=== PATIENT | female | born 1995 | race Caucasian/White ===

== ENCOUNTER 2023-03-12 09:25 | Outpatient (OUT) | payer BC, OTHER, SELFPAY ==
[2023-03-12 10:04] LABS: Basophils Absolute Auto 0.1 10^3/uL (0.0-0.1); Basophils Percent Auto 0.7 % (0.2-2.0); Eosinophils Absolute Auto 0.2 10^3/uL (0.0-0.7); Eosinophils Percent Auto 2.8 % (0.9-7.0); Hematocrit 32.4 % (36.0-48.0); Hemoglobin 9.7 g/dL (12.0-16.0); Immature Granulocytes Abs Auto 0.02 10^3/uL (0.00-0.03); Immature Granulocytes Pct Auto 0.3 % (0.0-0.5); Lymphocytes Absolute Auto 1.7 10^3/uL (1.2-3.8); Lymphocytes Percent Auto 23.5 % (20.5-60.0); Mean Corpuscular HGB Conc 29.9 g/dL (29.9-35.2); Mean Corpuscular Hemoglobin 22.4 pg (26.7-34.0); Mean Corpuscular Volume 74.7 fL (81.0-99.0); Mean Platelet Volume 9.8 fL (9.5-13.5); Monocytes Absolute Auto 0.4 10^3/uL (0.3-0.8); Monocytes Percent Auto 5.9 % (1.7-12.0); Neutrophils Absolute Auto 4.7 10^3/uL (1.4-6.5); Neutrophils Percent Auto 66.8 % (43.0-75.0); Platelet Count 411 10^3/uL (150-450); Red Blood Count 4.34 10^6/uL (4.20-5.40); Red Cell Distribution Width 20.8 % (11.0-15.0); White Blood Count 7.1 10^3/uL (4.0-11.0)
[2023-03-12 10:19] LABS: INR 0.99; Partial Thromboplastin Time 27.5 sec (22.3-36.2); Prothrombin Time 10.5 sec (9.0-11.6)
== END 2023-03-12 09:26 | disposition home or self-care (01) ==
LOC: PST 09:30
PROVIDERS: Visit Provider Otolaryngology
DX: Z01.812 Encounter for preprocedural laboratory examination (principal); J34.89 Other specified disorders of nose and nasal sinuses
CPT/HCPCS: 85025; 85610; 85730

== ENCOUNTER 2023-03-24 10:45 | Day surgery (SDC) | payer BC, OTHER, SELFPAY ==
[2023-03-12 09:55] VITALS: BP 113/55; PULSE 77; RESP 14; TEMP 36.5; O2SAT 98; BMI 26.9
[2023-03-24] VITALS (9 sets, daily range): BP systolic 102–121; BP diastolic 60–79; PULSE 63–101; RESP 15–24; TEMP 36.1–36.4; O2SAT 93–100; BMI 27.4
--- NOTE | 2023-03-24 | OP_ITS ---
OPERATION DATE: ??03/24/2023 SURGEON:? Andie Parr M.D. PREOPERATIVE DIAGNOSIS:? Left nasal mass. POSTOPERATIVE DIAGNOSIS:? Left nasal mass. PROCEDURE:? Removal of left nasal mass. ANESTHESIA:? General endotracheal. COMPLICATIONS:? None. FINDINGS:? 1.5 cm pedunculated mass of the left nose consistent with a hemangioma, attached at the left nasal valve. INDICATIONS:? This 27-year-old woman presented with a large, periodically bleeding mass of the left nose causing nasal obstruction. PROCEDURE:? Patient identified in the holding area and taken back to the OR where she was placed in the supine position.? After induction of general endotracheal anesthesia, the face was draped in a sterile fashion.? The left anterior nose was prepped with Betadine and lidocaine 1% with 1:100,000 epinephrine was injected around the base of the patient?s mass.? After waiting adequate time for hemostasis, a Bowman tip Bovie was then used to excise patient?s mass at its base.? Hemostasis was then achieved with suction Bovie.? Antibiotic ointment was placed over the incision site and the patient was awakened and taken to the recovery room in good condition. JAIME
[2023-03-24 07:51] LABS: HCG Qualitative NEGATIVE (NEGATIVE)
[2023-03-24] MEDS: LACTATED RINGER'S SOLUTION 1,000 ML 1000 ML IV (07:52)
[2023-03-24] MEDS: LIDOCAINE HCL 1%-EPINEPHRINE 1:100,000 10 ML MDV INJ (09:59)
[2023-03-24] MEDS: BACITRACIN OINTMENT 28.4 GM TUBE 1 APPLIC TOPICAL (11:00)
== END 2023-03-24 11:23 | disposition home or self-care (01) ==
LOC: SURGOUT 10:46
PROVIDERS: Visit Provider Otolaryngology
PROC: (CPT 30117; principal; 2023-03-24 08:50)
DX: D18.01 Hemangioma of skin and subcutaneous tissue (principal); J34.89 Other specified disorders of nose and nasal sinuses; E03.9 Hypothyroidism, unspecified; R04.0 Epistaxis
CPT/HCPCS: 30117; 36415; 84703; 88304; 88311; J2704

== ENCOUNTER 2023-10-23 07:15 | Outpatient (OUT) | payer BC, SELFPAY ==
--- OUTSIDE RECORDS SUMMARY | 2023-10-29 15:03 | XMS_ITS | CCD ---
Author Organization [facility] Care Team Providers Care Plumber Apprentice Name Role Phone DE, DR ANDERSON Attending Unavailable JEFFASIK, DR ANDERSON Consulting Unavailable DE, DR ANDERSON Admitting Unavailable MISC, DR FITZPATRICK Primary Care Unavailable MD Servando Crouch Primary Care Provider [phone] MD Kanu Mcghee Attending Provider [phone] Servando Crouch Primary Care Unavailable Taz, Kanu Mccormack Admitting Unavailable Taz, Kanu Mccormack Attending Unavailable TAZ, KANU Mccormack Admitting Unavailable TAZ, KANU Mccormack Attending Unavailable KANU MCGHEE Referring Unavailable KANU MCGHEE Admitting Unavailable KANU MCGHEE Attending Unavailable VILLALOBOS, REHAN Admitting Unavailable VILLALOBOS, REHAN Attending Unavailable TAZ, KANU Mccormack Admitting Unavailable TAZ, KANU Mccormack Attending Unavailable MD KANU MCGHEE Attending Unavailable MD KANU MCGHEE Admitting Unavailable VILLALOBOS, HERSON Admitting Unavailable VILLALOBOS, HERSON Attending Unavailable [place], Cyrus Gudino Attending Unavailable [place], Cyrus Gudino Admitting Unavailable [place], Cyrus Gudino Attending Unavailable [place], Cyrus Gudino Admitting Unavailable [place], Cyrus Gudino Attending Unavailable [place], Cyrus Gudino Admitting Unavailable MD KANU MCGHEE Referring Unavailable MD KANU MCGHEE Admitting Unavailable MD KANU MCGHEE Attending Unavailable MD KANU MCGHEE Attending Unavailable MD KANU MCGHEE Referring Unavailable MD KANU MCGHEE Admitting Unavailable MD KANU MCGHEE Attending Unavailable MD KANU MCGHEE Referring Unavailable MD KANU MCGHEE Admitting Unavailable MD KANU MCGHEE Attending Unavailable MD KANU MCGHEE Referring Unavailable MD KANU MCGHEE Admitting Unavailable MD KANU MCGHEE Attending Unavailable MD KANU MCGHEE Referring Unavailable MD KANU MCGHEE Admitting Unavailable Problems Active Problems Problem Classification Problem Date Documented Da te Episodic/Chronic Other complications of ; puerperium affecting management of mother (1 source) Anemia complicating childbirth; 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 Chronic Unclassified (1 source) Encounter for other procreative management; Translations: [Encounter for other procreative management] Onset: 05-20-2022 Past or Other Problems Problem Classification Problem Date Documented Date Episodic/Chronic Immunizations and screening for infectious disease (1 source) Encounter for screening for human papillomavirus (HPV); Translations: [ENC SCREENING HUMAN PAPILLOMAVIRUS] Onset: 11-01-2021 Episodic Other screening for suspected conditions (not mental disorders or infectious disease) (4 sources) Encounter for screening for malignant neoplasm of cervix; Translations: [ENC SCREENING MALIG NEOPLASM CERV] Onset: 10-29-2021 Episodic Results Test Name Value Interpretation Reference Range Facility Nursing Assessmenton 023 Nursing Assessment [id number] #1.00CD:127 [facility] Delivery Summaryon Delivery Summary DATE OF DELIVERY: 02/23/2023 The patient is a 27 year old, III, Para II, 0, white female who presented to Labor and Delivery at 38 weeks gestation complaining of painful regular contractions. She was found to make cervical dilatation and was admitted for labor. Her had been complicated by the fact that it was a surrogacy and some anemia. She had artificial rupture of membranes, labor in an occipitoposterior position, eventually required some Pitocin augmentation which allowed her to make gradual progress through the rest of the active phase of labor. She reached complete and complete and pushed through the second stage of labor spontaneously delivering an 8 pound 4 ounce male with Apgars of eight and eight. Arterial cord pH was obtained. The placenta delivered spontaneously intact. The uterus contracted down well. A second degree laceration was repaired with 3-0 Polysorb suture in anatomic fashion without difficulties or problems and both mom and were doing well in the Room. Cyrus Osborne M.D. lupe Dictated: 02/23/2023 [id number] Transcribed: 02/23/2023 [facility] Comment on above: Result Comment: Elec tronically Signed By: [place] SANTANA, Cyrus Gudino\.br\Date and Time Signed: 02/25/23 08:36 EDT CBC w/Indiceson 02-23-2023 Erythrocyte distribution width (RBC) [Ratio] 17.2 % High 10.9-14.2 [facility] Comment on above: Performed By: #### 2 [id number], [id number] ####[address] [address] Hematocrit (Bld) [Volume fraction] 25.2 % Low 34.0-46.0 [facility] Comment on above: Performed By: #### 2 225741, [id number] ####[address] [address] Hemoglobin (Bld) [Mass/Vol] 8.0 g/dL Low 12.0-16.0 [facility] Comment on above: Performed By: #### 2 [id number], [id number] ####[address] [address] MCH (RBC) [Entitic mass] 21.6 pg Low 27.0-34.0 [facility] Comment on above: Performed By: #### 2 208157, [id number] ####[address] [address] MCHC (RBC) [Mass/Vol] 31.7 g/dL Normal 31.4-36.0 [facility] Comment on above: Performed By: #### 2 119834, [id number] ####[address] [address] MCV (RBC) [Entitic vol] 68.2 fL Low 80.0-100.0 [facility] Comment on above: Performed By: #### 2 434209, [id number] ####[address] [address] Platelet mean volume (Bld) [Entitic vol] 7.8 fL Normal 6.4-10.8 [facility] Comment on above: Performed By: #### 2 142986, [id number] ####[address] [address] Platelets (Bld) [#/Vol] 321.0 E9/L Normal 150.0-500.0 [facility] Comment on above: Performed By: #### 2 206260, [id number] ####[facility] [address] [place] [address] RBC (Bld) [#/Vol] 3.7 E12/L Low 4.3-5.9 [facility] Comment on above: Performed By: #### 2 224806, [id number] ####[address] [place] [address] WBC corrected for nucl RBC Auto (Bld) [#/Vol] 22.5 E9/L High 4.0-11.0 [facility] Comment on above: Performed By: #### 2 747562, [id number] ####[facility] [address] [place] [address] Discharge Instructionson Discharge Instructions [id number] #1.00CD:127 Normal [facility] Inpatient Clinical Summaryon 02-23-2023 Inpatient Clinical Summary [place] [id number] Clinical Summary Person Information Name: KAE VIGIL/[facility] Age: 27 Years : 1995 Sex: Female PCP: Cyrus Osborne MD Marital Status: Phone: [phone] Race: White Ethnicity: Non- or Language: Portuguese Visit Id: Visit Reason: CONTRACTIONS Speciality: Acuity: DD Enc Type: Inpatient Med Service: Obstetrics Arrival: 02/22/2023 14:30:32 Discharge: 02/23/2023 10:40:00 Dispo Type: Home (Routine DC) Address: [address] [place] [id number] Provider Notes: Diagnosis: Anemia; [place] product of in vitro fertilization (IVF) ; (spontaneous vaginal delivery); Surrogate Problems Active Surrogate (12/01/2022) Smoking Status: Never Smoker Functional Status: Sensory Deficits: History of Falls: Mobility Assistance Prior to Admission: Independent ADLs: Independent Current Level of Assistance for Self-Care/Mobility: Cognitive Status: Allergies No Known Allergies Laboratory or Other Results This Visit (last charted value for your 02/22/2023 visit) Hematology 02/23/2023 7:33 AM Hypochromasia: Present RBC Morph: See Morphology Ovalocytes: Present Microcyte: Present Hct: 25.2 % -- Normal range between ( 34.0 and 46.0 ) HGB: 8.0 gm/dL -- Normal range between ( 12.0 and 16.0 ) RBC: 3.7 E12/L -- Normal range between ( 4.3 and 5.9 ) RDW: 17.2 % -- Normal range between ( 10.9 and 14.2 ) MCH: 21.6 pg -- Normal range between ( 27.0 and 34.0 ) MCHC: 31.7 gm/dL -- Normal range between ( 31.4 and 36.0 ) MCV: 68.2 fL -- Normal range between ( 80.0 and 100.0 ) MPV: 7.8 fL -- Normal range between ( 6.4 and 10.8 ) Platelet: 321.0 E9/L -- Normal range between ( 150.0 and 500.0 ) WBC: 22.5 E9/L -- Normal range between ( 4.0 and 11.0 ) Blood Bank 02/22/2023 5:00 PM ABO/Rh: A POS ABSC Gel Interp: Negative Measurements: Height: 62.50 cm Weight: 80.5 kg Blood Pressure: 130 mmHg / 83 mmHg BMI: 206.08 kg/m2 Procedures No Procedures Documented Immunizations No Immunizations Documented This Visit Final Med List: ferrous sulfate (Slow Fe (as elemental iron) 45 mg oral tablet, extended release) 1 Tablets By Mouth every day. Refills: 0. ferrous sulfate (Slow Fe) 45 Milligram. ibuprofen (ibuprofen 600 mg Tab) 1 Tablets By Mouth every 6 hours. Refills: 0. levothyroxine (levothyroxine 25 mcg (0.025 mg) Tab) multivitamin, (Classic ) Care Team Members: Attending Physician: Cyrus Osborne MD Consulting Physician: Referring Physician: Follow up: With: Address: When: Dr. Osborne [phone] Within 6 weeks Comments: Call for any problems. Patient Education Information: ibuprofen Normal [facility] Inpatient Patient Summaryon 02-23-2023 Inpatient Patient Summary [address] [address] Patient Discharge Instructions PERSON INFORMATION Name: KAE VIGIL Date of : 1995 Current Date: 02/23/2023 10:51:58 PHYSICIANS Admitting Physician: Cyrus Osborne MD Primary Care Physician: Cyrus Osborne MD PCP Comment: Discharge Diagnosis: Anemia; product of in vitro fertilization (IVF) ; (spontaneous vaginal delivery); Surrogate Condition at Discharge: Stable JEREMIASINÉSGRACIELAKAE N has been given the following list of follow-up instructions, prescriptions, and patient education materials: PATIENT FOLLOW-UP INFORMATION Diet: Regular Activity: Expect mild pain, Expect minimal amount of drainage and/or bleeding, Activity as tolerated Wound Care Instructions: Remove Your Dressing IN: Days Call Your Doctor For: Persistent or heavy bleeding, Temperature above 101.5 degrees, Persistent vomiting IF UNABLE TO CONTACT YOUR PHYSICIAN AND YOU FEEL IT IS AN EMERGENCY, GO TO THE NEAREST EMERGENCY ROOM OR CALL 911 Home Treatment: Devices/Equipment: Special Services: Additional Instructions: Physician to provide the following pending test results: None Follow up: With: Address: When: Dr. Osborne [phone] Within 6 weeks Comments: Call for any problems. In the event that this physician does not participate in your insurance network, please consult with your insurance company to find a nearby participating provider. Comment: YARITZA AponteGRACIELAKAE Edgard, have received the attached patient education materials/instructio ns and have verbalized understanding. Patient Signature Date Clinican/Nurse Signature Date MEDICATION LIST New Medications [facility], [address] [phone], [phone] ibuprofen (ibuprofen 600 mg Tab) 1 Tablets By Mouth every 6 hours. Refills: 0. Last Dose: Next Dose: Medications to Continue Taking That Have Changed [facility], [address] [place] [phone], [phone] START: ferrous sulfate (Slow Fe (as elemental iron) 45 mg oral tablet, extended release) 1 Tablets By Mouth every day. Refills: 0. Last Dose: Next Dose: Other Medications START: ferrous sulfate (Slow Fe) 45 Milligram. Last Dose: Next Dose: Medications to Continue with No Changes Other Medications levothyroxine (levothyroxine 25 mcg (0.025 mg) Tab) Last Dose: Next Dose: multivitamin, (Classic ) Last Dose: Next Dose: Pharmacy Information: [facility]- PATIENT EDUCATION INFORMATION Instructions: Medication Leaflets: ibuprofen (EYE bue PROE fen) Advil, Genpril, IBU, Midol IB, Motrin IB, Proprinal, Smart Sense Children's Ibuprofen What is the most important information I should know about ibuprofen? Ibuprofen can increase your risk of fatal heart attack or stroke. Do not use this medicine just before or after heart bypass surgery (coronary artery bypass graft, or CABG). Ibuprofen may also cause stomach or intestinal bleeding, which can be fatal. What is ibuprofen? Ibuprofen is a nonsteroidal anti-inflammatory drug (NSAID). Ibuprofen is used to reduce fever and treat pain or inflammation caused by many conditions such as headache, toothache, back pain, arthritis, menstrual cramps, or minor injury. This medicine is used in adults and children who are at least 6 months old. Ibuprofen may also be used for purposes not listed in this medication guide. What should I discuss with my healthcare provider before taking ibuprofen? Ibuprofen can increase your risk of fatal heart attack or stroke, even if you don't have any risk factors. Do not use this medicine just before or after heart bypass surgery (coronary artery bypass graft, or CABG). Ibuprofen may also cause stomach or intestinal bleeding, which can be fatal. These conditions can occur without warning while you are using ibuprofen, especially in older adults. You should not use ibuprofen if you are allergic to it, or if you have ever had an asthma attack or severe allergic reaction after taking aspirin or an NSAID. Ask a doctor or pharmacist if this medicine is safe to use if you have ever had: ?? heart disease, high blood pressure, high cholesterol, diabetes, or if you smoke; ? a heart attack, stroke, or blood clot; ? stomach ulcers or bleeding; ? liver or kidney disease; ? asthma; or ? if you take aspirin to prevent heart attack or stroke. Ask a doctor before using this medicine if you are or . If you are , you should not t (more content not included)... Normal [facility] Morphon 02-23-2023 Hypochromia Auto Ql (Bld) Present Normal [facility] Comment on above: Order Comment: Order Added by Discern Expert. Performed By: #### 2 620404, [id number] #### [facility] [address] [place] [address] Microcytes Ql (Bld) Present Normal [facility] Comment on above: Order Comment: Order Added by Discern Expert. Performed By: #### 2 950399, [id number] #### [facility] [address] [place] [address] Morphology L[place]h (Bld) [Interp] See Morphology Normal [facility] Comment on above: Order Comment: Order Added by Discern Expert. Performed By: #### 2 897018, [id number] #### [facility] [address] [place] [address] Ovalocytes LM Ql (Bld) Present Normal [facility] Comment on above: Order Comment: Order Added by Discern Expert. Performed By: #### 2 968072, [id number] #### [facility] [address] [place] [address] ABO/Rhon 02-22-2023 ABO/Rh Positive Invalid Interpretation Code [facility] Comment on above: Performed By: #### 2 619387, [id number] #### [facility] [address] [place] [address] ABO/Rh History Checkon 02-22 ABO/Rh History Check Verified Hx Blood Type Normal [facility] Comment on above: Performed By: #### 2 719444, [id number] #### [facility] [address] [place] [address] ABSCon 02-22-2023 ABSC Gel Interp Negative Normal [facility] Comment on above: Performed By: #### 2 648026, [id number] #### [facility] [address] [id number] Blood Bank ID#on 02-22-2023 BBID# [id number] Invalid Interpretation Code [facility] Comment on above: Performed By: #### 2 967184, [id number] #### [facility] [address] [place] [address] CBC w/Indiceson 02-22-2023 Erythrocyte distribution width (RBC) [Ratio] 17.4 % High 10.9-14.2 [facility] Comment on above: Performed By: #### 2 799845 #### [facility] [address] [place] [address] Hematocrit (Bld) [Volume fraction] 25.2 % Low 34.0-46.0 [facility] Comment on above: Performed By: #### 2 617528 #### [facility] [address] [place] [address] Hemoglobin (Bld) [Mass/Vol] 8.0 g/dL Low 12.0-16.0 [facility] Comment on above: Performed By: #### 2 725993 #### [facility] [address] [place] [address] MCH (RBC) [Entitic mass] 21.5 pg Low 27.0-34.0 [facility] Comment on above: Performed By: #### 2 055775 #### [facility] [address] [place] [address] MCHC (RBC) [Mass/Vol] 31.6 g/dL Normal 31.4-36.0 [facility] Comment on above: Performed By: #### 2 378174 #### [facility] [address] [place] [address] MCV (RBC) [Entitic vol] 68.1 fL Low 80.0-100.0 [facility] Comment on above: Performed By: #### 2 571161 #### [facility] [address] [place] [address] Platelet mean volume (Bld) [Entitic vol] 8.1 fL Normal 6.4-10.8 [facility] Comment on above: Performed By: #### 2 215540 #### [facility] [address] [place] [address] Platelets (Bld) [#/Vol] 343.0 E9/L Normal 150.0-500.0 [facility] Comment on above: Performed By: #### 2 244252 #### [facility] [address] [place] [address] RBC (Bld) [#/Vol] 3.7 E12/L Low 4.3-5.9 [facility] Comment on above: Performed By: #### 2 868150 #### [facility] [address] [place] [address] WBC corrected for nucl RBC Auto (Bld) [#/Vol] 14.9 E9/L High 4.0-11.0 [facility] Comment on above: Performed By: #### 2 958990 #### [facility] [address] [place] [address] Consent for Procedure/Surger yon 02-22-2023 Consent for Procedure/Surgery [id number] 0#1.00CD:127 Normal [facility] Consent for Treatmenton 02-07 Consent for Treatment [id number] 1#1.00CD:127 Normal [facility] Consent for Treatment [id number] #1.00CD:127 Normal [facility] Insurance Correspondence Off iceon 02-22-2023 Insurance Correspondence Office [id number]#1.00CD:127 Normal [facility] Legal Correspondenceon 02-22 Legal Correspondence [id number] 1#1.00CD:127 Normal [facility] Recordson Records [id number] 1#1.00CD:127 Normal [facility] Vaccinationson 02-22-2023 Vaccinations [id number]# 1.00CD:127 Normal [facility] Group B Strep by PCRon 02-19 Group B Strep colonization by PCR Negative Normal Negative [facility] Comment on above: Performed By: #### 2 134533, [id number], [id number] #### [facility] [address] [place] [address] Physician Orderon 02-17-2023 Physician Order [id number] 2#1.00CD:127 Normal [facility] Physician Orderon 01-14-2023 Physician Order [id number] #1.00CD:127 Normal [facility] Physician Orderon 01-07-2023 Physician Order [id number] 2#1.00CD:127 Normal [facility] Coding Summary.on 12-01-2022 Coding Summary. CD:[id number] Ww+PGhlYWQ+II8NUAHbT 32dqRYyuR1aJ1TCBDxIX ywgQVBQTElOSyIgbmFtZ P9ilRVtUIWa IC8+NL2fIFQmZawidJCc y1O0vIX4E34elq7pTBnu jPR1OAQgXeBzqhmrb4ns sBp6KGxnGaauIsVy DRPvyW16CAG5rK59Ob48 jQXepWMnh9bfhUr5AwBv GQGxKGO0sZetTBrca8Tf VFPiB86bvNZqd1A7 IGNvbGxhcHNlOyBlbXB0 hM6oWAvzqasqz9zfwctp Ojr3by10pCZlo0R1wPB3 E4YngdI6GSOdfJMc FbovnPGUwM3vbydul6rs yphmRmNqQNJjLDi6GPq8 SUXdpBzpAzScRZ77UGU1 KCLxyxYfA3YuFINr dZymMhK3m3Z9Fx9OU0LX VgcgG9EISIXMRVunmNR+ PT43zu35C7IjVbewBfx7 JABqFSR5mWC9wG4g DXCiUYaro2P9zFX0H7Wp bsBrqi9dq8aoLFLyGVjs T19zrNZtc3G9RTBecPI8 CBEzlUbiPvBkqS63 Oyc+EBGzqPupt4YzHtlq g6ukj4ekgAi8QnwpQMQt ekJjpCqiWLI4v4BlBb1c SQHebCD3eMU2iU6z EzCkIiC5UTkvM923MxPo kZJeBosuH54kL4HefWT+ MSPiOna3WTDicDeuRH4l P3YgTEUnfgijvUPg xSesHW8uSWOrvbtyVIGf pV3qMWBqH9d2UnHsUyG4 LMbnY7OxSNKvrimySd42 wF5aXnKbOxT0NMwz P4IzulD4RFDysTQuCKah CJP1V50zo2T6YEOhOWJq PCH0dNE9yK0yxPdrldjt bGVmdDsgdmVydGlj SWwwKUoaL083AHSvcPpl PkNvZGluZyBEYXRlOiAg MDQvMjQvMjAyMzwvdGQ+ SILcSRR9dAflFCOx xCNbXOofWu2zeRsejAku DI5sUPKpncabHSNojQ6t THFiwOIsyInqXX2aEJGb taeus901MaLkLXJ6 JNOdpSCmS9XlbU4oMdHk ORMpAVGkC6TnxJHfRSuy H155VVwbNuP5GBOhjhFn Y4DhYOPcuTkkNvT8 x4Z9Nx0Xo9QjgvohO2Ym iSWwRxViEusdYCg1R8Te PjwvdHI+QM85LEVbMW29 DRt9YUB4vQusAMjv ARAiT0BuuC0pWtLiAZUw ZGRkOyc+PHRhYmxlIHdp ZHRoPScxMDAlJyBzdHls EH5yEb4bFWEqLQTz aZayrQQwTvFhz3rbEYOf CYmdFE9hyCjzN2FggAP5 BHZjh7a1Ws15N23wW9Ot dXA+FFQwtKN8jGZ4 mZ8dDlWdZcO4REtmW077 QhIrlPFySfotr3nsa2dv wCi5GbZ9GQRrvrFzoFpn UTH6z6RsSe85N93h IHdpZHRoPSIxNSUiIHZh pWggaw4smV7vWy4+PGNv oHL9jST5yN9wXaSaNtD7 ONqgH719FnSwpEEe Ounua3bhq7jvoSs7LnLm UGFhsoMmfRfoQKY2x8Af Ok08G2SzaSumb0KhCmf3 wl53qDVgr4H3sJX3 L6OoAQFdeymquLElbRhl TL8aVTWmvwmiPOHytY1x TAZhC3q8QrWeHyV4BDym E9QnheF1FKXqiQYx CQFzgQCRyU0gjltmc4da jksvZlFjVVIlXHn3UEi0 YPTqaJwwFqLbEPR0UjM8 RWP3kPFeyN4wlIbs exfvtW4uYch+JAB5xASg aMQZXC9wZvonkDJ+PHRk AXK5eNonGDoqICYwvC6u VGDeZ1i2PtEnUdY1 FVypV8HxksB1GNQufHLr QKUqsHJBaF1gqhyxz1wg jhefGhKaDYEqLFg0REo7 LWFsaWduOiBsZWZ0 GlS7CVN4kLCuqB3olUkk zzgpoL7jNhz+QmlydGgg CVD5PHv8N3YiAdf2OKQq eDpmYT1seXKjOAly Ay6kpCmrsDxbXD2sNRVo pefaz743MeBkh8brSLIt xTOoTDnsFVE9A65gm8A8 DDZjWMLdLHP8xPH2 zX9ovHxuokudfSYyrWtd teNnmWxtPLzyIOgsA892 CHJlfVkuOjSkUGq7M6Tf Fhp0NJQvrKdyHX9u hDAaDAvoCz6btUdchAbv TV8gBBNwiujwa322NdNm z6ovFXYrmIIfYMzaBGF4 L37eo0V7KSRlCLYf WOP1yPW1bX6jzOcaigwk bGVmdDsgdmVydGljYWwt SVkpQ311JMStgUvvPzVj oYs8D6PxWhq3DFCk eFfgNO0ngATfFFauVs8d pFcpyRpmTO8qZUMsjrki p827BaTwz3muGYBdkOJd UWjrLNV9G18cr4H6 TNRlAFZuZON8jRN7vA9n bGlnbjogbGVmdDsgdmVy hRzmAQpkIHviT964QWCu cDsnPlBhdGllbnQg QOkyUFv3S8FkQchrwIN+ XJ79DWGnQK95iAHpqUWu t1rodGe5SjXlZYJhTTU5 aItjXTgpj3PdOVHl U07mxQUix8O4MUJmrWwh sLPcDbXyiTU5nX9rAJpu huulm5kvknvdGjadg1hh wj85vC59U03wJHsi ZHRoPSIzMCUiIHZhbGln gf8hzD1wQc9+PGNvbCB3 nDE5cS3mSMPiXkP0ZGfb D639YePqnVCqFpwo m4smv8szySf7MeB8UUIs bkWzeCjqFEF8w9BkHx06 J65gVSetZDArOQWcVNIe YZKpjKljhh2bbX7z Ii8+WGDyvQG6zVL8mT8m QzAlXuR8SFagU514WrGe jMHrGayxE61oE9RliDZ+ VEPeSpy6NLTemAge TR2brLZqFTaePa1mYEK2 EyKlLwSmIVgrA1JgAJIq ukamfnnnsFX0TONeKODm aE54Ib3cvBfrLXYh fNIPwE7lydlge0eqjoic QyYtQQIbMNf2MMt5UPZr oTqpYiBiZBS2VyF2XRR2 fHJedU0qwSpinozt rX2jA0MsJMQeierfRn07 wU9iMwIpOoE1COjhSuk+ FuJIN1veQFcOGUGIAlEw TjwvdGQ+PHRkIHN0 xCspQWvaGVFcwX2iMKRh N7q6DfTfAvH7PScaF1Jc RWUynfmwKk81eQ3pMvUm QxZ0DUmpJ5FnpgR8 XMJajCXuMLnuZCH2S91l t5Z0TGAeFLEeUSU2gBS9 tY0cdUykoawecVFmvCjf dmVydGljYWwtYWxp Y371QEKgnGszNcB2IxC9 ZpF6OKY7J4EfBwx7DECb yGdvIM5xeVDyPHtpLh6q uFzbmMtjNZ9rRCMh hakkTFAygI1kBHQsrPAw gDlhUR6fHJEntethg356 HlVzDOA1QNDrgBNzD3Ef lT2xRhHcXMSoGWVu W2RynXAdHHnmO887UQth UeJ4ASJbqjMgA4XqMFFf cZynYnN0a7A3Qy2uSeFS ZWFyczwvdGQ+PHRk BLV8yHzsTLyaEYMapH4i YEJcY2v4QsTfPfS7UGzc X5YtPHArdbvkDf61eU2i XkVjPlI6GJlcF4Qz qqK2QRMboHPrAIgbIVZ6 V19wg1M8PISyULMeRBY2 sSI1oM2vwWhzcbbxbFZe dDsgdmVydGljYWwt OJlnY505JIUpsYeqCcKy bWFsZTwvdGQ+PHRkIHN0 bYhvMBzzKFZaxN1nLATk V0t9MiEhSzX2SJpf E1QfXKMmzcfrKo99vB5u AkEoRrS4BKpsK8MhzfX9 VKXbgFOjODdyPPL7A49d t9K3VEZxUJStJWN0 zKO1pW0avNtfsumjePZu dDsgdmVydGljYWwtYWxp W473CTWmkFjsVx84wKXh wJzqtlH2M1FrFusc dHI+NP42MMCzQZ82eCUv kNGxh5pkzTa9SdYqZTQt HAE3lLdfMOplv8GyDODl P34gjBSnm7Y0GMTh rNjuqUSaRgZtkYK0yE1z TKamkjkct4pvjvumJdsj n5fswt83zU06J56lZSxk ZHRoPSIzMCUiIHZh qMqvnr5xpZ1rYp7+PGNv eWB9nEN4iV9iIxXcAvW7 VVmbK329GsKzzHOpGhsu c1mkt7estYr0OnKm JISvjaEtsItuMPC1w6Qc Ob20I60lVHukGYDaOWTi MEDmRAXfpCpqrr4oaH2d Ii8+SO0cq5gpib09 bB13iDU+BRDkAFS9cEmf WWzkAEXyfL3qQNodTdO9 ALKsCrOjnJ92gQOvPBrq Iz1rvOoxkSuhZR9s YWBnhqwdq712GxJom0dj KHDymNZlXRqqSYW6X45l c6D0DPLcYDJwNKS3kWF7 eB2nfTvbxgzgwCSb dDsgdmVydGljYWwtYWxp K869PCIibLfzQvIgqUWs X3jrigHSPH3qUufbsEW+ XSIyVDV0lBdwLJpn PQRzyH6vZORyO9p0HlBs QpX9ZIddV4AfrpV5UZOj fNBsKMSnpMXUqM3ntnul r4dxaepnJpOhHHLj NAh4WQn8QRNubTqjWeSk XCU5TmM4CZH0zYBxzI5e xEcxoznuoH8dEie+RklO OjwvdGQ+PHRkIHN0 nAzaRCwhQZAxxH2zGVOt U1k7WcXpQuD4GZxkZ4Pb muN4SUFjwBZxBLEwrYGZ uS4ljueqm6oncxuz EcFtBHIlUTn1OVp9ORYq cHynIdCzCDB6PkK0GEL7 qNEuuM1qsBeyqwxotM0j Oyc+TVJOOjwvdGQ+ LFWdOWQ9eFitVDagQYZc eQ6oNHCjS5r1SoHcVoW9 CVcfI2EwjiW0TXQvcNCf IHIysYHFgE1uwswg y7jajayuIdZgWEAdQJa6 TOn1IFHyrCyqMlZqBPH7 EeE8DNS7dYCpjV8usJcx nbcsyT7zLld+UGF5 DZQ7XF20NG34J6AfKwej dGFibGU+PHRhYmxlIHdp ZHRoPScxMDAlJyBzdHls ZI4hDy4vKEKjOHCo bGxhcHNl (more content not included)... [facility] Coding Summary. CD:[id number] Ww+PGhlYWQ+ZP4MXTGvW 18wtDFjdS9mB9OKICqSN ywgQVBQTElOSyIgbmFtZ V4jtJFjJYQk IC8+HC5eWJYfEuoulUGi n8Y9tFW9G21jgs2xKEuu wZF7QHScSyXnzzdxv5fa iSv1ANprYkbeCzYc PHAxmJ37TCM6zE25Mr11 qWMxyUHfy1tauYp9LtVp XTGaXIM4uMsyJMlje4Ja QGRxC26qvDZlx3V9 IGNvbGxhcHNlOyBlbXB0 mP3xGJgdrmpxc0lmdkpm Bcd2wp17xXBub9U7eZP4 R1JynhS7HOLsbFSv GgxaxZWKhY4ajfodf2rl eineSbMkMVApEUw4FMo5 TLGwkPnbQmHxWD39IGI1 RPJzdkWkA2WbJZDp zKqsMnV1y7A1Gr2GB0WL AkqlZ7VCXCBLUCrikET+ AD98hj08Z2IeTlskMvc0 RZIoSZX6kPW1kI2l HAIsNRnbl1S1xNM6G2Xu xgWjaz3dq8lnFWElVPfh J54ziZAuz4Y4STQkkUE6 GAFraUirExMszB59 Oyc+YFEejVyig1VcAddw o1qjv1zbyGs3LqqeLZFg oqFpzAruXBN8v1AqMn2b CCCwkLG7rOA5dS5k SnOuLkL3XTgwD539RfZr fGTiMofgV71lU5SqgXA+ EFZnSjq7OKRtyAlcUT7i B0OlBKAmgxjeaDCx aUdlQS5tHAXoffewHPEq jE7oZKHeQ1f4JuTvWxY9 NXhoD8VnYVZgdyibFf13 jW1rFlQiSlS1QXtw Y8KuwvV2UDAppKLcDXjk HUX0G00fc1A0CFZjBUAw GWO2nLJ4xF5haSrfsyxr bGVmdDsgdmVydGlj FBriSSelR190EFPrjLqx PkNvZGluZyBEYXRlOiAg MDQvMjQvMjAyMzwvdGQ+ OMIuLPO1vPiyGCRe tFFsGYheOv7zrPpgbFcm ED0kUMOqvktyROZdgB8k CMFtlIKahGmpBB7tWXQp twnnc996PxFkDPN8 QQJrmFFwE7SiyF5aXhAa JGOcTVUbI7OgcAEcSVeh Z879ENuaPfQ6FROwoqLj I6RfMQXpaUatKgW8 j8V8Nr1Pq8DbpzjsQ8Ow gNItDlUaQbmjXSb1Y7Cf PjwvdHI+IS78USLlGH70 SNb3HHK1mRchVAiu TKAoR1GfgS9lIaNaGDGs ZGRkOyc+PHRhYmxlIHdp ZHRoPScxMDAlJyBzdHls SZ8dVm2lSGZtGAMh bBbuhPSvYsPum1bhIZNa TKapDX9fdJedO9GmgRK9 QNUzd0x6Ke52D90pG7Ek dXA+GFJzkDE7sDM7 cJ7vWfPpRxB4DRrqN658 UeNddHEjVmexv4gny7ws dNm5YfF5KDEtbbKetZoh UHZ7s1EvSq59Y69n IHdpZHRoPSIxNSUiIHZh pUifoj6mwE0zBy4+PGNv kQF3xUT7pA1fTeXcNfY7 MUppU066PkVbvXUk Gvvgz0xfj9qucAo1IdEc GEVaykXzuFnbQSG9z3Wb Bs31C4JxfWmev8VvThj8 il52iYUwa4A2mUC0 J0LiQXEjoobwsJDonFhe MX7sYXIlgvstRFLthT0z NTRpH5m6WkEwGgW9RLza R4UnddI0INRdsQRm OYVmmGTLvH2nurnel2hl nozmDxEzVJGxKJn8FZo1 ZXOhjZzmFqDnWDL0KoW3 ZXM6yXDqsF4giNjz turzzX9nCvl+CED4cIJl fBELAO9eVfkmcSZ+PHRk HQD5pKxjNZmxSCPmyC4k SQLzF0e5AyQaEnG2 BBmoE6SzroB2WRJlrEGa CCEajRQQnP1chziyw2gv sahrQtIyFCBuKUq3GTc6 LWFsaWduOiBsZWZ0 NtT8RQX8dTGatY4tdBon uckukG5hCip+QmlydGgg HFL7JTx7G3DiCok8TEMn sRdcPI4ioKZqSQzp Lq0tpFpofYbdCO8hCLTt pcitw178LmHqw6suODVv zHOgIPxwKJP9E14cj9J2 QYBvUDRiEQZ4vVC8 cU4vpViegllmsQHjiUux nvAyrLgrOPtwTHwqB161 BIVenUnbMwDgACi8T8Xs Crx3QIAgoLzlOM9f zBKgWHevDq2wmPpzuEgk TQ0yEBNbxtgww174NqKf e5ooFORxvMGuOEkjTGU2 B81ub1J0XFAgJLYz OXA7mEG1iP5igMzyiody bGVmdDsgdmVydGljYWwt FPyqS666SLHilDlxWtDj nLu9L6WzZsi2AEUs uRhmPZ8hnUYlUYzdVg1g kTwdgDqgTI8pYJYsyrww a921KxOgl3jxMVVbnQKq ZZdqLGV8G38th6A9 XRRyKINbNBL0pDT5jV9p bGlnbjogbGVmdDsgdmVy iWmeTUurPBnqT101YMMk cDsnPlBhdGllbnQg HVpmPUh4J4OqDxkqdCU+ FK39MWOoOF04tDQppUOq v4oqhAh1RoQfGKTaWBG4 yTbwGFonq0WcPJBr S75cmLOux5S9CUIohJad zCSkZrKroIY1yH0kZEfc exbfs4bkuiriTwfsx6op hg93yN96V59uXCoo ZHRoPSIzMCUiIHZhbGln wh8qhE0rAc9+PGNvbCB3 eMK5wQ8vGOXlStM7WAlh M810NjUchFPwRemt u4tkd5omfRy1PiW7EUKi acPlvWtmWZI0a3AzMe38 C80vHTgjRQTgSIWlBQSg DIMfhWenww9cpG6h Ii8+RYPxnQB7fHK1cV4g EaNbWiQ1XHmuR994DtWu bFLzDoqeI82lI9WycHX+ WCTuTjn3AMVacKfy KB8keNVtZVgzJu6eZOA1 AgPfXpPwZWyuV5VnCMId nskldzmntPW5BGLoSDCx aF44Ji3aiYuiYYQd dMLJxC7csxpkf4ausfrj UjObLITjXLf2SBx4UTPa uDwtGmFqMTJ7OaW9CAA6 mCMiqT0ntZuiuifj gB8iO3PoFBYxordfNp79 oD5mTtFoZyP8KXckUxp+ ZnQOL3zeLLfUZANICvYz TjwvdGQ+PHRkIHN0 eTkgRRyvAXBopD1mONIv S8b1WjZkLfA7FYlhD8Wa ZNIjflsmHp16xL0dKrIy NrX9FAiiI8MlfyD2 VSChrDCvMCbjRXL2M37p w5H7YVInNRUtHQU1vPE8 sY4vfGhogzqxzAHcvIkq dmVydGljYWwtYWxp C319GEIqpHkiLzS8IhL0 FxE7HHT5X9LcJim3PAVc lTdfIO1szTBhSGmeXh0p rIteyXfbJL0oXNBz nzixIPTegQ9tINTcwCMq hQovYN3zBBBqfxcfy915 GoJuXTQ5BQRxiEXqM2Fp sF2yBmSnAXVcMGFi G6OwbENgOKwiY338UFmx GhQ3PVIilhJlU7VuURWk uFseRyG3i0U9Cu7aMkHF ZWFyczwvdGQ+PHRk HJY8mUzqAFvlSXEbtO6m XUYxR2z7McAxPyM8OYpe G5TnGNYyvhtrMa66xX5t XnGiGpV5EFhwI0Jo ldU9JDVwlALuTIerVGV7 W58ij8Q2GMRqNIRzASS2 eVU1zV1omIksvfonvZIr dDsgdmVydGljYWwt CSlzH532VHRhzNobCiMt bWFsZTwvdGQ+PHRkIHN0 cMfpOShzYOZpxD6pFNVa M5a5PqChAhS7OPsa A7EpPBLaczqcLs23iS6y FkHpZaZ6RDgoM4JaojI0 XPPehQDcWMhqLYO1R03h b2F2ECLyMTHsXOR0 aZQ7yZ1atJcdignhgSFe dDsgdmVydGljYWwtYWxp K990GKOuqUsbKv32nMBm kRwcejH5N6PzLbeu dHI+JS78YDYoMS03yHMz xZJfj0lqdEq3NoOcSMQd UYB1nMlnXSgox9HfYKBa E70cqRYtl4B0TIHk wRionTYsCkYfbXU1cJ2i TDomvharb9hldiptJfmt y9qodg46hA97I58fYPet ZHRoPSIzMCUiIHZh rNfyrx1ygC1bAc2+PGNv fIS4wQF8oO0dMdNmVlQ4 YPewL167LgDjwFZwYrxd b7zrd1budZn4DvWb DDYnwmFsgKbaPYR1h6Ps Me30A37sCAqcWIBnPIKg GUPfPWXsuHrpqr1gtG7d Ii8+TY3el2tvrp73 bQ90iSR+XRHrEJI6uSyb VIjqNXZalN5gGDtsAzM2 UCAnXyEcnZ01hHZeIJaz Yi7cuMdbzYhhAD0o HCSohxkug398BySfp8ee WRUlqVRzRMqrBCP4C19l x3N4MRSwGVOmNIX7tLV8 uT8iuWsayxwtjSUz dDsgdmVydGljYWwtYWxp V661RNOzaWglKjYiyRTz Y9wapuOSDE4hQquyhSK+ TSRwAWR4dGdaZMge PRXooV0oGNSzG0x3IfEn DhT7ZXhzY6EsppX0XSEe zRLgHFYsvUMTwA5hqcrs b9oghbjkNlHaJWTh GXg5LFf7ASJbnSvvNdNa KQD5XpS9INT2bQQttI0b kObnbykjqB2nGch+RklO OjwvdGQ+PHRkIHN0 lGslYDuiLRYlpE7wOZUa V2w3YcCkTyB1SQkwQ9Ox paB4LHGgfKBgFYYmrJEZ qC9rknvko5ggzdkj JtBdUOXmEZa2UAt3WZEk wGlzNvWnHJO6WoL6SSI0 qTMqkT1rnOfiijucbC6q Oyc+TVJOOjwvdGQ+ SMLwNKS9fTooBNgjGOUz bD6uUSSeK2o3IaTcKkA3 BTlkU5KeuuE1VISmkPHz NBKslSUPxL5dcaes d0dzofvqFrWqESNhRUj9 QAv7AIKwxFdjAfSzUWK9 IyL0RGE8yEChbB8vrYzk afipoH9hBvk+UGF5 JWF7DC21KX88M2EsLeqb dGFibGU+PHRhYmxlIHdp ZHRoPScxMDAlJyBzdHls CQ1sQm9gZVPhCACg bGxhcHNl (more content not included)... Normal [facility] RPR with Conf Rfxon 11-28-19 23 Reagin Ab RPR Ql (S) Non-Reactive Invalid Interpretation Code Non Reactive [facility] Comment on above: Result Comment: Perf ormed at: [facility] [address] [id number] PhD Rick Lee Performed By: #### 1 [id number] ####[facility] [address] [place] [address] Consent for Treatmenton 11-08 Consent for Treatment [id number] #1.00CD:127 Normal [facility] Gest Scr Glu 1 Hron 11-26-19 23 Glucose [Mass/Vol] 79 mg/dL Normal 55-140 [facility] Comment on above: Result Comment: Posi tive Screen =1 HR > 140mg/dL Performed By: #### 1 [id number] #### [facility] [address] [place] [address] Hct & Hgbon 11-25-2022 Hematocrit (Bld) [Volume fraction] 27.7 % Low 34.0-46.0 [facility] Comment on above: Performed By: #### 1 [id number] #### [facility] [address] [place] [address] Hemoglobin (Bld) [Mass/Vol] 9.0 g/dL Low 12.0-16.0 [facility] Comment on above: Performed By: #### 1 [id number] #### [facility] [address] [place] [address] Physician Orderon 11-25-2022 Physician Order [id number] 0#1.00CD:127 Normal [facility] Physician Order [id number] #1.00CD:127 Normal [facility] TSHon 11-25-2022 TSH Qn 1.99 m[IU]/L Normal 0.34-5.60 [facility] Comment on above: Performed By: #### 1 [id number], [id number] ####[facility] [address] [place] [address] Coding Summary.on 11-24-2022 Coding Summary. CD:[id number] Ww+PGhlYWQ+WW8TDZGyN 69qnZEbnM5tZ0JVLMyJJ ywgQVBQTElOSyIgbmFtZ W4joTSqWMUy IC8+XQ0aBGBbJzfrgIWn m2P3iQU1O10cbr3oRAtg qBN5KNVqVbKuijrcc5sn jEl5WFoeNuhySmWf GAXgmE69XMJ7wB14Nx08 nDMhvPNyf0cggNj8CgKz HDNnAZE7fNphILpfk0Jj XRYlG43nlNCks6R2 IGNvbGxhcHNlOyBlbXB0 nG9jPSjcdvrkg3fntvrl Xyc7wb65yJUar6U7cFR1 Q6EoalP4IHIazWFf RlkkjREZjX4pxjnjk9aa kmovByClQFOmEXe7USo2 JQTpgGcgZpRuDR32YJK6 YSAebtUiH9JpPWJo tMwqYgV9r5U0Fn0ZZ7QL EtwzM4QASDAOWTvbwPF+ JE14ws32H5CrQwyrIrs3 VHAnGDC5yUU1oD0u DSXqAZpex1I3vGK3F3Do hbDfsa3lz1ncYWPoWGun U60saNBew4O8YFLdkHB6 TOSwnWepMlDdoL35 Oyc+RRIxvIedd1VnRoxh m8ivh5dktHx4PsnkHXWe xgPawItqEXP9e3LyGp9p FQIjeDI4nPM6zJ5r UyXlQyM3QZhfY146DvYp dOShMhxuA30gD0SyqLB+ MNHwPyi2JXRieHyvUO7a T6LlVHDksszruYFw sOosTJ3bYWPwlkqyPTVl nA8pPMEmJ3c7NkUbObJ5 HWewE8HaNQYdptynNb18 zN7tIfYlJeQ1ODad D9HarrD4UGPioQVwQDrf XDQ1K08my3S5NLWzWZVp TCU4nFN7rJ6cfMjkxvxj bGVmdDsgdmVydGlj UNjwDYkvH915RNDcmOvp PkNvZGluZyBEYXRlOiAg MDQvMTcvMjAyMzwvdGQ+ AUBuLRW3zBzhQBQc iFJpTRitRl2ihOisuQfv VF5lPODfofrhHXHyrJ1n DSCmbTHrfCzgWA5gXZKc etmjm317DhAwILH8 MOLtrBKzG6TnsV2gLtGh WDHeZMXzO1AgaTShEYov R729ENofRoR8UCZpblSo T1IhPYNzxKpbEcF7 q4V6Vk7Nn5KietseO7Jj iOTxVmYsUsvwCZa1L7Ef PjwvdHI+II61IVWuSU55 UPs0ANV1vKleXRlr WHJyZ1XieV7nPnIhDMVs ZGRkOyc+PHRhYmxlIHdp ZHRoPScxMDAlJyBzdHls OC4cRg9oDKFxFYVp vDdzxIMuUoQsk1hrDFDc PQazEM2trRwlY9KkhEG5 DBClc5x1Vn46F44lH2Xh dXA+JCTbkTK6bRL2 eA7bUzDxJwC3FRujI876 NcFscSLtLamwh8jow5cw pEo3ZuB8DAApdaGkuIky WEX3c3MuKc30Y27x IHdpZHRoPSIxNSUiIHZh dGfcch2htV8cSr6+PGNv cLY8sHM9iK9kAvSbEyM7 KMsbA434PzHczBQi Agfoz9krx8dwkAs8YhSq VIIkwiTtnLjyHVJ8i9Pk Gt45R2IoyRsti8AxCey1 gw67wMDho7N7jTF1 C4NdUFPghfdpzXKveHvf SI1sSZEfzguyAMUzjN1i WGSiZ6k6CxChRpH2ZWke W0EjetB1ZTDsiRXb XHQfvHRNmK2gnuvir2sh zigcKrSwJSQpFJk3UJk2 LZSonLvgCiBlPTN3RrN9 UTX7qFHfhM8xlPuk kqrhtM8yOka+CLV6pQRm qKUBTP3kXfxqeRB+PHRk YBE2wHmtXBnrFPOrsX7j WXGdG8w4SeOaExL1 KMueL0WejuK6GZZqyBKp MRKiyHRDdB7rwkkws9ef zbybCoBvZDTqKKm0UYg8 LWFsaWduOiBsZWZ0 OaC1KIZ7zPZdjE6ysUzc ngztnH2gGzm+QmlydGgg LZM3UUd7T2RuXnt9NHPn uThzAZ6ksDSbFAxg Xg0cxOjztZwyVM6cBBZt tinoc257PyGjx3hrHYGk aBKiFZeaOGM5M69fm2P5 IGAfEXCeFEV0dMK2 sG3gjUenrdljlITetLre avNeqDsnOXayHEvjR791 WQBfaBpaBwUfOJm6V6Tg Dgz3SGTfaGomLJ5u lESvEXnxNf4giTwymWzt NU1kHBXihjone468OeFo e4wpTOPzoFYnBRxhYAR8 S14zf3J2RCUmFKSv LFQ8aZQ8eX7bvJnjbhul bGVmdDsgdmVydGljYWwt RIgkZ449NDItiUraByWt mBl5L0NiChh4RBUo vOumRY1jzVYsDWfzAe8p uVdcqFfsOJ0tLPDbxusj p634UkNdf2nbWJYreHGl YSwxGDM5M66wi0C4 ENOaZOFlLYQ1qFU1nX4v bGlnbjogbGVmdDsgdmVy qFhaNSlwLWduQ312JYZp cDsnPlBhdGllbnQg VGifLZz8K6PtDafmrPM+ YF05VLCeCW25mIWopGEd q4ntkXl6KkFgITIcZVR4 oFxhVMwrd3BdOVOj R71xtFUfz2D6EFOtsPeu uDOaCcUmlQA9fA3qBDpy vryil4baiwmoIdhkp6jq ce83gS89S36zAWoh ZHRoPSIzMCUiIHZhbGln lb2raB7nDd5+PGNvbCB3 nJB0hQ8lAKUoZsM9HYbf Q316ApKjuMUnDguw m7xms6egeEn7NgD6XRIb nhLemBspONL2m5YsSy73 G40fERdlGGJhLOYiMOPz YPUzvVhfxz8mkN6u Ii8+PPSfeKW2fJD9eB3h SmDkNpE4ZJplC147UgTc yQFeNytrN80nZ3IwtVQ+ DRMjMld0PAIsvRyt JN4xgFIiIMevHu5wMZH6 FbReUbOfSBieQ5SkYAWi xzmxavuscEZ1UECkUTHp uF63Ct8xrUnzGWFq yAABnF3qkproq1llfofy FkGpVYXjODt6JAf4DUKs kVomXbRgNGX7VyA2FIA1 iGEsgX1qtQaijwno bN1fJ8YnFNWyhbaeLa70 oZ8zRmRdVuY3EGrwVim+ AaMIR9yyMTxZESOEJmWx TjwvdGQ+PHRkIHN0 oPafYSusLNQicP3rFQWx K5u8TaRoBgV3YZjrV5Vd UKVleqyhEg16xM1gHsTu UpI2UYwlU3IhbjM7 GKNdqGHbNOmlBLG8H10l r4H0PYSbBCOqIXL3dPZ3 kT8grYzyrnzbdZWvkDym dmVydGljYWwtYWxp G857PUFclJvvVbA4NlG2 DbI4AQV5D3HvCgm3HNNo zJzlAT8bnSVgPJztRb8i uLahuYpuBP2kECYa perwQQGlmA8sHKNfnOBk bCcwUB5wQIAldivyp181 OjXrRSB0PDSrgVJnP4Ga yU3sIzLrEMOeBSNo P0DoxLUsFEvqS995DFbd UqY7VBOieqRzV8QwBNNt zFmqOkF2i6B5Eu8eObJN ZWFyczwvdGQ+PHRk SOI9bOuhVSoaSYOerX6n DPErB2r8IsDaCcK5YYbb W3ZkVYUhzrakBs84aG9v NoPnOtH5YOoxV0Kh ctO1ECFfbMXeYBruOCA0 T47tw7T3VCZyNAPeTWF5 rQR8aN5kxQlnwghkdNZq dDsgdmVydGljYWwt EXmgP553GCPbgXdfMkWs bWFsZTwvdGQ+PHRkIHN0 aItqUJryGRSfzV6zQTJw X2z4FgNkGjJ3QYvp L4VdNJSpgvgqOl72bT0m AaPyTaQ9WZgvL2SsbmH1 HLWwtZKxSNeqHFG9R39r r3U3PBRkJFFdXFI7 lUB4sU8foTubegpljKIt dDsgdmVydGljYWwtYWxp K123IUIacZyjLu64pVKg mKaujeI8C4FqNvqc dHI+SI07PEEtDP88gGTv lYFbh1mqyKq5VkUrQNMi MQL1eLvjQZlnz7EdJZBs K45rxLDmd7O8KCNy nCzfxWLvKwGajHI9bS0z HGvhfgfpc5pcpjdbKctm r6hkkr88oC72P12vFRxr ZHRoPSIzMCUiIHZh aNrpse7woH8qDi6+PGNv fAE7iHZ1tD1hSaGgLvR5 FThnY430QrMvlBUmCive p1ofv9enmKp7LdPz ATWqoyQraMwxYCM8p7Cu Kn60M69oRPelMRIxSMQl ISGbQKBtoSyawv3vfM0s Ii8+RQ2vp5htnv56 lR05xDH+FFZzVUF1yJor LRmtFGCxsP7bXCjfHnJ8 QHCjEyNreD90lNReRSuf Cz6dfPldgXakKD9w ABJzzsosn519YcMvw9gq MLGtjIZpOMikGDG0Y88w h8E7WQTzAUEoTVF8tPM7 fB4nwTqwuowmgRFd dDsgdmVydGljYWwtYWxp T682LSSobYhfHgLbhPAm R5oqkkJPAY6nFmyhmOU+ QPPlXZZ1jRptWZod CZAozW7nUAHeY6s6SnJw HpU7OJwwP1ByokA9AXUt bXFlEDXvxHCFcD9xzogd z2dludixUkVjVIBu XAf1HKo4RIKvuLalQrTw KSN7GrZ6LWP9wABdrA8l hIpjthxdsQ3mZcx+RklO OjwvdGQ+PHRkIHN0 sUrqMKfxWJYbtU0pATTw T1q1RpQbZdV2MXynS1Jc keA5GIValZSkLVOwvQZD rT6zefgeo6mhkyat IjZqFAAzSTt4CFs1FSTs bRpaRlJaBVW9ZyP3KXD1 uCMqrR9ooVcncefcpA9x Oyc+TVJOOjwvdGQ+ WHNiJBL2bUtgZCenXZUm yH4fAQOfO6o4NcYkViV9 MXvaF0UikjW8JZZadNNm KZLpqZANzC4gqcaq y7lpfpnpSaWsZGRhPVr7 NGu0ZVClvCkiZhNqRLD7 YtH7NNV0tHHzwZ6tnAbl rbjhoB6jDfk+UGF5 TUD7QG89YT56R9NgIjny dGFibGU+PHRhYmxlIHdp ZHRoPScxMDAlJyBzdHls HN6tUm5uUYRbVLKm bGxhcHNl (more content not included)... Normal [facility] Physician Orderon 11-15-2022 Physician Order [id number] #1.00CD:127 Normal [facility] Coding Summary.on 09-03-2022 Coding Summary. CD:[id number] Gh0bWw+PGhlYWQ+PE1FV LVxV45mlSYvhF8UF0vJU R1XYPSIEWNAVQ0PBF0kn VE9XIzrH9QrkyRn FgwfkFArCH59JTm9UAV9 nZfpUHnrnE4ktGEvY6s2 LlMqKM12aC69XXwdVZWq RqQ0LxPfauozbQYv O9mbPpBfgOUdQuz+PHRh YmxlIHdpZHRoPScxMDAl WeOpzNhrYE4uCn4jKTRj LWNvbGxhcHNlOiBj b0lpGMCcSQvaZR0tmJgg G4DtlEA3AGFvd8v3Gg45 dHI+XHPeOWD2sCcrOMuo f277QuBtu8kdLUE0 nZZcGSstMLK1P26de7G3 SSDjTLJyFGF7gUD3dT7w dCqvdgszD1GohCIdSiL3 UBZ3sRJxxB3zjIqh efxkcS2dPra+T97AWS5J OSCDJT1PGhw7V5DjBqjr dHI+CK18XGLtFO10kCOr jHMuq8tzoBq6UnJu IOIkYOG2uOetQKuuy0Hx RNJvN41knDOfm4T4CNZi dUfuqDAzNsEuzIU9xM1z GFtvspjcy1gliwrw Mzaxg6yaea98mY81N33w QXziBQEkXZN8HIJoMAMi dYvxrg9vlE1pGj0+IDxj t3vjn2txsIc8SgSz WIQwyeDpvWmkOWU9i6Qi Dm22Y5KjgGorm2PwFio6 ln09wQIgn4Q0cXP8BMlc UWOlkR9xLOcrPyY7 UZTdOxSiuJ23fTIdNFfg Cq9siTfklRtcCT3gYVBg gpqlLSSytC2sCKOwoEVb eOypNQ2mRKArasnz u648CfWxZVL9URRyiEBw P6KziQ9pUdShANHxNERk F4NjlZClGEigF482CTxh LsH4ZRYchwGdK1Yk CDVtlDtdWcD5l2G4Ry7C o3CunfivRGD1XNjwMJVx QwS5VcWnKbD0W9DeZqb9 XIVhtIumHQ9nP2Iq RUFzyfpqpckbhZS9GHFz WLJkmP23lSXsEYpoTp9z d9E2s391CZSdNVTcbI27 Cr3iyEfhBCRahLWE fK8otibcb3ehattrVzIq INBkZIx2MCf7LLGngFdd RwEzIWE5XeO2WSA4lFMn dV3xoYydicwgnO1a Oyc+K90diL8dTKU4AWI7 azmsGGZfriOdJT67OH21 Z8ItBnqbpJZceDF+PGRp onKhcJdwEY9qHmId m7rrv4YqOZtyI2WxUMNs KLeePsb3DZQbLXI0pZB1 kT4uDFNqZCzgf0H1zCH3 L3AugwZoyp7rj3lm MYOqOFzjT90yrSJrn7Y8 HXZnhBX5SDRlhGdvQqJe vR02Byc+JLKlsUoff2Rb Eddfm2hzk1onkXk8 IjMwJSIgdmFsaWduPSJ0 a7ArSk55F48zYMebSPSj MPXiDOXfLVQegKimdf9o fB5xEn5+PGNvbCB3 kKI4oY7bLEGmWqV3IVoc P762VmTdmZMuAcdea4ou f3cbpDz7BeMrMIYdpwCq hZkrCLC1n7FdJs40 G82vIYpoQJYvLZLuFJKf RVJcyLufzf3zhG4yBz3+ TK2xu1nnmt04zC10pBV+ BLQpYPZ4lHwzVGeu QJKysW2aWJmwIuK4CTIo OgMphN65pJXkQZnhCf1l sQfovFjvAO9dCDFajlwx o786JgGxe7rxPUZh nBBiYHmaNNI4R46ab4B2 RWPzRUBlWPS0rFG7dD8h bGlnbjogbGVmdDsgdmVy pRiqKGljOAauL088 IHRvcDsnPlBhdGllbnQg PuAmFIf5T4UkVxb4VIVf vCqdQU3zaQVhRGzkKv8b qDedqEnkBQ5kUTNy ljung406LlCra6krTQTk nMOtZEozNEM6L29yw0G9 UDYpVHNyAJL2aOO0lT8m bGlnbjogbGVmdDsg rlYbjQjvZGjcBJsqY588 IHRvcDsnPkJpcnRoIERh qVK9AL10CV29cPUwf6X1 aRI5X0BsZZCruavq bxrivDQ6VSZzWKXuyP47 Db6bhJvmId3vSIBqJCN2 BKTtrZLvS6VskL4qBrAz PHUqGVXvD8PauKWz OAkiU794HXarBjL2YKDt thXnO4WcPNTwiUbcGnM8 m1V6On7AN9X1FP81FT21 uOLlh1C3gHH2W8Yh UQCwfiawcuelkIF9ZAGx XLPxmC06Ap1tpTohKi3a UKNzPYH8MDCxoTOhL6Zx fY8gAeDhXCShFUEc N2XttJBnVTgcP483HKcz NrF2PWQunjUxY2AcMFPh fSrtXgM1f8C7Id5LWWp6 IP24SW26rEDgo2K1 iZV8A2XbFDAbxokrzkws pOV8FAQrHBReaF64Oc8k pLrzQx3yPNYnIUL3USQe rVUbB4VqnQ6dNiQx KXJgZZAlK3WylIFlIXnl Z536KEouJwG0HIQylfJo C0GoFYZqtNeySvK5h5O8 Wp4LPAZfQJ79IJH7 xGS5SB55WZ08P3KrOhdi dGFibGU+PHRhYmxlIHdp ZHRoPScxMDAlJyBzdHls RW9zIc4wZQSvNXXz dEauxLBbUlOes0oaDSDl AZtzXG8blUyrP8IqhIV4 KARwi2r4Ku75K67zN2Or dXA+VTJtjUI6yZP5 eM8yFzIcEcW6CBlfI182 OjAvpUAwStmfm4vle6gr bFb0FvS5SGIilcRinYow IJR6x2YxAb09O03u IHdpZHRoPSIxNSUiIHZh iYfzjj7jhK9oVg6+PGNv nCN0bMC8fX4sSkJvWmR4 AMlyW359ZmHopRBv Kqbgi4djo3mwxIk4NgDa KMObtvLqmRchPTA8i1Pw Gh27Q5RgvFbgh9WyAvi5 om27kACdn0Y4eKQ0 K8OiLWZsgpmhwJXlhXbk GF5pHGVgcilvVNBceT2j XRLtE8i9HbXhIsR5EHaq T0TgleZ5YMGjkIZg EVgjGOF7U37lg5I5DXNt UTWoPRI3hEI0yE3hfTfq bjogbGVmdDsgdmVydGlj GGifRDgyT229XXFh hYhdDBEphX9zHVImvVXk pHqnXR7rEUPpzttgEhTQ NaNKYSVLWQACMU1EEQ09 X0QjGsr5ERKiwCmj MB0ijNBbUAcpWu0yaUqy nNfeNM4bKGKibwrsUVTn dX4aVOIjcNGfyIpeQM3n HYWamqikf194BtWh ATR9HBFewWOkD8XvxL2l UgXqCYSuKBAvR0RnkVPr UPstH059VUivEhW9RNFs tcHpX9YyTQKhdInd PwP5d6H6Ir1qWI9gFz3q ZZr0TJ43IF14aKZxg1Y5 gEH1P3UgLATanfyemiwb eRT9CIOyVPKvoL88 zVNtPKbcYz5us3Q9m157 BNAmWZSxjO46Pi0djGbq IRDhdPWHcK0npfhao2nw cjogIzAwMDAwMDt0 WDm5UXEybNtwLrBgSMN9 IeR8TSL2iLKkoT1oxEwz bkkedV7kUez+MjYgWWVh suU6X7CxGsh5DUEg aUbuBP4rjBGtTBlgTa3i cDtfgNqvKX6fGBRrsxwv VSQnbV6aPOBtjXLyyMsw MK3bVJLmhwwir656 BdSvXSH8OAMofYGpD9Vu tJ0yKiTuOQHpVEUlK0Hh pZGwCXtpA620YYzuNjM9 YGWxbnWpM4HqIQLi hJwtZlC6h4W3Ko2FKC1w lVV1V0EfYwg3LVKszJfw UR8pwPQiAGmpDk9okIuj jJbrJK8yBWFaohmt TLHanT3gCAOvsSQdfAbh MW0oNNQpbhjkz089WhUp LCD2LWFwuTWhI1LdpD2z AcWiITXaTHFeQ3Fj lHUeIVszO196WNfxFwN2 VEJadcCkS2FxLCHszHcp UdC3z6L6Cs8ZkKUfUYNi SK40KX63LD54Y6Sk PjwvdGFibGU+PHRhYmxl IHdpZHRoPScxMDAlJyBz fJjbMZ4cRx6eZDBqHPOo eBxmvHSwAaTnv4yj CNPgKGgrWB8kxRniK9Hm jYQ7ABNne9n4Uo56R59z V4QfyVG+QXDfoFW9kTU1 fF7gFsJuRvY3QWju W488TeDviPRkNiela5vm h7dqmCz9JaTfHBIpqaCs bKksZOA3g0ApJe32N09u IHdpZHRoPSIyMCUi NTTzuAplxd1zoH3jAq8+ EVZqwVP6kVP4uX7hMcDo XaP5JXbtG370NyLzgKVx VhkxD54eW6GhuPS+ ENTaMgk3ETEklDqdCU8o xGPjMHhjSn2xAVM1KiNx ZoVbJMdsV9FtYMGsaacw ejqmjEF8DRBiQDGh tX44Ov4kuEuaZj3iVWKk QMJ7DHAodEEzR7PlhY1c AuVvQTCuQXExK9KbqSVf NOeaQ059CQltErO3 USMbwwHfY6LhMNFxyWgr ClU4t8X7Xt8SlTgmlYSw JG4jNtRpBWs9N1ZwAah0 JTWceKujNM7pxJVz UWqqLf1heOayiNojFE0u DXAgaztzu111StKdo3qr HZBowEDgYMshYPF0Y81s e7Q0BTUuHAPxPFT9 wJZ5xZ9mgGtgrqslhTYf dDsgdmVydGljYWwtYWxp B365JULdhUqjNrWIIiy4 Z4FvKgi3DKDuzKth RP8zfFSlSAhjJt4blOnn rPwhBN2fANMjhuiub443 GgNwy5enAZPnwSJoBTrn HTX6G31xj2M5MAVs ASAgJQO0pFX4kP6byXvj bjogbGVmdDsgdmVydGlj WOarBTgsM590FYUfpNax Jm7RNqa4F7UbQsl8 FACbsWhkPF2zyGHvZAdj El4zxXboeDgqHS5xQAZm sxskn551TeIlf0buIXZm zBSbCCksPXV9V57w j4H9MAYnZEMrYVH2nDF1 cV4yqYulmwbusWOlaIjb ciTcoYyvFNhpHWktK184 IHRvcDsnPlBheWVy OjwvdGQ+AQ85xe19L8Bi MfokRzo9OVZvVZN3fIX9 hC0qEUJjNTytz3T3kNS2 I4RnarOrpl9pz7hs YXBz (more content not included)... Normal [facility] Estradiolon 07-29-2022 E2 [Mass/Vol] 1530.0 pg/mL Invalid Interpretation Code [facility] Comment on above: Result Comment: Adul t Female: Follicular phase 12.5 - 166.0 Ovulation phase 85.8 - 498.0 Luteal phase 43.8 - 211.0 Postmenopausal <6.0 - 54.7 1st trimester 215.0 - >4300.0 Hebert ECLIA methodology Performed at: [facility] [id number] PhD Rick Lee Performed By: #### 2 [id number], [id number] #### [facility] [address] [place] [address] US 1st Trimesteron 07-29-2022 US 1st Trimester Exam Date/Time: 07/28/2022 19:50 EST Reason for Exam: O09. Report IMPRESSION: SINGLE LIVE INTRAUTERINE CORRESPONDING TO Composite Ultrasound Age: 8 weeks, 4 days, +/- 1 week. APPROPRIATE GROWTH FROM 07/18/2022. APPROXIMATELY 2.5 CM LEFT OVARIAN CYST. NO OTHER FINDINGS OF CONCERN IDENTIFIED. EXAM: US 1st Trimester, US Transvaginal DATE: 07/28/2022 CLINICAL HISTORY: O09.. Gestational Age by LMP: 8 weeks, 3 days COMPARISON: 07/18/2022. TECHNIQUE: Transabdominal and transvaginal ultrasound was performed of the pelvis. FINDINGS: A gestational sac remains within the central aspect of the uterine body/fundus, without significant surrounding subchorionic hemorrhage. Hilbert Rump Length: 1.9 cm, which corresponds Composite Ultrasound Age: 8 weeks, 4 days, +/- 1 week. The estimated date of delivery by measurements is: DONNA from average ultrasound age: 0703/05/2023. cardiac activity measures approximately 167 bpm, without visualized arrhythmia. An approximately 2.5 cm simple left ovarian cyst is again noted. There is no significant free fluid, or other findings of concern identified. FINAL REPORT Dictated: 07/29/2022 10:23 am Juan David Mclaughlin MD Signed (Electronic Signature): 07/29/2022 10:23 am Signed by: Juan David Mclaughlin MD Transcribed by: DAVID Technologist: CHET Technical Comments History 3 Para 2 Transabdominal Ultrasound Performed Transvaginal Ultrasound Performed FHR (bpm) 167 Hilbert Rump Length (in cm) 1.89 Normal [facility] US Transvaginalon 07-29-2022 US Transvaginal Exam Date/Time: 07/28/2022 19:45 EST Reason for Exam: O09.01 Report PLEASE SEE US 1st Trimester REPORT DATED: 07/28/2022. FINAL REPORT Dictated: 07/29/2022 10:23 am Juan David Mclaughlin MD Signed (Electronic Signature): 07/29/2022 10:23 am Signed by: Juan David Mclaughlin MD Transcribed by: DAVID Technologist: CHET Normal [facility] BhCG Quanton 07-28-2022 HCG.beta subunit Qn 203549 m[IU]/mL High 1-3 [facility] Comment on above: Result Comment: GEST ATIONAL AGE HCG RANGE (mIU/mL) NON- <1-3 0.2-1 WEEKS 5-50 1-2 WEEKS 50-500 2-3 WEEKS 100-5,000 3-4 WEEKS 500-10,000 4-5 WEEKS 1,000-50,000 5-6 WEEKS 10,000-100,000 6-8 WEEKS 15,000-200,000 8-12 WEEKS 10,000-100,000 Performed By: #### 2 [id number], [id number] #### [facility] [address] [place] [address] Consent for Treatmenton 07-10 Consent for Treatment [id number] #1.00CD:127 Normal [facility] Progesteroneon 07-28-2022 Progesterone [Mass/Vol] 34.90 ng/mL Invalid Interpretation Code [facility] Comment on above: Result Comment: REFE RENCE RANGE Males 0.14-2.06 ng/mL Non- Females Follicular 0.10-0.60 ng/mL Luteal 3.00-17.5 ng/mL Midluteal 3.30-18.6 ng/mL Post-Menopausal 0.10-0.40 ng/mL First Trimester 8.30-66.5 ng/mL Second Trimester 18.9-66.1 ng/mL Third Trimester 35.8-312.4 ng/mL Performed By: #### 2 [id number], [id number] #### [facility] [address] [place] [address] TSHon 07-28-2022 TSH Qn 1.73 m[IU]/L Normal 0.34-5.60 [facility] Comment on above: Performed By: #### 2 [id number], [id number] #### [facility] [address] [place] [address] Physician Orderon 07-23-2022 Physician Order [id number] #1.00CD:127 Normal [facility] Physician Order [id number] #1.00CD:127 Normal [facility] US Transvaginalon 07-22-2022 US Transvaginal Exam Date/Time: 07/18/2022 17:41 EST Reason for Exam: O09.01 Report Refer to concurrent pelvic ultrasound dictation. FINAL REPORT Dictated: 07/22/2022 11:13 am Brian Ann MD Signed (Electronic Signature): 07/22/2022 11:13 am Signed by: Brian Ann MD Transcribed by: DAVID Technologist: CHET Kurtz [facility] Estradiolon 07-19-2022 E2 [Mass/Vol] 720.0 pg/mL Invalid Interpretation Code [facility] Comment on above: Result Comment: Adul t Female: Follicular phase 12.5 - 166.0 Ovulation phase 85.8 - 498.0 Luteal phase 43.8 - 211.0 Postmenopausal <6.0 - 54.7 1st trimester 215.0 - >4300.0 Hebert ECLIA methodology Performed at: [facility] [id number] PhD Rick Lee Performed By: #### 2 [id number], [id number] ####[facility] [address] [place] [address] BhCG Quanton 07-18-2022 HCG.beta subunit Qn 894773 m[IU]/mL High 1-3 [facility] Comment on above: Result Comment: GEST ATIONAL AGE HCG RANGE (mIU/mL) NON- <1-3 0.2-1 WEEKS 5-50 1-2 WEEKS 50-500 2-3 WEEKS 100-5,000 3-4 WEEKS 500-10,000 4-5 WEEKS 1,000-50,000 5-6 WEEKS 10,000-100,000 6-8 WEEKS 15,000-200,000 8-12 WEEKS 10,000-100,000 Performed By: #### 2 [id number] ####[facility] [address] [place] [address] Consent for Treatmenton Consent for Treatment [id number] #1.00CD:127 Normal [facility] Physician Orderon 07-18-2022 Physician Order [id number] 1#1.00CD:127 Normal [facility] Progesteroneon 07-18-2022 Progesterone [Mass/Vol] 25.20 ng/mL Invalid Interpretation Code [facility] Comment on above: Result Comment: REFE RENCE RANGE Males 0.14-2.06 ng/mL Non- Females Follicular 0.10-0.60 ng/mL Luteal 3.00-17.5 ng/mL Midluteal 3.30-18.6 ng/mL Post-Menopausal 0.10-0.40 ng/mL First Trimester 8.30-66.5 ng/mL Second Trimester 18.9-66.1 ng/mL Third Trimester 35.8-312.4 ng/mL Performed By: #### 2 [id number], [id number] ####[facility] [address] [place] [address] US 1st Trimesteron 07-18-2022 US 1st Trimester Exam Date/Time: 07/18/2022 17:38 EST Reason for Exam: O09 Report IMPRESSION: SINGLE LIVE INTRAUTERINE WITH ESTIMATED SONOGRAPHIC GESTATIONAL AGE 6 WEEKS, 4 DAYS. RIGHT OVARY NOT VISUALIZED. LEFT OVARIAN CORPUS LUTEAL CYST. PELVIC SONOGRAPHY WITH COLOR FLOW DOPPLER. CLINICAL HISTORY: O04.10. Survey . DONNA from average ultrasound age: 0703/09/2023 Composite Ultrasound Age: 6 weeks, 4 days COMPARISON: July 09, 2022. COMMENT: Transabdominal images were obtained. The uterus measurements and an estimated volume are: Uterus Length: 10.7 cm Uterus Width: 6.0 cm Uterus Height: 5.5 cm Uterus Volume: 183.9 cm3 Well-defined decidual reaction surrounds well-defined stational sac containing single live intrauterine with heart rate 124 bpm. Yolk sac identified. The crown-rump length and the corresponding gestational age +/- 1 week are: Hilbert Rump Length: 0.6 cm Composite Ultrasound Age: 6 weeks, 4 days DONNA from average ultrasound age: 0703/09/2022 There is no evidence of subchorionic hemorrhage. Right ovary not visualized. The left ovary measurements and estimated volume are: Left Ovary Length: 3.6 cm Left Ovary Width: 3.4 cm Left Ovary Height: 3.0 cm Left Ovary Volume: 18.5 cm3 Simple cyst, 2.5 x 2.5 x 2.3 cm identified within right ovary. No adnexal masses. Report No free pelvic fluid. . FINAL REPORT Dictated: 07/18/2022 7:59 pm Rohan Cabello MD Signed (Electronic Signature): 07/18/2022 7:59 pm Signed by: Rohan Cabello MD Transcribed by: DAVID Technologist: KR Technical Comments History 3 Para 2 Transabdominal Ultrasound Performed Transvaginal Ultrasound Performed FHR (bpm) 124 [place] Rump Length (in cm) 0.62 Normal [facility] Coding Summary.on 07-14-2022 Coding Summary. CD:[id number] Gh0bWw+PGhlYWQ+PE1FV MKnJ91vhNQqlR2FH2eBX N1XMRXZPHCAJK2RNW5jk JL4WDssG7XwkmUn AripsDMgKC88AUb9FHF2 qBifEGtplL9hzGVaS5p2 MwZtVE23pH96MNdvUERf YdP8FiEszbjenGVs N6jvErJhpOZbBcw+PHRh YmxlIHdpZHRoPScxMDAl TuSfvUymEO4eBt4fVFHq LWNvbGxhcHNlOiBj c5jhOBFkJOfeAT8xvPfc P7UywLC6IHEgh6h6Xy12 dHI+XWGnCDL9mLdbPHqv d577SuNod9ykOKR0 cVXwLDdaLUG8E91au1W5 ADHiGIStYUR9wFL3sK2m bDumxlhzB3JelTWrFiT6 GGB2jHDbeO3ncBdw nkkyfU4sTiy+B99WAD6M RQXZMH6VJmo1O1GjQvqs dHI+YI93WECwRW99pBYp gHOvh8vphJh5ZiJb JJItATE2eAtuUWecs9Co SCOrH56oxGCmk4E9UOFo wAybrXTgJsCqpTW0wI1i HTydofjoi2lqlzml Nrfvc2xgkv26oH38F71t UJflMRLcDKU4NQKzKAHn sPgyoo4zrS8jIw2+IDxj j3sgc9qakAn6QiWp ZTTzysLboRnwQHI0z1Oq Vt24K6NhlFuvf0LxYlb1 yo37dRTmg0C0dVY4KPez HDMcrP0cSJtwJkO5 PMOiYlCtzV32tHKwPJok Ir5ueDgcuKqzQB7vAFWy gmigNMKbgX0iZMIirYUx wSaxNB1tWJOlykdy r052TcIbBEE4TMYynBNu T3PoiC8wJxZbYSHgPQJf B9ZqzYMtVHscG245LMwj AoB0RVThnrFqU0Da GCGrtQdkFhP4b6F7Et6L g4QihqcrYOH9YGqzDYZd SsU5NmXaSeE6A5OkVqn4 QJKwaHhbNV0mX6Sk CQAlcrpcxhizsLA1HFFo YQWpeI52lKHdMRvgVh1y r6X8q803SONuJOXvlA80 Lx1ymGsvWSQtaVDM eP0avnezi2vojykwWvYu HPEoQLb5UBs2SAUcwOla MuBnZOF1UjK9BJK3kMQk eC6xnPjeijfxkS2e Oyc+A28vdJ5kWUV2FTE2 ggimCXBvqbIuWH74PM51 I9HjCqscvSYejHB+PGRp jvNktLgtOZ9hQnTu g4tlh3DlSFpnP7XhSFGf ZQciWpf0YWZiAQH3fDW7 tW8hNHUgHEvty7K6cCJ0 L6TeycQuuy4mo1an GRKwRLhnW71nkRVfz9V8 ZQPbvFG2OUIdbCvuJrGd aK33Xpz+XHErrRqbs0Ob Bgzel6mdg4shgQo9 IjMwJSIgdmFsaWduPSJ0 w8DhDr23Y80zZLkqFIEa STXiNNWbUFHpwVoyop9o kS3vUs1+PGNvbCB3 bDQ5hY6eFUWfKuG2KWxm J552NkUmfTFiTtqtt4yz h4hrpNj5LkAxTHDcijIh aAyuWRF0b9QbXk81 P39eNVteHSFoXFPsKMYq FCThhLfnaq7spF2pPk7+ OK3mn9emht42iJ70eFC+ WELzIYD5cWczOVul KDJhyG8kVNjsPvY4YIXs AzFpzZ63sDYpRKffPd1b mRazrJowXY7rJDFimizn t134LmGkz1mcITDe rVDgUMlaSIP4R36cv3U2 JDJrQVViISU7kHF9eY5t bGlnbjogbGVmdDsgdmVy jTdqYAzvFJxkY744 IHRvcDsnPlBhdGllbnQg KqDgTRa7A9DqUhn4NVHj uZitSG2afXNwZCgxRp3b iZwhfWhgMN9gJTPu dtfkh669DnUih0tpRDIl mVVmBAsjWCX3C13el2H4 GXTpLAWjFRG9bSP4bE9c bGlnbjogbGVmdDsg bmRyvSjuQCahOOwwB962 IHRvcDsnPkJpcnRoIERh fSK8IR94JJ76gIUla3P0 bPC0F3EiQNZzkaps ttxzvZI8HUIbAVXfuW07 Ve6nnZraZy7hZDUnIOS1 WEQfoWHaK4KigT6pSdKg SLTpSQCbZ5HlrBHy MTufD023JQacOqQ8HEEc yuMhU2WmFOSggViiIpX2 b6H5Od1RL8D7TA37WY54 iNQxi1K2lNU0V5Eq WPQuugkkdjboeRO7SECz UXXoqF70Qg4xsKsoLh9z EIBhLYI4WJLlrDJiW6Xm gL8qKdTdBPMrMDCc S4NiuNUvXXxzS668BPpj EnR7MPZpnaKcK2VoDQTe sSbaExC7h3N5Jn1FNQb5 YF53AD82qQSpc3J3 oPF5B2TzCZNxbcwawybf zUC1GYCpQUEbiN84Ui5d hGqfHe0tKRObWQF4IKBz cKAdI7UzlF7zZgCn IZYyQGCxN5BlnNFfEUwo H747GDtgQrZ6YIBptyYs M6VpRBAbqUpmJgZ9j6M8 Fr0LAYSgCW80YBX9 sTS4OU04CL53J5AhHsjj dGFibGU+PHRhYmxlIHdp ZHRoPScxMDAlJyBzdHls RY6wNz7rEGUqQEGx tYldeNAtNbBvv1yxESQl WQfpPQ1egIciY2CdpSZ0 RTEnt6h5Ih72J74zQ6Tb dXA+MMEgoNP5rZF9 kA5hAbHfNlU4GDhlA234 JdZckTIzYsjzp4hlm9ix jCe8RzF8NJYwerFujDoa WKO8q8IbQa69M17m IHdpZHRoPSIxNSUiIHZh uMgyzo2quC6qBw1+PGNv lNE4xNG1jE1gSnWhSiM1 BYwnP167UzHhvOFk Olkdn3rbt4dcoMw7RcAh CURtqjCibVhqZHT0e2Pp Ba59S3VszDtnf9WmBvn6 cd49bHUjn3F5mTL7 G5RnVQSlpfkblWCeqHus XT0bQCWlnfroFJLrtN2w GCFxD4w8KiWnGdG5DNqa L5AptcU2NFIvqGMh VLsaMOD4E37rd1Z2IYYv JJGvMVQ1vYV3aG5fiDtz bjogbGVmdDsgdmVydGlj YVdfBQsuF446UCVm gAudSIUikD5fOINuaUKj gEfoNL8lWRQsotpvNaGR WiDRSLJYKZRDXW9NBW41 L4SnOkk8BLVqtIqt DC8fuHXqQIgkTb1ayWbc sHdqJD6mOMPpttewTEUi fM0xAGXbbRVxgWnwRW2y XBYcacket780LgTh HKX4OZYpyMOzA7AlcA5k EhFdGHNsNBJpU0ZncCHe FOwaU669SDndQyW2YLFz rhIyG9MwXNSbxQxj GcK1a4W9Fy0yEN9wGo8n TGa3CL21XQ08wWDnx0R7 lOD0N4FpUOUohjjxcwog lBI1ASJpATEpjK85 xPXfUUmpRx7zl4T5g887 RTYkZSBgdL18Vu8dfYpp UFQbzUVXrA6rokzmj9hp cjogIzAwMDAwMDt0 YAn7ERIodIfiAoYjYOH9 TfR9QFO6eGNxaY2tpIbm uibegI1zPqs+MjYgWWVh zoW7D8OuIpj5LYTf fNncVP6ebWCiRZkmBx7j oNrtyPkqNZ8eDJFlsilr WSFtdX6bIKNfcMKttZue JD5pWXEwemyul462 UcDxKYU3FHWujMXsK4Ft rH5rErKjTEPqCLNlZ6Vb qOAhEAeyQ392CVcaDeE6 TIAtbxSqP0DnBBXn rEjlGuV2l2P9Tv5BAP8y sET8S5TcKbj5JWTyzFcu BC7vaWNoACfkUs8huBgt aMpcLF7mTLMwqkgf UPEdvT8oNWLutNLzrQve ZK3vRPHwpivza284OaKx FWD5HJTeqQRdA6NafU6p FgUqEISgCJKuC4Ow zNGdQKuwH012RSriLrY1 FVJhwtZzI5EwGQPbpNfo VoE8q8W6Wu9KzPYrYMNt NW66PX14UF77X8Hz PjwvdGFibGU+PHRhYmxl IHdpZHRoPScxMDAlJyBz cSqdQQ5yYn3pLQLkYSOh iAswtBKtBpAhu1wt WWEwIIwhBR6kiIlaO0Us uRJ4LKPgi2x2Ss07E74d P6OscHM+VCKiyLX6uVL8 iB3qNlGvTkE6UWgo I158RdMhdMPcUwsen9pw l5znaDn5ReKkONVijjQv pGduWTK7c7UdTv09O87t IHdpZHRoPSIyMCUi KDJlrGhtcc4xyT3aNy5+ SKErsSA7jRK3cN3aQsZq MjL7BSkrR986SnQbwBDa CsukI07gG9KwpRX+ WPGvRfi5MHKnjDjfVH4j jLGtTAsbKv3rWKL4CjSt OmMnKVukN8TcMJFhlyyp gkfiuCK6UHGsCGLg vE99Vg0ybVhpCn0jEFKk AKO6CNGbbVQdH6KfbE3p NrJuKAHxZTSzJ5VluOHi SPyiJ714DDurDzX2 TBOwasMmV2AsGIYimOch CqB1k4I1Sj6RcMzxzMXq WF4uXxRhRFt1A7BcOlh7 UVFrpKbnDZ3xsOBi UCdbIo9sbBjwhQedSQ2p VIUxrvxjf151DeJui0we KFSmpBZjKDqzQDC9C31a k1G6FPEwOHEeVEL1 pYM9qA6jnVsjsdmdoAWe dDsgdmVydGljYWwtYWxp F981VVFyrIvzBoNMPzc5 A3KpXyx1DITtzTkb KS3juMXkQKykJn1biBht wUuoZB0aZMYtchbmi136 EfSro8asHADyzVOkXTtx EJJ5S01qu6I2JUOa NEZhAFR2cXU4tZ9xmGwo bjogbGVmdDsgdmVydGlj XYdsXHcmF587FKGwaMgl Kr1XJqy3W2SiVyd0 DJLtyKmiXY3nmFJqGXwm Ha8xnYseeYsfRJ3hJMYi rpmlx071MnGlf2isARNx rULbTZtpLUW3B24z b6Y7OIMrZXRmLKJ2oUX3 jC6wkXgcklfhsYJdrVbl qtHwaEvdTArwVRofI593 IHRvcDsnPlBheWVy OjwvdGQ+YH70rk09X7Ck DakdPrd3PGRwOVW5nPB3 nJ9lPUOgJVymm2O4hKS6 R8OpsnLpne5ev3fd YXBz (more content not included)... [facility] Physician Orderon 07-14-2022 Physician Order [id number] #[id number]:127 [facility] Coding Summary.on 07-12-2022 Coding Summary. CD:[id number] Gh0bWw+PGhlYWQ+PE1FV SRcB38voEBiwJ1ZK7hMO O9XEIKWVKCAVM4LFK8xc SK2IVttW4NzogIu KrwugHUjEF66UHf5ZZU4 bRhqGArqrX3rdDRjA7u2 ZhJdDR25wZ56NDatHHQx ZpQ1WmWoawgptZFy T9ilRrWcgBSlSju+PHRh YmxlIHdpZHRoPScxMDAl FuIxjFlrZC2gXs3gOFPh LWNvbGxhcHNlOiBj n1woPFUoBUupFJ0teEaa K0CycAF0LSTmr8p4Pj70 dHI+QDGwNET7yWwnPGnj i109FkOni2laASA1 yFGiBXkyQIA8N03ce9K5 AWIcEPCaFCF6rNY7sL6u sAeskvdyA8CazJYrMqE7 RGL4zMAnsD9jqJvs sxrvlD6pMnq+O47FMZ3Y ISOIQP3VEye8I8ZsUckf dHI+UX88LISfBW05lIEg qNEzq9imyJg8JpGl QYJcPMF0qJstDDtsa5Lf SQUlD89bgAJdh9Y9FQAa sCpevFArFlLuoSJ4zY0d HGewtesgi1yhixnl Gzspg5vokf87vL63G84u LEtuRVYhHFI8QUTrBUWk nXmuxf3tcE3pCh2+IDxj a1qqs6fmfPu8ClNv OJLgcuGqfZhtFOM5f0Go Mr60N8UppMoxr3KvUbx5 dz15zOIft5S1xRT0WZud DIJugH9vHUjgIgW7 QFEfPgSbqB95oZYlFQtb Ec0voIpluYmlDD3wIJNv dayqOVThvT6jJWFfjMMf wLqyMH9hFXBqbwvj g651NnMvHGW6IJClrPKj U6CxsA9zApNkRCMgXTYh Q4RzoLGfDNzdY881LEqa IrK5XKFlwcBgW0Nb HHTllDbbYmN6x1N9Ht0Z z6TdmefkRNL0KUbbMKWx RaZmLxYzGhP0M4JmMwn7 SGQaxJvgXC8sM6Fv SNSbizofeospePW4AGXi HGLscQ18gBHmNJmfPc7d c8V5i780UDVnWFZddI05 Ac2qdXidDZBzhQBK oJ7jllscl6nhevqaGjTu WYPrTGl5XZe1RWJdfIyg WuOeSPH9GeY8NMD8sMHl oQ8fdMslxgkpsF3z Oyc+N17hjM9tMIO6GVB9 ezjkVDKowlEbZD72KC70 W7KiFnxtmFLimVK+PGRp hxOgdTceRR3cZpAg p2elq9AcOXslW5NrCDXl XPfkQmy1JNQoNEE6sAN3 sD0dRZKnKReqd1A9qDS3 P6MkrpAtve5ww6dw QWWlBPdnJ25peAJok6L8 IRTjpIW3REUbzYreMhGr yY57Nrb+FTFsvUebs4Fi Qyozx1nyj6nyfQu7 IjMwJSIgdmFsaWduPSJ0 y5CkOo38E58sSHelYOXa AMCoOGIjWVHvfZfzxp9h hB7vHm2+PGNvbCB3 mZB9mM9sIUBkZbS3CFdz Y577CxUtrFDpFufil5sj x0oxnEk6XyRcKSYlovXa uOokQPE8c2FsBt27 L79hDPnxVYIyGJMeEOVf KCDkcQnkgn7yfK6yYs9+ FL1nj1blpn19eI95mZZ+ FYPgAPD3jIkbORrs RKRuhN3yIRnaBoC6ZXTp ZpEnzU10cIAdBPukHu5y gHgjkOykLP4xECIalpfc w105WfRgp6pfOQOm dUIwJJaySFZ5M07pf2E3 TVRoKDCpASK9vVY6sP0e bGlnbjogbGVmdDsgdmVy kSjiPNbhICstS785 IHRvcDsnPlBhdGllbnQg CcJoQSb1N5GbRxu9CRBa wRymFL1hcFZlWXaxAu2z sSydhRmvID3dXNQw elkdh994CrCac0ijNZZh jBOuRXcrWDM9T67cb6O4 BWPvHAQeSWD4kAJ7aT2j bGlnbjogbGVmdDsg lpLljRkeQShpVWoyF174 IHRvcDsnPkJpcnRoIERh dKD8HL13XG61jJUre8N9 xHU3J5GuKJDravja axzuqNR0ICWbDSEriT95 Fp6xlMvcTv1dTJIdFOA1 RNGgoQYiX8QycR4rYbMg HZDsFTFnD5RsnCUg WRkkP597SFiaSyX9KGIl edUvG2TjMWRniMnkWkD3 c6B2Qv8NA4M5OV31LL92 rOOjt7T5gNJ6X9Sj IMXlunnnlelskNC9BSYr VUDbcR84Rc5gsWhqFm3j ZEXgYRX2MHFnjEJrE1Rn fI0sQhMuPUHmNHGz D6VhbZNtIZmpX488BMch GqM8AVLnzuUnE3SzQWWk bGduNjV1v4J0Qd4OVNe8 WP37IN83zOEty9X5 hNO2H2SwTCYpgugjazdw mEK6UDFvPKOjxF32Nj7r zQfjTm3bQBOmHAH2AYSd dGXeH5XxnK2lEoLs PXQzKNPyT6AylJHuJCjo P866VZfqBgW7IYDjryMw U0CgUQJaoEtxBdN1b0F5 Ok3VMAMlQK41DGY8 cKG1AX75XP04A7RwUfhf dGFibGU+PHRhYmxlIHdp ZHRoPScxMDAlJyBzdHls OO0hEi7dPBQeSSQa sWzzvSVzRnYsm6riEKBe AAndCP6ctRkbZ8QisCT8 TBHzu3v2Ez56O21vL1Pv dXA+SATuwEI9cXJ8 tG5wRtOgLfI6HXyvN455 TzNwbSNjBtkvy9qli3rq zHz5RrT9XCBfmnFsxRwg LIV0c2PoUh93K01t IHdpZHRoPSIxNSUiIHZh pSnbus1ncE6mXk8+PGNv iXR4fWG7nL8vRmXlXxX6 GIyuF288FyXxmGJo Njixw2vdl5limKt5KeVn UTLybwNftOvbENL1s4Jy Xq99D2ZzjOnyp7UoDdh1 sf99dKCth6C4lUH8 B1MtPUIlzyhpfHLeaDtf WY3yTHYdswseGIQpzR1f MRMpM7d7CyHqWmA0BYbd A9DfttT3OFIghFBm VAniFIF7E38ig3I7FYOs PPFwCDA3vSK6fA6fqUin bjogbGVmdDsgdmVydGlj ANyrTEbwR887GUAn qJygBYDbfL7xVINrgIGp nDawLS5yPBZfcepjYxHS KvYNLOUFDSDTQT9MMZ43 N6DhOvl4LAVanNqp SU9rgANrJSskSy3euZoe sNpbXE3nELUpxytaAALv zT6aSLTriOXikZhiGZ5j FHFtrozyc913OaHt QQK8RKCsuCFxP1PxjQ9i VlNyGNNnGSPtA2ScrOQe RLjxT458IIqjGgL3NFYt aeWyW3IhEXRmoRsj TwJ3q1T5Me8pZK5pSi1y KHs2RH97PI85cTJlo6V4 bZZ0S3LbZXKbixjomhnh aLM2OAGvVVIcxV12 bASbMUaxAg2lg7S9x944 NEGtOLTowJ50Nl7xfQzd EAAaxKFTaQ0gdjrmp8vj cjogIzAwMDAwMDt0 LDr3MJVqlJrnHaNyRRQ6 WpT5UYZ6vCAseW3ltPea dkyjdT7iKuh+MjYgWWVh djD9W2EfZro6QPPi qJzoTU7ihMCfXLgoCl7a cNamzHgsXZ5rENGsbxuv IGRfsK3zUYBrqYVhcNnp OZ2sOZUrquwqt763 NrQzMQQ8BTVoxCTuU5Ns yC6sZlZsBNLgHWJpT9Ig pVUqOKyuQ573BLkhCvF7 WXTczzCmC3BiGNAw tUypDmC8v2F6Sl1KBN3s zXD7B5YuEtq6WXBsmPrl VX4uiFWhNOcwZc3deUqd mFdvOR5yCDYzxhki VPLpwE9uUCNzpTZryVqw HJ2nJNSoabiaf766QoEp KBV2EOIzrVBzT8PupG6g SdYmAVViHEJoC5Qx dDCpUHxnC983VCgqWjS1 NFMmgbUaN5DsTJQpiBki CoA9i7N7Nv9NmZGeQJIi OH86TZ47KE03N1Go PjwvdGFibGU+PHRhYmxl IHdpZHRoPScxMDAlJyBz dSvoTV3gQd1dGKVrXHAo hNvtoBFzShZmv5sg VGOlVXahBI0rnBnaA3Ys tWV3WTKoy5l4Dk94M60b Q3SfkKS+VAAldJD0tPM4 iG5jTxSyOnZ8BVka X688TyPdaGCeNkhmt7iz x3eexUg7SwYiFJThtnFl lLpvRFV6x8YvOh48T26v IHdpZHRoPSIyMCUi XUBfxNcqpl0pgS3iCx8+ KCOspUO5qXU0dY2nHqMz OfR4NDyfY321FcDppRId EaajJ24aM2LctSX+ FPJgQbn3SKHyxCkwKF1u yDUbRSvaSp2oDKC7BwNm MdDnVYbqZ4PsRODhlqya ykyupRH8SZUwPPBg aW11Jf8gwVbhFh2fUVOo LJX7KAVziSKoY3ZvgH4p JhNqNFBzFVFeL0LjzALx RSprU294JDwoAbP7 OFHcpfCcC9QlMKDphKvj ViL4h1U4Gk6BiAjftEMp KY5lDiOxZKx6L6YvHzd6 KBRpwHlrKQ2rlLNu MSsbHw6hkNshxLbdSH6x KTCqnqzad806OvZyk9pa GFKikWIbNTtlEYO1N94q x3P2FRMwWQUpORC5 yZP7uS1hhCtbgudkqXNz dDsgdmVydGljYWwtYWxp E522EUOauHcdJmCLDnc0 D0RaRxa5ZEPxvRsz UW8scIYjDFapUx0tpDre nUkiNS3qSTTjnrmra876 QjYmq4bpEPIekJAxXJxe GOP1F94ra6Q8WWTn ZLKzKHH4pZY3rN0ruPiv bjogbGVmdDsgdmVydGlj GLqoVFheB060OJOeuXgo Ap0CDyk7W4BcCez8 CBRirQouJQ5yaCJhREqd Gb0zoKaseDeuQE1hGGWt uxoxe566TmRiw0tbHDNh sFYxLVieLXC5X64b i4M2CPLiHCXaNEW6wLM9 uZ4lzSoirwkthCWbfEzu itGfeWolUIvmYWxyT882 IHRvcDsnPlBheWVy OjwvdGQ+HN35vc32N3Ou QwtpAlc1FRHeVSO4tSG7 oR9rRLNyOYeiv3Q8oCR6 J1OrnrUurf5fj5sz YXBz (more content not included)... Normal [facility] Estradiolon 07-10-2022 E2 [Mass/Vol] 219.0 pg/mL Invalid Interpretation Code [facility] Comment on above: Result Comment: Adul t Female: Follicular phase 12.5 - 166.0 Ovulation phase 85.8 - 498.0 Luteal phase 43.8 - 211.0 Postmenopausal <6.0 - 54.7 1st trimester 215.0 - >4300.0 [facility] ECLIA methodology Performed at: [facility] [id number] PhD Rick Lee Performed By: #### 2 [id number] #### [facility] [address] [place] [address] US 1st Trimesteron 07-10-2022 US 1st Trimester Exam Date/Time: 07/09/2022 19:16 EST Reason for Exam: O09. Report IMPRESSION: NO INTRAUTERINE IDENTIFIED. MEAN SAC DIAMETER YIELDS AN ESTIMATED SONOGRAPHIC GESTATIONAL AGE 39 DAYS. EARLY INTRAUTERINE PRIMARY DIAGNOSTIC CONSIDERATION. SHORT-TERM FOLLOW-UP PELVIC ULTRASOUND WITH BETA HCG CORRELATION RECOMMENDED. CLINICAL HISTORY: O09.. COMPARISON: Pelvic ultrasound, June 05, 2022, May 30, 2022. TECHNICAL FACTORS: Transabdominal and transvaginal sonography were with transvaginal imaging obtained to better assess pelvic anatomy. The uterus measurements and an estimated volume are: Uterus Length: 9.2 cm Uterus Width: 6.3 cm Uterus Height: 4.9 cm Uterus Volume: 147.7 cm3 Well-defined decidual reaction surrounds well-defined gestational sac measuring 1.1 x 0.9 x 0.8 cm. This yields a mean sac diameter of 0.93. Estimated sonographic gestational age of 39 days. No pole visualized. Yolk sac demonstrated. There is no evidence of subchorionic hemorrhage. The right ovary measurements and estimated volume are: Right Ovary Length: 3.0 cm Right Ovary Width: 1.9 cm Right Ovary Height: 1.5 cm Right Ovary Volume: 4.5 cm3 The left ovary measurements and estimated volume are: Left Ovary Length: 3.7 cm Left Ovary Width: 2.9 cm Left Ovary Height: 3.0 cm Left Ovary Volume: 17.1 cm3 Simple left ovarian cyst, measuring 2.6 x 2.5 x 2.6 cm. FINAL REPORT Dictated: 07/10/2022 11:46 am Rohan Cabello MD Signed (Electronic Signature): 07/10/2022 11:46 am Signed by: Rohan Cabello MD Transcribed by: DAVID Technologist: MARIKA Technical Comments LMP : DONNA = 03/08/22 History 3 Para 2 Transabdominal Ultrasound Performed Transvaginal Ultrasound Performed Uterus Position Anteverted Normal [facility] US Transvaginalon 07-10-2022 US Transvaginal Exam Date/Time: 07/09/2022 19:17 EST Reason for Exam: viability Report Please see pelvic sonography report. FINAL REPORT Dictated: 07/10/2022 11:46 am Rohan Cabello MD Signed (Electronic Signature): 07/10/2022 11:46 am Signed by: Rohan Cabello MD Transcribed by: DAVID Technologist: MARIKA Normal [facility] BhCG Quanton 07-09-2022 [place] [address] m[IU]/mL High 1-3 [facility] Comment on above: Result Comment: GEST ATIONAL AGE HCG RANGE (mIU/mL) NON- <1-3 0.2-1 WEEKS 5-50 1-2 WEEKS 50-500 2-3 WEEKS 100-5,000 3-4 WEEKS 500-10,000 4-5 WEEKS 1,000-50,000 5-6 WEEKS 10,000-100,000 6-8 WEEKS 15,000-200,000 8-12 WEEKS 10,000-100,000 Performed By: #### 2 [id number] #### [facility] [address] [place] [address] Consent for Treatmenton 06-12 Consent for Treatment [id number] #1.00CD:127 Normal [facility] Consent for Treatment [id number] #1.00CD:127 [facility] Physician Orderon 07-09-2022 Physician Order [id number] #1.00CD:127 [facility] Progesteroneon 07-09-2022 Progesterone [Mass/Vol] 26.70 ng/mL Invalid Interpretation Code [facility] Comment on above: Result Comment: REFE RENCE RANGE Males 0.14-2.06 ng/mL Non- Females Follicular 0.10-0.60 ng/mL Luteal 3.00-17.5 ng/mL Midluteal 3.30-18.6 ng/mL Post-Menopausal 0.10-0.40 ng/mL First Trimester 8.30-66.5 ng/mL Second Trimester 18.9-66.1 ng/mL Third Trimester 35.8-312.4 ng/mL Performed By: #### 2 [id number] #### [facility] [address] [place] [address] Coding Summary.on 07-07-2022 Coding Summary. CD:[id number]:[id number] Gh0bWw+PGhlYWQ+PE1FV AXmF67rgOLvhL8FR0tIF S4RAQMYBZZCSG2YNJ6pl YU8WEypL9FpjaSn XtibuLQiTH05VGr3VRN9 tAvnZXtqoV0gwEWnY2u8 ZfTvYE17nX56WUsnJHJi HkX7TcNguhqebETz M2vuMkIzqUWnNmm+PHRh YmxlIHdpZHRoPScxMDAl RdByyXxtSZ2sDf6tSSJb LWNvbGxhcHNlOiBj a0jdYXQaLAopLS3buPaa B9GgpJW4AWQfo1f7Kp55 dHI+KOMmXNH3mNruCWev a422GbMjy8vjNWT2 jSNaZHudRND8D38ao5J3 OXWrPVZaWPG0eWX7mZ1f qFfmjuwnP5DvmAVnMvC8 JYN4oSJizZ5klTaf cfzgeU7bIes+T96JEE6Z UFTMTR8SKlg7C8OvEfjr dHI+SD05ICByNV61nOSd aGPcm5sbwEo8NyWs XZUtVNN7yPfoRUmyu2Ny JXUlS08mcUZuc9B2JVNl cRpnpYIgWbFflRZ6lW0c NEcxwflcp0wooepw Pleag2ktuf85fU04F66h YKeqIXAmIIO7NWWgZQNc gNmcir2fvG4fMw7+IDxj u8tgr8ufhPb8SwGi DQQvklHztMplTLR1e9Fb Dj95L3OurVamy7UxXtr1 ek17xZMnv9S9xLN6ABba CNDpkV2yZEsaWyS5 SQXiYyDwnQ67rXQrRIqs Xs5trYbkvEgcPO8qUVSx yfmmJDCdnM2dTMLdkMSl eKaiPM5eVIHqujbb q250YoIhEJG4FSBvsYBd J5LuiJ2tZjEvURAnFZHo M0WrtXFzXSdiP700XTju TeD9GDPdqnOxT4Ii FNQumMtyWfZ6h6K3Lo5I c0ZyplbpFNM8XDauTGSk ExN8YjHgUzN3U6DfNsb2 LNCwuWooZJ7cG4Rj UJOfmqefobrjaRK6IPPi BDByoM28uINkARcoPy7l u4P4a446HNPwQXZhkC93 Mb1ovElxNEAkkOWK uT3ybbjnd1zbtkotUeLq SSRcBAl0AYd4FYMreAnz JfDnQFT7OnB3JUS9vUAh oM4kuGpctqbkfL4b Oyc+J12jqQ5vVJC7SEX3 kuniNNRzswXvWR32CH71 Y6LrXigkwOKpaLJ+PGRp zlNvgZtqED7yIvLu x4npu2JtKEgbQ8JzVHOw VSorBpc0IFOcMNZ3kDN0 tA6lFKCaIZwhz2Z8iPR2 M4HstpCfxr1mt3ei PPMtUFztC03tnTUdp3J2 RQGheZS7FDNdoDitVtYb qD47Uby+MBLivRonk1Wr Eyshr9kuy8kfwLo7 IjMwJSIgdmFsaWduPSJ0 d9UpNp79F35hNJqeSDFg FFXhJBRbTQFxxOhfbe0c cL7iDd2+PGNvbCB3 lKF2iI0yCCZmJkE8IVht J469DyNjuPOgBktnw0mp i2zvjHy6CwDoUNBifhQv fHvpYLT8z6EyMk76 Z63xRWeuLPJpOSPxIEDx DEUolEknld3jqU1xPq4+ HK8wd1bwzx54jT76jSU+ IXEwPAK4jGpqLPqa QONimY1qBYmnRiU5CJAr PuXijL10uAKeQDjqOp3j bKpgmDpfEP4gEDVhjjwy h950MwOef8obJOLv qMIzRYrlOAW1S36fy3V2 SVTzDPRnLIM2qAC8qP2a bGlnbjogbGVmdDsgdmVy oDxjLLemPShhA072 IHRvcDsnPlBhdGllbnQg AfMoGXu8G0FuLpd2YLMp lVjaDW6aySEvCIkrHm8f wTkyhUdlNQ6nVZVt mwhrt417AvKdf9xcZQVr xZQtBDkkAGF1Z17cl1C5 CZEgIXJyRUQ0bGU1mO5h bGlnbjogbGVmdDsg haWfkYkuIIwkKDdeP825 IHRvcDsnPkJpcnRoIERh hDX5BF89RN32uCBoi9U8 vYP8E4UrNZDwnoit rwkirHF5RCQwYTOjkD46 Hy1eiYkkIj2nKPTdMPK4 OHJcaNCuA7WyyH6mLhJv BDEzSBTnD2LxmGPq VZcuI239IXkoWiP4WJBl fwRgP0MzEXEfxPasEaL6 k3G7Kk6LU7C1KP74KW01 fZIbt2D6xHE3V0Xq KNJrtdvshadeuDF4XIAu EUMugF67Ve9lkYqzRa6j EUUmNAM4FBYfgIYqC0Qg nA1dUqOeZFFcCZLb P0KtuKMyAUvfM568OTrn WrF3VYSejgJyN1LmYYPn rVorLtJ2u5A4Wm7TCRq1 LY34WN80yWLli4K5 qFE3Y6JeZJGktxmnaygo uAD8XYOwJEWzmH03Xe8m vBbaRz3wQAXeXZW1FVDx zXErM5KxjT9pXmFw NDIrTEChL8OhtPBtMLbk J320SLdiFkL4IPAcfuWx F7PgWHNnkAlkVsX8z1H8 Dr8WVNYiSX46XHE2 mJL1ZS99AE90N8TfHreo dGFibGU+PHRhYmxlIHdp ZHRoPScxMDAlJyBzdHls AX6nAg3sIUTmQYDj oIokyUOjWaBou0qzJSCk FMxxKQ9fwAiqD9VybFE6 COMpy6l2Xv87B39iP8Gg dXA+HHQojAO3aCN8 yX4xNbYyLkG2GUgyV928 CpKzcZMeMxlhx6vfo6ci qAo3UgK0JTKgxiRmmYih PBT7u1OoAz41S13x IHdpZHRoPSIxNSUiIHZh fIukev9ooG1pHq5+PGNv pJO5iEB4wC2aYeXiCeL9 PGavB171IaJcfPWy Wiptg2ykr7jtjMx2NfAu NTPsbhSriUogLPQ9b3Yv Uh71M6XdwRgec1KuShw7 hf23wKEqo9G5dRC8 X0YxLTSjvtmnvSKquEll YU2aHSKiqemmQIQynB3n SBXvD3z7OyCqMoI3IKit G6KdeeF3LKPqqRUm HZoyJVR9Z68mh6Q1CAMr ZZVaIZC3qNB7jF2pnGcp bjogbGVmdDsgdmVydGlj VTwiZXedM381HMDg xLncWNMygM3iTRTzuLSp qGtqUN0gJHLwonncZoCI ByNATCJCNRQJQE3SOD92 X9LwLwr3SKTyxXsg FG6jyGBvJFolWe5yfEnm eSkmJF8tWVJkegidTJKs aW1xGGCdnCDvfBgzVQ2n VGKqxntpg148AjZt KST1ROKinJXvA2NxyG7i DkRrWJJjRTFvR3BbmXFa CYdeU672GKqpSbW4FCDz vtJpE7RcXRPcxHvm JdW5c1C6Mz0wPN3wFk6a IJt0PE99HC93qMRll2R6 mZV1S4OfKMEclhbdlxen jFG5OHStNEIsdZ36 oYMzVUqyWa2zc8N0a767 ODLoFYYwgV12Ua2phPhm JDKkkKDNyG2lyrdga9lp cjogIzAwMDAwMDt0 DXc6NXIgpCbgSqTuYTQ9 FrX7UIY7dAInzV5kmIcp vkfaaL0pYry+MjYgWWVh wmV2U1UqIwf6WZWx zSkpEU5auGTfYNohLv6s oNmwaQhaMO0iLACchvfo NBLqjE6bIAEkcBTagRrx GA0jDHNnezwwx650 HrJeWEV1YHMmhUGjY5My tO8pOfZqFUMeUCWiS4Pp mQGmTUleF242WPmnDvL8 BHFqxcMiM3CgBIFa nFiiYdI9u1M5It5IQC6h yRP6E9PdUuu1UIDqhGya ZY0rwMTcQIelUl3dsLli bDjzSH4pDWEaqaqi RGNcqM3aQGDkeLJnzYzo JD4kMXJrbyndi275OqXl OIU9FBTrzGCcQ7TnwD9k EoYuWYBmGANqO4Xb uILzPRxsZ425LCmfFmJ6 BYWysgQbT4QmPNOsiFtp ChB9h8Q6Fx8OoDDcRDQy SW40RA53HT45V3Qm PjwvdGFibGU+PHRhYmxl IHdpZHRoPScxMDAlJyBz nWbqJG8hXp2oWBKyZNUm aEfmuDWhXfDie1yq WBKcJIrgTN6vfEqnW2Vc tAJ2TNGgv1m5Kd51S64a T9FavBC+NIGulSB0fJL4 eB6zNaBrFsK2SKdg E264AnRapOQkVrvan5wo e4ksfRh5CyYrCVKompVa wPhgYSH3a8AdQf99I51z IHdpZHRoPSIyMCUi GXTwaArmgi9xpU3tQy1+ UTVjjGV6gPE3uN5gUdOj RxP4HCtlX043RjBkuCEt FthsJ60qV3AeiVF+ WDIpDql3GSKrwMafHF5u qSAxRJuxWr7vVCL7FmPj ZtHyJNtuE2UxXTJtklep zxqvjDH9PWXcKNNt vW36Yi9nlSsaXd4vIXZy YLG4TARqkVWcR2OkkB2a TiNqSMHeNGAaC1NvuXMr XBpwG142TZcxQiL6 HIGccxDvQ1YtTHTosAlr XnV9w0P7Na7QnTswhMWu DB5lRrNbPKq6C1KfHqm3 OICczFnbNK1wsYIz YAxeSa9beUvtxKqiRI2m JRUmhuuan022DjLtm9gr VGYvvYWbBGmmKAE0X39s v5Q5ZBNxCIBiTIR8 wGF0nY3fyGtagtsinHYf dDsgdmVydGljYWwtYWxp R186WUVxrQtkKwMSEox0 A1AuYjk0WPKbdIff EZ6qjTKuMLwwDf7vmFwt pHalHW9cHRDbzxibj356 WtUyq3yvHIDjoHQuRMoj SOQ2U28pj3S2CDGw VHVmRCI1eBC4vB2htVru bjogbGVmdDsgdmVydGlj UUlmHPsjP721CHKivWdu Ol5JSfh1C2TlStu9 GFOtbOvvNX7vvRKpAIvz Ix5eyXjsyQzhJA1aVATr owurb489HdWiu5wcMICt fIYoZGvkSWK5W12i p7Q0BRPsWGByMHI0pGB4 uO9xmEngwsystLUavVwf ymSwxQidWNqiQZfmC902 IHRvcDsnPlBheWVy OjwvdGQ+IR77uz61I4Ta OuasPhv4AVGzRIB5fAI2 cI5nNGQbFHhdh2I4oOK6 Q5MikdHbtr7wg3xa YXBz (more content not included)... Normal [facility] Physician Orderon 07-04-2022 Physician Order [id number] #1.00CD:127 Normal [facility] Estradiolon 07-03-2022 E2 [Mass/Vol] 112.0 pg/mL Invalid Interpretation Code [facility] Comment on above: Result Comment: Adul t Female: Follicular phase 12.5 - 166.0 Ovulation phase 85.8 - 498.0 Luteal phase 43.8 - 211.0 Postmenopausal <6.0 - 54.7 1st trimester 215.0 - >4300.0 [facility] ECLIA methodology Performed at: [facility] [address] [id number] PhD Rick Lee Performed By: #### 2 [id number], [id number] #### [facility] [address] [place] [address] BhCG Quanton 07-02-2022 HCG.beta subunit Qn 447 m[IU]/mL High 1-3 [facility] Comment on above: Result Comment: GEST ATIONAL AGE HCG RANGE (mIU/mL) NON- <1-3 0.2-1 WEEKS 5-50 1-2 WEEKS 50-500 2-3 WEEKS 100-5,000 3-4 WEEKS 500-10,000 4-5 WEEKS 1,000-50,000 5-6 WEEKS 10,000-100,000 6-8 WEEKS 15,000-200,000 8-12 WEEKS 10,000-100,000 Performed By: #### 2 [id number] #### [facility] [address] [place] [address] Consent for Treatmenton 06-11 Consent for Treatment [id number] #1.00CD:127 Normal [facility] Physician Orderon 07-02-2022 Physician Order [id number] 8#1.00CD:127 Normal [facility] Progesteroneon 07-02-2022 Progesterone [Mass/Vol] 29.10 ng/mL Invalid Interpretation Code [facility] Comment on above: Result Comment: REFE RENCE RANGE Males 0.14-2.06 ng/mL Non- Females Follicular 0.10-0.60 ng/mL Luteal 3.00-17.5 ng/mL Midluteal 3.30-18.6 ng/mL Post-Menopausal 0.10-0.40 ng/mL First Trimester 8.30-66.5 ng/mL Second Trimester 18.9-66.1 ng/mL Third Trimester 35.8-312.4 ng/mL Performed By: #### 2 [id number], [id number] #### [facility] [address] [place] [address] TSHon 07-02-2022 TSH Qn 2.52 m[IU]/L Normal 0.34-5.60 [facility] Comment on above: Performed By: #### 2 [id number] #### [facility] [address] [place] [address] Estradiolon 07-01-2022 E2 [Mass/Vol] 142.0 pg/mL Invalid Interpretation Code [facility] Comment on above: Result Comment: Adul t Female: Follicular phase 12.5 - 166.0 Ovulation phase 85.8 - 498.0 Luteal phase 43.8 - 211.0 Postmenopausal <6.0 - 54.7 1st trimester 215.0 - >4300.0 [employer] ECLIA methodology Performed at: [facility] [address] [place] [address] [id number] PhD Rick Lee Performed By: #### 2 [id number], [id number] ####[facility] [id number] [place] [address] [facility] Quanton 06-30-2022 HCG.beta subunit Qn 157 m[IU]/mL High 1-3 [facility] Comment on above: Result Comment: GEST ATIONAL AGE HCG RANGE (mIU/mL) NON- <1-3 0.2-1 WEEKS 5-50 1-2 WEEKS 50-500 2-3 WEEKS 100-5,000 3-4 WEEKS 500-10,000 4-5 WEEKS 1,000-50,000 5-6 WEEKS 10,000-100,000 6-8 WEEKS 15,000-200,000 8-12 WEEKS 10,000-100,000 Performed By: #### 2 [id number] #### [facility] [address] [place] [address] Consent for Treatmenton 06-11 Consent for Treatment [id number] 21 [id number] #1.00CD:127 Normal [facility] Physician Orderon 06-30-2022 Physician Order [id number] 1#1.00CD:127 Normal [facility] [facility] Progesterone [Mass/Vol] 21.40 ng/mL Invalid Interpretation Code [facility] Comment on above: Result Comment: REFE RENCE RANGE Males 0.14-2.06 ng/mL Non- Females Follicular 0.10-0.60 ng/mL Luteal 3.00-17.5 ng/mL Midluteal 3.30-18.6 ng/mL Post-Menopausal 0.10-0.40 ng/mL First Trimester 8.30-66.5 ng/mL Second Trimester 18.9-66.1 ng/mL Third Trimester 35.8-312.4 ng/mL Performed By: #### 2 [id number] ####[facility] [address] [place] [address] Coding Summary.on 06-25-2022 Coding Summary. CD:[id number] Gh0bWw+PGhlYWQ+PE1FV TEgX14auDEktI5EV5wWW D5VNSVDVQHCEL5ORG5qf DQ1OSrvK3WsvnHw NqbnlYPzIR20INc1BFW8 sKnnOOazeZ7cfHXiU9h8 AfRcUE36wJ80TRpsDBMm CwK8UlZzuqzyjLNi H6opSmCyvBJxYsr+PHRh YmxlIHdpZHRoPScxMDAl AlLapHkeIS1bAh7zINMj LWNvbGxhcHNlOiBj n7moSKHtIXjdZG3tsLyv F2CzmTM4IVPbw1t3Ck04 dHI+KMWrAFR2jGpjUPxy n179DhLri0fgJQP6 zSNjQKqwDQI2E71oi3Z6 KHNhWBSyFEV7vVC9bW8j qKcosrscG7FvoELyRbG5 XMI9cXVvlD2trIds xhiduT7qShg+Y13IBD0S JSPXXG1SNae2B7UlVala dHI+GS23HECeOS45vDBn oHLgo1bjaMo9ZtLy WPKyNWN8mGueETmhk8Bc VLDrH82tdYUat4Y7RMBp lDzxtNLqEtJpwVM7pZ0j KAlssfvry6rtpdvi Ytuad4pfzp17tS62H41t EGxhAMHlGBT5GWPvKOUq oNkkmf5woP8iCo0+IDxj o9eel1npwRy7DqZf UJItnsSsbKulUFA9a6Gy Dh71T1EokAalb3XyUwi9 vy53yJRrt9F2xWK7CRbb EUBhdV5qYZntLuG9 TFRbTgBzzM85yZNkGZoj Dv0nkQnipEmlQV4sOSIc uabpHWYnmN6sOOHbhCGs vYvjUL1wDNTicejy v590KnXkVAK8ABTxiBDb Q0WzbE0mHbNsGEGxBZVt S6KivMHpNVirC334DShz YeT5LGWklvDaI9Ir QGJsvGguQxR8m2N2Ik2W k8AtfjrgOVW0GAmdWDXd VfZ3PkMyDfG9H3DyMwv9 ZTRclZfzHQ9fS5Ja HLCmsrpusxxfvLP4FWWs WEVhbL29ePGcPNxbWe0e b5I6p692BAMfRGPowJ21 Of9ysWefEROjfHEY lA3aeewlc6ulbyqjRfSz ODHjNFv6IGc8WFYwwVxl PkUyKBV8FtK6WWT8fXXi lL1kxMgfsufbpZ1e Oyc+D06ziL0rBZB1KHB8 ysjgPSQfqdSsLI49IV21 E2GcHgfrcRVtoFR+PGRp dfFakSpnPQ3bUwHi g5mlt3PdNKcjW1BhTDYk GZsxXyq0ZBFcBQZ4xIC4 cU6tAMLaZVnqa2F6bCW0 Y3VxrhAjfw6za1ls MQNmUCyeD66abLVot4B7 QAIedVF7GMWiuZyeMfJm vE79Mpk+RBMqmDeax8Of Keqtu0rzc5zyoFj2 IjMwJSIgdmFsaWduPSJ0 f5NfCq46H16bIZwdCJBr ECOlRUCjYWKzcMbfrm7t dA6xVn5+PGNvbCB3 wVF4pU7vIVOlAtR7FRqs J468AcKvmNBoOuphf4ei t8hqmWz7XlFiVTYqwyZg rNqxOUY5k8GwAb71 D43gBSkhFNZiHHVdTNPh LAXixYbavp3gsN4mYl5+ JG5kp8hzoy14tL31eDX+ HGQvNXH6gTskPBlq UWMtlC2eFVrtQcB5SYZk CnCafQ91rUPsRUuuCp7a gDouhAezLK0tHVXbumeh o811TrBzz7iiTISf cPEhIPauFKA3C15md8B6 IIKeIGBeQDO3vEK2sI3b bGlnbjogbGVmdDsgdmVy eAyqQRetENrrR433 IHRvcDsnPlBhdGllbnQg NbZbGEj2G0OdXzs7CWWv kNtfWZ8xqVEmFAgxGt7z qEnpvFccFA1gAUMm pbewv191IxXim9gzSCYe rNByQJtqAJE7L53ul0O5 AVOtMIRrYDT4bUS2bJ8s bGlnbjogbGVmdDsg dxWczOdjJMigFRzjL917 IHRvcDsnPkJpcnRoIERh tBG7QD09YT16cCWqj2S7 hQM2U8UkCEBjjorj nsepzGB2YTYnXUKnkE02 Ii8ioJseNt3gDJLjLVZ4 MNNlxEUxC7VewF0aHnIu DNXmGKTfD9XidCMh CZzhG978OHkmSbN1LUBg rlPqM0OsYIFmvSqnBzG3 h9A9Xo7LS5G5KR40UZ47 nFZck2N4xDU5K5Eo QINonymmsvqccPO1XESw GPGlpV01Er0hpBrhTh3w XICqYLU5UFDneAQvB9De vU5rQkVuDRCsVYUk C6AaaIWhHLraX784RGcm RtH2UTXqmhBaX1RiNCDg wFitAgJ2m6K1Mt2HHJw8 FG36PE93uNNoz8N7 wGB0G0RtNPFmlxrjgbdy hPO3GKTwLQTpoT05Zk5o iKlcPc4pPTRaALZ6TFUi cRXnH8JmoM4oAjKc BUJdCMFpF9AhdNVgGFus W892GCmtXpH3GGAnqdAq E1TxJMJhnSjiJeG6n4S4 Bn7SPUWiOQ53WGN3 zTZ5YM81AH89T7RfBcci dGFibGU+PHRhYmxlIHdp ZHRoPScxMDAlJyBzdHls TD5hTx1yAGStXZBg iVmxmMWyBmFhz7glUXXa JHwoTK6lkEupE6KamAY2 JODww1v7Jg30H55cY3Ua dXA+HAGbaHU3yHW5 hY6aNfLxIhY2ISfyN832 NqPmwOXuMybea2wca7ob tWw1ZjW9WQDycyKhkQoa MSM7a8PkHc80C28x IHdpZHRoPSIxNSUiIHZh iVtyup3fbV8nCt3+PGNv zVC1bAY1aY3sKrIzMiY7 DHhgR286MjEwwZKo Ixaxg2nzi1iwwOn5ItRo STIxveMotIkyDWF6r0Gk Pl71S2QksAfpl7MuMeq8 tg91uLWkz5X2aGI1 A2CjAAAqlbxipTMsbAfd SA1pLDWkqzdfXXAluY0g YZQoY1k9SzZuJvZ2MDnk X3GsiuH5VMSvzLZm JJveIWL9N85bs9V0RQZq WAOmUAQ8cAA3uC4ytAgx bjogbGVmdDsgdmVydGlj YFujUYnjD716IXTc pZvwPRExxS8sBTTwwKSo tYguLF8pLRMllbvxAzXV WfMHGUIULNEIGA1RDP21 E7LrDjy9QXEcfIpo LF7npBArKFpjZl8jhFwv hLllJH2pOSLlfawxUVBn bR4qLKNyoFMuaZdlCJ7k VNXjftgux032EvUb QOX7HUPwrFDxI4GmhB8d AcTxBPWlYMUlD8VfmGAz NUkiP448WHquJhQ7ZSBn wxKoD8JsITOqtGie NtN5k0A5Ol7kFI7bZd4l XNu7FT87PM57kFKfi3A9 gLT6X5SzMJWbexudsuio kEI5XAEwOIBerI76 lJInMZakIk1bm8Q9d577 MYRyZSFluP29Wu4qnLta AIRngUCJpD6dymuhx3kg cjogIzAwMDAwMDt0 EVq1FJRunLeqZrRjEGS2 XuR2TKO9iRGkkP5ybMkf drsnpA4mJxs+MjYgWWVh pfG7H4QnGeg9VPIh mEcyIA4bwKDjQSgfAk8y yVciiSlsEG9zFGOcalax IDTytY5nJZFhrYSvwXtx XO2kMGBnxspja670 ZqAjPAF7OCGzmAVyI2Hb uK1fCtQoSQMrCHDvE3Lc qTVhFAlbC792VVtiPlR5 VZZkmtMxI3IkUPLk kOvnEuX8p8W1Pv2RDS9y qDP2Q0NyMxm6NGEgzHep XF4soFUqIYxjQf7olYad dJmoHJ5gJRRcmwkm LAEscH7qCKUzkSWcuInc JL9cIHCyjhdda733HcVw TWN5RWIspXYxB0HhtH7x XbDaODDjJCDeM0Ld nYNeOTroT962FRtmFtX2 XGOupnIsQ5QmLCIkvXjs QjU4n6H2Wt7IqNUeULNx XY27BA51GD30A0Dn PjwvdGFibGU+PHRhYmxl IHdpZHRoPScxMDAlJyBz mTjaXW1zVe5kZDHkECKw lAtbnRHrLkJnj3nc UGAkTLlrIQ1ojUpyW0Dr qHN3EYSpl4a3Yd46Z22i S5TxlUE+MNLtqXR6bSZ6 wP8lAzBfFnE3MIsz H762FmLfdSRcYelen2xi e9ifrAm4FcWuXLDggaMr oVlgXAD4h3PiFd68T67i IHdpZHRoPSIyMCUi MQAlsYnsyl5xhY0wBm8+ OKAqpCD1oVT7aX2dSwNd XxV2XHmoA254HmCovPIf RmtpY99kG0ZooRZ+ NBTmMlp6NIFygVmrOQ0x vYTdPDlrCy9kXHG6QzVb NzBdXKwvL1HhNTIjyzvs eznieND1PKOoXXEw tD73Sd6deJcdIj2zNTFr FZR0FBNuxSHeP7SbuV0q CqUkSPEqCTBkP2AhhMHv KYuhR991SBmlCoX1 YMKogyKdI2MaUWImiRnx RgJ2b5A3Es1QoDqpeDGd UI7tKuLeIYx6B6WxNnb7 ZVSfkDkmTE2sfKMv UMdzKf3ddSwajGxzUA6u ZDYvfjudf307HgUac5ru CPXzzLYdKFpzMMZ3Q68f g2J2JGIgXLCnOUG8 zVM4nA0wxQtvwxbhbYFo dDsgdmVydGljYWwtYWxp Q553VTMndFvsVmCOMal2 U1ZsIez5GYTzdYjc MB5qbOYgUNcbXd4ohGuc oWmhUZ2vJCQnvtvpm611 WuAgl4kyAXZutXDkCNlc PHY5U27ss1J2JTDk YLLwFTH1gEG6eG8qkVcj bjogbGVmdDsgdmVydGlj YTlgMMvaB045ITTatXhl Rj7IGsh0T0FiJnw8 KJKnaAuyNL1rjWEyWNzw Uc0kfBkowJaoSE2mXTYg rumkr684NcFty9yzEBLv gZAhIDuyGSY9Q31q d9Q7QYMmLNSlSLT4mGO4 tB9lsLepzjkkpQNmxFwn wrBhyYutTZnlZYglO872 IHRvcDsnPlBheWVy OjwvdGQ+TG01mx06C1Va UtvrSgq4RHVcFFT0xOY0 iX7sQSFcOJvzb4J7hHD6 Q9ZrcoChdy4tc4if YXBz (more content not included)... Normal [facility] Estradiolon 06-24-2022 E2 [Mass/Vol] 120.0 pg/mL Invalid Interpretation Code [facility] Comment on above: Result Comment: Adul t Female: Follicular phase 12.5 - 166.0 Ovulation phase 85.8 - 498.0 Luteal phase 43.8 - 211.0 Postmenopausal <6.0 - 54.7 1st trimester 215.0 - >4300.0 [facility] ECLIA methodology Performed at: [facility] [id number] PhD Rick Lee Performed By: #### 2 [id number] #### [facility] [address] [place] [address] Consent for Treatmenton 06-10 Consent for Treatment [id number] #1.00CD:127 Normal [facility] Physician Orderon 06-23-2022 Physician Order [id number] #1.00CD:127 Normal [facility] Physician Order [id number] #1.00CD:127 Normal [facility] Progesteroneon 06-23-2022 Progesterone [Mass/Vol] 25.50 ng/mL Invalid Interpretation Code [facility] Comment on above: Result Comment: REFE RENCE RANGE Males 0.14-2.06 ng/mL Non- Females Follicular 0.10-0.60 ng/mL Luteal 3.00-17.5 ng/mL Midluteal 3.30-18.6 ng/mL Post-Menopausal 0.10-0.40 ng/mL First Trimester 8.30-66.5 ng/mL Second Trimester 18.9-66.1 ng/mL Third Trimester 35.8-312.4 ng/mL Performed By: #### 2 [id number] #### [facility] [address] [place] [id number] Coding Summary.on 06-17-2022 Coding Summary. CD:[id number] Gh0bWw+PGhlYWQ+PE1FV UFxB86mcBFsoE7UI0oNX M3IWFWGAOTZVT0XKM5yk KG8CQxnS7DbcmIz EinwtXEhQH18JSw6XWR6 xRuaRKopzW5xmHUxI2a2 XzTpHH97cB63OZtmUCJn BiN3GeUykpdayHFk E3hvYkTdyITuCod+PHRh YmxlIHdpZHRoPScxMDAl IlNgnKqoGI5lZo2aNKLf LWNvbGxhcHNlOiBj l5tvHGNwEUqaOD8cfGmg P0CplWK4NQXho2y5Ib26 dHI+JMVbFYS6nJruCAqq s980KgKaq2kqPMN1 dPHyRQwoOLE2L96gx6G0 VERtLOLrDUP0hQS8gK9q bGcxrljhL0ZrpTSbWiZ5 WRV3kHYfmY8tsSfk muqhrH3mYna+E07PAK5G HNGCMC0TWmh1E8JnKaji dHI+DT16KIJjWJ98nQQm vFTnz4qyiWu9HdJw QNOaQNB1cBtxZAsge5Fd XJWlM28irZBly6O8JQSe gNnmpWPeOzLucKW6pF1q ZGufmdvva2emxljj Yakcq8jbpf26zU49S65x AEclVSFzBHK3ADSlOJEk hUeaam6pwW4nMd7+IDxj s8bcs7nheUh7UxAe GSWyieCkxKvfGRO0x4Ro Vo99A3NakGpvi4TzZyo4 mv93oJPwz7F5vNV2FDcx DZGmkY4lMIywTjS5 ESDpFwRnhO01wXXyCDpv Gt8paHfmjDwuYQ1iKNLd lumlUFRreD8hPTRfzYQl vRhvXY7aHZImxjbw g922QwPuBAH5SWQqzQKl I5NlgC8cGkYlKIVfAIVx D1TrfXGqUPcqI670SPof LaV3ABDfwcMbK2Rz FXMovYcdKhC9l3O5Zw1H y9CtkymnFFJ4ZIvrNKFr GgF1LvKrIhR6X0VoRoz5 CBFcdIqlOM9kP7In IRIqysrfgzogySG0OKSf TJMqvU83sKMvUSftBw9c t7J1w527EBYiFVQseJ66 Vp3szNsaNJPrbLIE yJ7hqstyg8dqydlyXvEf ENCcBKb9EEg6OKPtzRgg UeNnHQK1FzK0VPK8eFUg jU5wzJkowlsmbU4e Oyc+G61auM0yBKV5ESL5 wsdmLGMvdnPdHK44JQ07 X2JiRgkahGHjiVJ+PGRp bdMseFhmIV6sQqCu v7jms1GnQEbcG6OgDAIk BQpjMvy2UXJpJBI3cSZ1 bF4jNHPdVXxce6V9rFX8 T8QvjxQkcy7qd2xl ZCEiBFqyX89ciEIuo8P1 FBNxnBT1DUBcuJdgQyVi oX99Dsn+YJCvkSgwn4Ko Bgopc9kja1oalRa3 IjMwJSIgdmFsaWduPSJ0 u3VrPt00Q76mJKxaBMSk WPIvNVCvTSMaiVezex7u jS0gEl3+PGNvbCB3 jEB1qO0bPPNlOpC1PRlb M161IwWoiGQgIszrx6oz m1bczUo5MbNnXIGpdhIz iYmlBDC4t8PiYt26 U71zRMsiPDEyUQEdPTCr QGRizHbxxh5iwL3xGf1+ MI4up7yxoi34mD59dCI+ CPOvFTR0bHesEZbj OGPxsI8wJDfyCyF9CPAm KyJfwM50dRYfMJbhXk0l kZaliRduPV6rBLMuqwes e003RuBly8mrHJFp fJOeWEloKGS6Q23jb7I5 RQRwMNPdGUE7eMS2zQ1n bGlnbjogbGVmdDsgdmVy nEvlWCxnCXirV176 IHRvcDsnPlBhdGllbnQg PcZiACc6B8DdKdy0NHZg wMlqNE1ghHDiZVsjYj8t fTfbjTdiRY3oGLYg hjbfu846FsOxi1jpDDQg qFWePQdrQSN3S26yv9I2 JKZdFEVpSAN0oQY3uA4o bGlnbjogbGVmdDsg mhZfkNbrCQfnUEtzX522 IHRvcDsnPkJpcnRoIERh uSW4PR55AP31iRKzi9E9 bDH6Z5YzOYWxwxiw bvmerFJ5PWDeUZJpkE83 Fa7gfAcjEm4oZVNxIDL2 AVDguWGdP0DszE6gBtXr YSRdUXVzJ6FtoYJg JIzjQ605OSixTsP2VSSf uiQtS9GuGLCzjRagIjV6 p2Q6Me7KW2C0KR48EA65 gVBhc2I5vBW7D9My EFZtsdfhqlshqCP8SENf IVGonQ71Xn5ifOadDx0j HRGeCQN3DVJudZUsG5Ok yV6tMhMeTSKiISRu M7KxkJVrBJrxS793NAdz XhD1WBVgqwXyT9ZgJJWm uUkyBgT2x7Y4Yc7LUGj6 WK48NA08pDRod8T1 dOV9I8SdQJIkaaxyfbpu sSR4PXNtCEXpaF96Eu9r sXpxSy6qRCDhMQD2RXGf sTNyU5DyfC8eXjYe VXWqGUIgX4RmkTIvWYuo Y627PJzeWbA7QZGrrfCp P7PnVRPhgSbyFyZ2v4P2 Ro6BFRJnKC87CWK2 kNA7JH53UJ48N1EoCzdj dGFibGU+PHRhYmxlIHdp ZHRoPScxMDAlJyBzdHls FP8pWj6vHAYpLXHo vHbipCQhBhCya3pbELBy DFxaFL5iqFpiZ2KcwCF2 EPAfs6i8Ew57K22dV3Ni dXA+ILKmlIS5aWU9 hH1vHjXnEdX7SLfaK028 GcEqnDBjCduxv3xsu6rx yNy9TzW9GVOmtmInxLsr QGP7o4AbDj72W58a IHdpZHRoPSIxNSUiIHZh aFsmnc4udH1yMo5+PGNv vWN6bJY3nN7dRfQzZoH8 RLbmS803BtNgjHHa Sfcao5ywb5xrdDm9CfWc MVPljrUouMklSWC1n3Yu Zd64T9AnqQgkl9ZtKij8 ai24oJMfk7I8nBJ6 W7ShHBPwwdbueZTqfHrc NK4sWMNkhlvjEFTlpD4q ACPlS4q1DlHaPmZ1UOyw G3WokhD3ELHtiKHi XEwzMSD6X31gp0I5KCTk DWFzMOB3xLL7sT5goDkt bjogbGVmdDsgdmVydGlj RAvhEAlyM175TAUu aJhyALKxsT1xAMBggAKa iEyoIR8aGQJbtpmaOwWQ AfLCASFFTONXIY3LBG98 E6WcWvf1UCBraZuv BO4ycIPqCYtkLm8dqYgd sMriOP0gNYGppaazIGHl tP6wLFLpiTUbtGbjIO0z FHJnizptj890OnZb OCZ7FYOjfKWgJ0RquG0b XsBpACBsLQEwH5XnrUYd MPeaP760LXpfGeB2UQHb kbTkO3BtQXBfvBee QmC3g3Z5It3qDO9dNz3z CDa1RZ17DH75oNXnc4Q1 iZK2E9FgIOIoseoerwrt yWB3BEBoNBGhfR20 jJLxLVaiVw3dh9Z1q620 AUGeIMXmeZ21Ea6esTxv RPFeuFYRbA4vkeqgy1md cjogIzAwMDAwMDt0 LPl0NRXgkYomMjRwZBE5 VpO0PWC6nOWduC0ezCeo lmfscA3tGkq+MjYgWWVh pyX9Z6GqHgv7RYIb uHshKF4qzJTxAEnzUf2b gKfvsBgvGY3sLCOigfvi CQCnjY2pPFMjdWEcjMll SH9xHOFrbxhci169 EzPzVVR0DMEspWGsG3Fr wE1kSnScELOxRJRyQ3Zg eOOwLYalT270UYreWbA0 ZGDanoDkN5ElTFWz qYppWrT3n7S7Mn5YCR0g sAH1S2LdNfu1PQSklPev UU5xuJHlBRjcMk5gyMpi qPpcIH8dVITtzist HZCqeC6gIQBlvUZxbEja KR8vDJXydbdbu759MtXa WYQ9NFYwuLBwX4FreA5p YnBaNBYzXIHsF7Cf aYZcWWawO184ZJvjGdP6 OPMqlaOnU8MeIHYfuElo YnO8a4F5Lc6BzMIuQFCh ZA42TN39VA08D4Gr PjwvdGFibGU+PHRhYmxl IHdpZHRoPScxMDAlJyBz fRtsGS5nDi9aQOHpBWQn oEvskDHxNkGlj0fb VZZyZRmoGO9ttTimZ7Ob mWP2TLVxe0p2Hz76F90g W2JimKJ+JJXpgBH0jHR0 sL3bYdLeMnM5CIoc V024RlYknFTyKjnwn7dy s0hokHn9EjDsYSSccmPt wUbiPWX1u6DuWm53C84z IHdpZHRoPSIyMCUi BEBhjOkusy3vhQ5iMj6+ YLDzbQZ6gJT1dX3kPtTg CfO7LBljN104YsNecWAu HrtiL55qC3WuuHT+ LLYoDow1PJPpcGaxUT0z vDPfTGhaPx9pQFK8GfXs FjGuSVncB8JtEEIqilex hnpqbND4QNNgBUVb uU67Re5mvWfiGq0bWUYv GJK8KDGvoWTiU3EmkQ4p IcVdCDSvYAWnS7WgrOAx BXqkB291YTcnKeF3 GNMhumOkM8BmWYTjlCdh QeQ9k2E4On2JkYapcLOb YN4cGiAbLCh0Q6TnVpv5 JUZooEakJO9ctYZd EAvyUi5mnLiioIjaRP4o HQJdcrkpn904TsVpz5jx EDPxyBZjLXaeSOW5D74v u0M3FYDtWJAuRSS6 sGA0gD7zoExiovmsgBBc dDsgdmVydGljYWwtYWxp M821MHCmyZhsMqDHCwx0 M1LdFah4QOVgxLmz DY1mgULvSSdjPp7zxQwq xFklAI2hNCEzczbxc716 LsVif8bdWXLswAKbFHop KPH9L03qf4Z9YEJe EOYhYHV4hSF1aJ3qnKmv bjogbGVmdDsgdmVydGlj VUdqQRetI236DVOblCch Gj1WYgq5D1LiJqg5 XAZlbNwyEZ9xxGGwDYdm Pb0ayMvyfDmiEV7bGFZw ofyzk673ZdHnx9tiBCTp bXGqTScvONV4R81r e4B1ZYXtPIMmEGQ3zYG9 qM9plZrldwujfPJrdHxi woRgjCxxCXeiKTptW685 IHRvcDsnPlBheWVy OjwvdGQ+KA94vv58J6Xx VipmNgk8CWTnTQI9nQJ4 wE6yKKHfLGsot8A1hJO5 Y9AmrxGkeg7af2fg YXBz (more content not included)... Normal [facility] Estradiolon 06-12-2022 E2 [Mass/Vol] 182.0 pg/mL Invalid Interpretation Code [facility] Comment on above: Result Comment: Adul t Female: Follicular phase 12.5 - 166.0 Ovulation phase 85.8 - 498.0 Luteal phase 43.8 - 211.0 Postmenopausal <6.0 - 54.7 1st trimester 215.0 - >4300.0 [facility] ECLIA methodology Performed at: [facility] [id number] [id number] PhD Rick Lee Performed By: #### 2 [id number] #### [facility] [address] [place] [id number] Coding Summary.on 06-11-2022 Coding Summary. CD:[id number] Gh0bWw+PGhlYWQ+PE1FV ZOvA25wwQXkkR7GC8gKM H7BQMQOJTAXBQ5YNU8mt WZ1RSmiG0AriyAz DewnmZMoSW83KIy0ODM6 jYlyEQxmcZ8nqRDlS5u9 NeZfTN35uI91CAqzTHNg WuP0QhQcodrulTYr W6zvBlZxdWRzZfh+PHRh YmxlIHdpZHRoPScxMDAl RsQymRxnBF4rNn0lUXGm LWNvbGxhcHNlOiBj c7xaHIJbFQkgKC4qoWlz G8PthCF6PYRzu2v6Yz57 dHI+FSAbVWI0lIzqNMlg n264WrOtr9pySEQ9 zNLnSKdtCEK7S91uv6S0 JAXvGACqTLM3nBZ0eP9f uWubnecjL7QirCKfUjM4 KWA4oKOlnM7ybQrs ydpbmO9dRlp+Y86VJS0V DOQPOL7FHel6R4VcDjku dHI+ZL85WMYxCP81mYCx gZIar8ahhGn3NrZh AACdBTE8pZftALwbi6Ol GFNxZ40jnANew7M4JZDm dRtsrHZmXaLhoFN9zV2n HXblxdofk5gazmea Fhwbu8rlqh91jU26T76z YWcdLTZsOEC8NYDyCKFa iDwivf3guP5fNj9+IDxj s1ilc6inpFr0MuZb OCYkyjDdzJpvRRS0f8Zg Ld95F1GzeJbno4QyTae5 my23dTSbj2E3dDJ2RYln HALldR7yKIlcElV5 RSBtVoMgbM00vKTzADlq Pm7dfGjunWiuMT6jDYDb ocopEDTokL2oSKXyrNFj aRnhIW0tNHAkjimc e683LqTiJTN6UVLnxISt H2DroR0yBvDlNISaTNLr B4RcwNBgYMguO412OXgw QaY9UTPzqyVaT7Bc UHBjdXraWkO5a0V7Qu4W x2TwspzgAWC9UTfaNDNc RdAmRdJxQgA1N5BoAxd1 PAFtaZjbDA7jB9Zo TGDeuvozmnakjNJ7VPHi SIGzeO99uIThFEwwRs1y t5A7a897UKZzKXRnsT80 Xk6naTvhITAtvFYQ kY8ghgwjc7sntuwsJkTa QMPpPIa7GZv7IXSixOkf WlHcUUV7YaI4OZG0vDAe jS6efVzfrhdbwT9j Oyc+L68axM1wMTH0BVO6 vjwpOZRucoSkIU89EA50 K0XhPcrwzVVztSK+PGRp hqPlnCcvOA1lPwJb u9fox3JpQKhqC0OcQMFi DLxaHmq6OIXuWDJ7lNN9 xD6kRUTtPQiqu4X5vGI2 O8BjnhGlls7qq8tx VQTzJVooV68baOMqr4Z2 RBMhyLL6WVLgjGbzSoHv lI07Lkg+GSLfoLuba7Tc Fmcbq7orq2gpwUi0 IjMwJSIgdmFsaWduPSJ0 w5RrTk11W23zRVenHXZe ICPeDLYlKXTuuMmyoo9p bR3yZf2+PGNvbCB3 nCK0nV7vOFPnIzP4KKpc W923MrOebEPxXrjol2ol r3fnkNd8OgFdYQHeovVp aHjtDEO2j7MkQt42 M67kJNvsZQFhNTCaRTXu EHEanAxner8ifA6fNm8+ YJ7cn2fqky19xZ82bPQ+ GAPaUTQ9pIwhYSub SFBiwZ8uIBduFtV7IUUy IsRcrS42hWSdPOveRf8u nMfpdXfqOQ3wYFLbtijl j846JtUfh9dxFAVp mKBgEDmxDTZ5W36mc0M4 NCJwLCOiVTL5tWJ2rE8h bGlnbjogbGVmdDsgdmVy iPioARhvWWsrW411 IHRvcDsnPlBhdGllbnQg IuBzAKj9A9ByVuh4WPZd gJbtCL2wjNHmBWdaCg3x uShadSwyQC7rTSFj rwrbh548XxSys1brQJEa xUNnXIztXVO9X29sk2U2 XKAgNZZdWIA1yYL6tL3u bGlnbjogbGVmdDsg psEpcUxuNHaoHZajR588 IHRvcDsnPkJpcnRoIERh rXG5CU37LU64yGPuj6D6 mJY3G0KdWMRutghb xrpwaGC6DTLvWNTpkI06 Ms8cwZdgFr7lWKYiITP6 UGVjgMLdN3KzxN8rIdAf UIMcUBOtO8UuwHBy YMafS735CLtlCmG4VCCf xaWtN7ObPTSsfMucVrY0 z7M3Zp8XB9N9LN59BO97 dEDbv8M1yDK8J6Mr GVFwjkwdgittzOB4HFVs YYAlfY01Gh2rtLraUs7p XYYgZRX9DELuwKWgD9De aL2xRtRzMAFfDGRx H5SwdMCpSXgrJ980CZfp CgL7LMSlaxOjO3UuWNHl dNvdKyJ3o2U4Fc5BLKu4 ES75FO85tEOzb5C4 jAB9C9NyXLSsiqdbxdoj fMZ8XVZmMAOhlK00Jm4w xKftKb5lJDZoLAN9SMUy rJRpK3NlpY4aBcQx TUWqTDQzZ6ClaFXdQZbp W374XNxhBcA9HJUfubIg U2ZhIRNyqDboDfG6y6G9 Gm3NQRUhDS30AGL5 jED7WN80SI70U0HsDltl dGFibGU+PHRhYmxlIHdp ZHRoPScxMDAlJyBzdHls QD1hGc3vPUUiFQCt zGmkmUTaChJue8rvTSTy YGalIW4qzQuxB9XapZS1 KABpb8i8An23W51kR2Xg dXA+DWMmdOY4tSI9 iW5wMpVbOrC0LNzhM633 JpGpvQBoKysip3huk0do mOl0EyA0QYFsglRseUlb WGY9s3UeHm47C99d IHdpZHRoPSIxNSUiIHZh tTychw2mzE5vBj1+PGNv lJA9dEZ3zD3rCuCvHcN4 FHbxL044PvPsgWXl Avywt5yfr8bduEk9PkMp XPSaehMnfCgzYER0e8Cm Vh03B6WbsEnql8VuElv1 pj89jNCgq9C8yPY1 N9IbLOPofmhlwRXkvGwh PE0rIHJvxdthZNNikZ2h FRZwN3a8AcYmYlG5QXbp L9GhfrH0LHIreKOu RSllKNH5N62ph0X1FOJv JQGkRDP0xPX3vY9dvThr bjogbGVmdDsgdmVydGlj RQaoJZlvM344MJCv mMbbHMSmgL7iPKLbqZEp pFbpEV7gVAUunvbiZdIJ VdBYKGSYZJTXTY6DEP48 H6CdZsa5KBSszVah PH5zoUWsQOeiXy3gdXzg iJwvCW7vPWZgmnknMPYi yC3sJBWueUGbpEvrTA2c LLOzgkkdy434BmHg YVA0QHBixMNhL6MfiY7q JoNwCOYdDQQuH0TpzNUr RAviJ126XQzeKbN0NGYc zmAsF3IgXSFveNuf KtH4x4T0Xv1gJJ5mGh1k XZh4RN94EL77aJWje7V8 lLD5K4LjFLQqjruxzubq oOH4ZVSnKEChaA42 sRKhWWxyAk1bd3V6x762 IWAyINWpwH17Am0pzYur NIHcbYCVqU3apcupn7ll cjogIzAwMDAwMDt0 LAz2WRUooXhqJoQxAMM9 QlO2EEW4rZFylZ1eyRwg pdnoaV2aSrr+MjYgWWVh noQ3U5LdVhn7SUWz xPtoKP2veOCxZXhnSu1o tIhzlFedIX5vSVAnhoig MUEnyV1gRPFkgDTzrCsx JH9aOBTcuovex072 GqWqKPO8XEYlkFQbN6Nv nM4wHvQiQNCiMMCfN8Cm yBNgRKpeI593JOxlFeH7 REFgdwSwM2AxBPPi fVqiNlD9v5H1Vg7LCA7z vNP8N2CcFgj1XSDwuNfn LA6lxUCxYBxyLl7ucDis zRyvKO8nDWXpwgvy XWAkvW3qSFVgnQCiqRbq IP0xXFWiizfsd479CvJx TMC3DJQblWIgE6QolL6u ZyRnTZAnKESeZ0Hy bHOiHAapQ736YRtnFdM8 GRLsdlPsM4RkMNUtyBex ArE1q5H6Jl2ZrZUlTWPe GA49FQ21XA85H7Pc PjwvdGFibGU+PHRhYmxl IHdpZHRoPScxMDAlJyBz yLjuLG1kUq8yHQXhTURi bXpykVYjFgZyh5fb WXOxYJzuXL6uiCtvO2Th cPA4BSEdc1c5Ad71V13m M8HzwVR+SVEgeFY5aIX2 gD3mTjRnUiZ8AIzd K394MeTrkRLnFscyj9ja m4zfhOp0JtOkGYKyjkNr wSjbIVT3h6WpSs16H09n IHdpZHRoPSIyMCUi KIWxgUhyrm1enZ9jEf6+ AQFyyCW5qDV0gF8mYtEo CoB4IBjzM207RfRcaOUd QporV63gJ7KefVG+ HJPsVwz4DVUehDmdAV2e zDMyPYwoKl5wGXP8CeGk WoIcUCfzG3FqWOIrdkyi eyzdbJZ7QAWaKHGq eJ61Zn4nkXdpPo4zSISk RMI3BMIztSFyY3SilJ2z HjCkEHKhOTZqQ1RjeXPq UApiR560LFlmDbN7 CMAjbeKrG1IgLIAynQzq UiN2b3C9Nx8KiSamgLXl DN2pMfZqWWt0S9QlMnx4 ZCPyoAhzVW6jtEOp UJrcJw6sxFjunJgjFG8u VNNcpzrxt505XaRsm8pw PBIttZPiJRmoBGL9R06r v4O9RIHaJRPfUWF4 fTF6vV6xuAlpxbusfSIb dDsgdmVydGljYWwtYWxp C133AUEkaGmtWjFYEfw6 S8QtNsq2SPOlhZju HM0qnEXyPSbzLz5foNgg zHjxVY6wYGIctavry167 NdGul6xrYTNivUGlWKio GAH5S33wx4B8NJGu YNVjIYO2jCS4iG2wwVip bjogbGVmdDsgdmVydGlj SMsqWIhoI886NUOtkRau Ut8NQkj4V6PpLug0 XZQkfBweCE3jsYAcKIjl La1mdRhuqKvuBF7qFQEd bmpwz543BlSoi3qeEKKz gPBgUKyoFEP6L83w k7R6EXGtBIKoZBE6hTE8 zQ6ufCmrlmfmaIXwxCqs geEqcKhvZJroMCdnU469 IHRvcDsnPlBheWVy OjwvdGQ+IH88sq26C4Ve NnleFav8TVMzGUY0nMA0 fO1xALReCXdob8O4qFW2 K9JhmdLykp6hc4jv YXBz (more content not included)... [facility] Consent for Treatmenton Consent for Treatment [id number] #1.00CD:127 [facility] Physician Orderon 06-11-2022 Physician Order [id number] #1.00CD:127 [facility] Progesteroneon 06-11-2022 Progesterone [Mass/Vol] 0.20 ng/mL Invalid Interpretation Code [facility] Comment on above: Result Comment: REFE RENCE RANGE Males 0.14-2.06 ng/mL Non- Females Follicular 0.10-0.60 ng/mL Luteal 3.00-17.5 ng/mL Midluteal 3.30-18.6 ng/mL Post-Menopausal 0.10-0.40 ng/mL First Trimester 8.30-66.5 ng/mL Second Trimester 18.9-66.1 ng/mL Third Trimester 35.8-312.4 ng/mL Performed By: #### 2 [id number] #### [facility] [address] [place] [address] US Transvaginal Non-OBon US Transvaginal Non-OB Exam Date/Time: 06/11/2022 07:37 EDT Reason for Exam: Z31.89 Encounter for other procreative management Report IMPRESSION: MAJOR TRILAMINAR IN APPEARANCE. BILATERAL FOLLICULAR CYSTS WITH DOMINANT FOLLICULAR CYST ON THE LEFT. CLINICAL HISTORY: Z31.89 Encounter for other procreative management. COMPARISON: 06/05/2022. COMMENT: Transvaginal images were obtained. The uterus measurements and an estimated volume are: Endometrial thickness: 1.1 cm. The endometrium has trilaminar appearance. The uterus is otherwise unremarkable in appearance on these transvaginal images. The right ovary measurements and an estimated volume are: Right Ovary Length: 3.3 cm Right Ovary Width: 1.7 cm Right Ovary Height: 1.0 cm Right Ovary Volume: 2.9 cm3 The left ovary measurements and an estimated volume are: Left Ovary Length: 4.1 cm Left Ovary Width: 2.9 cm Left Ovary Height: 2.9 cm Left Ovary Volume: 17.7 cm3 Multiple cysts are identified in each ovary. Cysts on the right range in diameter from 0.36 cm to 4.3 cm. Cysts on the left range in diameter from 0.44 cm to 2.3 cm There is no free fluid in the cul-de-sac. FINAL REPORT Dictated: 06/11/2022 9:19 am Darien Painting M.D. Signed (Electronic Signature): 06/11/2022 9:19 am Signed by: Darien Painting M.D. Transcribed by: DAVID Technologist: ROBERT Normal [facility] Physician Orderon 06-09-2022 Physician Order [id number] #1.00CD:127 Normal [facility] Coding Summary.on 06-06-2022 Coding Summary. CD:[id number] Gh0bWw+PGhlYWQ+PE1FV XOxF89vvNWvkZ9TK3iHE L4CWKCPXIVMBE8QKV3cl QO6NCwqS0AiapCu RupmdLRmGV66EOr0CPA7 yVphZBygzT8mtRNfQ1m7 QcWuLB17sH94BCreICQc ZgL0DfLdqlxzhRMv M6ryQpHfbEJsDrx+PHRh YmxlIHdpZHRoPScxMDAl CqKocDzfGJ5oTm3wMWXq LWNvbGxhcHNlOiBj b0zrTVKhREggPJ3akNvr M6XnsHC8TENaw9p8Fm20 dHI+JQClHPG2eUedVKjl g798UfUwe1waEEG9 rCQmFUvoVGB5C90nm1U5 GVXpNFUpTVD1gUS9wB6u mHyqjvpdF7XqzRNqSeB2 KLI4tDXklD2hdRrp xvmcoO7jBbp+Y42TFU9K JURYXP2ZNhp7P3WfIthj dHI+MU87FOLwYU48lBGn sETxl9odjJk2IcCa INSjAMB6pCxtCTolm7Fr ABXmU72olLDlx8I2CSTu zOjvoVKmCxWpuCJ6rE5r PRrcnqgjp2ebczdi Nrfrs3brzm95gA43Y66p HAqiFXMeFRP1XTPiDPCn hAoomm7voY6cZi4+IDxj v7ida8oecBn4TwVh MHTztuGyhOweJVV2c6Jt Il86J2AxdQmsb6RjOjp5 be46jIBye7U6aZM5RUyk URIpmL8lYXjuKdF9 VBImHqKdvM81aHTkLNxy Kx4zmTtvnNgpAG4cTWJb ogaaKBBxpQ8fPTTzcDYk jQddGP7gNEMrzbad d799QlMeHKW8VZIkbRGp Z2OghK2jBhYvQZGkSOWb S4FbhMQbQTttQ245IFcd EyR7HNHkjiTbK9Lj WNAmiYqvJnS2n5N3Ex5V m3XxvnurMFB4MVecLVHq GkA4QcVdYwX5X9AfKlw5 BZXyfLroOK5pZ9Ux OGAxeisdawzffXT8ABMi QWNenT52cCVhGJtgUa0g c9F4v916VKMwWTBrxX50 Cp0fvAwgEVNepRWW bT4fqlsis8kgkyfoUuUa MLVqHFg6EPp5CIXuiRvs PoHoLKC4ZrV5RNN5oNZg fV7uiYqbxluldB5l Oyc+F26eaS7pJYS4IDE7 lojnWRYpecQiNI80XJ10 A4HiFgygjPXdtTH+PGRp yuBkcFdsDH5nShMb v4vfs8ZwMPwjH9EcOZGi TIstWqh8ZTPrIJY4hGE6 lJ1eIHThTUmpw0J2sKA1 Z3JmprJsvu5ti3yq MQUiGIofS99yrODqz8L3 YMXrwYN2BSRhcGezVsRr zN38Ffd+NMWijZtkl6Et Yadhw5kya1bcwTu5 IjMwJSIgdmFsaWduPSJ0 j3RwRp11X48nZCarSCYy XYZmLJNqEXEyjCafgi0j sL1qMw9+PGNvbCB3 zTO4pE4iXNJgZxA1QBbw A246YxDgiGUaVjpzw5nv h1lgyHa6CtGvQIRodwLp aMztWCG6u2KlAz06 K86aHKasWKCsMOWjSKFu MKGaiStejn9niK7xCc2+ PW2nw1bxeu79gH58eML+ KLLjYIU7eIzlFAmp PDEyyW3jTOtwMpM2ERYv QjMxsS71fLElEXhjUh0p oJlenKydYW1mMBFqjpev i423TfYaj2koFOVk fXCxDYssCAU3U39vg9G3 RZJqUQUvMQC3dVN9uV7v bGlnbjogbGVmdDsgdmVy tDoeWFxoVYquC273 IHRvcDsnPlBhdGllbnQg EzZhNHm5Y3JrHhw2QMOc cYqkPA5dmLEiJYxlGf9l tKrscFwuAN2kWTQm owvdf706RcVjm1mtERFw mDLhSHxoKWC9I76wf6T2 SCChAIJpLLC7iXY1cR3m bGlnbjogbGVmdDsg zjNniWljGYdgWTkzC443 IHRvcDsnPkJpcnRoIERh tLU8CM24JM30jIFpw8U0 yEX9J1PqRFDhmimy uvzruXG8DWBlCSUuuO33 Ad4mdWmdUz2gMKOoABA3 DUJojBOcR7RgaY0hNoEh JEVbUZSzN8HslWTh EKhnR394NCffCtM8RKJx ohAjY1VxADVlcLtzHqN9 s1C7Bi8AJ6X2MJ55JZ16 dTVon4X0nHF7H8Ph LNUxbajpzhmcxIF8FIHe QFYnqN46Rh4zgQrpQb2n NRJcYDZ6FCHqwIApQ4Jt aA8kGdWvMSSeQWVg U4FnbEImWTzsE656QPbp CiT8BAOngwHcX1BvQRUa aTqjWiQ4d6W5Rg1VSEg0 MD03JW36cGHdc4N5 cSJ9S9ZiYNTbzbjdglow yIY5TLLeTDIwqZ88Kh1a rXycTx9kUVYgJRA2NBJk nFSdN3SxpX9jZhEp FLMyZPOrW7JljAMiAFiu U320OEedJeK9ANPbuoIf I7SoEYDtyHepQnU3x6E0 Rq2ZOGQtXG47GMK2 fWV0JD68HH63N7GjUhpa dGFibGU+PHRhYmxlIHdp ZHRoPScxMDAlJyBzdHls LF1iSc0hGBTgPHVu kFkpaWNgTiTpz9sjNPTo NFidLE6fiUapY8OamRT9 ZAAmx7z2Iw14S97gO4Vq dXA+RZSjqNU3gKB3 uL8oIeGbQwU0GXxrB887 FqDmwBVnFrpmn9rvt9pv sXd0ThO9YSYkcpPjuClx INS8n9LeAb82V73b IHdpZHRoPSIxNSUiIHZh hNhwvy6ocA6yNy4+PGNv lRI3pWA9iW6uDtSyMuM0 YMpsZ039DbIgsVQd Xoavq8hzg0ltrPk6KcNc SHMtvqImbXrbEZB5i5Ne Ef80E9JpaZxjv1LuSyy0 gi20mGXio8D3xJJ3 B9KeDZUmzenaaGXmrWju UY2fQUEhwfjfNIEgoG4m SXSjY3p2AyMmFtK5FFzw J5WxfoR0GKUwxKRn HTyfKOE2G41je1E6GGRj FTFgQCV3nON2sS4pfSvv bjogbGVmdDsgdmVydGlj ECzqUWvoT655YCDq bRgeNQSszJ1bOZUleLXc lRpzUZ7hNADdckdaUfFM UgATKZWHESZKXZ4IIY25 H2XuZun2JFIegWci XR1ucKCpIMxfRa0ujEci bTkzBW7nQVReoqgbYGPn dF3zCMXfuIBkkUfgNM9k HZPnawgvb737DdEm SQU6RSBjqMXhH4GjzQ9e WhYpGAXcCYGrZ8IezWBl YUifD295IYkrGhF9PMBr snNoP6RyNAHjfTum IeM4b2V4Dy3iGA7lHg0n AFw0ZE57QD45yYJww6E1 wZV2A7ChRVAzozvqbjjg dBC5DTEuIAYpbQ47 fCUsOSflLy8tz3I7z421 QQWpJDYzfH03Kn1xvBdt MHVjmOEHrL0ossaef3ro cjogIzAwMDAwMDt0 XMy0LZKrdBsvAsLsFRS5 XeF8EAT7tZRoiU6qzYeu iydboX9cSge+MjYgWWVh ugE2V6YdTzp3OSZv lJzhBP5nlCRwPQbsBh5j uFjamCacUP4gBXVdqlzt WEMllL0pGQMvpMSevShf YN8mAHRnogyym469 InQyCQQ6ARUewHBoU6Rm oJ2uIfBrBXFaBZKbA3Cw zLMyIBlyP064PHpnJgG6 PFRjhbInG9KtQEXn qYulQzQ7h1R0Vw1PBI6w hAG4E0RvHns2MKUitHwv PD9ytEVhSJzbHe2mgZiu kSzgPP3jUWEebwtk BUTecJ5zEZEyqXBjnHqt UI5zZJNsjlhdy661LbMj JSA4CRQwuROiR5JiyM3i MzIdZLUaEYUjP7Dv nYBkYZnuC300LCivPoJ4 AHDpfbTpR9LjUDQguFot YbB4y1I8Tt1KbLRmUJYq EW43CM46JU98O9Xq PjwvdGFibGU+PHRhYmxl IHdpZHRoPScxMDAlJyBz iXphKR5kIf5wEODgNZIj jVxijMEmGaQwo6he QQEjZYlgAM8fjVkmX6Cd zKH1MUVrz1n0Rs35Z67t I1WgrLH+CDGwqTE4dVW5 dU1gDvZtYvB6QWzt C907OcVboKRwMhtlc7iq w6xfpXk7XxTqAMAvtuUj wWpyAJE7m5XdFw88Q29i IHdpZHRoPSIyMCUi BHBbsBrwbj9iuD3hNa9+ TUWjcYP4lTW6eM2gYbDo VmR8YGfaL387FwAdwTGh TedxO76wW7DfjWJ+ VXLoMxg3LWImiMybFX5n fUPsJDvlEs3cKPB4OeSn DmHrRXraJ1ChARWyllkg ukmpxJF7BATsYFNs gN32Qm8kxBeaWa2jHXOu GBE6FWLknJCrI4UsdH1z PyYfLBEpKKMaR9KohWXy IInoT709FQewDlF8 HPAdscWfM2FxQGOsrIbp BcA2z6S8Wd0HzTjdhLQf FE8lQnEwEJq4U5OkTev6 WHQdvOicVL4iqCAe IDzqAv0diGakfEliOG9n NBOuvbqqx822PzKiw0lz XGZuvZRuGVirDMJ2Q22d h6I6UAEjHLPlRFJ5 aBK8eL2hgBtgzkqchAHu dDsgdmVydGljYWwtYWxp X957TEGbyNklAgSPLsm5 Z1JlKfd9FAJbxTot II6smCIsBYkdBj3wkXbg gNvuCU5zRTTkujbzz661 DxNad4xtEOTgvNSoBPzm MJT0Y73do2Z6UZMf WUOtEWB1zFM4lZ6kkGfh bjogbGVmdDsgdmVydGlj CBsmCXywL073EEZypMlq Lf4RLxe3M0IfHxw8 MPNhkGmaVU1tvKYrOHdy Xo4esQfszIarNB3pORDi lrftg109TxYes3zsORIb lENjKMbmIQP9D42f b3D3RFTpEOMeWQB9wGE6 kJ6djXanuigbpZZheEax bmIkxSmlTDmcKMssG532 IHRvcDsnPlBheWVy OjwvdGQ+KN17sa16X8Jc TwxuWro9FCJlLTP8hAW8 dF8cZMXdFQwnp9Q4kCW5 B9FhsbHjcd4ux1bq YXBz (more content not included)... Normal [facility] Estradiolon 06-06-2022 E2 [Mass/Vol] 121.0 pg/mL Invalid Interpretation Code [facility] Comment on above: Result Comment: Adul t Female: Follicular phase 12.5 - 166.0 Ovulation phase 85.8 - 498.0 Luteal phase 43.8 - 211.0 Postmenopausal <6.0 - 54.7 1st trimester 215.0 - >4300.0 Hebert ECLIA methodology Performed at: [address] [id number] PhD Rick Lee Performed By: #### 2 [id number] #### [facility] [address] [place] [address] Consent for Treatmenton 05-11 Consent for Treatment [id number] #1.00CD:127 Normal [facility] Physician Orderon 06-05-2022 Physician Order [id number]# 1.00CD:127 Normal [facility] Progesteroneon 06-05-2022 Progesterone [Mass/Vol] 0.30 ng/mL Invalid Interpretation Code [facility] Comment on above: Result Comment: REFE RENCE RANGE Males 0.14-2.06 ng/mL Non- Females Follicular 0.10-0.60 ng/mL Luteal 3.00-17.5 ng/mL Midluteal 3.30-18.6 ng/mL Post-Menopausal 0.10-0.40 ng/mL First Trimester 8.30-66.5 ng/mL Second Trimester 18.9-66.1 ng/mL Third Trimester 35.8-312.4 ng/mL Performed By: #### 2 [id number] #### [facility] [address] [place] [address] US Transvaginal Non-OBon US Transvaginal Non-OB Exam Date/Time: 06/05/2022 07:45 EDT Reason for Exam: Z31. Encounter for other procreative management Report IMPRESSION: ENDOMETRIUM TRILAMINAR IN APPEARANCE. BILATERAL FOLLICULAR CYSTS, WITH A DOMINANT FOLLICULAR CYST ON THE LEFT. CLINICAL HISTORY: Z Encounter for other procreative management. COMPARISON: 05/30/2022. COMMENT: Transvaginal images were obtained. Endometrium Thickness: 0.8 cm. The endometrium has a trilaminar appearance. The uterus is otherwise unremarkable in appearance on these transvaginal images. The right ovary measurements and an estimated volume are: Right Ovary Length: 3.1 cm Right Ovary Width: 1.7 cm Right Ovary Height: 1.1 cm Right Ovary Volume: 2.2 cm3 The left ovary measurements and an estimated volume are: Left Ovary Length: 4.1 cm Left Ovary Width: 2.9 cm Left Ovary Height: 2.6 cm Left Ovary Volume: 16.2 cm3 At least 7 follicular cysts are identified in each ovary. Follicular cysts on the right range in diameter from 0.9 cm to 0.64 cm. Follicular cysts on the left range in diameter from 0.36 cm to 2.4 cm. There is no free fluid in the cul-de-sac. FINAL REPORT Dictated: 06/05/2022 2:09 pm Darien Painting M.D. Signed (Electronic Signature): 06/05/2022 2:09 pm Signed by: Darien Painting M.D. Transcribed by: DAVID Technologist: ROBERT [facility] Physician Orderon 06-02-2022 Physician Order [id number] #1.00CD:127 Normal [facility] Estradiolon 05-31-2022 E2 [Mass/Vol] 21.6 pg/mL Invalid Interpretation Code [facility] Comment on above: Result Comment: Adul t Female: Follicular phase 12.5 - 166.0 Ovulation phase 85.8 - 498.0 Luteal phase 43.8 - 211.0 Postmenopausal <6.0 - 54.7 1st trimester 215.0 - >4300.0 Hebert ECLIA methodology Performed at: [facility] [id number] PhD Rick Lee Performed By: #### 2 [id number] #### [facility] [address] [place] [address] Consent for Treatmenton 05-11 Consent for Treatment [id number] #1.00CD:127 Normal [facility] Physician Orderon 05-30-2022 Physician Order [id number] #1.00CD:127 Normal [facility] Physician Order [id number]#1.00CD:127 Normal [facility] Progesteroneon 05-30-2022 Progesterone [Mass/Vol] 0.50 ng/mL Invalid Interpretation Code [facility] Comment on above: Result Comment: REFE RENCE RANGE Males 0.14-2.06 ng/mL Non- Females Follicular 0.10-0.60 ng/mL Luteal 3.00-17.5 ng/mL Midluteal 3.30-18.6 ng/mL Post-Menopausal 0.10-0.40 ng/mL First Trimester 8.30-66.5 ng/mL Second Trimester 18.9-66.1 ng/mL Third Trimester 35.8-312.4 ng/mL Performed By: #### 2 [id number] #### [facility] [address] [place] [address] US Pelvis Non-OB Completeon 05-30-2022 US Pelvis Non-OB Complete Exam Date/Time: 05/30/2022 08:48 EDT Reason for Exam: Z31.89 Report IMPRESSION: BILATERAL FOLLICULAR OVARIAN CYSTS NOTED IN THE COMMENT. CLINICAL HISTORY: Z31.89. COMMENT: Transabdominal and transvaginal images were obtained. The uterus measurements and an estimated volume are: Uterus Length: 8.9 cm Uterus Width: 5.6 cm Uterus Height: 4.0 cm Uterus Volume: 102.5 cm3 Endometrium Thickness: 0.5 cm The endometrium is of uniform increased echogenicity, and would appear to be in the secretory phase. No abnormality of the echo pattern of the uterus is noted. No uterine mass is evident. The right ovary measurements and an estimated volume are: Right Ovary Length: 2.2 cm Right Ovary Width: 2.6 cm Right Ovary Height: 1.8 cm Right Ovary Volume: 5.4 cm3 The left ovary measurements and an estimated volume are: Left Ovary Length: 3.4 cm Left Ovary Width: 4.0 cm Left Ovary Height: 2.9 cm Left Ovary Volume: 20.7 cm3 Ten follicles of the right ovary are visualized, that range in size from 0.32 to 0.62 cm. Six follicles of the left ovary are visualized, that range in size from 0.44 to 2.4 cm. No solid adnexal mass is noted. On color flow Doppler images, there is vascular flow to each ovary. Report There is no free fluid in the cul-de-sac. FINAL REPORT Dictated: 05/30/2022 11:05 am Darien Painting M.D. Signed (Electronic Signature): 05/30/2022 11:05 am Signed by: Darien Painting M.D. Transcribed by: DAVID Technologist: DARCY Technical Comments Transabdominal Ultrasound Performed Transvaginal Ultrasound Performed Normal [facility] US Transvaginal Non-OBon US Transvaginal Non-OB Exam Date/Time: 05/30/2022 08:49 EDT Reason for Exam: Z31.89 Report PLEASE REFER TO THE ULTRASOUND PELVIS NON-OB COMPLETE REPORT. FINAL REPORT Dictated: 05/30/2022 11:06 am Darien Painting M.D. Signed (Electronic Signature): 05/30/2022 11:06 am Signed by: Darien Painting M.D. Transcribed by: DAVID Technologist: HW Normal [facility] Physician Orderon 05-27-2022 Physician Order [id number] #1.00CD:127 Normal [facility] Estradiolon 05-20-2022 Estradiol 242.0 pg/mL Normal . [facility] Comment on above: Order Comment: KATELYNN VILLALOBOS Result Comment: Adul t Female: Follicular phase 12.5 - 166.0 Ovulation phase 85.8 - 498.0 Luteal phase 43.8 - 211.0 Postmenopausal <6.0 - 54.7 1st trimester 215.0 - >4300.0 Hebert ECLIA methodology PERFORMED BY: [place] [address] PATHOLOGIST INSTALLATION AND REPAIR TECHNICIAN MARLON LÓPEZ M.D. Performed By: #### E STRADIOL, PROG #### [facility] , Progesteroneon 05-20-2022 Progesterone 15.8 ng/mL Normal . [facility] Comment on above: Order Comment: KATELYNN VILLALOBOS Result Comment: Foll icular phase 0.1 - 0.9 Luteal phase 1.8 - 23.9 Ovulation phase 0.1 - 12.0 First trimester 11.0 - 44.3 Second trimester 25.4 - 83.3 Third trimester 58.7 - 214.0 Postmenopausal 0.0 - 0.1 Performed at: [facility] [address] [id number] Warehouse Consultant: Jesus Cabrera PhD, Phone: [phone] Performed By: #### E STRADIOL, PROG #### [facility] , US pelvic completeon US pelvic complete [facility] Main [address] [address] Ultrasound Report Signed Patient: Kae Vigil MR#: [id number] : 1995 Acct:[id number] Age/Sex: 27 / F ADM Date: 05/20/22 Loc: Room: Type: REG CLI Attending Dr: Kanu Mcghee MD Ordering Provider: NON STAFF Date of Service: 05/20/22 US/US transvaginal: Z31.89 ([id number]) US/US pelvic complete: Z31.89 Copies to: NON STAFF Kanu Mcghee MD Pelvic ultrasound. Reason for exam: Fertility scan. Comparison: none Technique: Transabdominal imaging of the uterus and ovaries was performed. Transvaginal imaging of the uterus and ovaries was also obtained. Additional spectral Doppler analysis of the ovaries was also obtained. Findings: The uterus measures 9.2 x 3.3 x 5.7 cm. The endometrial stripe measures 4 mm. Trilaminar appearance. No fibroid is seen. Trace free fluid Right ovary measures 2.6 x 1.8 x 1.0 cm. At least 7 follicles are noted, largest measuring 6 x 3 x 5 mm. Normal arterial and venous Doppler waveforms. Left ovary measures 4.3 x 3.2 x 5.1 cm. A 2.5 cm dominant follicle is seen within the left ovary. A presumed corpus luteum is seen within the left ovary measured 2.4 cm. At least 3 additional follicles are noted largest measuring 9 x 5 x 6 mm. Normal arterial and venous Doppler waveforms. US/US transvaginal Impression: No acute findings. Findings as above. Impression dictated by: Angel Kaur Jr., D.O.05/20/2022 10:55 AM Dictation Location: [place] [address] Tech: Tonja Pozo Transcribed By: [facility] 05/20/22 1055 Dictated By: Angel Kaur Jr, DO 05/20/22 1045 Signed By: 05/20/22 1055 [facility] PAP ACOG PANEL 2: 21 to 29on 11-15-2021 . . Normal [facility] Comment on above: Performed By: #### 4 [id number] #### [facility] [address] [place] [address] Dr. Maris Holland Age Gdln ACOG Testing 21-29 Normal [facility] Comment on above: Performed By: #### 4 [id number] #### [facility] [address] [address] [address] Maris Holland DIAGNOSIS: Comment Normal [facility] Comment on above: Result Comment: NEGA TIVE FOR INTRAEPITHELIAL LESION OR MALIGNANCY. Performed By: #### 4 [id number] #### [facility] [address] [place] [address] Dr. Maris Holland Methodology: Comment Normal [facility] Comment on above: Result Comment: This liquid based ThinPrep(R) pap test was screened with the use of an image guided system. Performed By: #### 4 [id number] #### [facility] [address] [place] [address] Dr. Maris Holland Note: Comment Normal [facility] Comment on above: Result Comment: The Pap smear is a screening test designed to aid in the detection of premalignant and malignant conditions of the uterine cervix. It is not a diagnostic procedure and should not be used as the sole means of detecting cervical cancer. Both false-positive and false-negative reports do occur. . Performed By: #### 4 [id number] #### [facility] [address] [place] [address] Dr. Maris Holland Performed by: Comment Normal [facility] Comment on above: Result Comment: Fernando Moody Hand Carver (ASCP) Performed By: #### 4 [id number] #### [facility] [address] [place] [address] Dr. Maris Holland Reflex Criteria: Comment Normal [facility] Comment on above: Result Comment: The HPV DNA reflex criteria were not met with this specimen result therefore, no HPV testing was performed. . Performed By: #### 4 [id number] #### [facility] [address] [place] [address] Dr. Maris Holland Specimen adequacy: Comment Normal [facility] Comment on above: Result Comment: Sati sfactory for evaluation. Endocervical and/or squamous metaplastic cells (endocervical component) are present. Performed By: #### 4 [id number] #### [facility] [address] [place] [address] Dr. Maris Holland Encounters Encounter Date Encounter Type Care Provider Facility Start: 02-23-2023 End: 07-17-2023 Evaluation and management of inpatient Cyrus Osborne [place] [place]: 02-17-2023 End: 02-18-2023 ambulatory Cyrus Osborne [facility] Start: 11-25-2022 End: 11-26-2022 ambulatory Cyrus Osborne [place] Start: 07-28-2022 End: 07-30-2022 ambulatory KANU MCGHEE [place] Start: 07-18-2022 End: 07-19-2022 ambulatory MD KANU MCGHEE [place] Start: 07-09-2022 End: 07-10-2022 ambulatory MD KANU MCGHEE Facility[place] Start: 07-09-2022 End: 07-10-2022 ambulatory HERSON VILLALOBOS Facility[place] Start: 07-02-2022 End: 07-03-2022 ambulatory MD KANU MCGHEE [place] Start: 06-30-2022 End: 07-01-2022 ambulatory KANU MCGHEE Facility[place] Start: 06-23-2022 End: 06-24-2022 ambulatory KANU MCGHEE Facility[place] Start: 06-11-2022 End: 06-12-2022 ambulatory MD KANU MCGHEE Facility[place] Start: 06-05-2022 End: 06-06-2022 ambulatory MD KANU MCGHEE Facility[place] Start: 05-30-2022 End: 05-31-2022 ambulatory MD KANU MCGHEE Facility[place] Start: 05-20-2022 End: 05-20-2022 ambulatory Servando Crouch Facility:[facility] Start: 05-20-2022 End: 05-20-2022 ambulatory MD Servando Crouch Work Phone: [facility] Work Phone: Start: 05-20-2022 End: 05-20-2022 Patient encounter procedure MD Servando Crouch Work Phone: [facility] [place] Start: 10-29-2021 End: 10-29-[address] MONICA KC Facility:[facility] Procedures Date Procedure Procedure Detail Performing Clinician Start: 05-20-2022 Pelvic echography MD Shiv Crouch Work Phone: Start: 05-20-2022 Transvaginal echography MD Servando Crouch Work Phone: Plan of Treatment Date Care Activity Detail Author Estradiol (E2) [Mass /volume] in Serum or Plasma [facility] Work Phone: Progesterone [Mass/v olume] in Serum or Plasma [facility] Work Phone: Payers Date Payer Category Payer Self-pay 2021 Unknown [id number] 1995 Unknown [id number] 2.16.84 [id number] 1995 Unknown [id number] 2.16.8 40.1.798559.3.579.2.727 1995 Unknown [id number] 2.16.8 40.1.466341.3.579.2.727 1995 Unknown [id number] 2.16.8 40.1.372672.3.579.2.727 1996 Unknown [id number] 2.16.8 40.1.214868.3.579.2.727 1996 Unknown [id number] 2.16.8 40.1.448551.3.579.2.727 1996 Unknown [id number] 2.16.8 40.1.426370.3.579.2.727 1996 Unknown [id number] 2.16.8 40.1.219505.3.579.2.727 1996 Unknown [id number] 2.16.8 40.1.638808.3.579.2.727 1996 Unknown [id number] 2.16.8 40.1.211792.3.579.2.727 1996 Unknown [id number] 2.16.8 40.1.624863.3.579.2.727 1996 Unknown [id number] 2.16.8 40.1.293640.3.579.2.727 1996 Unknown [id number] 2.16.8 40.1.572905.3.579.2.727 1996 Unknown [id number] 2.16.8 40.1.468992.3.579.2.727 1996 Unknown [id number] 2.16.8 40.1.257505.3.579.2.727 1959 Unknown [id number] 1959 Unknown [id number] Unknown [id number] 2.16.8 40.1.355525.3.579.2.531 Social History Date Type Detail Facility Tobacco smoking stat [facility] Unknown if ever smoked [facility] Work Phone: Start: 1995 Sex Assigned At Female F [facility] Discharge summary note 03-05-2023 Note Date & Type Note Facility 03-05-2023 Note DATE OF DISCHARGE: 0 02/23/2023 The patient is without complaints. Positive flatus. Positive void. Vital signs are stable, afebrile. Breasts non-tender, non-pathologic. Abdomen fundus firm and below the umbilicus. She has scant lochia. The perineum is intact. The patient is ready for release. Good instructions are given. The patient is to return to my office in six weeks. She is given the following prescriptions for her home use: Motrin and vitamins. DISCHARGE DIAGNOSIS: Vaginal delivery. Course: Surrogate , anemia. Intrapartum Course: Labor in an occiput posterior position, spontaneous vaginal delivery of an 8 pound 4 ounce male with Apgars of 8 and 8, without complications. Course: Without complications. Mindy Davidson Dictated: 03/04/2023 [id number] Transcribed: 03/04/2023 [facility] Comment on above: Result Comment: Elec tronically Signed By: India SANTANA, Cyrus Gudino\.br\Date and Time Signed: 03/05/23 07:35 EDT History and physical note 02-25-2023 Note Date & Type Note Facility 02-25-2023 Note HOSPITAL REGULATIONS : All Positive and Important Negative Findings Shall Be Recorded DATE ADMITTED: 02/22/2023 INTERVAL NOTE The patient is a 27 year old, III, Para II, 0, white female who presented to Labor and Delivery at 38 weeks gestation complaining of painful regular contractions. Her course had been complicated by the fact that she was a surrogate and some anemia in the course of her . Otherwise relatively uncomplicated. We anticipate spontaneous vaginal delivery. Please see records for details. Cyrus Osborne M.D. lr Dictated: 02/23/2023 [id number] Transcribed: 02/23/2023 [facility] Comment on above: Result Comment: Elec tronically Signed By: India SANTANA, Cyrus Gudino\.br\Date and Time Signed: 02/25/23 08:36 EDT Clinical Note 02-23-2023 Note Date & Type Note Facility 02-23-2023 Note The following Patien t Education Materials have been given to the patient: EducationMaterial [facility] Evaluation note Note Date & Type Note Facility Evaluation note No assessment information availa [facility] Work Phone: Summary Purpose Family History No Family History Records FoundNo Family History Records FoundNo Family History Records Found Advance Directives No Advanced Directives Records Found Advance Directive Response Recorded Date/ Time Advance Directives No May 20, 2022 8:41am Chief Complaint and Reason for Visit Chief Complaint z31.89 Additional Source Comments INFORMATION SOURCE (unrecogn ized section and content) DATE CREATED AUTHOR 03/14/2022 [facility] DATE CREATED AUTHOR AUTHOR'S ORGANIZ ATION 06/17/2022 [facility] DATE CREATED AUTHOR AUTHOR'S ORGANIZ ATION 04/14/2023 [facility] Care Teams (unrecognized sec tion and content) Team Status: Inactive Member Role Status Dates Servando Crouch MD Primary Care Provider Active Kanu Mcghee MD Attending Provider Active Team Status: Active Member Role Status Dates Servando Crouch MD Primary Care Provider Active Goals (unrecognized section and content) Goals may be documented in a n alternate section FOR RECORDS PERTAINING TO PATIENTS WHO ARE OR HAVE BEEN ENROLLED IN A CHEMICAL DEPENDENCY/SUBSTANCEABUSE PROGRAM, SOME INFORMATION MAY BE OMITTED. This clinical summary was aggregated from multiple sources. Caution should be exercised in using it in the provision of clinical care. This summary normalizes information from multiple sources, and as a consequence, information in this document may materially change the coding, format and clinical context of patient data. In addition, data may be omitted in some cases. CLINICAL DECISIONS SHOULD BE BASED ON THE PRIMARY CLINICAL RECORDS. [facility] [facility]. provides no warranty or guarantee of the accuracy or completeness of information in this document.
[2023-10-30 05:08] LABS: Hep B Surface Ab Non Reactive (.)
== END 2023-10-23 07:16 | disposition home or self-care (01) ==
LOC: LAB 10-29 14:37
DX: Z11.3 Encounter for screening for infections with a predominantly sexual mode of transmission (principal)
CPT/HCPCS: 36415; 86706

== ENCOUNTER 2023-11-13 11:34 | Outpatient (OUT) | payer BC, SELFPAY ==
[2023-11-13 12:07] LABS: Basophils Percent Auto 0.5 % (0.2-2.0); Eosinophils Absolute Auto 0.1 10^3/uL (0.0-0.7); Eosinophils Percent Auto 1.6 % (0.9-7.0); Hemoglobin 10.9 g/dL (12.0-16.0); Immature Granulocytes Abs Auto 0.02 10^3/uL (0.00-0.03); Immature Granulocytes Pct Auto 0.2 % (0.0-0.5); Lymphocytes Absolute Auto 2.4 10^3/uL (1.2-3.8); Lymphocytes Percent Auto 29.3 % (20.5-60.0); Mean Corpuscular HGB Conc 30.3 g/dL (29.9-35.2); Mean Corpuscular Hemoglobin 25.5 pg (26.7-34.0); Mean Corpuscular Volume 84.1 fL (81.0-99.0); Mean Platelet Volume 10.1 fL (9.5-13.5); Monocytes Absolute Auto 0.7 10^3/uL (0.3-0.8); Monocytes Percent Auto 9.1 % (1.7-12.0); Neutrophils Absolute Auto 4.7 10^3/uL (1.4-6.5); Neutrophils Percent Auto 59.3 % (43.0-75.0); Platelet Count 408 10^3/uL (150-450); Red Blood Count 4.28 10^6/uL (4.20-5.40); Red Cell Distribution Width 15.6 % (11.0-15.0)
[2023-11-13 13:26] LABS: Anion Gap 12.1; Carbon Dioxide 24.8 mmol/L (21.0-32.0); Chloride 107 mmol/L (98-107); Potassium 3.9 mmol/L (3.5-5.1); Sodium 140 mmol/L (136-145)
[2023-11-13 13:27] LABS: Alanine Aminotransferase 19 U/L (14-59); Albumin Globulin Ratio 0.8; Albumin Level 3.3 g/dL (3.4-5.0); Alkaline Phosphatase 38 U/L (46-116); Aspartate Amino Transferase 19 U/L (15-37); BUN Creatinine Ratio 20.8; Bilirubin Total 0.6 mg/dL (0.2-1.0); Calcium 8.7 mg/dL (8.5-10.1); Estimated GFR (African America >60 (>=60); Estimated GFR (Non-African Ame >60 (>=60); Globulin 4.1 g/dL; Glucose 75 mg/dL (74-106); Total Protein 7.4 g/dL (6.4-8.2)
== END 2023-11-13 11:35 | disposition home or self-care (01) ==
LOC: LAB 11:35
DX: Z01.89 Encounter for other specified special examinations (principal)
CPT/HCPCS: 36415; 80053; 85025

== ENCOUNTER 2023-12-10 06:43 | Outpatient (OUT) | payer BC, SELFPAY ==
--- OUTSIDE RECORDS SUMMARY | 2023-12-10 06:46 | XMS_ITS | CCD ---
Author Organization [facility] Care Team Providers Care Education Professor Name Role Phone DE, DR ANDERSON Attending Unavailable JEFFASIK, DR ANDERSON Consulting Unavailable DE, DR ANDERSON Admitting Unavailable MISC, DR FITZPATRICK Primary Care Unavailable MD Servando Crouch Primary Care Provider MD Kanu Mcghee Attending Provider [phone] Servando Crouch Primary Care Unavailable Taz, Kanu [...] Range Facility Nursing Assessmenton 023 Nursing Assessment [id number] #1.00CD:127 [facility] Delivery Summaryon Delivery Summary DATE OF DELIVERY: [...] difficulties or problems and both mom and infant were doing well in the Room. Cyrus Osborne M.D. lupe Dictated: 02/23/2023 [id number] Transcribed: 02/23/2023 [facility] Comment on above: Result Comment: Elec tronically Signed By: India SANTANA, Cyrus Gudino\.br\Date and Time Signed: 02/25/23 08:36 EDT CBC w/Indiceson 02-23-2023 Erythrocyte distribution width (RBC) [Ratio] 17.2 % High 10.9-14.2 [facility] Comment on above: Performed By: #### 2 [id number], [id number] ####[address] [address] Hematocrit (Bld) [Volume fraction] 25.2 % Low 34.0-46.0 [facility] Comment on above: Performed By: #### 2 612036, [id number] ####[address] [address] Hemoglobin (Bld) [Mass/Vol] 8.0 g/dL Low 12.0-16.0 [facility] Comment on above: Performed By: #### 2 556870, [id number] ####[address] [address] MCH (RBC) [Entitic mass] 21.6 pg Low 27.0-34.0 [facility] Comment on above: Performed By: #### 2 013742, [id number] ####[address] [address] MCHC (RBC) [Mass/Vol] 31.7 g/dL Normal 31.4-36.0 [facility] Comment on above: Performed By: #### 2 707311, [id number] ####[address] [address] MCV (RBC) [Entitic vol] 68.2 fL Low 80.0-100.0 [facility] Comment on above: Performed By: #### 2 054060, [id number] ####[address] [address] Platelet mean volume (Bld) [Entitic vol] 7.8 fL Normal 6.4-10.8 [facility] Comment on above: Performed By: #### 2 571743, [id number] ####[address] [address] Platelets (Bld) [#/Vol] 321.0 E9/L Normal 150.0-500.0 [facility] Comment on above: Performed By: #### 2 607308, [id number] ####[facility] [address] [place] [address] RBC (Bld) [#/Vol] 3.7 E12/L Low 4.3-5.9 [facility] Comment on above: Performed By: #### 2 601228, [id number] ####[address] [place] [address] WBC corrected for nucl RBC Auto (Bld) [#/Vol] 22.5 E9/L High 4.0-11.0 [facility] Comment on above: Performed By: #### 2 871107, [id number] ####[facility] [address] [place] [address] Discharge Instructionson Discharge Instructions [id number] #1.00CD:127 Normal [facility] Inpatient Clinical Summaryon 02-23-2023 Inpatient Clinical Summary [place] [id number] Clinical Summary Person Information Name: KAE VIGIL/[facility] Age: 27 Years : 1995 Sex: Female PCP: Cyrus Osborne MD Marital Status: Phone: [phone] Race: White Ethnicity: Non- or Language: Divehi Visit Id: Visit Reason: CONTRACTIONS Speciality: Acuity: DD Enc Type: Inpatient Med Service: Obstetrics Arrival: 02/22/2023 14:30:32 Discharge: 02/23/2023 10:40:00 Dispo Type: Home (Routine DC) Address: [address] [place] [id number] Provider Notes: Diagnosis: Anemia; [place] product of in vitro fertilization (IVF) ; [...] Follow up: With: Address: When: Dr. Osborne [phone] Within 6 weeks Comments: Call for any problems. Patient Education Information: ibuprofen Normal [facility] Inpatient Patient Summaryon 02-23-2023 Inpatient Patient Summary [address] [address] Patient Discharge Instructions PERSON INFORMATION [...] Follow up: With: Address: When: Dr. Osborne [phone] Within 6 weeks Comments: Call for any problems. In the event that this physician does not participate in your insurance network, please consult with your insurance company to find a nearby participating provider. Comment: YARITZA AponteGRACIELAKAE Edgard, have received the attached patient education materials/instructio ns and have verbalized understanding. Patient Signature Date Clinican/Nurse Signature Date MEDICATION LIST New Medications [facility], [address] [place] [phone], [phone] ibuprofen (ibuprofen 600 mg Tab) 1 Tablets By Mouth every 6 hours. Refills: 0. Last Dose: Next Dose: Medications to Continue Taking That Have Changed [facility] [address], [address] [place] [id number], [phone] START: ferrous sulfate (Slow Fe (as elemental [...] not t (more content not included)... Normal [facility] Morphon 02-23-2023 Hypochromia Auto Ql (Bld) Present Normal [facility] Comment on above: Order Comment: Order Added by Discern Expert. Performed By: #### 2 889523, [id number] #### [facility] [address] [place] [address] Microcytes Ql (Bld) Present Normal [facility] Comment on above: Order Comment: Order Added by Discern Expert. Performed By: #### 2 042096, [id number] #### [facility] [address] [place] [address] Morphology L[place] (Bld) [Interp] See Morphology Normal [facility] Comment on above: Order Comment: Order Added by Discern Expert. Performed By: #### 2 762318, [id number] #### [facility] [address] [place] [address] Ovalocytes LM Ql (Bld) Present Normal [facility] Comment on above: Order Comment: Order Added by Discern Expert. Performed By: #### 2 502040, [id number] #### [facility] [address] [place] [address] ABO/Rhon 02-22-2023 ABO/Rh Positive Invalid Interpretation Code [facility] Comment on above: Performed By: #### 2 598026, [id number] #### [facility] [address] [place] [address] ABO/Rh History Checkon 02-22 ABO/Rh History Check Verified Hx Blood Type Normal [facility] Comment on above: Performed By: #### 2 971392, [id number] #### [facility] [address] [place] [address] ABSCon 02-22-2023 ABSC Gel Interp Negative Normal [facility] Comment on above: Performed By: #### 2 353045, [id number] #### [facility] [address] [id number] Blood Bank ID#on 02-22-2023 BBID# [id number] Invalid Interpretation Code [facility] Comment on above: Performed By: #### 2 076862, [id number] #### [facility] [address] [place] [address] CBC w/Indiceson 02-22-2023 Erythrocyte distribution width (RBC) [Ratio] 17.4 % High 10.9-14.2 [facility] Comment on above: Performed By: #### 2 788014 #### [facility] [address] [place] [address] Hematocrit (Bld) [Volume fraction] 25.2 % Low 34.0-46.0 [facility] Comment on above: Performed By: #### 2 658853 #### [facility] [address] [place] [address] Hemoglobin (Bld) [Mass/Vol] 8.0 g/dL Low 12.0-16.0 [facility] Comment on above: Performed By: #### 2 685923 #### [facility] [address] [place] [address] MCH (RBC) [Entitic mass] 21.5 pg Low 27.0-34.0 [facility] Comment on above: Performed By: #### 2 534545 #### [facility] [address] [place] [address] MCHC (RBC) [Mass/Vol] 31.6 g/dL Normal 31.4-36.0 [facility] Comment on above: Performed By: #### 2 773720 #### [facility] [address] [place] [address] MCV (RBC) [Entitic vol] 68.1 fL Low 80.0-100.0 [facility] Comment on above: Performed By: #### 2 945435 #### [facility] [address] [place] [address] Platelet mean volume (Bld) [Entitic vol] 8.1 fL Normal 6.4-10.8 [facility] Comment on above: Performed By: #### 2 602258 #### [facility] [address] [place] [address] Platelets (Bld) [#/Vol] 343.0 E9/L Normal 150.0-500.0 [facility] Comment on above: Performed By: #### 2 067335 #### [facility] [address] [place] [address] RBC (Bld) [#/Vol] 3.7 E12/L Low 4.3-5.9 [facility] Comment on above: Performed By: #### 2 076482 #### [facility] [address] [place] [address] WBC corrected for nucl RBC Auto (Bld) [#/Vol] 14.9 E9/L High 4.0-11.0 [facility] Comment on above: Performed By: #### 2 749523 #### [facility] [address] [place] [address] Consent for Procedure/Surger yon 02-22-2023 Consent for Procedure/Surgery [id number] 0#1.00CD:127 Normal [facility] Consent for Treatmenton 02-07 Consent for Treatment [id number] 1#1.00CD:127 Normal [facility] Consent for Treatment [id number] #1.00CD:127 Normal [facility] Insurance Correspondence Off iceon 02-22-2023 Insurance Correspondence Office [id number] 0#1.00CD:127 Normal [facility] Legal Correspondenceon 02-22 Legal Correspondence [id number] 1#1.00CD:127 Normal [facility] Recordson Records [id number] 1#1.00CD:127 Normal [facility] Vaccinationson 02-22-2023 Vaccinations [id number]# 1.00CD:127 Normal [facility] Group B Strep by PCRon 02-19 Group B Strep colonization by PCR Negative Normal Negative [facility] Comment on above: Performed By: #### 2 821483, [id number], [id number] #### [facility] [address] [place] [address] Physician Orderon 02-17-2023 Physician Order [id number] 2#1.00CD:127 Normal [facility] Physician Orderon 01-14-2023 Physician Order [id number] #1.00CD:127 Normal [facility] Physician Orderon 01-07-2023 Physician Order [id number] 2#1.00CD:127 Normal [facility] Coding Summary.on 12-01-2022 Coding Summary. CD:[id number] Ww+PGhlYWQ+WO8JBTNaF 95jpZJfcR8rW8RIILoCG ywgQVBQTElOSyIgbmFtZ D8guIXuXDAj IC8+DF7jNXLdFvewjQDr y5R8vYF7B14avw1tEBzc xQC8DGOzPpUeyraqs1kx rAr5UEjdAaytIoKp TCHciX01BAG9nH58Ob60 lFXipHPts7ucxWx1NpBn XBRsHDJ1xXsdVXmta3Ul SEObR21vmVMlf5U6 IGNvbGxhcHNlOyBlbXB0 dQ3aBSpihonrm6ymnbyt Jvv4qv06qFUou7E2gTJ5 J5YniyL7FKDabAZv ScguoWRMdG5nobnhc7hb izakNzImCFYbTAt1NWb1 YNCzkJhoNiZaQN48ELQ7 YBQhfiFdR7CxGDGz bDsqApO4q8R2Cr1KJ2JP AgwsT1DMDQOPCWwgwQU+ TF63wo10U9LyJquyQds0 RKZcZZN2aFE6qJ1r PWWuJBnnr5T5nPA5N9Et pzFdhj9qf1feMRRkSDjf T23vaHSyo2D9WBUmjHB0 MYOzgNljMcWriN89 Oyc+PGUdySjha8GqMusa g1zxi6jvtUh1IzauRRZi fnLqcAviMPB7g8LsQe2n MFOzbHF9zCT4mK8n EcSrIxZ8KKndO376BcBk zSItLaveH12bV6ZchZI+ XTNeEav2OVMvrMhmRH7j I5UdUDEnljtydNJi kZdbIS7lGCJtvxdaINPp oK9jQRSoA3l3WoWxQqT0 AWiyK7ZwWXUamhxqZf01 cP8kJlPxMpI5KWyo Z3CoukK1PNFuwNAlWFfh LYD0A51xe2T1LKArXTBn GIX0oNI4vE1xnAdxcygq bGVmdDsgdmVydGlj YBniNJydS524WXMttFpm PkNvZGluZyBEYXRlOiAg MDQvMjQvMjAyMzwvdGQ+ EDDhYCU3dOznHXOa rXXxKAkdWu9caAnfjTdr IF9fGAVydznbABBstC9j WNYsxFSrjJjxWC7eXLLb kdndt327AoUnCPH2 WFWhuCOlD7GsqZ0dXdHg OCOgGLIqE2WrwAPdIYyu H452PEonUuU6RUHisiXl M9WaFDNenKooUzW1 m2I9Oc4Zo8CjlsbnT5Vg uJBmSaJpMhtrJRb1U6Xi PjwvdHI+BI63NUTwDO05 MLd8BUX3dNmmXQml PGYgX3YhdK4eEzYyNAJe ZGRkOyc+PHRhYmxlIHdp ZHRoPScxMDAlJyBzdHls ZR1eAf0nDKGdYAKt lXlraBVaCzVxa4knKSZs ZWqjNR5ehCwkU1WzzQG9 BITig1n3Vc52T49zN2Wc dXA+VSBbbTB3sUW1 dZ6sGpTeChF8HQmjX532 JeUgqJXcVszub1qhx5ls gKv2YtG6THYicjLhnYoh KHE0n3IvFb85J66m IHdpZHRoPSIxNSUiIHZh fHgxjf2hsQ3rTo1+PGNv pUM1yZV8pS9vSgTnJuN4 LCwiL019YwQbtIIb Huvty6zyl9vhaQq1XkYs BBNxsbUzxEhlERN1o7Is Fr84O2ZukZrdn9JvGub2 yi50tGPor2A6cCH6 E8JlSRRhprqcxRHaeOrz ZE5sTFEfnzveJXEpjE2o VMFoX1l4ZnEiBgI6YRlk K3AewoR4SAXacHKd HZPtwDXByN6piwyqu3hi nxplIxExCEYxHTj0NGv6 NRIrpDuyHtSdDJB5UdK1 LCB4iYMtoZ9ptWxd cfqvyM8jOoh+XFF2tYEc uUOKAJ4tCkdrrBW+PHRk AKF7lNwtDFobXZHdfD8g DDHyR2x7ZrZeMkA2 TQirD7DeqxF3OJMwkHGg VDAhiJCIkP7ngdbxo4bx zhmqDiSgKXOlZFz5VHr0 LWFsaWduOiBsZWZ0 UcL9TKN6xHWfxH7ekCqz aasgoC1oZce+QmlydGgg FDF9UDv6F4YgAif8SKYa qZsdAH5rsLNuGTtv Bw5vzWsnlRtgER1fTHEd vcddg591CtKhi4otNPEi mUQsQZxsQSQ4O34wl7J5 VDDkCEPpYIG4dVR2 oU7lnFulwogafKJleLtz azYmsJfpCUqoZLlaM637 ZKVshNoaYhXiZAw8M2Qk Yce3GICtsFauLX0g pZYeBYhzQg2wpTlgdXif ZJ9sQLNxrzonb821CoNv y0mlCTXjoJXlTSjlZYY1 E11oq7U7GSOoTQEr NTT8sFE9fG8scKjebvye bGVmdDsgdmVydGljYWwt WIkwE299JPCmuNqlFxLf xQm5Z3LeLtx1PGGl wAajXX4ahJRvKOijIr3f fBfqeFyiCC7rVEUhlcyh p720DxIqh3vtIFKapPDa UShmOMP7K81nb7A2 HRWqBFLlKBB1vLV3bA3b bGlnbjogbGVmdDsgdmVy hWfkGAdsOZjvA930FKAb cDsnPlBhdGllbnQg IHrlIGj6O5HcMjpgiYA+ TE81SLQoUD67hJVksGQz l6jwgUw2LuHgQIYaDPG4 oPhwGGqzp3IhRBPv L07vzLKgo1V2GLOrnBsz fPUsFtKluKR2yJ7mYKcg rqbor0gvqlkpYnwsv3gh pe16iS48U13pVUza ZHRoPSIzMCUiIHZhbGln yb5yqV6cOr4+PGNvbCB3 zGB9dJ7wZSYvUsV7LUud I183HvWcpELrDmgk z4coq4xjzUi9TeD6EWTh enCuaZywDEO4v9ZsYz55 A28dPMqyDWQqREClCXOe CIKwcYmwno9klB6k Ii8+CLMzgAS4kHL1xF2c VeRuUgF1OQtzM256NhZa fSEyVyriX86uB0UbaVM+ ZALpEhg8ZSDwjOgf SK0ilEFlQDilKp5vTRY4 KyGyRaNyXYzoM7MwVQEo zjkhtfbtrTM1VVLvHEKf iG22Ou0knMnaZPMa dUYXhI3ariclb9lqinay VpCaCQYzAGi3TAx9MHUb lZavCoJpBUV0XtN8DWE9 lLMlwX6hnYiolnoi kZ0pI2WuCGUjkcaqNs04 rE8qViDvAiS1RCqcUnt+ YkCOR9leWPaMXXJSNaTo TjwvdGQ+PHRkIHN0 sIloWTmpYGVljN4hMKXf T9w2XmVxOlZ4JKznV7Kn DZNrvdrjGm08sA9mSvZl TzV8IJqxJ3PvwyI0 YZEtvFDgMMmzZOO1H39a w6W9EIBvUQHxUVW1lBD2 vY9ruPjxukpvjJBfmZim dmVydGljYWwtYWxp D201OYMngMuqOwJ8KmR8 NxG7TZZ3L3KqXnf5BOFv sEizHW9vvIUoSMtyTk0i fWfslVmmVD6oJHMn fusjJJUyeW1zUIIezDIx vGjlAR0xDQOtzabjo055 JxFsDUL9IOItqYAsC3Fx gD5hXjQjKTAtRYGo A2DfpNHjYHhkF752MAli NoA4JHVxpgJdU9TcRJUq aDewUyG7w1S7Tx6vQbJV ZWFyczwvdGQ+PHRk ODK6pQfbMAsgSSMdlX8s CLRrD7p3UcRsTeA4GHts M5IgYKGkrdamQt72yB1h TjKzBtQ0DTonL6So ngH0TJDfpJIgDZuiBXB7 L86yb9M3BRCsYGIdWFS4 sOE1kD4ikAjiyrtjeHKt dDsgdmVydGljYWwt AMgbK915EJEpaMprPrMo bWFsZTwvdGQ+PHRkIHN0 oEizRShtKYZcwJ1uILOc A4c7EmTzEhV2HCmy P9HtYSSrbbwzZf38dD8y ApSfXhP5EWphL4OeplU1 ZBCluNNvWCxlMXT7I93o o3G6SGVoECNgTBY5 uRI5vD6hhHlhcjxifLLw dDsgdmVydGljYWwtYWxp Y598CGBlsRnwTx13eDIb gHielbZ0Q3PnWtuu dHI+SS77PDOvUU41wNEq aLJje0rcrPt7AwBbMIOe PUR2tCjuLFscv0BlBHTm Y93wyJOjl2C8ZSVw dYqmfZVdQwZchIC0vI2o CPsqfpfsp7pqhfccUiph l3togp25bB07L53bSWgm ZHRoPSIzMCUiIHZh tMvoxh2stA7bKl3+PGNv rRD8oED3vW6zBnSwQlH3 KOajQ613VjUcsHQdTakj s9hab8vyeHm1KtWd ABNxcnFbjBglLYK2y9Oy Kg66F22yPUebRYNcMSVc XVEeTVWxsHuahd4eiU8a Ii8+TK7za0ryil37 iJ76zOJ+TLYvZHB8wEta YOdcYFGwuW6hRYyrQzZ3 ATDjUmEadK73cVRoYGgv Yb5ktXybqXbqEH5c HRIqoerjv097CgZhn2wb OPIzaGGkFHqzRSU5Z78c b0M4GRLpEDCxLVV1cAZ7 oV9bvAwumpcooUEi dDsgdmVydGljYWwtYWxp E855OJEfjVtuGtRouKDm D3bkxtOBLU0pVrwiuQQ+ ETQxSOP3xYdlWFqj RGCfrS5jUGMvM9h6OmFo IpA7VMlpN5ZurmV3LCMq nOGhSUHvcLHDoS5uxeah l3hoawbwWeMoBYHi JXa8JMs1DRPbhGtwQyYt DTO8KmF3NXI9mAWycK9r yUfsxliwyK4sJvn+RklO OjwvdGQ+PHRkIHN0 zEqxEFozRZBgoZ0jSIXj V3c6JkQrCpL8IKnwX8Jz duA7HXFrqSCgGQDkxLJI gS6fjqrbb9tcelup BiFtWYCeODe5AQt7QDBm wWeaRiVrMQA7UfZ1TRK0 fHIesH8tyGmznpegtO3b Oyc+TVJOOjwvdGQ+ UVMdWUH4bBxgAUxnBULs yF4hKMTkI6d1UqAtShD7 QStsV5QjipE6XNGumKWe CTOaiQJKdP4twlgm h5vscmvySlDuKBIoVOd1 RVh8HZTbqZtlNlQjEEV6 WmN8KFX7xVDfzX1yzHdi vbexhJ5xOjo+UGF5 FRC5GL71SG99Z1ZdEyxf dGFibGU+PHRhYmxlIHdp ZHRoPScxMDAlJyBzdHls EN5gMe3uBPAgBBAl bGxhcHNl (more content not included)... [facility] Coding Summary. CD:[id number] Ww+PGhlYWQ+TB3DHLWvE 30rsOTykN4xN8EEELtQJ ywgQVBQTElOSyIgbmFtZ L0dsWJzVFAk IC8+ZA4wDJAtWcyskFMd g9O8bEC1O35lub0zEZqp pJO2PCYkOxYtajerq5vn sUf9LXlyShtoZdDw MHZvoE10YAA5pA94Bg53 bQNzsFRln6ywkNs2WcXn AIOnEJJ9uByvCOagd1Tg GYPcK41giDWhu1L8 IGNvbGxhcHNlOyBlbXB0 iU7qDLnomooly9jtrnjn Stl9hm16aKKia1R0tIN1 E9SdzuU6ZTRdoJJk UtnijSWEpV8zyoruq4ev ojoqRgGoCWAoKZa7TRe5 QSLdaXdwApSnAV72SKB8 NDOspuJnQ7QdPSFc tYxoLhX6r9V0Vz8WE8VH TvskF7FKOYVRHLneyRV+ ND24es96J2HgYdxfNib9 VEQmIZF7sOR3gP1l SRXtOYeuj9J5nLL1L1Nq xrVrtc3ru8gfGJPkJQki V26wnIJed5X1AAQlnYI1 QYHniJdjWnGukX67 Oyc+OPZfaIwkr4RzThvw v6lan0hmgDw1MhumIMJg kdGjmZwyHZG4t7JvLu2z VVYgiEN2wDM8aS8g FlAsWlJ6JZcqZ942KwTo sSCnUhzoK94lN9WsaZS+ RTCnWht4YVQdqEcnGP5z L3KhDYAfwmwdnDLz hLnsQY5nBWAvvcgkWZSw yU9tOFSvB6m9IdNgEeB6 JEijJ3TvGOMifrxnFu20 iK9mQbNfOdA8DUua W7EqhnB3NZLrwXXyWZox MTG9P86pr8N9AOYfAHEq UJV0aSY9tU9rxLervpcf bGVmdDsgdmVydGlj TWeyXWmeS056LUXnoOcd PkNvZGluZyBEYXRlOiAg MDQvMjQvMjAyMzwvdGQ+ IOCqORW9oZhiZPWu lFFqCOkrEi4veVpubLvj HM8rXJFrwnxaYDBreC1c QUMsjWQsuMnnPY8qSUCr rprhv840RrBtPLN2 REBomIAaX0OyrN3rHjId KDNwJOIrE5KhbTXzNBup E714JOlhLxK4KQIghwWq V4XiPEVvpKjxAdI2 x1Y0Jp8Ov5MestwlN1Tl sGIcNwXcCduvOQm8Y3Ce PjwvdHI+CQ15BXFnTZ45 OOa0NLR3uOqnJIcz JIDiW1SyzM2bJaSyYPHu ZGRkOyc+PHRhYmxlIHdp ZHRoPScxMDAlJyBzdHls PX2mTh6pLMPwLPNc nVoglJTgYcApt4boVDWk BNauGO7pyZoiI2KmcSF9 JDRjb1u3Gm68S60xQ9Xb dXA+HQEtiMP4gLZ9 jV0ySrSgMpZ8KUtbF201 PyGbkKAwDkgmf9utr2rj jNo3HdL4BZAlvaIhhKkm ZYA8q0GsMa58X41x IHdpZHRoPSIxNSUiIHZh aFnone1ykV6fDq6+PGNv uLX4cAL5vM3kRyMkVtR9 WZhvH016SkTqjABs Emfcv2ffh4rmgLy9DcHo BPTrvgRwjBpvIZT3a8Sw Fv60I3CdoSfdq3IlSnz6 kb04nNMwp5R1gCT3 G5YvMETrpcalwUZlrLwv EM9dNTDzmlolKXLwkJ2e OVQiM2w5CnMpHyJ2NFeg A8RgxqW8WSXytTAk HPTnvLVBvH5bwydaf3gx dlmsKrZePCBxYTr6CRy0 QQJjnBsaZwKoAGP3FmT9 NRR9bMOksT2goHiz mfmdiP0vUjn+KMH5uGCx nAZBDN5nRkxgcPE+PHRk KZK8lHijQIjbVBCuoD5k AWVbG0y0JvZhLhM9 SFshF0SpztG2HNSsrWTo LMCnrFEUfA9jcmnuk7bk oevjBiDdDOLaHCa6OHj0 LWFsaWduOiBsZWZ0 GbS6MUR4rDCwzU3teDdl dkanmF1bTxj+QmlydGgg IGQ3IFd9F2FnUpd4BQOu eTyqCP3gtOHnQJyp Tj6pxVggbJiaMG5jEEIu ydjku131XiCwz8ltTFTa vDSpCBhfXCI6X79oi2E7 MHPiDWJhGKL0bQB3 wM0tyNrwfsjrvTNimLdw esQygPpcKHfiGHmbD973 PNLbcVviCxRvWKd6Z5Ww Bet0LHXinHnxBQ9e pAQmHVpeKm5oyFxigWrt TS1hNTLgvtgcq883IaJb l7awKDKwaFYuUYktPJK5 N54rw0N5TJWcZDCx SNI8kPO9xJ9ukIqkwvez bGVmdDsgdmVydGljYWwt CPyjS848WCSacNhqMaJa cFq7D1RaPyj5QDEx aXvvLO5njXWuUFohGn3e tIimiPciST8rYOOapcsm f258LaOxt3zqXISndSLm DDlmREO6X57dg3B0 TQWbSLTvLJM0mXG2zX1f bGlnbjogbGVmdDsgdmVy xUwjFKpfMLrsX913WITs cDsnPlBhdGllbnQg UBelWRw5B8KsEguqbAM+ QZ01YXGgED44qMCjaAAt i7ngsJi7UqPwZMChIUK6 zRlpMPafj2QyWWAj B68igVZcd7W0GNGxoOdl yVKpSlSkyHV1cP0xOKxf tpixo7duwedxPifzq9yn to79mZ96X13pKWch ZHRoPSIzMCUiIHZhbGln zu7jeX7gDv0+PGNvbCB3 sVI6wV0iDXHhViF3NBst A112EyGcyBTlEddd c1bjh6cdvEf5DsS7WFSw htRfmGicYME0d3HaYg59 S28bXJbzFYTgTQPvMMJo XRMhgRqmjg3rvD3h Ii8+CLXryWM6dSA6zG7r LxWbMcC4XObpK081JxNf tSMhYxmsY06hT0KpuCO+ HOMzSun5GNLzpOyd QX6krGLbWAxeBt1jSWC4 EgKgOxDiBYsuW0AwFOCq kpkmbmjtkQR3YLViSSIj lA24Rv6sqUcmTYQl nQBAiM1obfwpx4niuetx PjBiTLEwGDf9KDw1KLAa zGtwTxKlGZP8BfO7WXK9 wPPbfH0ueTxnhdyl wC4yG8DsRYZrcogrAr48 cC2qCgLiAtJ3KIhvPbr+ ElBUP8xpEDcLXIKBKcJm TjwvdGQ+PHRkIHN0 wNuaUVmuWSYglJ3sSDOp X1w7SdApBdM9OCuyG9Mq OCFjscsvPh60yP4pEfQr QzV4PBkfG1UmquV7 WYKroWAcLPucSQQ0C31v q0G3LTMhWKLiPBW3mRK0 vZ1gnXaozectyNSsuFnp dmVydGljYWwtYWxp Z915QTCfzBurXuU0TlG3 RhK4ZRI8D2HzUxv0QRUo oWezEK9gcAFvJBmgSq5l pUjlzSqcUU3hYLSw vnirQCGunA8uVMZavZLb jIgsWB9rGQOkolqmo357 XyJrHXH6JDCjoTXcD0Mo eF7gNuLbTIIcNGKt P6NhfGZlZNqgW238FHmv PjJ9JUFnieKqG5HcJWSj xBkbUrS7y2R8Mp6nJqKF ZWFyczwvdGQ+PHRk DBB7oMlaPEhqOQMexJ9b LLFwS1s2IjMdMqX4RPes N5WkUCMrlcknNa54tV5j ZjBwIiT8PHvrO8Td qsU9ARThpXIaCHbsSZT7 N26me2Q0NVXiKBMaBLT9 kPL3uI1xkZlvryvgkSSu dDsgdmVydGljYWwt JHqmC370AEHxdVfjSzZd bWFsZTwvdGQ+PHRkIHN0 dZooHOesKSUtwJ6dYUPi E4i8ObFfLiG5CIfb Q5DrYQAixteuBu04bK2q KcIdCsP5ADejL0LgslS8 SUUhvTVgYSuwXID5U90f w3J5RIKgLNJuYCZ7 eRX0fR4eoFhvqrsddOVu dDsgdmVydGljYWwtYWxp T066EGGoaHsqZj04sYKw qJxdvzZ3B9XrTyok dHI+VU53GPTeLJ07lXSb xGKkn9luiBk5McInCLVs DMD0sAigOKdzc5WyYKXd A63eiQNuw8N6YNUn iCmerIKyNzApiND6rZ9i EMlstcnfw2inspphKatx b7tojk25dY31I49aXCoi ZHRoPSIzMCUiIHZh dSkgsd0tyL1yOi3+PGNv bNX5rZR1yT1jRlWjRcO9 MKkdI878CcEmrCYzLmee v4kjc3tweUy3QfHe THSafaKbiPqvYBG6g0Kl Jz19K08iUHzrTQMyXJYf QJYkNOWegZdelc6rvS2w Ii8+NY8hp3wwyj01 qV18sHC+WPTeMMG8gJfr DYpiHSHrhP2kQNbyOrP4 YXFxRhTrzH42uOUfFQls Au4luFborJjjKQ3j XVVoaqfpy852VyThv3ty IQJlkYKkAXctINY1V35i c8T5CLEbWVVwRCK2zMZ1 oT4ljDyehhbtwTZh dDsgdmVydGljYWwtYWxp F711YXNfyDveCyGdxRMg Z4nmoaWLHM6bVnvzvFC+ HMAbQTU4zMiuPFoc QLOdkW2fTYJyJ2n5WfYn WqY7SCpwZ4ZvwsW4MSZn zRUuSSKczKPSgB2yndto m2btadssXhGfOUTq TKw2TIs6LLIizEvsEzHg HXD7LlX3PFL9mBYmdE2n rRmfitbizK7jInz+RklO OjwvdGQ+PHRkIHN0 wHaiWOecTFHawX7nXVGh O9q7WaFxJxJ6FAuuO0Nm rcP9ZLRlqKUgVVTrbHFJ zK9jrrzaa4vjkgfs NjRfADMmFTo4HEx5GOMt iIlwXgIsRDI0KvJ3WUF8 kVBzgG2xuIjptrgrmP5i Oyc+TVJOOjwvdGQ+ ZZSyFRB9bEibBTalRIVl gL2jZSXmG4n0ZrHrJiV3 PYusX9JighY3PQEyyCLq KVUuwRSWlD2wpmju n7vaejntUtLoADCbAEj0 CDj9TCXvlDapYfZiDMV5 VoO2GDJ3sHWtjE6ryYxg cujhoY8uGcp+UGF5 HQH0PB19JW93M8EuXjdq dGFibGU+PHRhYmxlIHdp ZHRoPScxMDAlJyBzdHls FZ4cHw9mJSVcZRDy bGxhcHNl (more content not included)... Normal [facility] RPR with Conf Rfxon 11-28-19 23 Reagin Ab RPR Ql (S) Non-Reactive Invalid Interpretation Code Non Reactive [facility] Comment on above: Result Comment: Perf ormed at: [facility] [address] [id number] PhD Rick Lee Performed By: #### 1 [id number] ####[facility] [address] [place] [address] Consent for Treatmenton 11-08 Consent for Treatment [id number] #1.00CD:127 Normal [facility] Gest Scr Glu 1 Hron 11-26-19 23 Glucose [Mass/Vol] 79 mg/dL Normal 55-140 [facility] Comment on above: Result Comment: Posi tive Screen =1 HR > 140mg/dL Performed By: #### 1 [id number] #### [facility] [address] [place] [address] Hct & Hgbon 11-25-2022 Hematocrit (Bld) [Volume fraction] 27.7 % Low 34.0-46.0 [facility] Comment on above: Performed By: #### 1 [id number] #### [facility] [address] [place] [address] Hemoglobin (Bld) [Mass/Vol] 9.0 g/dL Low 12.0-16.0 [facility] Comment on above: Performed By: #### 1 [id number] #### [facility] [address] [place] [address] Physician Orderon 11-25-2022 Physician Order [id number] 0#1.00CD:127 Normal [facility] Physician Order [id number] #1.00CD:127 Normal [facility] TSHon 11-25-2022 TSH Qn 1.99 m[IU]/L Normal 0.34-5.60 [facility] Comment on above: Performed By: #### 1 [id number] ####[facility] [address] [place] [address] Coding Summary.on 11-24-2022 Coding Summary. CD:[id number] Ww+PGhlYWQ+LD1PWTFhQ 93icUUwrO0hZ4MFRFmPN ywgQVBQTElOSyIgbmFtZ O5hhCLvSBUe IC8+IF3bYEXoAotdgDOz k4K0yDP0X93gjj5gEXzo mCB8XZUfDlVzhnoww4kh tJq2GVwwIffnCmWt BHRusC12JOG2xO53Wq75 cWOsmKZjb5aaqIq3CzAn WTPmZUQ4hKxoIQory3Tc QYGvI33ywCJjd6P8 IGNvbGxhcHNlOyBlbXB0 jI8pBEzcircuf7dhmxke Scd7fb91kJLbb1G8nND7 H9KbiyO2TDQwsICl RfmutEXIzZ0ykhymc3wh amlgCqJyWARjEJz5FBo2 VCCyfTomPsCgLP68LTE0 GPYejgRtZ4IiYZTn bVrzGvO0c8K7Ne5QC5KJ FuqgG9KIYXBFUHzurWK+ HT07px04P9TrFixqWru3 HSYqNHC1bDQ4gV7r LXKrCUnka2F9tKU2H4Al umLdeu6zp0paMCKuJLwl P66wmTGnn9S0WXSxkPN3 LNZjmEiiGyXukD34 Oyc+GWLjhOejs7SmFpuu a2spk7wjfBq9TvilFXHc fqSrpYdtCZK5z2KtMe3j APLjuNB9zTD6cH4i IuUcVpR4ANofW385PxYk wWFlCcveN89bO2InaXE+ SVMzLoc2LLBmsXzfTU4z W5YzFNHphzapuVVa rWlfJO9sTGZdadfhNUEc bX7qUMZzL3h8RuKtMeC8 CXvgN5TgUFYzhugvIn13 sY9aTlBtWzT3UPvv M6BnesS4THVftLYaABfw NAA9J58vo3O1KBGeQQKk XZA4sDI9eE3xbYkwctab bGVmdDsgdmVydGlj GPmlQTulW727ORFfqOaz PkNvZGluZyBEYXRlOiAg MDQvMTcvMjAyMzwvdGQ+ HWRnAXK1aYwyMZZq zRHuERqeFk5nhMduxPxe HU4zEQElcvztGKNxgE9i PJSjkAYmxEbwPX2wQQZt fsoix638ZcWfMER1 RRFzuJXnS2LmzD4qPzCr VQKsCQFyL1XyiOBeGImw Z993THgzYhC9ANBigeSb E1LwCSFdyMvsStP8 o2N5Lb9Ay4XewyngW3Qy zHRlPbKtIddpNQk4E9Xl PjwvdHI+KZ26JIIpBJ47 IAo8DWG4iCzvQVrd AXFxU0TpqK6eCqXoWGWb ZGRkOyc+PHRhYmxlIHdp ZHRoPScxMDAlJyBzdHls TM5wXb5tIUWlPMRw tSlfhFGtEaDwx1jnRRXv KMhkDH1ogWhdC7ItsOC1 CZAhq4c3Oj81H90dM7Ub dXA+GIZawCJ4bBY9 jL8dJjPpHxA2JPfaJ370 NaMupZRrXevxg8czf3lv jGo5BiC2KRUbwdPdhHtv UAP1o8YsXg67A19p IHdpZHRoPSIxNSUiIHZh wVlntw9lhP1rVn4+PGNv zNH0tLL9sD6aNzDlAqQ2 YMosH334WlVczFMa Sxjwd5opp5vyjNz1XgKj VGWhnrTnqFbsENL7u1Ls Gm67U3NpvSjhl1RqWzq7 ls84nRAnn6I7bPQ3 B7ZhDAGxlzmsuKHhuZhm YN6mPXUdagsaTVPcgN3k UCAqN5j6ZnZsMvJ5CCmz T0WlhoV6IAIxkXQx BFKktWTQhW1eonpds6ol zzvxNnXzFKAbJLg6PLn5 LZWrtJtxIuYdCQB6BgO3 NKS9wELneZ6yuOdo bbqsvC0wLqp+QUI9jYMq rNMBJC7eCputsBI+PHRk FUF2kRnsDMcbSZCfcX9j VJWxC2k3HoDlBbL3 NUgkT6IdkeL4ZINiwTXc VDLffTIDnY7rcwpwt9ex ptvxMlIqMPDrLBd5WXh5 LWFsaWduOiBsZWZ0 XkH3QXC2vFBhzQ4rbZoo vhmizB9bIjs+QmlydGgg NJB4YUx9H2JkHwc4OLKt hGccZI8vhOVfARec Lz0jhOrlsFmyYX6pUEQy txvdd719EqNjv9udNLYm pNWrRXdoKRJ2V84fa9L4 IVWgDUVnYNK2kRD9 wI9vxCxoxmdcuORudTaf gbZyyKcqGZjkLVxnK760 ILYxpTesRuMkFEh4U4Xz Ids3ILQyzDpjSR6q qAVfJTzeDd1roUcwiXou ZD4mRMMjdxext918OuWg l0qpNWYncZVmAMpyMIA0 C29tx2H9YXDiLXIp RVE4hVJ9pN6voGcwsrik bGVmdDsgdmVydGljYWwt GUjxC168UHUigPgjRvIa jEg7I2AkLou9IDOj uMrpBB6pxQLoNGtpYa6v lUsulBoeJA9uAFWewnnw h087BbJvr5zoGEAbeYDl JJklHEA4X27ee3I3 SARtPCOaCJT4zYD5wQ3f bGlnbjogbGVmdDsgdmVy eEmtQMkmYPsqH314UHOl cDsnPlBhdGllbnQg ODrcAYe5V7AkRshawCR+ QV39DQHvAK34mOCupHSi q5kqfQg6DhIeQHHsWSW1 dKwvJGszt5MtQXIj B48tjNLgk5B5GCZedMjq kBHqEzDdrSO2zC6cFHdf vrdji5ooakmiYulyk6sb ia72gP88G37bBLtu ZHRoPSIzMCUiIHZhbGln rd3zmJ7iEb3+PGNvbCB3 mUW7dU9nVUPfFpK6SFfk F302UzHoyUVrWfce g2pbi9xfuKw0ZzH6KHAe mpYbpIaiIVT0v1UpDz94 L32iQIznQDVhSIQyLBCt EHYiyLfytf9fmU2c Ii8+STLwpFC4zXX6mM0t HzHoIfA9IRvyJ336RsMb lRKhAttyB30eI8GcpGU+ HKKuMdt3QNQxtXuk IO6fcEGoTGxkRx6vHPV7 BpXvNcGcQSkeG3PwTHUs ufvjejokdID7HOTcHFOs zN79Zl7dmKayKPMg gTKJsL4nnggwa7guluah BaBzUGEpEIx5UIy8PQHa wOykIoFsUZG3QlF6ASR6 mVOwzY9eiKbpjvbx hU5dU3LkMKNrktctPe36 tT9fFnTiAyB8TVzfCid+ HaVOT6stJMjASPFHWtPl TjwvdGQ+PHRkIHN0 bGnaCSliPMKttL9yTBOl V7x3JnXnFpD4POwaJ0Ns MYEjwoowDw11zO6gZqZh SeL8BCeoU9IszmC6 OBDjbVTdVYvpPNQ8C78m w5J1YFZuVTUdOLN1tJB9 yB6twVqmktgzrOAfnSji dmVydGljYWwtYWxp E081ZMQzpUxjUiS0ThT8 LhK2MZY2Y6SqOax3KWWb bTncJQ1lhVToGYssXy1a hWdmfIfpSM7dTCRl tvjzBIRzbV1pOKYwcMZn rJvzFR6tFXGbtxqbu231 IrGlKRU5SLHlwLKmU8Qt yH6yBqHuWVMgBNAi K3SdaRIoBVngM303APsz YuM1EXDeikJhX4PwWIIf sLztIvP0r2P8Bv3dBeYL ZWFyczwvdGQ+PHRk UNS4lVobXJhhMYRdpK3l MHCfL3f1XmTfCzN2GBbo O4CoZYAtvxuhAc73zF8y NbLoZxK2DHsuY2Cp hcX8QYVwmKScUOluOBO8 I22xo4J1JMCsNBNbUTX4 dTY3aQ6etCkfuvxtiTLu dDsgdmVydGljYWwt BRhzZ192WRLhgSklLcPg bWFsZTwvdGQ+PHRkIHN0 oQgkKYssRZKnbZ6aSOTk R5f4IwJyBlF8CJcb Y4YwYUXyeloxRv40jJ1x RfQxIxE6LFcoJ2GcdsB8 IXCskESiACvtZOY8X13j o8N4KTMsEALpGRG6 qVC2nH1gyYqmbtvbnOJq dDsgdmVydGljYWwtYWxp U070RJCbbSlbWi41eOMt jLukjkI2Q4VqPrnz dHI+VR88YOUyCG89sIXz qFBgo8ljuXd1KzJxOZOn XAP3cHyoQPptn3DeVRQk O86lsTEle2P8GPKf fQbhpNUpZhKixTF6lN1l QEusfnhir5ppttpwZofp p7lsff36gK66H65cGImm ZHRoPSIzMCUiIHZh dJavwi9sfV9sRo2+PGNv hFO4iOT1uG6wRgLtGtX2 WXumX333AiQboZKiDroh v7tdg8rrkTc2UcBk AUFyyzZwdOppETY6m9Xk Ab04Z95nWIyrPJOsUAOc USHdKFUizAflvm9ltF2d Ii8+IH1zl0xgyz96 aU01gPC+REKcZGH4bQts MLmqQSTkgB9hCYwgNoT6 WIFcQiKuyA42wADhAFsr Mt3kcQbecHgcMT4q ZVEkrhsmh517YaXjn6ew GXJjcFTkFUsdOXL0U89l l0A3FTBhXLZlDFO4bID3 cV0piWsiysjcoBQc dDsgdmVydGljYWwtYWxp D210IBWcsDncHkCrdWLk Q5ccsdUFJO7cDegqnGK+ PVMmJSF9yBxcMUqt FKMrnB3nMWMcD2k8FvGp SbY2TIvgK4ZnpqG5ZUCg lSIwMBDcoBZLxP7qdezi w5jqecrcKkJmXWNx DQo8KIa6LVCnaQqgPxCo ORK7UmK3UPK9qCXcpI2f lPchbwdxoF1cUlr+RklO OjwvdGQ+PHRkIHN0 nEtkVOabPHAxxS6nXSDu Y0h2FhFaMxZ4EAhrV9Yx kaH6CPInnHLkMJIvgMUX uE2sxvmcr2aiffdk QwTcLKUtDWb7NCo9NJWx hKtpMiItZRQ2GfM0HWI6 hKCtpS3jtUxvaifqoD9d Oyc+TVJOOjwvdGQ+ EUYgQCL4hEtaFKwkVOKf jK5fCQIzQ5g0LrZtVqS0 VLggO3GaesF9PHPraGTb FMXkuGSItA1uxgtr s2jmmlgnCtZjXVTkOIl1 LIc8FGKewYagErZgRKR7 MyG9YGX2nAXmrF6evTjn uzvwaK7bBev+UGF5 ESH2SI69BI95Z3HyXsla dGFibGU+PHRhYmxlIHdp ZHRoPScxMDAlJyBzdHls QA8aPz2iWFOxCPGk bGxhcHNl (more content not included)... Normal [facility] Physician Orderon 11-15-2022 Physician Order [id number] #1.00CD:127 Normal [facility] Coding Summary.on 09-03-2022 Coding Summary. CD:[id number]:[id number] Gh0bWw+PGhlYWQ+PE1FV XWsW43ixWGhxB5TB1vBF M9BPMDEUIIJPM2DVI4ch BJ3GPezH9VglcCz ElxyrIPqOG65FAk8ZSL4 qPskZDuxcI8dlCMwB6i5 VxAiGR14mV06DZofHTMd IqP9LdGgjkwfmDLl W3cfPtPqlIKvGsh+PHRh YmxlIHdpZHRoPScxMDAl AbXbwFhyUQ4sEu5yCLRq LWNvbGxhcHNlOiBj t2mnUDVkUXlaWF9fuAgb U7AqoDF9MYBkh5w7Sr24 dHI+IHInODX6nUlwVAsl b684ZrIdx1utFPR7 bIZeCTzvKZA5H79fy5Z9 BTYvJVFbRXT2pZE4aC0u nGvvkqhgI6BjxIPpChN2 UQZ6kHPazT1giCww zbtvkY2pErd+I85UQK0D MOHSGL2BEnj7B5YmWucb dHI+VA67HLTjQM98fVKp sCMps6rxtTc3PbWw QYBxWPT8xRanUMjmi5Kk IHFwD29elZLit0M5AUPs zYiwrCKcTdMslYV2lY3d QQmihnekd8coictb Thndc6qshs25xQ46M51u HRizICGkQKQ3UYDbMJCd sBcbkv3azZ8jGr7+IDxj p6mkq0zbfGf0LcGi RPVtrfMxlNliOCG6l0Wj Ad27N2RcmMaex6UhAoi5 lt37rMUpw8O5uXH1UJun ZVMbsO5zXNhvSjA4 CDXoSiYrdT05zYKaIOxk Cb0pqPkidQtyYM1fDKRu tddrPLShfV6lSFOxtEGe cRsyCW2hNWJubokg f731IzUyRWS3XYAquEOw G0MupA3cXhJiDFKvDAMo G8NtrEOiBQisA487FAsy KaG5JEDlcmIlU0Dp TLOyhXxzNoV3l3F4Xk6Z b6QysxlbSPG7BPtmSVJt KtK1YjEqBxB8K5BvOkv4 VIPbhHkgOL8tO1Mm MEYwwjcgaolhoXE9NOOv NOWocP29nIMwMRffRw3k s6Y5i201DZGhFIJsuE25 Ii8caCejGQSfpXFN lQ8kjnlzg5rppwxoVpIy QRNjXRo1WTa2CNXdsIgz GaAuNRU4GeF9PCD2rTJm zQ0uaRsgnjwbxH2c Oyc+N08hwS3uQFS4QOA2 glwmKGRwttFhBB90PO10 Y6QdGqcqcOGknUN+PGRp lxBmcYquWZ5uCoTp r3xkn0DfRPlpU6PrEOYc JMckUrz2ABEeIDJ2vRN5 bR6zUORbHJsfb8U3qSX9 M4IiezRwdj7dk9nf ATWpPLuaB44cfAIzk0E7 YOWixHG8PJUslOerLiYn gR34Vub+GSYdaQozx5Fl Srspr1rha5papXa1 IjMwJSIgdmFsaWduPSJ0 i3YxBa50F97qPNddNWJb HLKmBYPvPZNgjBxwxy0w zP7xGc0+PGNvbCB3 kOI8pH0xGETqVhU6BIup E021YhDilYMlMllfl0wq l6jvpVy1CgKmLLDgiwWy wNfgFQR2u4SpGa38 E24dPOwaGWYsWLPjZVZf ZZMnjEvwta1kvZ7kYs9+ JR8rs9yqqc78wM90xZJ+ VKVjEHN0uOxcAUyt FADrfG0vTRldVyF8JFCj QgDiqM88nXKxDSguQy1s aNsoiAggOF4tBDQhddgy s457EqOad5mrPTVv yOWmQBlrEAL2E19wu8G0 LEQtKAStVHO9bLQ1pP1u bGlnbjogbGVmdDsgdmVy fKopZIjmTQdoK929 IHRvcDsnPlBhdGllbnQg GtZkYIa1Y6VjHht9BKMs lKyoVW2izUZtFRwbIp5z aMwriCudSJ9aPEUt xxwrg562SmZql2qoSLPg wWYvYMyxHWP2G03jo3W5 TYVvKIOnHIV1dRG1wC0v bGlnbjogbGVmdDsg reXlqMomHWycBRduW440 IHRvcDsnPkJpcnRoIERh aJD3YL22YV48nEUvi0E7 iBV5R6WuHGYdysvd gsgyuFA2CXQjLLWxdF54 Oq5gjLcqEj9lXVWrRVA4 STHdkCSrY4RboU4zCfDh TGTyEDOzK4HqjZFg YXrxK811ZJgjAuG5RXSr anBxY7UyOIGnmCxyJsN7 f4H5Ku2OT8C8SS12OM52 iOItf3V3tYL7S0Dj CVHzngliqlahrUQ0KGOf XDLbgL01Vi3xsYjgFv5b CCHrVPT4WNUwdRNeR1Yu rC6pBbBhYQTrFFKu B1AiqWIzJIgiI642QAsl KpS6ZOIhquLhI7UwJEQd eUvxSvG3d1Y9Vk2YNMr4 EO01TV75oKUue4X7 iCT3V6XnMLJantctoogm nYA2JQVdQSEmwE43Xi3e pGsiUi8gGHIhUZC8AENx zAPdN6PzqM2sUcTh HAPcSFJlZ5UoyABnSQny N594TBnmHlE0ZBUsheRt R0PsGNSaxQltLxW8a2J1 Sm0ZAWOqKQ85AGJ9 eDE7RM26IT25P3OlSfdv dGFibGU+PHRhYmxlIHdp ZHRoPScxMDAlJyBzdHls NO4oLd2jMJZyGJUh sJckeOTtExWim2npNMGm SSscSM9eaXwhP9NeiQJ3 UFZaq4o8Zc52Y56mD2Ir dXA+OKOijEC1eNY9 gD6pAmLyCgM1GIvoH434 UmTbjKDiCvzpi8mkh4da rPl5JaU4JZLueyVwfLgt MYL2b8RwLm33Z74g IHdpZHRoPSIxNSUiIHZh hZetrj7ohG8tXm8+PGNv sVO2nHZ9fJ0cWoLvPwQ3 GLyfR300YnKeyLHs Nfthi8kol4pxkBa7VmUf YMHlzcJxyStwGRY1s4Ia Ad78F0HzeWuqu7EsFpk0 nm67iWIga8D6iEG0 J8YhLQFxqbxiiAQhpGcd ZM0bJPEicvqwKVHgsW4a FOBhW6z2YoHcZbX0DZgs Y0OvtxM2UDDnrEJb VNfaHMB4Q57sz5T9NYTg SXMyQSD0cGP4lS8xaRur bjogbGVmdDsgdmVydGlj HJnpLHfhD798LLWi uHnkJRAxtC5yMAVwnIDo eHayKC4qZNKgkplgMzAV OhGXRZGZYSFWVK3CAM16 C1AuJnm5VZAwiYkx AA4gfYVvYYkbWi2xtLap rDsgHC3qGZHwsugwFAAj gZ4wVRJiwKGudZzwWM0e OYCtlawpw490KfEl CAB4ZPGzwKGyX4GvoC7x FnYbPTPgFIHjG4JihUGn YBlrA192GBllDrG2RKZf mhSiX9NoFNMtwRal SmV9e2Z5Hs1vLX8qWd7n UJx4DQ64LX87zBYde0P7 fAU3H2DiFNBiuwejwlyr iXB7QXNbKWCoqK54 yFWtGWfnHj9fm1Q2p424 LIYmTDCqcN48Te8amXqx ECFuqRXJzM3croass5zc cjogIzAwMDAwMDt0 VBw9NWYhpRlrGpWzPPN3 VoI9VPD3mAHrbE3yzNnf iorckI2eLub+MjYgWWVh zyP7X1IqImj6NMUd mDyeTU1ehCXaSPunRm1g mTjyqOzbGJ5vRZNgsrtg BOQztM6hXSWgwYJgsDwu DX7bVJGkatuat594 WuWsPLW7UUSusXYsX1Py tV1vUzUtDMJsOPTiN1Bs rWUhLZwpP155XLszFoN5 RHPdosFtQ6XgTBTw gAjnYmZ7f0H2Rp0VNZ9b xHO6N5KpMmn0ABEsdDjd QN6xwDJvBXqpDa6nbEvy xRazDV2fFYLrtnfe EGKaiH3eFICieIArnSmp VP7kBOUurtuow639IePh WIY3VPHiyDVeE1FwuO9r CvTvSHTiGCJaB8Tj lOViVXsgA341LIphLbH1 TANhcqLeQ6XcKSKrzYox HtG2q9Y1Yv5VrBZnMVYr QM13TW06OA52L0Vd PjwvdGFibGU+PHRhYmxl IHdpZHRoPScxMDAlJyBz dQtvJB2sXx8rRZNiNKSo wRjseAWvWtEjv4oq ETFwWOhpNZ6raNlxS5Tz wHW7LGUmt4x7Rg81R87h M4TxiXA+HEGnjIM9cRJ5 iB9mRjJsKoR3YYut N696UuXooDOqDuiiy6hx k2tjwGw8XyBxQCTjwfNu jPepWWA1a3YdNl26H04h IHdpZHRoPSIyMCUi ISYsvFrdlv5wrF8jPu5+ ROEhpFN8yXB3nR4zLmZn FyV8SNxcW784WmXqkEVd PkpkU24lH9ErjKK+ ESAoNyy3LHOmzWuqWU1b rNFoZTdwYb8aWVZ7MeSf CaKaWUphN1WkGAFlphhr gfznkUH3HJElEPDo hQ37Os1xxRgnZj7wCIHq IAU0ZZBvqLVrY3VelA8u AzLbTVFvWWGhN6KhlMYe VQpjS606HIlpGmA2 GEYbgiRuS2YvYHBisUhw RjP6k9Y6Lu7IxBycpJBd HZ3hZuIlGSv6L5YvJfk6 ZAOzbLjbVU2prVJr KPefGd8keOtaeQqaWL3r FVNzqqugc144MkZms1ex OBZxoCUdJQhkLKW7A23e n2X0UBDnNWWiQEM3 gGA7zO5hgEnctobloGLm dDsgdmVydGljYWwtYWxp Z399MQDllXguItLPDpn4 D1DoPxl2XKAtnRnm UU6qfONvXVvuJt6lrCdp eKkwRQ5yIVGdxpekg653 YtPhk9euPSWiyOZoUFcz CEF0X87ls1L8UHPr VLEpAQA7nEX4mO9tgEtj bjogbGVmdDsgdmVydGlj MMmyWZjeM213VSJteQmz Xu3XMuz7F1UbOjz8 IJHjiBrzOA1poWHhMLot Md7iqXeglZdlVC9cQVLy fmlks037OnNco0qvMXTb bKYmLSerGKQ6B17q o4C6JZJnVDCtORI1hJW8 kW8hzTdnyagzsZNxnGkx nnLcbMliANhsITlrD769 IHRvcDsnPlBheWVy OjwvdGQ+QA95fg32M2Zk KdclSbs7RYLoEDY8xKA7 zJ3xBTPgETpxm5A8xKZ9 B7VwxcDdgq3ir8ll YXBz (more content not included)... Normal [facility] Estradiolon 07-29-2022 E2 [Mass/Vol] 1530.0 pg/mL Invalid Interpretation Code [facility] Comment on above: Result Comment: Adul t Female: Follicular phase 12.5 - 166.0 Ovulation phase 85.8 - 498.0 Luteal phase 43.8 - 211.0 Postmenopausal <6.0 - 54.7 1st trimester 215.0 - >4300.0 [facility] ECLIA methodology Performed at: [facility] [id number] PhD Rick Lee Performed By: #### 2 [id number], [id number] #### [facility] [address] [place] [address] 14449 US 1st Trimesteron 07-29-2022 US 1st Trimester [...] uterine body/fundus, without significant surrounding subchorionic hemorrhage. [place] Rump Length: 1.9 cm, which corresponds Composite [...] Performed Transvaginal Ultrasound Performed FHR (bpm) 167 [place] Rump Length (in cm) 1.89 Normal [facility] US Transvaginalon 07-29-2022 US Transvaginal Exam Date/Time: 07/28/2022 19:45 EST Reason for Exam: O09.01 Report PLEASE SEE US 1st Trimester REPORT DATED: 07/28/2022. FINAL REPORT Dictated: 07/29/2022 10:23 am Juan David Mclaughlin MD Signed (Electronic Signature): 07/29/2022 10:23 am Signed by: Juan David Mclaughlin MD Transcribed by: DAVID Technologist: CHET Normal [facility] BhCG Quanton 07-28-2022 HCG.beta subunit Qn 198786 m[IU]/mL High 1-3 [facility] Comment on above: Result Comment: GEST ATIONAL AGE HCG RANGE (mIU/mL) NON- <1-3 0.2-1 WEEKS 5-50 1-2 WEEKS 50-500 2-3 WEEKS 100-5,000 3-4 WEEKS 500-10,000 4-5 WEEKS 1,000-50,000 5-6 WEEKS 10,000-100,000 6-8 WEEKS 15,000-200,000 8-12 WEEKS 10,000-100,000 Performed By: #### 2 [id number] #### [facility] [address] [place] [address]53 Consent for Treatmenton 07-10 Consent for Treatment [id number] #1.00CD:127 Normal [facility] Progesteroneon 07-28-2022 Progesterone [Mass/Vol] 34.90 ng/mL Invalid Interpretation Code [facility] Comment on above: Result Comment: REFE RENCE RANGE Males 0.14-2.06 ng/mL Non- Females Follicular 0.10-0.60 ng/mL Luteal 3.00-17.5 ng/mL Midluteal 3.30-18.6 ng/mL Post-Menopausal 0.10-0.40 ng/mL First Trimester 8.30-66.5 ng/mL Second Trimester 18.9-66.1 ng/mL Third Trimester 35.8-312.4 ng/mL Performed By: #### 2 [id number] #### [facility] [address] [place] [address] TSHon 07-28-2022 TSH Qn 1.73 m[IU]/L Normal 0.34-5.60 [facility] Comment on above: Performed By: #### 2 [id number], [id number] #### [facility] [address] [place] [address] Physician Orderon 07-23-2022 Physician Order [id number] #1.00CD:127 Normal [facility] Physician Order [id number] #1.00CD:127 Normal [facility] US Transvaginalon 07-22-2022 US Transvaginal Exam Date/Time: 07/18/2022 17:41 EST Reason for Exam: O09.01 Report Refer to concurrent pelvic ultrasound dictation. FINAL REPORT Dictated: 07/22/2022 11:13 am Brian Ann MD Signed (Electronic Signature): 07/22/2022 11:13 am Signed by: Brian Ann MD Transcribed by: DAVID Technologist: CHET Kurtz [facility] Estradiolon 07-19-2022 E2 [Mass/Vol] 720.0 pg/mL Invalid Interpretation Code [facility] Comment on above: Result Comment: Adul t Female: Follicular phase 12.5 - 166.0 Ovulation phase 85.8 - 498.0 Luteal phase 43.8 - 211.0 Postmenopausal <6.0 - 54.7 1st trimester 215.0 - >4300.0 [place] ECLIA methodology Performed at: [id number] [id number] PhD Rick Lee Performed By: #### 2 [id number] ####[facility] [address] [place] [address] BhCG Quanton 07-18-2022 HCG.beta subunit Qn 856976 m[IU]/mL High 1-3 [facility] Comment on above: Result Comment: GEST ATIONAL AGE HCG RANGE (mIU/mL) NON- <1-3 0.2-1 WEEKS 5-50 1-2 WEEKS 50-500 2-3 WEEKS 100-5,000 3-4 WEEKS 500-10,000 4-5 WEEKS 1,000-50,000 5-6 WEEKS 10,000-100,000 6-8 WEEKS 15,000-200,000 8-12 WEEKS 10,000-100,000 Performed By: #### 2 [id number] ####[facility] [address] [place] [address] Consent for Treatmenton Consent for Treatment [id number] #1.00CD:127 Normal [facility] Physician Orderon 07-18-2022 Physician Order [id number] 1#1.00CD:127 Normal [facility] Progesteroneon 07-18-2022 Progesterone [Mass/Vol] 25.20 ng/mL Invalid Interpretation Code [facility] Comment on above: Result Comment: REFE RENCE RANGE Males 0.14-2.06 ng/mL Non- Females Follicular 0.10-0.60 ng/mL Luteal 3.00-17.5 ng/mL Midluteal 3.30-18.6 ng/mL Post-Menopausal 0.10-0.40 ng/mL First Trimester 8.30-66.5 ng/mL Second Trimester 18.9-66.1 ng/mL Third Trimester 35.8-312.4 ng/mL Performed By: #### 2 [id number] ####[facility] [address] [place] [address] US 1st Trimesteron 07-18-2022 US 1st Trimester [...] corresponding gestational age +/- 1 week are: [place] Rump Length: 0.6 cm Composite Ultrasound Age: [...] Performed Transvaginal Ultrasound Performed FHR (bpm) 124 [place] Rump Length (in cm) 0.62 Normal [facility] Coding Summary.on 07-14-2022 Coding Summary. CD:[id number] Gh0bWw+PGhlYWQ+PE1FV QQdX12fnTBpkZ0VG8sLY A4PGHMNUAOVJA6FBL4ov IJ3VKaeB0JnjmNr ZjybnEArXZ42VPg5LAV3 hWqyLPucxF7izBOtC7x5 ViIsJU84xJ54SYrwTKOp QtR7SuEdrzvigTHh V5rvXtFafTCzPgu+PHRh YmxlIHdpZHRoPScxMDAl RwNpuHwqNU6ySd3vROBb LWNvbGxhcHNlOiBj c1yuNNEgRDndIE0ufZgt Z2QbkAB8EZRqi3h9Cc54 dHI+SULsYUQ0vPdbCSbl r342HjGhi6sqWZL7 cHSsSAodXVK0I02si7P0 EQAoHNPkHCP3mXY3dI4m kVjpflwtW1OcvWCnSyN7 XCU7iMDxdX5osJmw vdrhvX6xDzo+F41LJQ6U CWMARL8OGcg4I0ZpXuwb dHI+RW36IJVoHE75sUHq xGPwc2cbnEr1IqLw BAZrMVM1tWedKPyhl9Wf GDBfJ12fmLNma6E9SFMx mMnjzINhMvYmfGI0zE0j VYlsmwdkn5vkjhbo Gcibk6crmu20gK45W07b QTjoGQSdSSB8VTLeEQKa qXflhm4eyS0hRa5+IDxj h2ecl6awcZe5NcCj AWWtapQmsYqgGXZ2o7Qy Wd73I6HvxVlsh9QfNot7 qf03eEUwg0P7eEB4FQfn NAZdcJ8sEMlhNfY9 QHJdKiUqbD14hVTqXIzl Ge3swHzvlOtoTK8kIJCh khypXXIjgJ9jNVVgiLCd zJuwML2lJRGylnzc y320LrTeHDY0DKJcfKFr G6RbtZ4oYbDbMFSjRTUa Z2QrjTLcDMdzV788NYim WpV3SYVzyiLoZ0Dn AJHlxRubHpS4a8H0Mr8X h2VfbpqcLGC7XJanVUDn GlN2SlVjJeG0W7HaYjm0 ZKJhdJdrYI1oN7Tp VGUdqnilcwzztBO0IWJx NOTsgP31lOJjXKhxZf3a f9A9s944ANXoEXXyjI74 Fg8imEmpVDQcyAAA lL7uigrns2yotrhzAlYj PMSqPXf7UWd7PIJseEde EjZbRIY2LjG9FRU5rUUr iO2upFiktdvykK9p Oyc+K91lpZ1wKHJ4NOU6 pdmbXNFthxCyTA38LO33 O6UxBtezdCBovRV+PGRp xeCgaCmaEE2wYtOz g3kzw8DrKKzgA0XsSHSs EJfpHsp6PFKbLQZ7sQS1 wE7vBIGaUNlgz1I2zAD8 E7DgzaProk7qx4ib GKXlVYeqP57tsDTve8J8 NHOtxTS7SWZzuFhdLvYn aQ32Rms+CFAdrAepi3Xj Tzgzu3jgk7mbmFc5 IjMwJSIgdmFsaWduPSJ0 r2PeNz97W70mEZkkKZFm HLArOIFpTORvfEfjab5f xA2cEi6+PGNvbCB3 jCN1xL6jRTIjRwO2EVkp R160BcYqmUNbTlpxe7ut c6fyzBh6RoYsOAZrytTf gHqcNVC6p7IqJe88 X75rZRqxGFXcHMFwJUDw TBMfaJfmyd3usT4rJz6+ NY6zc0gzjl65uD20jJQ+ BPBeMNC8oLxnXDtt CSQfzM2nDLiqGfT9KMTw MaWguY00zQCwOHtfJb2y aHzynDupYB8fOCOcmyla k996GsYtb6rgGUMe mLOmEJyxMRN5J71ts9E8 VCDfLAGhJVS4sYC9vJ4c bGlnbjogbGVmdDsgdmVy mNhlRObrWVghE626 IHRvcDsnPlBhdGllbnQg CvRvWZd5J7AlWiq1YEEa zUupPY3nqCAeSNwrXd1o qYscdFyfFZ1wUSHj bfmmh055RsOmt8noUYYi zVDuQRpcIMX8A73ct9V5 PKGoBFCdMKN1wKK4xT0l bGlnbjogbGVmdDsg mwYxnWicHQqoJPgsP702 IHRvcDsnPkJpcnRoIERh nAT8FC33WR06nUIle2V4 uIM3M6YfLZLyvrxo ostxnOJ1DIHnVKKznK97 Sx2zlTllDn3pNFJzDFO3 KXDkzKFeZ2PceA5pGcJi PXHwPTAjX4WatIKo PBmaK398EYjmUmE2ZVTq qmDeR5GqRAQtjLpeAxD5 v9O7Sa5GA5C5SD12FG40 nEQpq0U1hWR8C2Tz GWLlpnrddkdnnNY5NYJq SLPymS72Ql3brRumAv9d ATQhHPR7LPOauHMrY1Dw nA3nAuUfRXZhOWEm H5VclXStEClcM775NEfj YxD4QFYdzuAcO2OvGBXj dKbaByN6o9I1Ka3ZRHt0 ST69IW29sZAxv7E1 mMP3A0MuVFLvrtwjmrix nCM6AUMeAPRdtB53En2n yFtvQv1aNUBdQWO0NAPz hMXvK6UtiA8yAqXw XCRiGDXwM7LniIYkMDnf O239WRngJsS0QRScwtXp B1ViFCFwwJmmWcR7v3J6 Ur3LRLUtJL61ESF5 xLY8HH65ZU62J5SaAzzv dGFibGU+PHRhYmxlIHdp ZHRoPScxMDAlJyBzdHls VJ6eOr0tMTBxTKNs mPxvcTXgLmGio8deGNUb MSaqVY2ucCteT0AorZR4 KMQhk5e6Lz41U09jF1Yo dXA+UKLlgRW7aSK7 wT2fFpNmAuF0VAnjD850 FlGfbPAhCaotk1qec4um uDn9XxQ7DDUpijTfhZrr VST6m8CdDd05Z72b IHdpZHRoPSIxNSUiIHZh dExajj5stW2nIg6+PGNv zSD8hWA8mP6hMqEeGeB8 BOekU929MgLpvFLn Vcgtw1izt1jfkMp7KoDa RIEthyUusRlcZRL5h0Tz Ht73O7LopFtnr5CeIrh1 dw62tQInv1P0rSX3 A1FnTSXelbzrfCTmuPlc PD2dFOPyumxvIBSuwH8e PTUsQ4q2ClQyCyM2QJkw J5YxcjB0DXVhtQZt BZbaWRU1E24ee2M8TMHo AAOeKSX2bLT0fJ9tbWty bjogbGVmdDsgdmVydGlj ACbvXTjaL240WTZa vRtvKZMtmJ8oBTNziKVh oCvmRG3dVNDxbktyYpZJ XdUAHLJQMZPSZU5CRB14 S3NhMyj0BUMuiWop QE6htCHaWVwcXf4uxCkk uQxsKF2sYBYjxcjgCYJq xP7sDKQqoPDfmLjeRG1y UPVzshmol433EgDo TIV6JNYygRUeQ2OnsP1n IwNjNYCkGLJyI6LtsKPb HDqqS557JAacEoU1AGHn qdEkS2BgRNNlnBgz EqY4y2D0Il6jOW7vKi3w DWt3YI67ST04xBPvr3E9 nPI5J2EtBCSdacwysudq jSU6GUIbRRJssX03 qDPcIRdsCb1ds9Q7x611 ARRdJMQryU82Bs9clTdw GBSpfAUVqH2tbojrg0kc cjogIzAwMDAwMDt0 BDf8KFGlmRgvBoOoLLH3 LiL0NMP0uIVprI0fdDpq nbyntC5hJfq+MjYgWWVh azH0W7DpZsv3APCo wOyoAI8kkJAyTUjcFc9l yFfdvIusAH0iGCYlbfst CWHdgT5hGCQpkTKmrRbh AB0dIKNfyemwd818 JhGzIWH6UMLpvGRvO7Gv iO1mLkIwTXPyMGHhW2As pYOlENaqR983UOfsMxD9 HEQojcQmB0LfODPz nWdeIlE9x9R0Kn3VWZ4e bSU5E2WbCxx5HWYzcHsp QJ4nrVFoZOzaDh2smScl zQjjEE0zZOWsmvve AUSdsZ8gFYSekWFfkTlt HE2rFPVhfcfzf747ZsVd VND2MOTtmGVnR5KfdV3o DiIfPRZiZKKxX8Hq yLUoTOxaL120YLvtMdZ1 GKChicMpS8SrJHFvpJnq ItM6f1Y1Yz4MwLNqLYEx XK59IA95FF78V8Nf PjwvdGFibGU+PHRhYmxl IHdpZHRoPScxMDAlJyBz iIabOP8aMa5aFCDrQQEu fYljgRToEeXic6cf XPDoSEjyPL5beFojG4Xj iUP4LTGvs1b2Vf50Q67f K3NkkLO+NQThgBG4wMF2 oK3pSwUnQgB1ETjd D313BxJeaZQdGcjeu2jk n8bwbUd9RtRpOXKgdyNu xSkaMWR1x4GpVn84T43d IHdpZHRoPSIyMCUi AGApkCnyko0wsQ0sCu7+ KLGrmXT1wZW7cI2eJyZi GoR5ETjtD836SxSrqRGz CkmjK76aR6GytVL+ TUGtIuz4AFBwdPzaJX2w hAMqJEzrKw8tHLW1WvUc HlOdGUsuM2YoTQBtphna bplwsTF9HVRlWXYd sN16Vr0yzRbxCf0oHBDn KFE5HINbcTZsL6VdhU7p RgAeMYLpJPUiP1VyaSAf BGmdZ262YLnaXhK5 NDTqfdWgJ6TpZSVraGeu WdI8a1Z2Zv4YwVvfwWYt EB3rApCkERg4Z6ZcZce7 SEXtvMnrMO9weIAd NKtpZk4wkEnqdWwoDO4o SYChqbxmd334NeBpj6qd PCUltECeVZkgOHO0P29n a3G9YRKnNAVtQIA9 kUC1kH2acJugbqhcwOMn dDsgdmVydGljYWwtYWxp E472KWXltVrmXuGETxd7 H5QzCqm2ABWgtKuc IN2zlJTaIUwiHx5ajDtx nTryVT5sSGHftbpvx418 OpAzw4mnCCBrgYTnBMfi YNT9D30pk1Y0JGOm ZYTtEMH1vSU0vF7fuXxh bjogbGVmdDsgdmVydGlj MIcyVSgqF771MVEgoHne Ee1OCqd4B2SvFgk2 CVVhwSobEP0euLMpUFee Ol6pwAuqoTsjDE4pZYTc kqrkt287GqReh5ckEEIu gGGmDJpbYFZ3K47e l1U2VXIvMUZmPSQ3uJG7 iQ9fwIsibccetGMoaRei tfNhbLbaDJdvDYcyV365 IHRvcDsnPlBheWVy OjwvdGQ+JE77kl19N1Ob RgkjJbl0HBOuMQA8fMA8 eJ6bTCGkLFozr4L8sQG7 V8CqleVhrh0tv4op YXBz (more content not included)... [facility] Physician Orderon 07-14-2022 Physician Order [id number] #1.00CD:127 [facility] Coding Summary.on 07-12-2022 Coding Summary. CD:[id number] Gh0bWw+PGhlYWQ+PE1FV ANrQ51pzHKszS0XQ5fPZ G4VDHVWFWXCTE1HCY2fl WF0SZmyB1IxcqVv OwvruELhZU31HLy2ZAU3 xQuxDCmzdE4tqBRcV1d1 RsLhAO91oA04IAjlTAAp DkB8DfFzythoaSKi E7hvXvVdzIFlZkp+PHRh YmxlIHdpZHRoPScxMDAl PyRowTcjWV8mRz0lAKWn LWNvbGxhcHNlOiBj o4gvVKMjDVmhBU1wfNkj A0LtiMO0ETTou8f3Bu87 dHI+ODWfPLH7bMaiUYfe k950WsNuy9edLIL3 kIWvPIfjWZF7F51he3A6 XEItOJYcOYK4uRO5oG7q qNdpvkvfB8MoqWNoQkR5 UDV1dLRdsC7tqFqm xxmdeQ3lUgy+X00SUP0W HVFRSO4DAeg5I9XrWhjz dHI+VV29BOYxCO47sJWt wPFcy5hksMm9EuRh UEChDIL2jOjdQOeys9Yc WFBsZ12hoOJxt9G1BISi oWmfkBPtCyKmhKW9yE9i GSniwvwlj6oyvzvb Lpgdc9lqzi01mD44I97t MSdhGBQlJVT7SWQhRNVf kJpsvu8hfW4mEl6+IDxj b6bli8jdiLw4CuWh NYSyaeXltAkjQYG9j7Fl Fz51P4YxeFckq8WzEbv7 wv83iTUby6L8pEQ1VUye CSTeoU1hOYngGkN0 LHGnNhCsfO44yIEsIRhd So6jtMaydYusGS0pGHQk cmavLLKasI5eQWExpHLj pBilQH1uLTRcqqcj n032HrEpJGQ3BHCzoQHw Y9SyuQ4eKaLkBSTkODPg Y8GniCSoGLupL179IBsv LsI3IGPvhuKgZ4Pw DKRqnEatAeQ3c8Z1Bk8F x7JgrrqjSZU0LExuHAQu HiJzAkAjEpZ5J1XfVyq0 EQPsbOfmZK4dD2Hj VLXdcyeztbnlwCO1EJJx URZyrD33hADaXRqySf7q k6C2j098CEFgNTKkhN04 Po1kgWzbUCGeoDYY bE5btllcc3sgnkqqJsYj REMfXTy4OAl7SAPjdQnn IcFoVGA2AjL8OXN0aFHo sW7wyEbxzvcmkU0u Oyc+P65gyA2jJVC9SKN7 lipvNNYhfxTuLE18SO33 D7GbWyfpiCTnaNC+PGRp hyUvbOdrZJ4gLpYe v7ueh3KlKKuvR8YjTFVa UCmpObd7PGRyIJM5tYE3 wY2nVXZcROnag7O0iOR8 E9JmdzRqlj0jz9ie SKIpVZcuN26psXQff1U4 COCtpOS3FUWwgLltBiNw qQ65Eao+EGCrdEmgy8Mo Etmsl6tij4shkZt0 IjMwJSIgdmFsaWduPSJ0 s0DoMm58I62lDCcpBOTx AVKlEEKoTSPtcVgzkp1h jC7iZa6+PGNvbCB3 cIW8sQ9uPSDrJkB3EVyy H621CfTpfWBpCdjbo6fe f5oxeSw5TrSbBAXaxmLn eMggCAT3r5XqFc07 N91rUAwcMLMaCHLvTMRj FFLmyOrhus1emQ6fLj3+ SL6mf0afew38tT67cPO+ BTYtLFM5pJsyHAdk DSNemX8mXTpgInC2UQYc EgTwmQ63vLEvIEbeJk7n uAzccDwsDO6lJEKxwetf d047PeEkr6aaQLOn pYTzBSirDSC1O80aa8E1 KMJtOJIqYXB7zLV9fZ5v bGlnbjogbGVmdDsgdmVy fQquYTnuDSjhW014 IHRvcDsnPlBhdGllbnQg DiMpVIv0I0SkXgm4JWQe hEblSC1siSWaUVquIr2w kCjmqOtsWS3hMXXf fjiry853HtCis7xqBDPj sPIhQVhqIUV2V78kr2T3 IZTrVGZfWCE8qRL1qF5d bGlnbjogbGVmdDsg paWrhTqrNRdfOKybN178 IHRvcDsnPkJpcnRoIERh fET1YT65LW42lGOrd3M5 bGM2E9NkAGYsgnhh nzparSY4BRQrXCHjpM90 Li0auTwgMa6uPHWbDQS7 LZPpaEToZ2YclV9sYrWg JJVfXPChH6MvvRFr UWqtV866QJrcObY6JAGd wvQgI1WeWAMcoPdkMzW0 l2K0Cz5EP9U2EK65IW88 rJChg3W2wGH5I5Bi QRDgxbgrsbxadKD9WXNy YWCxoX92Uk7esVkaXn0y FWBtRAG3XLWhuDBeH0Op tJ8yApDeECTbUNEx J7YvzOAuAFxgH600ZUdq TcA7VJDfrbGdJ5WyRHPo gRklErM0d6N9Xr4AYFb6 PE46GW94dNOha6D1 mIL9X7FjRNBgxxjgzlql sRF9ZXEzCSLkmK42Kv7a lFvhWe1fWBQvDWC1IQZa hVWjQ7WirB1wThZe FEQpQRLnG1RnlJGoTLut V778VXemQlA2ACZrokJi F0PjOQOtoWeyHrH9t1B0 Ks4VYEGvQI24PDO6 eXJ3PH06LH44C5ZyBkks dGFibGU+PHRhYmxlIHdp ZHRoPScxMDAlJyBzdHls JV0xZt0yDRMfRTUp fOhkeYFxPzFhs8jyANXf JMkmVY9dxCirR6MywPE4 IRNgf5x0Nt21Q70bB3Fr dXA+QGJmuQV0sSW6 bT7qXyVlPaL4QCtlB198 DnEmnERtKqsrc3zyd3xo dHd2EyW5YOOtoeAacVmv SBI0u1OyDp00T76x IHdpZHRoPSIxNSUiIHZh hCkear1ylK7dPw2+PGNv sVH7cAJ5bW8nIeYlMzO6 XMqjJ475EqAiqRUr Hpdkn3vby2tydPk9HaWd FRUnfiMzxVmfYWL2r4Lx Up60S2PdlTcux0CxWdh0 vn74kVYlz1E4uZI3 K5EwFFEvnmkmpEUzqNdw YQ7uOKRuxggvPINctB8h FMKtR2x8HeGsKdS2HOyx S0FsrdN6BPTizMHh XJwpPQY8A09zx4H1MEIr TOZfLSH9kFB8mY3enVqi bjogbGVmdDsgdmVydGlj TEfuRUpkE164RASt fMxdYXMgrA6zTRYonQPb hEpsJW9pGFLmwbpxBsCB JiMUPONWXHIMUN7LMR43 O7PaKnx8IWPrnVlv DY0qmVGoZDbfUh2wmJdt hJgrOF4qJCSrbkhfRIMu rC1cRKHuwABkqWjfRW3s AWWamrbwt666IqCy DQV3WZSklOVvT1DnzU9u NuCbYKHqQPByC0OjbWWe FQiyA267OYlbLcD2FDUg ryTwK9RaYOBwsIxh QiF9k5J8Mz5uSF0sGq2q ORb9IY89TI95tNCyi5W9 dVY6G5YaKFGmpvzunaho eKR2DAKzVQNmgL52 cNBiBQopWl8ip7T0a812 GWHxCWIlfP59Uh9mmAau SNArlHPApB2ibqmnk9vh cjogIzAwMDAwMDt0 XSo3TAPtxZqnXmOiYEU9 NyD5FPZ9iLMnyN7gvUsu uvbkuE1cXxl+MjYgWWVh waB4A0FfIet4WGUg tUvuWN9nkVHjDPcuAd5i rYpphMmiND4zBCIploij EBCspP2cGBJfmOLfnRah AG5rUHZgmdyzw102 NrDcPTY1UHJyjZPiN2Ox tK9tCpHzMXZoUWDqN9Xf uDZkXItdT640DKrbMbD5 TVHfocVkE6XvOGOc lIgbXnC9u1B6Ye8GSL6z wPH4B3QqAqb9MCKwmLse LH7piCFnZNklSl1ydWai xCjeOK7eNWPqredz XQUlwS5iGUAirTPraGkf SQ6mHAHhpratu709DmKa EGT8DVUouZJhL1TmlF9h TlHzPLMuVJZeT0Pv pUEcHEgrJ612BFpwQfR8 VXZgcdKnZ1RpQLOyxXpq AsS8a0Q6Hx8QyLDrOYVs MV74II16GI47I9On PjwvdGFibGU+PHRhYmxl IHdpZHRoPScxMDAlJyBz rJsnRW7oQu4eLCYtXROb cVxfzOBsYcNow9sh AMGwGDtvTK7tkXjpB6Cs aZY9LIUcu3g7Fz08C60d Z5NwhMF+MRTrxEZ4pHR3 kO9vIvAxTnK8GDsk J735XsCzrCUkKyott6zh d2otbVo2YeRrYXIucwYm uKqmESJ2x3BoTx81W19y IHdpZHRoPSIyMCUi EDYfrUcefl1olF8fYs6+ QFOupXQ5oVT7jM7sEnKi UmM3BMehZ890JdRkuSOk RkeaL77mF5WllUH+ TOAhYmf3IAKzjKiiCJ9j iHAzKXdnDw4vRDF5DxDm DkWyILviA5InFZCaoimx jsvrgBS1LGVwHAYe nV42Hs0qmDeqDi2oLHEh GOG3VSFlpMCuI7LlrN1s ZoEdPJSgRVQqS7QycJHs EEemI083BWkiKiZ7 LZYgcpNsZ2ZwPYQmvVzx WcO0k4M1Xr7JjFjxiRJy NV5gCnHeYZi2N8YxOsp6 YAGatBpsJB6beLAy DVsdJf8yqLcrjQngTQ7a IMUlkvgms508WtWxu9xt TPZjjNUpNDpeLJI1Y15e t4Y8UAEfODRqSHL9 cZE9tT9leOvhskjmlDDv dDsgdmVydGljYWwtYWxp P355WXRqsHgwHhCSZmv7 M8YjRsq0XGApqJwq GS4bbPYjIPitFy6wzXia vOnpWV5hZWCymwiqg231 QcVcn1tlWMNvmNSpSRsc SIV4I25kb5X8JPUp FFKeRMU3oIY9gY2jlDzc bjogbGVmdDsgdmVydGlj PGkaADdmE754FXGyyMjd Yo7JKtt8W3CtYpn6 UHMvoEpmEI4rfYYgBOma Mf8jtWglxRweKT9oTSGs udzdx684NiGyd6ixRKQl qNPrCJumROV4K05a e3P9LHGdEILhDOZ7fLO6 pB0weDxvifupoGMknHiu vwIyxOxnJXfoXBvjI875 IHRvcDsnPlBheWVy OjwvdGQ+BH49tu79I0Ps VnwhUwm7TGCcJNJ5eLY0 vE9xSBPcUQaas2Y5bCK5 M3JhcjYtbm9gw1ox YXBz (more content not included)... Normal [facility] Estradiolon 07-10-2022 E2 [Mass/Vol] 219.0 pg/mL Invalid Interpretation Code [facility] Comment on above: Result Comment: Adul t Female: Follicular phase 12.5 - 166.0 Ovulation phase 85.8 - 498.0 Luteal phase 43.8 - 211.0 Postmenopausal <6.0 - 54.7 1st trimester 215.0 - >4300.0 [facility] ECLIA methodology Performed at: [facility] [id number] [id number] PhD Rick Lee Performed By: #### 2 [id number] #### [facility] [address] [place] [address] US 1st Trimesteron 07-10-2022 US 1st Trimester [...] Transvaginal Ultrasound Performed Uterus Position Anteverted Normal [facility] US Transvaginalon 07-10-2022 US Transvaginal Exam Date/Time: 07/09/2022 19:17 EST Reason for Exam: viability Report Please see pelvic sonography report. FINAL REPORT Dictated: 07/10/2022 11:46 am Rohan Cabello MD Signed (Electronic Signature): 07/10/2022 11:46 am Signed by: Rohan Cabello MD Transcribed by: DAVID Technologist: MARIAK Normal [facility] BhCG Quanton 07-09-2022 [place] [address] m[IU]/mL High 1-3 [facility] Comment on above: Result Comment: GEST ATIONAL AGE HCG RANGE (mIU/mL) NON- <1-3 0.2-1 WEEKS 5-50 1-2 WEEKS 50-500 2-3 WEEKS 100-5,000 3-4 WEEKS 500-10,000 4-5 WEEKS 1,000-50,000 5-6 WEEKS 10,000-100,000 6-8 WEEKS 15,000-200,000 8-12 WEEKS 10,000-100,000 Performed By: #### 2 [id number] #### [facility] Laboratory [address] [place] [address] Consent for Treatmenton 06-12 Consent for Treatment [id number] #1.00CD:127 Normal [facility] Consent for Treatment [id number] #1.00CD:127 [facility] Physician Orderon 07-09-2022 Physician Order [id number] #1.00CD:127 [facility] Progesteroneon 07-09-2022 Progesterone [Mass/Vol] 26.70 ng/mL Invalid Interpretation Code [facility] Comment on above: Result Comment: REFE RENCE RANGE Males 0.14-2.06 ng/mL Non- Females Follicular 0.10-0.60 ng/mL Luteal 3.00-17.5 ng/mL Midluteal 3.30-18.6 ng/mL Post-Menopausal 0.10-0.40 ng/mL First Trimester 8.30-66.5 ng/mL Second Trimester 18.9-66.1 ng/mL Third Trimester 35.8-312.4 ng/mL Performed By: #### 2 [id number] #### [facility] [address] [place] [address] Coding Summary.on 07-07-2022 Coding Summary. CD:[id number] Gh0bWw+PGhlYWQ+PE1FV VXhO60cuITarM9RH7jSO K2CDZLUNJFRGX8GHF6cb SG7YFvuW3HdyuLl DihubQMlRC41LUn8WGR6 mGfmKQaxlZ7ofOGgV8r4 AnXpRA11nB15CQbvNKGl FdS6WjQalvdlyXBg O4eiCrDdjABiBal+PHRh YmxlIHdpZHRoPScxMDAl LxCgnTwnLP8eYk9yZYNv LWNvbGxhcHNlOiBj t6ddSQBeJXswVL8frUtd O8GjdUJ3RTRbx2o1Lv33 dHI+VZNbZDS7yBmbKEwq f777IsMmf1rcNJA7 cIPnFZzsMOR9Q62ng3W4 FXBrATLfKAX0hMA6qM9v eRwxnyvaC9LixUDgItW1 SBO0gOTvzK1xmWkd oacvnG3fNbr+K79JUQ6Y EJZTOQ9USbo9N8YdLuev dHI+HQ27NYHhCI63bHHv yGNrg6crhJo5SoXx JXPaTYQ0fNkmNYynd8Ol XLMsJ99haKUih5W7PKKi gHqfcBSrBdUkoOF9eQ9w RCbmqfoms6lobhqa Edije1ljzz46lX15Y30q TIhhPINrCIX1FNAyLDFa oEofyg6ueR2qLy2+IDxj k0ekq3uioPu9KdPk BFTatwLcqWxaUEU0x8Vx Sc71Q4NgbCrqp1DrKrm2 fm44fQNfg8J8bBV6XUyl YXSmpM8hROebVxK0 HVHrUgXusB25sXRmZMcg Kw5ukOwumIvbBN7vYZJf beytMFOrxY4nOELbrQGm kAnpAK6eIPKvndaj g002LnXiLQZ7DJSdgRLl Q7LktO7oPiHmQQCyLKUa Y3IpoQLfUTlpV343OGqf VvF9FUWtywXbS5Oz FBDtlZfpDjQ8z9J0Ti0I c8ExyaxiLHN1VWfcVEWy FtG5MfMhIxW1X4ZzKoh6 GTWtlCbyYH2pC4Bq CZOxmwqgocpnqOA2ZDWs TWNrwN42tKCoJQupIy4g h2H0v532ERGxTDSfeK67 Xr2ftGrjFVBbgFBA hY9milwzw8qonfynXkCi ZDSdEXq0YMf3UFVltDqd EfNxNUV4XgN2QDV7bYFf qU8duMflcoqkrM6a Oyc+Z60bmL2mSWF8NJN3 llnpADFnhtUlMN02XT82 S5YcKalsgSLzfMD+PGRp xoPjcVsyOZ3eNeCo d2hri8DbFCxvW5CvMTJl LBjfDur8ZYGdNMO4aXB9 bD7wOIUyUBejp1T7nDB2 Q4TbvzArre7ks3wb JSPoZVnqZ09pbCJbl8Z0 BNRpzMM1VZLaeZcgChRb mU86Ain+VMHvrYtsz3Yc Xxkmm0yhs9uzaOo5 IjMwJSIgdmFsaWduPSJ0 m9XuQk89A25oHMizXCPa KGCqAFNlDVIxjRrrml4z rM0eDa0+PGNvbCB3 aXC0yA5uPTFuBgJ5APsj X126JhSveIOwBfrlo2av f9jjbYg1McMmSLAghcQj mJbeXOL5z6SfZr98 L86mIJvxXRCrCDHmETNe AZRwjNiiyi1lcK3yWc3+ EJ7ys7xqoi00wF04aJN+ WPVfUEJ3tBkyYWnv SVSdiW7mJFjrNgV4XQXh GqDyaR90dERtNUrsDo7t wBaiqMspAC6hNKTsujyr t725SfFyd3yzGTKz eHZtTHxgTJM9Q81fq6P2 ZHRhEUDeUJI1jYW3zZ3o bGlnbjogbGVmdDsgdmVy fHafEXrqAAtvR287 IHRvcDsnPlBhdGllbnQg UjFmYUm0F3MlEgq1HECb cIlvMV9drAWkBWuiVc3w zMnkmCaeLL3bSXTv ohleu473QqTln8ovMEEp iCSjNWfpFWN5A58bt9H2 TOJtTMMqOIP1fPA5pR4d bGlnbjogbGVmdDsg ijQkrEjdRKhgVIsrG067 IHRvcDsnPkJpcnRoIERh aJZ0SI26GU58aTAbo0Q5 hLK8K9WmYLFnwwgy ibwgrHX7NOVfOZZthO12 Yo9lrMwsGg2uXXHaCOF6 BMDwvBNqL3ZjfH9lHyUo FQBtXPJsV8VpvIWn PNivB145AHqiBnH4VHWn xkXnD5JsCUFwfNwoTvT8 v4J3Fo3WB1M2KB38GB06 jLEhw5I2mDT8N1Ch RBZqixcqbdatpSD4RQKp YGPxnF74Gq5skBjnTa0k JMEaMSW5JXOcnJUvE9Gl bX5pGlWtUWHcIRRr J7JggEJpYJuhM442ZDzx MrM6IWIcncZeY9UiZIEb gLyaOfZ0d9T8Eg9AUTh1 NZ67RJ89mPYga0R6 dSS2G9BzYZNvgiipliia uWD8OYCvQAHihT28Xb2i qMnxGi3vHHKuICK7BZYs aBCzO8EerO2kEoOz VCKcWPVaP0MmtJTzEDzp W840ZCceFmY6TMJaiiBw I3HvIWIrrDozXiX1s8J1 Iy4FCAJsCD30OOZ7 vOB1BT21VP54A3SeCygq dGFibGU+PHRhYmxlIHdp ZHRoPScxMDAlJyBzdHls OA3lOe3wWMCrZJFn fGvrvTNgQcQvt8kbVWEz YZpcRS4iqAquT6BvoXC0 ZCJno2x7Wq69U02sF8Jb dXA+PJZzxHH4fVQ1 sI3aGiDpNiK8UUngU601 LyUdvFUoScksq9tju4vr hTw2XoF2KTGqgaCrvLax AKU9q7QbRl56J13p IHdpZHRoPSIxNSUiIHZh iGptvf2wbC5fTx4+PGNv mAP1kPF8uE5bDtHoWnA1 ECvpW702JcNqwVRh Kgdba0slg4iuaGk4PiLi ECDdiyNcbFvhLRP4y7Pn Yb53B8LyvTdan3DzBgy9 oz82yJAai8V4qGT3 E5RlBRShukjksKJspVwf IY0uXPJxnigtMEFurO5y RBGaE1r6ViJnBeT0OYsm T4RknpF2YXEmoZBc PVetMBN9T75ae8M8NAVd UZSxWID5yXF0zE9vwUwp bjogbGVmdDsgdmVydGlj SGqhYPhhW090PWRd iGozQCWglZ2pMCCztXWe xDckAU6xLKObpnxsPcEE HgGYREYRDOTZZK1TII94 Y7IeQsw5WDQhmLew SN8ytSOyDKaaVf2eaEct eWedFQ1gVRCurlybVFGr kX3sJXEehIHhmJrmES3e EOVxxaiqm448VwPm BPE8EOCdmLYoN9GfhD5z FgTtXIIkQAWrW1YilQIf BPkxZ717DSdcPlZ6ACXx teGlZ9MzKLTyrLdc KvA6k8J1Ll1qUE3cIm3q ZNo9ZQ37NB19mZTbn9H9 nXT5Q2GdYKOjlsjyqzph gWM6JOGeQQMvgF66 qGRaFBbvAj2av8O2v625 MLPvXNAgxG11Jb4tuGqd YBCfzKUQfN2znvrcu6xc cjogIzAwMDAwMDt0 VIj1CEMrmYqrAcZbVIU3 SeZ2KJP9sHBeoM4hkHre xhqkmR2pNsx+MjYgWWVh uiS9K8PhFiz1DCYy tAgqVH4zyTKqRLcwFj8e jTiorAmyFG2gMWCtezvm QFYymZ9cXTMshRHeaVpr RX8mJEKhwufon226 RvPvZNN5MTMyvUIuA3Qi fY7mCoOmNOGtJKGlQ3Ol cOHiSXxkM163AAkwRmZ3 QIQxeeYcH8KqJRDp wMprIdQ0j1R8Mx1LGN3l rUU1G0UfNnm6PYXymNvt TA7hnWBpBDqwKc6luRcz zQghMH5mYVFkresw RONnpO7aUOXulPTeuEvh RG3eTHDaskuax504LnIf ICT4EIZnsZBpN6UeoY6v ViXfDAJuCBYoW9Qy gOLsSLeaJ160SGdkSaA7 UBOwguRmU7YlLMEzqLkm LwO9q8W8Pl3BiILfLPGo MZ92GN93GS21R9Fb PjwvdGFibGU+PHRhYmxl IHdpZHRoPScxMDAlJyBz zBtzAJ4gHj2zBPCrKYGr iPwacCUzZzOzf6yt OBPkXKntNU1qiEhlU3Gb iIG1QBByp3l8Ht75P28v L0ZweKN+EZTkyQG8yBO4 oR5pJhKsRqV1GWur N705MaPrhDYbFumpf3pr e7rlaIz5NwNbIEButuPf aPjaAPV5o0QpQt84K84f IHdpZHRoPSIyMCUi GTJwsSwqfo4taP7yKl1+ DTZuyCK9vXU5jW9lIhUm AuL2TTkmY413OrFeyICl RyulH22nF3ApcBR+ FKKbJeg0SQXxeOebNV6n jLJpHBvhNd2fSMM6BwVv HkOmZJqzR3PhYKXdgsvy gpgxkSV8XNKlFYBx pC03Cz2leXlfBd9xMSHr UHV7DOGjbSEcM4VekG9s FzLhTJMyMMGdU0HwhZDm ZVjvF139KVfcBiP7 UHWhayAxQ1ItUFLacCbj BmG5t7L6Ou1HkYsdjSZx LI7uFxAnRAe8F9KnTlq2 PBRkjBlbGR1pvQZf UOdvNi3myMjpiOhqWJ9d TXYvzbajs205IiAaz3vx PGCcuBSvQWmgIBF7Z94e w7R9MMGwQWAqIQC0 eTA8fY6sdJvhdfjtgWRy dDsgdmVydGljYWwtYWxp A150FVHdxDswVsNHOag6 F8HrAxb1LCKkbQlt CV8zkWMzFXdqQb0upGpd rBwcKJ2rXQToxymfl135 QeCca9ldLFFmgQOkIFlr WNI1J44vo2R0NKJk INBiBSL6tCK6qU3txQpn bjogbGVmdDsgdmVydGlj YIpjUNqdV092RZXeyGtu Sd7FXns3B5HoRak0 OKNwqQfdQF4eqGVsDSrh Sc9jpBunmSpdMS9vUPEr umgsy924QfYgs3zjTJAs pTYpIUshMXA3E72r b3X4NAEqTZNqKBT6zDS5 mV7tfFjpwliolWNyrTrx jcDyeBfzVKdpIWczK216 IHRvcDsnPlBheWVy OjwvdGQ+GR38qr78L5Pw LhstOku3NRLjJGD8dWY8 tZ2wSBBpXKohr7F1nPZ2 J8MkyoUdbm0az2vy YXBz (more content not included)... Normal [facility] Physician Orderon 07-04-2022 Physician Order [id number] #1.00CD:127 Normal [facility] Estradiolon 07-03-2022 E2 [Mass/Vol] 112.0 pg/mL Invalid Interpretation Code [facility] Comment on above: Result Comment: Adul t Female: Follicular phase 12.5 - 166.0 Ovulation phase 85.8 - 498.0 Luteal phase 43.8 - 211.0 Postmenopausal <6.0 - 54.7 1st trimester 215.0 - >4300.0 [facility] ECLIA methodology Performed at: [facility] [address] [id number] [id number] PhD Rick Lee Performed By: #### 2 [id number] #### [facility] [address] [place] [address] BhCG Quanton 07-02-2022 HCG.beta subunit Qn 447 m[IU]/mL High 1-3 [facility] Comment on above: Result Comment: GEST ATIONAL AGE HCG RANGE (mIU/mL) NON- <1-3 0.2-1 WEEKS 5-50 1-2 WEEKS 50-500 2-3 WEEKS 100-5,000 3-4 WEEKS 500-10,000 4-5 WEEKS 1,000-50,000 5-6 WEEKS 10,000-100,000 6-8 WEEKS 15,000-200,000 8-12 WEEKS 10,000-100,000 Performed By: #### 2 [id number] #### [facility] [address] [place] [address] Consent for Treatmenton 06-11 Consent for Treatment [id number] 21 [id number] #1.00CD:127 Normal [facility] Physician Orderon 07-02-2022 Physician Order [id number] 8#1.00CD:127 Normal [facility] Progesteroneon 07-02-2022 Progesterone [Mass/Vol] 29.10 ng/mL Invalid Interpretation Code [facility] Comment on above: Result Comment: REFE RENCE RANGE Males 0.14-2.06 ng/mL Non- Females Follicular 0.10-0.60 ng/mL Luteal 3.00-17.5 ng/mL Midluteal 3.30-18.6 ng/mL Post-Menopausal 0.10-0.40 ng/mL First Trimester 8.30-66.5 ng/mL Second Trimester 18.9-66.1 ng/mL Third Trimester 35.8-312.4 ng/mL Performed By: #### 2 [id number], [id number] #### [facility] [address] [place] [address] TSHon 07-02-2022 TSH Qn 2.52 m[IU]/L Normal 0.34-5.60 [facility] Comment on above: Performed By: #### 2 [id number] #### [facility] [address] [place] [address] Estradiolon 07-01-2022 E2 [Mass/Vol] 142.0 pg/mL Invalid Interpretation Code [facility] Comment on above: Result Comment: Adul t Female: Follicular phase 12.5 - 166.0 Ovulation phase 85.8 - 498.0 Luteal phase 43.8 - 211.0 Postmenopausal <6.0 - 54.7 1st trimester 215.0 - >4300.0 [facility]bert ECLIA methodology Performed at: [facility] [address] [place] [address] [id number] PhD Rick Lee Performed By: #### 2 [id number], [id number] ####[facility] [address] [place] [address] [facility] Quanton 06-30-2022 HCG.beta subunit Qn 157 m[IU]/mL High 1-3 [facility] Comment on above: Result Comment: GEST ATIONAL AGE HCG RANGE (mIU/mL) NON- <1-3 0.2-1 WEEKS 5-50 1-2 WEEKS 50-500 2-3 WEEKS 100-5,000 3-4 WEEKS 500-10,000 4-5 WEEKS 1,000-50,000 5-6 WEEKS 10,000-100,000 6-8 WEEKS 15,000-200,000 8-12 WEEKS 10,000-100,000 Performed By: #### 2 [id number] #### [facility] [address] [place] [address] Consent for Treatmenton 06-11 Consent for Treatment [id number] 21 [id number] #1.00CD:127 Normal [facility] Physician Orderon 06-30-2022 Physician Order [id number] 1#1.00CD:127 Normal [facility] Progesteroneon 06-30-2022 Progesterone [Mass/Vol] 21.40 ng/mL Invalid Interpretation Code [facility] Comment on above: Result Comment: REFE RENCE RANGE Males 0.14-2.06 ng/mL Non- Females Follicular 0.10-0.60 ng/mL Luteal 3.00-17.5 ng/mL Midluteal 3.30-18.6 ng/mL Post-Menopausal 0.10-0.40 ng/mL First Trimester 8.30-66.5 ng/mL Second Trimester 18.9-66.1 ng/mL Third Trimester 35.8-312.4 ng/mL Performed By: #### 2 [id number] ####[facility] [address] [place] [address] Coding Summary.on 06-25-2022 Coding Summary. CD:[id number] Gh0bWw+PGhlYWQ+PE1FV NUlU34gzLPcqB1WT4gVW T9ZXAYJANIYLC1JPJ8ca ZW8EZppB4SuklQy BcrwjLEiCO29TCq0KXL8 rWsbBSmihU8xkGOpY6p9 IdGoGW86mI25HMwmNIXv HtD0AlUeixrfsTRb O4vuYzRziTGdKbp+PHRh YmxlIHdpZHRoPScxMDAl CuMryAlpEI9tWc1lAMDo LWNvbGxhcHNlOiBj y1imLWIjULhtCA2awOco R9CnkFK5RBYzh2i8Wj48 dHI+PTDuIUK6bRxqIEtb s817KvFte8wiMLA5 pWPtSZaaWAE4Y11lt2Y4 KWGtZAUgAHB0uEC9cW9x oJbzvqbmJ9IfgCVrMtD1 UKA3dOUxnO5feHrf odbdbK7oGaw+Z49TIQ8X HHZGEP8HUwa0N5TdPtny dHI+UX31OKPdKL20dPLb bOGpv0rssJq1HuVm REGtMWQ3zMcjMRpwb0Lp IBZaK55lcNHhw1T6YYBw hTcxmHXaDlTykQV6qO1b IOqtzomnk4yofieh Dnsfo9lrcg41jX98L60m LAbaBXPbRYM1AJYeHERf wAgvph4kfK8rQj0+IDxj w1yvd0hnvFo6JmEl UMGdlgUjsFgxZGK5u9Tg Yc92Z0OlhIeew2FhDay3 kd22mOUpk6O0eGS6UXgj VSXksG7vERygWuH3 FRXvMxZorU27iSWmTLpv Og2jkGwusHbdFB1cOCRs ncozGAHvbG1fHRNspFVr hEpvHF5sUIHtpmnb k275KpHdTSU5KLFcnTPz L0CuwW5yRzTdAYUwBSPc V4ZhjOEnHFppC941BAll SsD6HCRkluMkS3Rp MRMboDbrNbK8q2K4Un1A b9HmfadcIIF4OHxrTQBf SdY1QbTfKkD4X4AwCea9 VCKplMnfVF5gG4Fo GFFmhgubwekwdPE0ZBAn OTZdtF58tVFnHIukCr6o z3V6b291PDRvWQKazD50 Uf0kkAnpDNZugLDD cV4cdiuxo5dldyybLeJo UCCtSOm7EXp5RYCswRrw McXoVHZ1TsE2RDX9ePOb pL9mePddvfcjuA1o Oyc+L47vbO0zAUA5GQO9 wnstUZOlexJtSR14UO80 Q9RcRpfhcZPyjEK+PGRp oqDtlIgoQD4lCkGu d1lnw8DhAKjeC5QjGYIu PGbgIig6FWKcOXT6kMO8 qY8aGTQfCBzug2L7tVT3 J2YyxpTanb5ws2db AUFlXZkzP97shQXvt2E1 PTNdcQC5HUAeqXddKbNo qX04Jjd+CTYiqThgu3Ds Dojuq3owk4obkOj0 IjMwJSIgdmFsaWduPSJ0 g9RqLy93B18mDAfnCBOp MBBjCKWpJERdpLvsat5f pF2kLo1+PGNvbCB3 dLV7vS7nWTWpPgF4FCfj I002RrOvaRPtYkjyd0iy t3ineFa7PdYhBJBplrKy mYtzBSU6x1JdYi30 L00bOGtbQAEiPTHvVQMd JPUzvNjqci1ylF8mHv5+ TT8yz4rrka25gN74qGI+ DXXjDXH4zNqfGNag IWKpgM7sQGtiQtH0XVMg MsUgcG21pANnQWrmPs4q mYlynHbrKL5dDKAmgzjv x796SsAmy3ijCUKk iKTvBScxEPR7Z51mq4E7 MRYgNAKsZBZ7mPN5aS1t bGlnbjogbGVmdDsgdmVy bNcfEVyvCIpgY988 IHRvcDsnPlBhdGllbnQg GpBvBWx6K1YvYjr1JEAu pXbnCA6lbDChPLuhTz9l fTteiOlnNV5mSOXb xsxle890VvPwk1jnTTCf kLAuVDudATS1D26rs5B4 HAHtVEBuMUT1qZS7yY0m bGlnbjogbGVmdDsg bhLmbTuwBYnhPLfuF279 IHRvcDsnPkJpcnRoIERh sFL7FS00FY02gHGgt4U7 yJD0A4HrRENvsjjf ahosdJK8HDOvCUQbrX99 Ms3chTezVr7rSORqBRE6 CFDpdOTqP8CgrQ9pRvCo WUGcCBHdY6KwhWVa GPlcC910KSonUhA9OSHa zxQkO2QcMUQqfZfiFnI3 d1P1Ad8XN2Z6NP98PP21 oLSsp7G2lMD7H4Bq YLMbicftfcibrVS6YCNx NIFomC58Zd7teJtcNx3y RSUfWWP0HLJuwEYlJ4Kx xO0aAxOjTTLlNYZv I8QteLAwDYznL253TRdf RtA5JCVrbnYwM6JsVSCo aFkqBrH7f7W2Qz5UNMj8 US38IU73wPEkx4J9 zUD7S9DdEOMpqmtwzakt eSH1RKXgRQEueH74Qu6c vVskPa3sIIWoOVK4VTXs gFCbZ6WsyL3eDqWr COFqONQcN8JsoMKlKOyd P726OAegDxD1PBDutyAw I3JzCVUffJduCnT9q6E0 Dl2LDYOjLR51ZAG2 aOJ4EI43ZL90K5OwMeyj dGFibGU+PHRhYmxlIHdp ZHRoPScxMDAlJyBzdHls AO7rNd8aULAbODIc cSrqyFRgPyQav6fkKZPn LQbbMC5dkZbeV2AjwPC6 ONQxl5j4Eg23Q85qN4Rn dXA+SKBejYM8pDX6 nS8bFsVjBsR5ICvdT363 IgKvmNGcBphry0pmt5bq nVa3RiA1JUChlzWqyEio UJL7e9NnKh35B82w IHdpZHRoPSIxNSUiIHZh bUnspl9dkW8lSz1+PGNv dZO7gBO7gS3gTuZlXtK4 YDwnD081QmTopPHy Mbzlb6klq6rxnZm9DeGz EDDdscPfoEcfSPC9r6Cx Ly37F2TmoLiyb2BuRiz2 vd44wUKym8A4aZL7 H6NdCZJsomsjuLRtvUxn PQ7sKOFxzsjoAKGymR5o VLQkR9z0VbOaYxK7IKjn L1LcffN5LROhlJXg SSokPIM7R55gz6E0RZEt KCQdIDO8xCZ9gT6luXsb bjogbGVmdDsgdmVydGlj OGbwLMdmT546MVNb vUqhIRAnqU3tKLRecKDr dEgxQL9bPYQvnbxdPkRT EsPNPWDNVFPKRU1SVD28 B2ZnEyp8IHJvlGuv AN0pcUFtXEcgIc9pzZzl mNpvQD4rJPLymhmdJSUq iE8jYYYctQKfrTsaIB4x JKZzekjmv944QvJo XWJ2NDPddSEdF6DksQ0f RjElUKKaMJOnE3MtrBCk QGbcA577UBkpCnV1XMCv ktGoL2OaRUDvgWcv MzX5g4N3Qr5hVX4zAr4k PKb9KQ43PU36pHCay4Y6 hKC0Y3ZiVELajzgnzybt bGM0LDDgKSUkrJ91 xJGhUSnxWu0nx8D2q610 OQJiEFAczU17Hq8ylByi MRTkvNUVrF6frydri8mh cjogIzAwMDAwMDt0 ZCt4PCBkxUuiEsPdSTR6 IyL8RZS9hFUdyF7zeHzv uyoxxA8kEqf+MjYgWWVh zzN1A7QiDtn3FWNp jJybUD5hxISaMAvnRq2y xNewkXseMV8wRDEmzbju VTRfxS5eHMInxCZfaZes EQ6fWVDbuhmxv926 EkVsCNO5LRBrbHIuR6Lh uU4yIgRiCPDgLCOiX8Tz bCLeAFciL226EGgpYeQ8 SRUhawHoD0GfXOSy iPwcSyH1v9X7Py1IIB7z sWM0E6EmXei0TQXxpKbu OT9sjOEsYMyrIg3vpZgt eJvyUF6fCYHekygo LBJzrW0bHGJutDPsiZvh TJ0yECGprcvzb973QeLc YKI3LHCguOIzG3StbJ9r WlGvFJMdSDTrQ8Js wSUaSKopQ938RFayAxW3 KXOzryRsK4DqAHDlaCjt AcN0n3R2Hr9GnILpWHPh GU45UB72JY85A4Ps PjwvdGFibGU+PHRhYmxl IHdpZHRoPScxMDAlJyBz tAofQE8ySn8iHJXlODJe mKvijKAcQbCcp4ue QVUjOKgkWI7odApxT7Bj wSB5FRIhb4u4Xv21U70b M0ExtNL+RBWotWD9kWM4 pS7uCjLgKrS8IMtx J062UvBgnQGrRgutq0jb u8qqmFm9QwKeIRLzsyZp hSqhMAL2m3WgAm09D27v IHdpZHRoPSIyMCUi ZXPlgGnwtn5cxA2vRb9+ UIIjsOD9qFP4cB3dKoRq YgB6IPcqH275EsOtzTWm AdajP03hU3AkzDC+ GXBpJad2MHKiiIjfJX8c gIUoAWysGv4gNCL9LuRj FtJbDJlhU7PjWBBubbtq dmwnxKM5KFLzVZSz jR01Rk2ehWkrGy9tEVVv MDM9EMXagHYtX3EjuO3m PyYcHFYmSCKiN5OaaIGu IXzgZ619NDfyJmA8 EOWvhfVtO3ZoQQAfbEhu IaY7e6R6Bj1DbWyhpDPw AL2uXyHvENn0K5ImMux1 QKRikFneUO6twPWd MLhrFe8esIpwpCbmYA1n VMKobigpc495TdNrh9gk MPZoxYFxHUuxSSP4D62x j8T7IRTeQAMhEVG6 fGV0iV0hqSuvyllzbCAw dDsgdmVydGljYWwtYWxp Z264WNMnsQkiYjEIEsx2 B1IvFlp4OVNtiLoq CM9lxMIvSDxyTe0xwMkh zIdsCD5ySPBytdyqj240 QtZff4gxNADkpNHiVEez WTN8Q76en3P8OVKn TOJwTTS7eAP8bE4flTai bjogbGVmdDsgdmVydGlj TGinNTknL506PNKvzKqv Fd1DMdo8K9DpCtl7 PBYnbAluCD0lfDLuKDus Jw8njQfteXtvLJ4jJPKe oudlu488ZoIeb0kgANJe aEHdWOkiUQM0H37s j3C9CJBoQFFrTJW0zXJ1 cU3kmOyamumacFWrlYno lyJzcQepDGogWEagS506 IHRvcDsnPlBheWVy OjwvdGQ+YT24wm86C6Uw SoauKvv3ECHiYDE7pAU5 tP5eVBUgEWdtb9Z3gJB8 H1HvnbDsup9xq0be YXBz (more content not included)... Normal [facility] Estradiolon 06-24-2022 E2 [Mass/Vol] 120.0 pg/mL Invalid Interpretation Code [facility] Comment on above: Result Comment: Adul t Female: Follicular phase 12.5 - 166.0 Ovulation phase 85.8 - 498.0 Luteal phase 43.8 - 211.0 Postmenopausal <6.0 - 54.7 1st trimester 215.0 - >4300.0 [facility] ECLIA methodology Performed at: [facility] [id number] PhD Rick Lee Performed By: #### 2 [id number] #### [facility] [address] [place] [address] Consent for Treatmenton 06-10 Consent for Treatment [id number] #1.00CD:127 Normal [facility] Physician Orderon 06-23-2022 Physician Order [id number] #1.00CD:127 Normal [facility] Physician Order [id number] #1.00CD:127 Normal [facility] Progesteroneon 06-23-2022 Progesterone [Mass/Vol] 25.50 ng/mL Invalid Interpretation Code [facility] Comment on above: Result Comment: REFE RENCE RANGE Males 0.14-2.06 ng/mL Non- Females Follicular 0.10-0.60 ng/mL Luteal 3.00-17.5 ng/mL Midluteal 3.30-18.6 ng/mL Post-Menopausal 0.10-0.40 ng/mL First Trimester 8.30-66.5 ng/mL Second Trimester 18.9-66.1 ng/mL Third Trimester 35.8-312.4 ng/mL Performed By: #### 2 [id number] #### [facility] [address] [place] [id number] Coding Summary.on 06-17-2022 Coding Summary. CD:[id number] Gh0bWw+PGhlYWQ+PE1FV ZJuO59hqWIwlD2MX7mGR Y5JIQHMSNXFVR5QLP2ia LD5FUiuV3DnhaUh MzhsdZZaSB52HDi0OIL7 uSvnFAtoqQ1pjJBsK2w6 ViFoPD16gL13MIllLUMe ZhP3NiKozslvgACb V6uwKxBncZGfEti+PHRh YmxlIHdpZHRoPScxMDAl XsZihLjmYH3qQp8vIHRr LWNvbGxhcHNlOiBj e4yfPGMcLMcqFZ7gxEli D8GxaKN3GBXvg1w9Fe85 dHI+TDZnZXZ7fGbnCEws k081FbAbl2twIDB2 gJFaYGlxQVR2J71ht7T1 VCOmTFKfPZC5iHU0vC0i xGmktkywB3YeyMWxThG9 YJL7yEVuvO8psYvl zlolcV0yOhp+B73OVF1F SDZOQI8RNdu5M9RbOwpp dHI+QI27LTUjCC91zZAh lMSyw6gkuAw9GwFs UYVhSYR1kKssYAyzk6Pd JYGxR74azBRco1M1TMKy qVgoxNCyFbGfbZB4nJ6i LYyojtyrl0jaeevb Bmxka0rpsp10vZ03S60a HHocPKVeVJZ8SOHeHBEv wZhrln2pqH8eBm3+IDxj r5rdr7jieGc7UwDe JOTqfmEgjJgjHJD8t0Hs Cs43I0TixZqfd0JgIms0 uh75kZVih1C4mKF5GPno OSPdjL0zRKgeJkQ8 FQVeUuDltR23gVVjXRhx Gs0voCxeqWwaLA7mXMXy exhtKPRzxE2lZUVmrKVd bWarRJ1aWSBacfsw c699CjHeQLL2OWEcvEKb O8KmkL6aEoGmUPNlNNSu N9CeuGDbUSwoE678PVwf JaR5ALRxamArG3Qy VKBbdBgcKoB1u9F9Zs6Y y9TajokrERU2FJrmXRIo UiH7WsEiGmT7V3HmXhg9 UJPpwSrwND2dP2Lm QGQxevvigsellMS6RCPl MTZzfJ24iSBcSXqrEy2k k3Y8u237LOBvFZCgvZ51 Dk5osIxrGOFufWKZ qQ7rxxolh4svxarrDnJw FWKfEYx0OKy8VVKwzRhr SbDbKFE4NbY2PZR2nIUt rU4jpBtoffmjsY7f Oyc+Z62urE8fUVY1BVK1 hiyqZTIhcfCoGR32SJ17 L7RfZbuowQRkxXS+PGRp xqHmmRamMC5yEcUc x5twl0PwHLodH2XlYXLy RHpzUgr5CXOeJEN2iTA0 kS6pIMFvFEkra7F8eOF7 P3VqydWcxr1dg3wx EHTvPAqpQ06orHRyo1V7 IVMbzWF8WKHvdReoZhNq kX82Agy+DQCzkIfzu1Ua Mipvo7jhf7vbaPk4 IjMwJSIgdmFsaWduPSJ0 d8KoPp78R85zQTwyINZg NFHnUDKlIYQdtEvhja6z rH1pVd1+PGNvbCB3 kNV3xI4vNPFaNuM4HQjm O946MaTbvYQqJotbh7ix z0uhpAe7XxDaMLQlwdPr fAiuHAR1o3XpVg43 H38zTKbiKPIrQOEwHATs DHLjfYezan1zdI3jVs6+ WM9cr8fapo49xQ69hXK+ UQDjEIF2hHpbCYot CIOvwO4vWRebFbT5XNBa NbMloC99tTOfVBorYa1i vWcbtUogAN7nCQKbootk q062OgYwg1rvGRCn uYXeFShuLQJ1G46fq7X1 SDMnUCTuWGH9fFA7tE2n bGlnbjogbGVmdDsgdmVy gNosMJlsKEdeT412 IHRvcDsnPlBhdGllbnQg IgVnULy3I9SgWwa9UHXw hZthBS9uxELiMAwjSt1k zVixrGbfZE0wMSJv eodwx069CxCml4ytNSWi eGXoNNuzKUX6W09jh1Z3 YOTpFAXxMHE9mKA9tY4q bGlnbjogbGVmdDsg gdWusKxsQUxjTLbeB522 IHRvcDsnPkJpcnRoIERh aDJ8OZ00WZ92xUYht0A3 nZX7A5GrKTUrnjmu srczxDN5TBAaFXJttT69 Ou7woFpnKu2wDZNzHJH0 ZKCjfLBiK3ZyiT3dVmXe FPEuNLLqE6VlwTVo AUlyO786SXvlCeM5YKZi hnEsE9SoNUSucDosKjN0 l2I3Ie5RK6T9ME08QG84 zUGci5G8aRW6M0Rj YBTgfgixlzzccGA5PGOb PNKfuD77Pt2qiKrnQw2e OYOuGDO9QZElfUYaG7Tw wO7rZpHqPIPkLHYa P6MhtLVtCUaeN921HXnu ApI0UHUfsvRlJ6WjCNHs gUcjNbH9x0P0Zf5WFLu2 WI31QK90bAFog6Y6 rYF5D0QbXVYgmiisqocy gWJ7RLQtUAEbiZ05Ak4r lVntIm0qDPPgQKP5YPOh oCRcN0KamT3tYjJm EATxJPHzB0OwoWReIBhh U657NBwwNeX4DNVagkEs J7NvWPUxtXcwNaS0b4A3 Cc9KZUDkMD82GFD7 dYD9NB21GU69M2BlHnby dGFibGU+PHRhYmxlIHdp ZHRoPScxMDAlJyBzdHls YC6rCm6tFQUvULCa lSrgfQFkZnHzt8gyKKJc NOezYR2ugExqX8QvtAY8 EIIqz2l6Ls24J37nT6Te dXA+GOBoxLM3aPB0 nK0sVqGjHlW8CWtvR352 RfTaySGxHixwx2zxn6ca hDt1MbP3ZQAkawZgnRuv TPB8e8UjKb63Y60w IHdpZHRoPSIxNSUiIHZh lPkiqx5kdD2kDf9+PGNv iOE7wZL9sN4hUiPbCeL2 ZJerE643EiGreOEr Shqou5kvb1hwmLz9AtLc UAOpbnTjkOwxOQT9s0Hc Fo85J7XcrUhap1LkAzy3 uq60dJEwz4J2uRI7 H6EeIRXinzhbbWLpiIsf JA2ySEQsxdonBTTplD9z PRTuX1w0XsSnKvZ0HJjl V4UgqlV6NZAqvHXh EVndGGB5N09io1P8KLGo VPMrTJO0mOG2qM2dvUhq bjogbGVmdDsgdmVydGlj KPtzGJqvE921IDDd hGmtRLPpeI9bGGZonUHc aHheSV4dKTGldjrmHbDL KcWTKVEGXVRXIW0ABI87 B7UySmw6TGEypVel NX7stMBeJIvsKy7laSri zCmnUB2hPQRlkjxqYDLs sP3zHUFyhFIilLqvVG6h PCNztanqb639VhGn WOY9PKIflVRlA2DjeV9s SfZfYEFoLUOcL2BltBYq KHexA560WGclEwC3QCIg lcKdS1HcBWWbmZko ZwV3c5L9Il1nGK0fIn9j YBl5PY25BR20zRDgs5E4 cKH9B7PyCXEdqkazbmbp sQW5ORQfKABkeS82 dXZyYUsxCv3ha8C6l771 VXGiGNOzxQ07My5sbMox VLDtrQMWpK4ofwoeu8gj cjogIzAwMDAwMDt0 CZf7GYUfrToeTxIkWQH9 DkB0UKP9pJOssI2ftUig hludhE0tIyl+MjYgWWVh jvF2C8TyMby8MLXf wXhgKC7iqFUoNHonHw9s eKwppRpyER0aVNWotjrn YNOqwI9mRQHsbWAffPtj OF9pGCZemwdaf518 IzGyXPD5KDCsbKZfG5Ul bZ6iGjTwGXXcRWWvX3Bg lMPuWYqbE634SHwhJuQ3 WOAqcvJoY4ZfFLHh vYmqAvM3f4C1Ld0AJX3w eUA9L6RrNta9FRTfbEto YX1itNZjLZoiJr4xjEwa pYnfAF1sCWAxigps FFReqG9xWNTikTIjbYsr QQ3nSCXxcjbuv074RoKf GTO3XAEkhKKcZ0GjuE9w WdDlGYOuFRUuK7Gh nFLzEUdrS440QXznPgA5 QEUbgfStQ5IzFIQcyZli MuA8h7V2Jj4LwSRqQMEn NM65DK74NT48Y6Cl PjwvdGFibGU+PHRhYmxl IHdpZHRoPScxMDAlJyBz iOszDJ1aIm3yQVUnWPZy fJfuxNQmGoDhr3nb SJGwLAmfTO1jlKjuD5Xs gMC3NNLbr7f5Yu99Y30b T7AceSB+EHYrdQI0qLQ4 zN6kIpAmBnF0OPiq I830KwNnvPUaZsrfa5kl i0ywtWa4OgTjXBGxunKe eTsaIBP0n3FfHh20J39m IHdpZHRoPSIyMCUi JXUyvPsxuv6ntC7lTn0+ BYKanJM2sXT0iR9zJyUh FmW9GNanU123AvNswGHo YkkpG34lZ7QurOP+ UVItJtm6AEFoxQjhUH6i zEQkMUyiDj8hOZB9XgXl WfLcQTacU7MnKUDudjxk bqhqwVA7GZUuPSZy dR37Hk1snOyrZz3yIBDr SDH7CPRruPTqW8WugI3y IkJgARQjIMZdX5GsxIYj XQxfZ338BBceEcZ3 TVDhhqLnG6YyAAEkxSkm OkO9b4A8Sc4VcBuyiHEg RZ1zQgYnZQa1R8ZgMsq7 FZZldIclZJ1jxERc EPkeBe3qcVegrMnlFR4f FABkumehs674QaAlj4zr CNQlpPAtBSisYCV2Y90j r5K3OVTwXXAwQZW6 vHY6zR9apAtzupgicGJy dDsgdmVydGljYWwtYWxp A097NIKcyAzxUoJUCnq4 A9NvMyn4YJOyaEmz WL7tkZJnYCkuUu2kzZan kBkbLI4eFQLjzxcwz532 TyXzv0tvMKMwdZVmMFvt ZAM5K80nz3O8RVNa SLLtXJN4rYQ3iW2odZoo bjogbGVmdDsgdmVydGlj LEquGDfnN210EKTyhWnv Ph1CIvs3M5YcUla4 GQIynAiqNQ0pxIWvCOwz Sv9qdBkoeVceFG2aKMIj vvbss833StDvx6suKVZb yGEvOBnoFVB2M25a d6K7JQWsGRLxZSD8eIU9 oK5zfBslnyftuRNjkXjp vjRirZmxQDoiJFbmB006 IHRvcDsnPlBheWVy OjwvdGQ+QR47xy67E5Vr BcdrQpa5WSQvINA1nOH7 kZ5hWWAoXQwih8F9kED7 H7XissTvem8gd8if YXBz (more content not included)... Normal [facility] Estradiolon 06-12-2022 E2 [Mass/Vol] 182.0 pg/mL Invalid Interpretation Code [facility] Comment on above: Result Comment: Adul t Female: Follicular phase 12.5 - 166.0 Ovulation phase 85.8 - 498.0 Luteal phase 43.8 - 211.0 Postmenopausal <6.0 - 54.7 1st trimester 215.0 - >4300.0 [facility] ECLIA methodology Performed at: [address] [id number] PhD Rick Lee Performed By: #### 2 [id number] #### [facility] [address] [place] [address] Coding Summary.on 06-11-2022 Coding Summary. CD:[id number] Gh0bWw+PGhlYWQ+PE1FV JBaN91ikEGwaA1IS3nLG Z6QPOUPUTZIEZ7EQQ7yw QH4AXpaW2LmqfZi ImzjuIGvCI87QZe4YYA0 rNqrOBaxbT7jhKPfN0d0 UpMxAP11qJ71CXgmDSEa UnI9ZyPncpqokMAj Q0grGoZskLAkLwy+PHRh YmxlIHdpZHRoPScxMDAl VsKgpNxpCY8fOi0nFQTc LWNvbGxhcHNlOiBj r8emWUYgLYwmRB1rzSgt B4TxvGH9EBLvz6a5Fw05 dHI+RCOvZWO0hEeaVIqs t945JmVuh6mkIYW0 jEAdWLfzQJA0D98qd6W1 XDOqOBOfXYC7vLT0hN7n dBadjrunX0XonTMoYwI8 VMN1rRGscZ4etNmq yswyxH1aVfj+A36TLN6K QRCFJU7MWqq9L7PmIhtt dHI+LQ77WXWlQN01mZKu gUOrm2hfaLd3DaHg TIHuMMB3bNrzURkbq6Vt WPOzT98ylZWsc2Z1LVEm dLtyfXBnVwRvmQY4xQ5s DVwwenkqz3wkcffa Rkmsj1wdif31oR07Y30o WIshUIHtEIN2YGUpONIf oBgdyp1dxK2zAe5+IDxj y7bzn0soqNx2KzFe ISEknpBnhTokAEH5v7Dy Sj14C0LguWkeb2MyQnm0 uy14jCRpy3W2pBB9FLoy PBXnqO2sZIooQbL8 UWDxHaHveA53cDOmRUqx Qs1lqQcgsFbgGU9aHDXu dmvcHGMooB4kPPKycFIy mWypNH0eLUZsjzin m682VxJsXZM9AEBmdPHr D5NhoO9sGsBxKNNyWOVy S6UnqDUxDOmsI750NTha QrW2WVLeyiTwW3Kb XNKaqUrwXiH9g9O2Jn9G r7EdydedSQP8UQfcUZEc HlQrGvHkApM8D7AoMfa4 VGJurJbzWI3lQ8Af RBLcwfoorypgqZW1BBAc FVTvzN72jBDuLQctCs0u s6N7l279OLDbPGKxqJ73 Ve7tmOqeJERlaHAN yC7gahsht4wcxwlmVlIr SBNaTGd5YTt6ADBgfPjn QeOkBTI4PpB9UIP3tXMg oY8sqYmlhspnaN8k Oyc+K46wtG9vZXS6RTD9 dppoBTWtabGnIA12EX08 U7UdJzdcrSPrmVB+PGRp tbBjnFbmAF2vOeCl e5sbw4UyKZxyJ3MmXSYn NTlgCoj8LIPuTQG9sIT3 kZ4sXAZxZWyub6Z6pIP5 Z9GpwxQkfm5fc9dt WCSwVJktD39diADka3L3 LQKopHS4BRDqfYvgYvXf uK05Lvq+WNIvfCucj9Yr Nvfzu3onh3mgtHj3 IjMwJSIgdmFsaWduPSJ0 v1SrMc08R12pWZimLVQk UJVpBQUeGNCpfHbxve0o kH5jJj9+PGNvbCB3 tGU6qO9vPTNqHgN4RAhz E751BwDtvHQvYsakc4my k7eiuKp3XsLwVHLdghRz iCvvNHD8e9RmXr45 T90eHFneZKAoGLNdVQEj OBMjhCvmum1hsG2gLa8+ SW6pu5mclj90fJ19fEW+ ENPlPNL4pNsbBHiz GBJvpG8aKHoeWyK2NMLk RhPqfU40eYDiCWpjDw6u lDdllMoqBR8uCKXumgoh l295ZyBsb8txTVWe rJZzBEnkHYA1H50vc6C5 KHYoXFJsDVG7yYW7iG3d bGlnbjogbGVmdDsgdmVy qOarVPjyMRfaC398 IHRvcDsnPlBhdGllbnQg NqWsWBn7J0MyErf3XEEc zGnsZJ2piMEmYOvtJh0i aAsmlZywYG8iDOIc zfoju179KgBuf8yjSOSd iBJhLEtpDGX9B75ud0M5 KMFeWWReVFU0wHY7lN0g bGlnbjogbGVmdDsg mbEtaQibHRlyKIjyD192 IHRvcDsnPkJpcnRoIERh cND1UP74IZ84qGPrb6G2 yNO4B2VvZRMskper zvsyyRI4UOQaGEIgjI18 Cv1jhDkoGo5qYAJsQDU1 DUYibGKqN2QwdS8mUtMi XBCsFGTfA4EzhZHh PQhlA648OKfwAcJ5YFKc kwExI5GgIAVxyMtwRvA4 y7J1Wg0BD3L2LA80QH11 aIHna0J9sSX6E6Kg ICOuujofpgfgpGU9DNOh JHQypP97Wb9uzDnoCb1q TLIwIKR3UNPtzWEbF9Yt vX8sTkMySQXxTCEf S1YglHHaGMccO563VXug WeQ6UMVvslZmL9PwXMFc oRsyIfG3i4A1Cg5MVYu2 LJ32LH41cSXmk3T3 bCF9H0CjFUPwotvqconp aNO5JNQiRMGwwE37Io8l zDcpRr8uXASfMCM5FBHh sXZfK6FigS3yOsOh CKPpRQTwZ0AzuIHoEVwv R697PQgtGpR4PLJastSr T7QkQBRpiUyqGfY3s8F1 Sg0FXJYlZF40WJO0 vZL6UC38HD55J7SqLgyo dGFibGU+PHRhYmxlIHdp ZHRoPScxMDAlJyBzdHls MX6vRr5vVRRgHALl fTapbXAiAtSms2bwPIZk XSukMY6phHueI7TaqAN6 LYQaq6n7Kc54V32pW9Bi dXA+RUDwaPP5lKM9 tH1tCxZlGcI0RCojQ984 JtNhuOZtQzxab3sje5oq zHa0LzS8QLFrvsHjeDeh DNA8b6VeFc33T98l IHdpZHRoPSIxNSUiIHZh lCivbi3gtT1tNr7+PGNv mLE4vRF7uA2bBcFrEzJ5 QYjhL727CtDwdDJr Shmvq4aws7uwtEp5OkBf GZOjxwEtxMdaTYW9f9Uq Qg47I9FvmKlel4FsEdw1 zg97nTAjg0O4hMN6 N4HuWSMpegrqfMScqEnh HF9dXUEztimcHRTgyK6a YNDlM1m1MwCjQpG1CSqy T0BzcpW4WHTrtDRr JEsrKUK5S16ft9Z8WWDh IYMdBNC3eYO8uD1ulIse bjogbGVmdDsgdmVydGlj ZXbcQBvgO217CGWj aWsqFWZmzP9cKMWnbSAd sNoqIC2yATMaubocNmGF KrJSJCZDWITKJV1DJI35 M4JjBtr4JPQthWsi FK0idQZiZYqpAt9eeEht nKwzEZ1zHUIncpzrKVLr zZ5fOVYblTInzRagPD1g TWDiksvck231HvNa TJU9HTXzlOSsT6HwiC9a BbBhGYPvYVMuJ8JfmUJl RRzeG678KMegGkD8SZOy uaEdN7WhQNLviRan YjG5q1T8Ik2iHM6gEc6q UOp8AC92JW99bYHfy9V5 jKR1G4BoCUEafqcsleqk lXU6SSJiAGNsfZ43 xUQxOZslBr3lo8R3f261 XXQwNUHgpV32Hj3uiKgg ENZcdUTIaE0wvgogh9vc cjogIzAwMDAwMDt0 KPq5SKTftTylRvWfNEQ0 MrT6MFR9wESolM6njSoq ndwukC1oXsl+MjYgWWVh cyZ3Z7ZrPqu8MTRo sNorKV7baDFmOUtfBk5v fArlwXafWC8fZNFtmiak PYIqcS4pXOEbwBIkiLhr RT1fJMZavaavz951 PgGqREJ3POJktPQzK5Qt qE1tYlOjRCGzBVOqL2Ky fHJaKMcnV908DLdjDiP6 ZZJrpfSxK6KvNZBm dRwsWwJ1j0X2Nh8AXY5i sXG6O4YhUgs7VFMuzUrx YH6exZOjLBquIr4bdXuj zWqfEX3xFTNqpvix VGOdxS2vGUUkxBKudUnu SS3lQYCoegcmq887DbIs ZDW3VEXugUIfS9WsjI6q NsHvMBVmCXRxB7Qj cEPuJKmiM776XTseCuB8 FVRcpdMgD9HaLESmiSis OhS4x9K9Ac4QmHJbQYOd MH73FZ94JE97O7Er PjwvdGFibGU+PHRhYmxl IHdpZHRoPScxMDAlJyBz lTkoGA8zQf5vXQMyRPPp jMoksBRtBdLhn7jy LXRuBCmySM9flMxaS3Vk jHD1CHFro1f1Rj11M39q B2GviUW+DBUrzFG1mED2 wT2xJcRkLpR8IUhe S094YlImdQWcByapy7pa y8afwSp1ZiDuCPOxydLi nIjoKNC4i9CwRn79P17a IHdpZHRoPSIyMCUi NFMarBlyab6ybT2pDx3+ CTTemIP1gPH4fJ9eLxDx HcQ8RGwfN123ZcBzpIFo CttfE66aF1BhaVC+ SJRfNoe0SAQshDfqBG7v bBClIVacTu4kUYS2OuHb DsLnCUogB2XsYHJanonq dxrkhJY7ITCwYGJm sW72Th2hjDevXb0hINGy OXK9QPZhqDIxO6TagF5g NaHkZXMsPAYzA8OkwYBx RXvqU479IGaaTaN3 XYSmiyHxX3GaELOnlJwk VxA4w6M8Fr4XvSyffFVl UP0uYmHpRGi2U7GbZam0 LGCrfFqtYF5umLZv JJppUb1ziIxijLciWP7i ZNPkqtlkl257FqLpm6wt RKZrlPGrMJhsOBD9L32r d6W7QKGbWFCnARB4 lGI3sO7jeCybekfgmWRh dDsgdmVydGljYWwtYWxp M918DTTwpOicTrWBDvq3 E9BnMez9ODMepSqt GP1keLVkBPfrDr8psYkv gRsuQM8aLQTmgzkxi835 XuRcj8xrLOIpuIZwCFsq IAL2H21bm5A3QYPe CFLcKMG2aUM4jF9asGid bjogbGVmdDsgdmVydGlj XVmwXDfjO968KVYijNpv Zz0KTgl6E9NnFhk8 YIUwwNxzED3kzXKvMHqi Ix0jkVkcoRbjHL2lNTXn pdjmz243YyPyo4tkWXAw iFFaUOgxSWF5T23s z5C8TTJfFXYbWYS2xBI8 aU6tgPbwhazlmBUluKdo fwYecZihSOzkNLzwL091 IHRvcDsnPlBheWVy OjwvdGQ+LH35ow37E2Cw GkucOtk8IARaFWO4uDZ4 jF8eXIJxQPpuu7X0cZR2 Y1HuxcSqkj0wx3sm YXBz (more content not included)... [facility] Consent for Treatmenton Consent for Treatment [id number] #1.00CD:127 [facility] Physician Orderon 06-11-2022 Physician Order [id number] #1.00CD:127 [facility] Progesteroneon 06-11-2022 Progesterone [Mass/Vol] 0.20 ng/mL Invalid Interpretation Code [facility] Comment on above: Result Comment: REFE RENCE RANGE Males 0.14-2.06 ng/mL Non- Females Follicular 0.10-0.60 ng/mL Luteal 3.00-17.5 ng/mL Midluteal 3.30-18.6 ng/mL Post-Menopausal 0.10-0.40 ng/mL First Trimester 8.30-66.5 ng/mL Second Trimester 18.9-66.1 ng/mL Third Trimester 35.8-312.4 ng/mL Performed By: #### 2 [id number] #### [facility] [address] [place] [address] US Transvaginal Non-OBon US Transvaginal Non-OB Exam [...] M.D. Transcribed by: DAVID Technologist: ROBERT Normal [facility] Physician Orderon 06-09-2022 Physician Order [id number] #1.00CD:127 Normal [facility] Coding Summary.on 06-06-2022 Coding Summary. CD:[id number] Gh0bWw+PGhlYWQ+PE1FV QAlZ59xgAYheC3UT7kCN Y3DHZVSOBJDOX6RKG9ls SN1ITqbH5RmjkEr QjetwQVvWY23NRe5YNL6 xNkpLXzogB2lsALzW9d2 AuFpZX87dE49COjcPYYa VnM7TkYpqopjxZFt V9ofWsVclFZiGyv+PHRh YmxlIHdpZHRoPScxMDAl BeRmbYayBP9cYm4wGJWl LWNvbGxhcHNlOiBj h0jzVJBqLVhrHZ2giOde J2NtyNK5PLHdg0y4Ct00 dHI+DSCrHWC6uUlqANyz y554TcVfh3tnYTL7 zQNtAPhnTUQ2Y06tf6I1 YHAqFYJcCOM9bOQ0xG8u zOzcpknsK1YutUQxWdK3 PJY2rHVihW0mfDvu hkwjkZ4nWgz+H65WJW2O CXPIJK9YKdf8M9VmSpgm dHI+ZR13TTMsUK56uOZt lZQzj5kmvJr2SrTh XIXpZXQ9zEpeZEdgk6Yd YDSzR22ztYWqz4T9ULYu tHvrqSJsVuSeaJG4gW0i ERbepqand4ifetux Wmjuv8ruaz28hC12Q42k BCeyYEEgEXU4IPVjRZLu pIfwzx2frF2wOt4+IDxj w4ken6fzyUz0XuBq ZUZrysFnuJoeBWY9u3Ru Lw95S6RvkHqhs5NhJjh1 mc13tWRgl9P6lIS9YUyy NTSuhL7zHKiiTwQ0 PEXvQaQavF64qYGfRAlo Bw6pjDsjhMuhWG6pIWFq hhvlBLDssT2iNCJviJFk zBmzRX4vCYQjykov x644LvNfXSN1PCXisSGp L9YuxD7yOmWiSDIfQSNh Y6ItrOTlMGlzR209TWwa XqZ5OSBthoFmK9Yg FWHriZfvMsO2d4S1Db4V q2OwxqotSWR3OFhrFWYs FkT5BgFzTiK3Z0YeAax0 FZBdiPefZH5oU7Kv ZTBgiktvjobtnLI9YFTk AMWmlL93zVDoVSxpWa2q u2I7p511AWJxFBQxxU14 Nm0aoWbiUXVedRQO tY7cocmkr3rddzmwYkBi CXMzSYi4FAq0CRNxtQqd QnFtNLS6XlR6VNS8eCSs dE4vyOfzzzyrlY3p Oyc+R75whT6gPWR6QKP8 txplVMLmdnBsOW10EB83 X9KyLmvzeJPnaSM+PGRp xsOahKweKL3uPlBr s3avk8KsWQzhR6WpHJQm YDwbRgw3NYZqSIA1bAT5 wJ0yGAIaNIkrr0Y6nCL2 Y2ImsaUfes0oa0xo LBBhQNeeA86zzLBxr4T4 BDUibSC2GCSbjAseIiUb mQ67Tde+CEQfeQezu5Nv Xmbfz1dox0iojLq3 IjMwJSIgdmFsaWduPSJ0 c4HcMp11D69zLGyiHGSq QQYnHDQpLUAriWnwxl4c kE9nUg4+PGNvbCB3 hKG2bW4yZFFjKgJ7KJkn T105FyYabVGfZbbsn7ln s2upsPb0GjPzLKAyslSw uMegBML1r5JlLb60 L93jASykEVUfUKVcKYDi SDRzoWrenu6ggQ1hDx2+ NF0ji1jzqn76fM45zYV+ THZiLAM1tDzeLUiv MZRybC3tAXvoBoX5RSFs EgXkhA49dFJnBQxaFs0u yTwecRyfOO5uLEPcrtfm p707ZnAtf2ezQYDs cFEzMDixBHR3A54lp8L3 GCLhTPMnQDP8mMP6bH9v bGlnbjogbGVmdDsgdmVy cVocCWhgONdkF294 IHRvcDsnPlBhdGllbnQg OnMoOXp6O6YmNhd6DFTr pWcyRH9pfOLzGSpiRy5z uKogwSbbQF4xCPVv scqkh535QiIlm2xxJXWc iMAwOLrrKFT8X09sf2W5 SQZuCOYvGJA1mVL3xW0t bGlnbjogbGVmdDsg cvCfsPucJXuuZFlrG858 IHRvcDsnPkJpcnRoIERh bOL5YZ18XZ15lHXro3B6 dBJ7S1EtKINgrcqy hocemST8ZVWsXGUltH62 Yr4jmKklSo0kUCGbUHW6 SPJzgMFuV6ZvvU2pSdGk YSKsDOYnR8TnsIIl JLrfI645GJdoCuV7FHYw kmCvD9AcGHSvdJsfCoU9 r1J6Ty5DY4B5ZX17JP90 yOCmz3R2kJT1O9Bx IDRcmelckhcdsXH5ERVp OCWhnW37Vk9gpEtxCd9m ARXwYHI9SJZrzZZyJ7Qf gA8sOzTzYLVbWGZl M1NnaZGoJQtlR161MNcj VxS3HDXxyuRjY5EwPSBu fLcnJqY2g0P7Ty0GGTy5 NZ28GG98hRUwe0N2 pOX0M7XvEXWuzxlirrkh hBU8TPSgOMMllN09Zs3k tEevPn3sWOKoNFJ2UHCy dXLwM7TgeJ1dDtQe OYSjXHSxC4QtfVOiZUaz Q425UIvdKvY7CBGffzYv U7NrZKHeiRaxJfG2t4X1 Wr7SVKZvWY51ZXY1 dHU0RJ60TM28H0UyMpxf dGFibGU+PHRhYmxlIHdp ZHRoPScxMDAlJyBzdHls FV9zPr6sNOLaYDUw vIzyqGHfGiEpq6ysGURu ZXmnEI0nzDzcZ1GqiWH0 MEFyd6u2Mx11V13dE6Cq dXA+GHCxiUS0jAX8 gK0jCyMvDlH9OJgpL708 RnLeuTCyJjfws7ixg6uv cAm0FiS5PJOrdcSddPcy XSS6d8SrBe89F39r IHdpZHRoPSIxNSUiIHZh eDudqg8ppX2mHg4+PGNv kOD9zNY9aZ4kHkXiAlC8 KZexT190JsBixUGh Hqsby2kro3swwHm1TaLi KAQzflAojXfzIMY2l4Aq Yd65M0PpvXrum3TiHzi5 fb03gRVbh4L2nNO4 D5KdCUMsputnyRGxsQai JD3wMJUksgzdETSfzC6e TYVmZ8r6UyBzVvM6EFtx T5NppqC1SXTeaTDx AEcpHKT1V94bg8A1QDDm CIOwVUC4pJS1fS5liErq bjogbGVmdDsgdmVydGlj GJwmYLlwX385PDGr kJtnJWImuT0fZSDsoZCf tMmuNW3uZAByghmbHcRR NhRWVDMKBCCXHM3NEF34 V3FtJnz0OMZxqEsj UC3wuHDpYSipIa7qrCjk pFsoJM1zMPJfxpphUWMq aZ2tHVWkrYCzkOqzBS6k WCCtajynz698OuBo DWK7UBKczMMoL1YmgM6v LuCsKBVbSYCgL9NqsJYv DUyuZ975UXcuGjL7CUGu ebPqB2SgAPPzfXmy EiQ4s5L0Eh7uKB6bJo8c TXk6EW64DA64xZSbe1Q0 rTC3J6SvNGVcrjhkiviz hTP1KFAtDWOmgI52 zCTzODyaCv8sp3Q3m444 VPAxLSEcbK27Jr8bfJtm WKBzfQOVoJ2gckcdv7mn cjogIzAwMDAwMDt0 UNe1PMIzjDboTkRdFGT4 WzK7VHL8eRDpcT1nuSmm rdcdvV4iDmx+MjYgWWVh gfT3R1QfEoq4FDIk iLwnMR5hnVWgMOrdZt6d bCgmwTkkLU8hUUVzhduu ITSweJ9uJQQfkJTcqUqe NF6bQQXncsubo568 CwOmHJT6SSJmjCNrW7Qz kZ8nYoNhTZAcAVPqB4Wv yNEwMGivJ832UZftRkR4 GLGhljQuW4RwUUTs iKqbUjT1j2M2Vb1GYN1l hPQ5J6LwWwl0HMYjxGca RP2qyQLoDRnrFn4arOyx zEhxIZ9jTGPibgxq TZPmuI2zFXZaqNJyqBmp SH4mRMQkwjvkh134PhTz NJR6QYXfgACaH5XpdX1o ZjZxDEFdYMXtT3Wv jOYlYJzaV529ZIyvLgB2 KCNzugUnU1OeVVTsfQlx GsO7i1U7Ox3BbUKeDGMz JK44YQ44DB06F6Fh PjwvdGFibGU+PHRhYmxl IHdpZHRoPScxMDAlJyBz yHxjDO2rTi9hPATzYJJw lUkizNXkHiNhz9kd MWJyWJvzNT4dvEzrR1Yv cRP7WCGwy9u6Fu58G36b T9AaiAS+DFHerFL7hYU7 vP4gCgTzHmU9GRpf Z538IyWsqKPhYzpbm0cj p4uhlQc7SdCdNIPjpgQw sTcdWSR8k5CsZs54J23c IHdpZHRoPSIyMCUi HCUxoWjnwo3olU1zDt5+ UXWweFE7hDR8gA6bZvDq WgA3TPvqE341YuGpfTFr GfsnC05vQ7TunZK+ NENpZpe4NQXlwTdlVB4w aMWyHUhhPz2iHKV0TvKq WvJsYHpeN9LnSVFjywwd ztfhkSI1EYFrBMKg cC81Ub5frZnkXj0qFEBm KNE8VDEwaUMuU2HtkF5e BbUxDAMwFIQfD5WmwCBh VAdtW324MHyeHlO5 MZEiyaQyQ7YmSBReeGqa QqF1m6U3Fv2KqPttoCAh FF5oNfByZSv6H7LmMtz5 HHVurYgtIY0zlNMf VYseOq4thArxeKlxRU9b KUVnaytyl069YzSda7nf DRIgtIKcNYcmOXN8O31y o2J8GDSlTWPjIBM9 kMP0dL8oyLghsrhqxXNw dDsgdmVydGljYWwtYWxp Y740TXRzhZffYcQDUow8 X8PpGml6LBFyaIcs WL2byAOvVEfhHz5xoIxh jXlxGF4aLVHjwxtll413 PbPnn4hcWNDbqCIzYBwj ODD4B99zm0O5QMUl BTKvMXI6aCL8yV0qqKyk bjogbGVmdDsgdmVydGlj KBtgGLcxB193PPNhkKjz Ee1NGeo9Q5ShTsp5 UHYniTkfZP4wwTAnFNsi Rh0dnNsqpJrcKU3nZTVv xbpcc009RrSxr0tgYBFg zACeFZbiNER1W67x z3R9BGReJWSwNAJ7tII1 qT5cbKqhvylwhZTwcWix peAhdTszQEboSEecO881 IHRvcDsnPlBheWVy OjwvdGQ+RH47zl35I8Ad BvebRjx0ODXvZLT3sKX3 eM1qDSJcFAvkb6A8nMT4 C3RjfmDyvi9zv6ya YXBz (more content not included)... Normal [facility] Estradiolon 06-06-2022 E2 [Mass/Vol] 121.0 pg/mL Invalid Interpretation Code [facility] Comment on above: Result Comment: Adul t Female: Follicular phase 12.5 - 166.0 Ovulation phase 85.8 - 498.0 Luteal phase 43.8 - 211.0 Postmenopausal <6.0 - 54.7 1st trimester 215.0 - >4300.0 [facility]bert ECLIA methodology Performed at: [facility] [id number] PhD Rick Lee Performed By: #### 2 [id number] #### [facility] Laboratory [address] [place] [address] Consent for Treatmenton 05-11 Consent for Treatment [id number] #1.00CD:127 Normal [facility] Physician Orderon 06-05-2022 Physician Order [id number]# 1.00CD:127 Normal [facility] Progesteroneon 06-05-2022 Progesterone [Mass/Vol] 0.30 ng/mL Invalid Interpretation Code [facility] Comment on above: Result Comment: REFE RENCE RANGE Males 0.14-2.06 ng/mL Non- Females Follicular 0.10-0.60 ng/mL Luteal 3.00-17.5 ng/mL Midluteal 3.30-18.6 ng/mL Post-Menopausal 0.10-0.40 ng/mL First Trimester 8.30-66.5 ng/mL Second Trimester 18.9-66.1 ng/mL Third Trimester 35.8-312.4 ng/mL Performed By: #### 2 [id number] #### [facility] [address] [place] [address] US Transvaginal Non-OBon US Transvaginal Non-OB Exam [...] M.D. Transcribed by: DAVID Technologist: ROBERT [facility] Physician Orderon 06-02-2022 Physician Order [id number] #1.00CD:127 Normal [facility] Estradiolon 05-31-2022 E2 [Mass/Vol] 21.6 pg/mL Invalid Interpretation Code [facility] Comment on above: Result Comment: Adul t Female: Follicular phase 12.5 - 166.0 Ovulation phase 85.8 - 498.0 Luteal phase 43.8 - 211.0 Postmenopausal <6.0 - 54.7 1st trimester 215.0 - >4300.0 Hebert ECLIA methodology Performed at: [facility] [id number] PhD Rick Lee Performed By: #### 2 [id number] #### [facility] Laboratory [address] [place] [address] Consent for Treatmenton 05-11 Consent for Treatment [id number] #1.00CD:127 Normal [facility] Physician Orderon 05-30-2022 Physician Order [id number] #1.00CD:127 Normal [facility] Physician Order [id number]#1.00CD:127 Normal [facility] Progesteroneon 05-30-2022 Progesterone [Mass/Vol] 0.50 ng/mL Invalid Interpretation Code [facility] Comment on above: Result Comment: REFE RENCE RANGE Males 0.14-2.06 ng/mL Non- Females Follicular 0.10-0.60 ng/mL Luteal 3.00-17.5 ng/mL Midluteal 3.30-18.6 ng/mL Post-Menopausal 0.10-0.40 ng/mL First Trimester 8.30-66.5 ng/mL Second Trimester 18.9-66.1 ng/mL Third Trimester 35.8-312.4 ng/mL Performed By: #### 2 [id number] #### [facility] [address] [place] [address] US Pelvis Non-OB Completeon 05-30-2022 US Pelvis [...] Transabdominal Ultrasound Performed Transvaginal Ultrasound Performed Normal [facility] US Transvaginal Non-OBon US Transvaginal Non-OB Exam Date/Time: 05/30/2022 08:49 EDT Reason for Exam: Z31.89 Report PLEASE REFER TO THE ULTRASOUND PELVIS NON-OB COMPLETE REPORT. FINAL REPORT Dictated: 05/30/2022 11:06 am Darien Painting M.D. Signed (Electronic Signature): 05/30/2022 11:06 am Signed by: Darien Painting M.D. Transcribed by: DAVID Technologist: HW Normal [facility] Physician Orderon 05-27-2022 Physician Order [id number] #1.00CD:127 Normal [facility] Estradiolon 05-20-2022 Estradiol 242.0 pg/mL Normal . [facility] Comment on above: Order Comment: KATELYNN VILLALOBOS Result Comment: Adul t Female: Follicular phase 12.5 - 166.0 Ovulation phase 85.8 - 498.0 Luteal phase 43.8 - 211.0 Postmenopausal <6.0 - 54.7 1st trimester 215.0 - >4300.0 Hebert ECLIA methodology PERFORMED BY: [place] [address] PATHOLOGIST [employer]ER HAND HELPER MARLON LÓPEZ M.D. Performed By: #### E STRADIOL, PROG #### [facility] , Progesteroneon 05-20-2022 Progesterone 15.8 ng/mL Normal . [facility] Comment on above: Order Comment: KATELYNN VILLALOBOS Result Comment: Foll icular phase 0.1 - 0.9 Luteal phase 1.8 - 23.9 Ovulation phase 0.1 - 12.0 First trimester 11.0 - 44.3 Second trimester 25.4 - 83.3 Third trimester 58.7 - 214.0 Postmenopausal 0.0 - 0.1 Performed at: [facility] [address] [id number] Scutcher Tender: Jesus Cabrera PhD, Phone: [phone] Performed By: #### E STRADIOL, PROG #### [facility] , US pelvic completeon US pelvic complete [facility] Main [address] [address] Ultrasound Report Signed Patient: Kae Vigil MR#: [id number] : 1995 Acct:[id number] Age/Sex: 27 / F ADM Date: 05/20/22 Loc: Room: Type: REG CLI Attending Dr: Kanu Mcghee MD Ordering Provider: NON STAFF Date of Service: 05/20/22 US/US transvaginal: Z31.89 ([id number]) US/US pelvic complete: Z31.89 Copies to: NON [...] Kaur Jr., D.O.05/20/2022 10:55 AM Dictation Location: [place] [address] Tech: Tonja Pozo Transcribed By: [facility] 05/20/22 1055 Dictated By: Angel Kaur Jr, DO 05/20/22 1045 Signed By: 05/20/22 1055 [facility] PAP ACOG PANEL 2: 22 to 29on 11-15-2021 . . Normal [facility] Comment on above: Performed By: #### 4 [id number] #### [facility] [address] [place] [address] Dr. Maris Holland Age Gdln ACOG Testing 21-29 Normal [facility] Comment on above: Performed By: #### 4 [id number] #### [facility] [address] [place] [address] [address] Maris Holland DIAGNOSIS: Comment Normal [facility] Comment on above: Result Comment: NEGA TIVE FOR INTRAEPITHELIAL LESION OR MALIGNANCY. Performed By: #### 4 [id number] #### [facility] [address] [place] [address] Dr. Maris Holland Methodology: Comment Normal [facility] Comment on above: Result Comment: This liquid based ThinPrep(R) pap test was screened with the use of an image guided system. Performed By: #### 4 [id number] #### [facility] [address] [place] [address] Dr. Maris Holland Note: Comment Normal [facility] Comment on above: Result Comment: The Pap smear is a screening test designed to aid in the detection of premalignant and malignant conditions of the uterine cervix. It is not a diagnostic procedure and should not be used as the sole means of detecting cervical cancer. Both false-positive and false-negative reports do occur. . Performed By: #### 4 [id number] #### [facility] [address] [place] [address] Dr. Maris Holland Performed by: Comment Normal [facility] Comment on above: Result Comment: Fernando Moody Laundry Route Driver (ASCP) Performed By: #### 4 [id number] #### [facility] [address] [place] [address] Dr. Maris Holland Reflex Criteria: Comment Normal [facility] Comment on above: Result Comment: The HPV DNA reflex criteria were not met with this specimen result therefore, no HPV testing was performed. . Performed By: #### 4 [id number] #### [facility] [address] [place] [address] Dr. Maris Holland Specimen adequacy: Comment Normal [facility] Comment on above: Result Comment: Sati sfactory for evaluation. Endocervical and/or squamous metaplastic cells (endocervical component) are present. Performed By: #### 4 [id number] #### [facility] [address] [place] [address] Dr. Maris Holland Encounters Encounter Date Encounter Type Care Provider Facility Start: 02-23-2023 End: 07-17-2023 Evaluation and management of inpatient Cyrus Osborne Facility:[facility] Start: 02-17-2023 End: 02-18-2023 ambulatory Cyrus Osborne Facility:[facility] Start: 11-25-2022 End: 11-26-2022 ambulatory Cyrus Osborne Facility:[facility] Start: 07-28-2022 End: 07-30-2022 ambulatory KANU MCGHEE Facility:[facility] Start: 07-18-2022 End: 07-19-2022 ambulatory MD KANU MCGHEE Facility:[facility] Start: 07-09-2022 End: 07-10-2022 ambulatory MD KANU MCGHEE Facility:[facility] Start: 07-09-2022 End: 07-10-2022 ambulatory HERSON VILLALOBOS Facility:[facility] Start: 07-02-2022 End: 07-03-2022 ambulatory MD KANU MCGHEE Facility:[facility] Start: 06-30-2022 End: 07-01-2022 ambulatory KANU MCGHEE Facility:[facility] Start: 06-23-2022 End: 06-24-2022 ambulatory KANU MCGHEE Facility:[facility] Start: 06-11-2022 End: 06-12-2022 ambulatory MD KANU MCGHEE Facility:[facility] Start: 06-05-2022 End: 06-06-2022 ambulatory MD KANU MCGHEE Facility:[facility] Start: 05-30-2022 End: 05-31-2022 ambulatory MD KANU MCGHEE Facility:[facility] Start: 05-20-2022 End: 05-20-2022 ambulatory Servando Crouch Facility:[facility] Start: 05-20-2022 End: 05-20-2022 ambulatory MD Servando Crouch Work Phone: [facility] Work Phone: Start: 05-20-2022 End: 05-20-2022 Patient encounter procedure MD Servando Crouch Work Phone: [facility] [facility] Start: 10-29-2021 End: 10-29-[address] MONICA KC Facility:[facility] Procedures Date Procedure Procedure Detail Performing Clinician Start: 05-20-2022 Pelvic echography MD Shiv Crouch Work Phone: Start: 05-20-2022 Transvaginal echography MD Servando Crouch Work Phone: Plan of Treatment Date Care Activity Detail Author Estradiol (E2) [Mass /volume] in Serum or Plasma [facility] Work Phone: Progesterone [Mass/v olume] in Serum or Plasma [facility] Work Phone: Payers Date Payer Category Payer Self-pay 2021 Unknown [id number] 1996 Unknown [id number] 2.16.84 [id number] 1996 Unknown [id number] 2.16.8 40.1.941823.3.579.2.727 1996 Unknown [id number] 2.16.8 40.1.187498.3.579.2.727 1996 Unknown [id number] 2.16.8 40.1.012622.3.579.2.727 1996 Unknown [id number] 2.16.8 40.1.631906.3.579.2.727 1996 Unknown [id number] 2.16.8 40.1.049667.3.579.2.727 1996 Unknown [id number] 2.16.8 40.1.510288.3.579.2.727 1996 Unknown [id number] 2.16.8 40.1.321251.3.579.2.727 1996 Unknown [id number] 2.16.8 40.1.431080.3.579.2.727 1996 Unknown [id number] 2.16.8 40.1.048031.3.579.2.727 1996 Unknown [id number] 2.16.8 40.1.319739.3.579.2.727 1996 Unknown [id number] 2.16.8 40.1.579743.3.579.2.727 1996 Unknown [id number] 2.16.8 40.1.461912.3.579.2.727 1996 Unknown [id number] 2.16.8 40.1.125975.3.579.2.727 1996 Unknown [id number] 2.16.8 40.1.935593.3.579.2.727 1959 Unknown [id number] 1959 Unknown [id number] Unknown [id number] 2.16.8 40.1.329619.3.579.2.531 Social History Date Type Detail Facility Tobacco smoking stat [facility] Unknown if ever smoked [facility] Work Phone: Start: 1995 Sex Assigned At Female [facility] Discharge summary note 03-05-2023 Note Date [...] Course: Without complications. Mindy Davidson Dictated: 03/04/2023 [id number] Transcribed: 03/04/2023 [facility] Comment on above: Result Comment: Elec tronically [...] details. Cyrus Osborne M.D. lr Dictated: 02/23/2023 [id number] Transcribed: 02/23/2023 [facility] Comment on above: Result Comment: Elec tronically Signed By: [place] SANTANA, Cyrus Gudino\.br\Date and Time Signed: 02/25/23 08:36 EDT Clinical Note 02-23-2023 Note Date & Type Note Facility 02-23-2023 Note The following Patien t Education Materials have been given to the patient: EducationMaterial [facility] Evaluation note Note Date & Type Note Facility Evaluation note No assessment information availa [facility] Work Phone: Summary Purpose Family History No Family History Records FoundNo Family History Records FoundNo Family History Records Found Advance Directives No Advanced Directives Records Found Advance Directive Response Recorded Date/ Time Advance Directives No May 20, 2022 8:41am Chief Complaint and Reason for Visit Chief Complaint z31.89 Additional Source Comments INFORMATION SOURCE (unrecogn ized section and content) DATE CREATED AUTHOR 03/14/2022 [facility] DATE CREATED AUTHOR AUTHOR'S ORGANIZ ATION 06/17/2022 [facility] DATE CREATED AUTHOR AUTHOR'S ORGANIZ ATION 04/14/2023 [facility] Care Teams (unrecognized sec tion and [...] BE BASED ON THE PRIMARY CLINICAL RECORDS. [employer] [facility]. provides no warranty or guarantee of the accuracy or completeness of information in this document.
[2023-12-10 07:15] LABS: Basophils Percent Auto 0.4 % (0.2-2.0); Eosinophils Absolute Auto 0.2 10^3/uL (0.0-0.7); Eosinophils Percent Auto 1.9 % (0.9-7.0); Hematocrit 34.3 % (36.0-48.0); Hemoglobin 10.8 g/dL (12.0-16.0); Immature Granulocytes Abs Auto 0.02 10^3/uL (0.00-0.03); Immature Granulocytes Pct Auto 0.2 % (0.0-0.5); Lymphocytes Absolute Auto 2.2 10^3/uL (1.2-3.8); Lymphocytes Percent Auto 27.9 % (20.5-60.0); Mean Corpuscular HGB Conc 31.5 g/dL (29.9-35.2); Mean Corpuscular Hemoglobin 26.3 pg (26.7-34.0); Mean Corpuscular Volume 83.5 fL (81.0-99.0); Mean Platelet Volume 10.1 fL (9.5-13.5); Monocytes Absolute Auto 0.6 10^3/uL (0.3-0.8); Monocytes Percent Auto 7.5 % (1.7-12.0); Neutrophils Percent Auto 62.1 % (43.0-75.0); Platelet Count 376 10^3/uL (150-450); Red Blood Count 4.11 10^6/uL (4.20-5.40); Red Cell Distribution Width 17.1 % (11.0-15.0)
== END 2023-12-10 06:44 | disposition home or self-care (01) ==
LOC: LAB 06:44
DX: Z01.89 Encounter for other specified special examinations (principal)
CPT/HCPCS: 36415; 85025

== ENCOUNTER 2023-12-30 15:55 | Outpatient (OUT) | payer BC, SELFPAY ==
[2023-12-30 16:27] LABS: Basophils Percent Auto 0.3 % (0.2-2.0); Eosinophils Absolute Auto 0.2 10^3/uL (0.0-0.7); Eosinophils Percent Auto 2.1 % (0.9-7.0); Hematocrit 38.5 % (36.0-48.0); Immature Granulocytes Abs Auto 0.05 10^3/uL (0.00-0.03); Immature Granulocytes Pct Auto 0.5 % (0.0-0.5); Lymphocytes Absolute Auto 2.5 10^3/uL (1.2-3.8); Lymphocytes Percent Auto 25.3 % (20.5-60.0); Mean Corpuscular HGB Conc 31.2 g/dL (29.9-35.2); Mean Corpuscular Hemoglobin 26.8 pg (26.7-34.0); Mean Corpuscular Volume 85.9 fL (81.0-99.0); Mean Platelet Volume 9.9 fL (9.5-13.5); Monocytes Absolute Auto 0.8 10^3/uL (0.3-0.8); Monocytes Percent Auto 8.5 % (1.7-12.0); Neutrophils Absolute Auto 6.2 10^3/uL (1.4-6.5); Neutrophils Percent Auto 63.3 % (43.0-75.0); Platelet Count 311 10^3/uL (150-450); Red Blood Count 4.48 10^6/uL (4.20-5.40); Red Cell Distribution Width 18.9 % (11.0-15.0); White Blood Count 9.7 10^3/uL (4.0-11.0)
--- OUTSIDE RECORDS SUMMARY | 2023-12-30 16:34 | XMS_ITS | CCD ---
Author Organization [facility] Care Team Providers Care Road Sign Installer Name Role Phone DR MONICA KC Attending Unavailable JEFFASIK, DR ANDERSON Consulting Unavailable DE, DR ANDERSON Admitting Unavailable MISC, DR FITZPATRICK Primary Care Unavailable MD Servando Crouch Primary Care Provider MD Kanu Mcghee Attending Provider [phone] Servando Crouch Primary Care Unavailable Kanu Mcghee Admitting Unavailable Taz, Kanu Mccormack Attending Unavailable TAZ, KANU Mccormack Admitting Unavailable TAZ, KANU Mccormack Attending Unavailable KANU MCGHEE Referring Unavailable TAZ, KANU Admitting Unavailable TAZ, KANU Attending Unavailable VILLLAOBOS, REHAN Admitting Unavailable VILLALOBOS, REHAN Attending Unavailable TAZ, KNAU Mccormack Admitting Unavailable TAZ, KANU Mccormack Attending [...] Range Facility Nursing Assessmenton 023 Nursing Assessment [id number] #1.00CD:127 [facility] Delivery Summaryon Delivery Summary DATE OF DELIVERY: [...] Room. Cyrus Osborne M.D. lupe Dictated: 02/23/2023 [id number] Transcribed: 02/23/2023 [facility] Comment on above: Result Comment: Elec tronically Signed By: India SANTANA, Cyrus Gudino\.br\Date and Time Signed: 02/25/23 08:36 EDT CBC w/Indiceson 02-23-2023 Erythrocyte distribution width (RBC) [Ratio] 17.2 % High 10.9-14.2 [facility] Comment on above: Performed By: #### 2 [id number], [id number] ####[address] [address] Hematocrit (Bld) [Volume fraction] 25.2 % Low 34.0-46.0 [facility] Comment on above: Performed By: #### 2 169014, [id number] ####[address] [address] Hemoglobin (Bld) [Mass/Vol] 8.0 g/dL Low 12.0-16.0 [facility] Comment on above: Performed By: #### 2 688897, [id number] ####[address] [address] MCH (RBC) [Entitic mass] 21.6 pg Low 27.0-34.0 [facility] Comment on above: Performed By: #### 2 330814, [id number] ####[address] [address] MCHC (RBC) [Mass/Vol] 31.7 g/dL Normal 31.4-36.0 [facility] Comment on above: Performed By: #### 2 931219, [id number] ####[address] [address] MCV (RBC) [Entitic vol] 68.2 fL Low 80.0-100.0 [facility] Comment on above: Performed By: #### 2 213751, [id number] ####[address] [address] Platelet mean volume (Bld) [Entitic vol] 7.8 fL Normal 6.4-10.8 [facility] Comment on above: Performed By: #### 2 524961, [id number] ####[address] [address] Platelets (Bld) [#/Vol] 321.0 E9/L Normal 150.0-500.0 [facility] Comment on above: Performed By: #### 2 031129, [id number] ####[facility] [address] [place] [address] RBC (Bld) [#/Vol] 3.7 E12/L Low 4.3-5.9 [facility] Comment on above: Performed By: #### 2 062514, [id number] ####[address] [place] [address] WBC corrected for nucl RBC Auto (Bld) [#/Vol] 22.5 E9/L High 4.0-11.0 [facility] Comment on above: Performed By: #### 2 012247, [id number] ####[address] [place] [address] Discharge Instructionson Discharge Instructions [id number] #1.00CD:127 Normal [facility] Inpatient Clinical Summaryon 02-23-2023 Inpatient Clinical Summary [address] [address] Clinical Summary Person Information Name: KAE VIGIL/[facility] Age: 27 Years : 1995 Sex: Female PCP: Cyrus Osborne MD Marital Status: Phone: [phone] Race: White Ethnicity: Non- or Language: Persian Visit Id: Visit Reason: CONTRACTIONS Speciality: Acuity: DD Enc Type: Inpatient Med Service: Obstetrics Arrival: 02/22/2023 14:30:32 Discharge: 02/23/2023 10:40:00 Dispo Type: Home (Routine DC) Address: [address] [place] [phone] Provider Notes: Diagnosis: Anemia; product of in vitro fertilization [...] Follow up: With: Address: When: Dr. Osborne [phone] Within 6 weeks Comments: Call for any problems. Patient Education Information: ibuprofen Normal [facility] Inpatient Patient Summaryon 02-23-2023 Inpatient Patient Summary [address] [address] Patient Discharge Instructions PERSON INFORMATION Name: KAE VIGIL Date of : 1995 Current Date: 02/23/2023 10:51:58 PHYSICIANS Admitting Physician: Cyrus Osborne MD Primary Care Physician: Cyrus Osborne MD PCP Comment: Discharge Diagnosis: Anemia; product of in vitro fertilization (IVF) ; (spontaneous vaginal delivery); Surrogate Condition at Discharge: Stable KAE VIGIL has been given the following list of [...] Follow up: With: Address: When: Dr. Osborne [phone] Within 6 weeks Comments: Call for any problems. In the event that this physician does not participate in your insurance network, please consult with your insurance company to find a nearby participating provider. Comment: YARITZA AponteGRACIELAKAE Edgard, have received the attached patient education materials/instructio ns and have verbalized understanding. Patient Signature Date Clinican/Nurse Signature Date MEDICATION LIST New Medications [facility], [address] [place] [id number], [phone] ibuprofen (ibuprofen 600 mg Tab) 1 Tablets By Mouth every 6 hours. Refills: 0. Last Dose: Next Dose: Medications to Continue Taking That Have Changed [facility], [address] [place] [id number], [phone] START: ferrous sulfate (Slow Fe (as elemental [...] not t (more content not included)... Normal [facility] Morphon 02-23-2023 Hypochromia Auto Ql (Bld) Present Normal [facility] Comment on above: Order Comment: Order Added by Discern Expert. Performed By: #### 2 238125, [id number] #### [facility] [address] [place] [address] Microcytes Ql (Bld) Present Normal [facility] Comment on above: Order Comment: Order Added by Discern Expert. Performed By: #### 2 243732, [id number] #### [facility] [address] [place] [address] Morphology Lokesh (Bld) [Interp] See Morphology Normal [facility] Comment on above: Order Comment: Order Added by Discern Expert. Performed By: #### 2 137201, [id number] #### [facility] [address] [place] [address] Ovalocytes LM Ql (Bld) Present Normal [facility] Comment on above: Order Comment: Order Added by Discern Expert. Performed By: #### 2 098894, [id number] #### [facility] [address] [place] [address] ABO/Rhon 02-22-2023 ABO/Rh Positive Invalid Interpretation Code [facility] Comment on above: Performed By: #### 2 259108, [id number] #### [facility] [address] [place] [address] ABO/Rh History Checkon 02-22 ABO/Rh History Check Verified Hx Blood Type Normal [facility] Comment on above: Performed By: #### 2 108402, [id number] #### [facility] [address] [place] [address] ABSCon 02-22-2023 ABSC Gel Interp Negative Normal [facility] Comment on above: Performed By: #### 2 178551, [id number] #### [facility] [address] [place] [address] Blood Bank ID#on 02-22-2023 BBID# [id number] Invalid Interpretation Code [facility] Comment on above: Performed By: #### 2 145507, [id number] #### [facility] [address] [place] [address] CBC w/Indiceson 02-22-2023 Erythrocyte distribution width (RBC) [Ratio] 17.4 % High 10.9-14.2 [facility] Comment on above: Performed By: #### 2 950354 #### [facility] [address] [place] [address] Hematocrit (Bld) [Volume fraction] 25.2 % Low 34.0-46.0 [facility] Comment on above: Performed By: #### 2 193256 #### [facility] [address] [place] [address] Hemoglobin (Bld) [Mass/Vol] 8.0 g/dL Low 12.0-16.0 [facility] Comment on above: Performed By: #### 2 919970 #### [facility] [address] [place] [address] MCH (RBC) [Entitic mass] 21.5 pg Low 27.0-34.0 [facility] Comment on above: Performed By: #### 2 718111 #### [facility] [address] [place] [address] MCHC (RBC) [Mass/Vol] 31.6 g/dL Normal 31.4-36.0 [facility] Comment on above: Performed By: #### 2 765662 #### [facility] [address] [place] [address] MCV (RBC) [Entitic vol] 68.1 fL Low 80.0-100.0 [facility] Comment on above: Performed By: #### 2 926240 #### [facility] [address] [place] [address] Platelet mean volume (Bld) [Entitic vol] 8.1 fL Normal 6.4-10.8 [facility] Comment on above: Performed By: #### 2 817597 #### [facility] [address] [place] [address] Platelets (Bld) [#/Vol] 343.0 E9/L Normal 150.0-500.0 [facility] Comment on above: Performed By: #### 2 148356 #### [facility] [address] [place] [address] RBC (Bld) [#/Vol] 3.7 E12/L Low 4.3-5.9 [facility] Comment on above: Performed By: #### 2 571842 #### [facility] [address] [place] [address] WBC corrected for nucl RBC Auto (Bld) [#/Vol] 14.9 E9/L High 4.0-11.0 [facility] Comment on above: Performed By: #### 2 979111 #### [facility] [address] [place] [address] Consent for Procedure/Surger yon 02-22-2023 Consent for Procedure/Surgery [id number] 0#1.00CD:127 Normal [facility] Consent for Treatmenton 02-07 Consent for Treatment [id number] 1#1.00CD:127 Normal [facility] Consent for Treatment [id number] #1.00CD:127 Normal [facility] Insurance Correspondence Off iceon 02-22-2023 Insurance Correspondence Office [id number] 0#1.00CD:127 Normal [facility] Legal Correspondenceon 02-22 Legal Correspondence [id number] 1#1.00CD:127 Normal [facility] Recordson Records [id number] 1#1.00CD:127 Normal [facility] Vaccinationson 02-22-2023 Vaccinations [id number]# 1.00CD:127 Normal [facility] Group B Strep by PCRon 02-19 Group B Strep colonization by PCR Negative Normal Negative [facility] Comment on above: Performed By: #### 2 000582, [id number], [id number] #### [facility] [address] [place] [address] Physician Orderon 02-17-2023 Physician Order [id number] 2#1.00CD:127 Normal [facility] Physician Orderon 01-14-2023 Physician Order [id number] #1.00CD:127 Normal [facility] Physician Orderon 01-07-2023 Physician Order [id number] 2#1.00CD:127 [facility] Coding Summary.on 12-01-2022 Coding Summary. CD:[id number] Ww+PGhlYWQ+GL9HIQYkZ 72ftPWqmE5bM4LCYPlHA ywgQVBQTElOSyIgbmFtZ W5ylWNnBZDu IC8+BC1kOCYnEolahFRf i8M2uPF5H31utw8lBTac pSJ1XMEyMnLepkyxs0dd sJf1EVgxGhsnRgHz JPPcnA51UEO5tA27Lg78 mRSioNMjl2tnrXn3OpAv KZAhGIK4xKsgMQgda4Fi DXJbV77irOAhm6N1 IGNvbGxhcHNlOyBlbXB0 eM2wTNkbxljdh1axopst Oif6yd27hNTzn3X4kTN7 L6DpqiD7LSKivGKf KoeefSNDpW5xrjzrp1gy mynnDmPoZSWmFGg8IZy7 ZPTcsRfhDnRoUG41UPF1 AABihbKeD6DjBVUi vCcpQbV2s6W4Mo0YF2GV IqdvA7TUZBURWXwivWF+ SZ39ai35U9HzOyvnHct5 CXHxDZH2uBU5nP4m LNMvNFoex4I3kRE4S4Om rrFlqx0gl5xrCAToEXzc Q32izHDeo8Q3QLFbqCZ1 GNCipYscSwYzjF72 Oyc+OZCukJwps3OyNgut w6pgx7fhbYy1KwoqCBTr noIdjOzeVWI8t0AjUt9x GNEzpWZ3iHD4pC8e YuEdKlY2KJtbD561ZfXj iEFnImlzZ90wC8BkyCA+ OUUaBeo0OQTrpZzeEK4z X9KjNZYmkeomcLUp mPfgLP5sFXWuagwvJMAh nO2iINBbH3j8WzYdRtC1 IMwlM2AhTAXamxtuHt16 vE4wCaGmOyX7FDeg G8QwmtZ4ZSAwlALyNCie IYF5B78wo2A5JMAhJGQk PZO5dNY2jZ9hhKhradyl bGVmdDsgdmVydGlj GPyuHTnmK051UKLglMqc PkNvZGluZyBEYXRlOiAg MDQvMjQvMjAyMzwvdGQ+ HWTwLCB2oUcyHKAe zOQfKBjeFq0teKpebOpl TM8hVOFcgugeKNQguD0e OJZqqREzrAqlOC7oRPUy yivao565GpAhJAK5 PODbtTFhA2CxtJ1wCkAw LVLeMZPtL3TtdFDnKRma S953GIudUxM9BUGqudYl C6LaFHLmtLgzXlX6 w1A0Sz9Vc9TrrojlR3Hg bIRbLsZwVplbWKy8L7Zd PjwvdHI+IF10HPMkQZ69 BUl2TNV0vZvdELiw KBFjD8FuxE4mEbChIHSa ZGRkOyc+PHRhYmxlIHdp ZHRoPScxMDAlJyBzdHls WJ5yWp0aKBKlZFSk sBbnxVDzHpJfr6udUHMq ZIqjOA7yaQlrS9IxlRE3 SCBis4o6Tf50J08fB9Ql dXA+LOKvpGB7dMV5 qT3rTlDxPmA0IImwY107 ThIivPIbAgpdj9asr3of kKy7VtD4JZFgrgUemJil FSK0b1ZuSs72K99v IHdpZHRoPSIxNSUiIHZh cCadjf9naC1lYl3+PGNv kTV5nSE1tN0iTdWwDdH6 EYlgV949DmCxjKOd Athpi3wlt5zciHz1ZxQn FHKsdkJnwAzpGHH4k6Rj Of71I3YmiVqfp3EyDov2 wk19cVHmo0F7zAU2 O9TgAIYuakyupVFpqSuo YP4nODLxrdejFNEzcL2m EZQiX2y7TmUsZaC3IOre B1CbcwS8FGOopQFi FFRlfKHBqY0jbqosj7pi zvbcKiHsYIIlUPj1FQy3 LRGpsVieHwTeGBO1XfP2 PQZ9rZTzyS7geUkz hecqaE5rByf+GPF3tCPv dVVCCD1lEiurtXG+PHRk FTJ3iNsxWFfgFLRicG8g WDGkF6u1CnYqIfL6 CWblM8YzjyE8QJBglQMo GRAnfIUYbW1ffuggo6qa tloeXeWsNLFoKOv3MOf3 LWFsaWduOiBsZWZ0 WfP7GGN1hKBosT2haOkp vquadX4iJgy+QmlydGgg SFO2RPc8N2ImQgk1NDVq xZkqKN7wkHEoUHwp Eh9wjGkyrSjaZD1dNNIc kgocp066XhXez7sjPUZx nIWbKGdhNYX8H60ys8I2 ECPbZFOhZWL4rRM6 zT4zoHqkzcjarKMlmVjz oqWlsBqdWAtfUVacO077 PKAkhVibXaQvYXt2I2Bi Tbn3QJZceQzfAZ2g rZQvUKnqEt1kiXylpKbi CB4cRYBhknvtx525SoKu g5oqBICngDAnEZjfDBR3 W19ip8A7IRPuDMTl LYM0iIV5tD4aaWmpyoau bGVmdDsgdmVydGljYWwt APhvT546SILvpCdrFzMf sZn9L3AeMdz1YJFj kAejUQ6vfFPyAHwjYn2d iJpmkEzhXO4dEXKugpll e500CiVck5ofQROskQYm UGcrYDQ9F11yn5L7 AEJyTIBzSZC7oZV0mW8w bGlnbjogbGVmdDsgdmVy jJsgUTbtOQidC556GPDy cDsnPlBhdGllbnQg RXmsXMl9N8PqPqwupXV+ EC09KSSfDX83vAUhbKXe y0hlcMo6VtHxWUNeFOM7 uSbvBJmve6LlNPPf X78dtVTpz2S9DQBkyRsb aVRmPkMlcLW6nX7oBKqv nlmbl6twajvhAekzs5le of68eV44Z96wHThb ZHRoPSIzMCUiIHZhbGln cn4ekV3eYo3+PGNvbCB3 nRD9zF0hUPIhTbP0BHyz N825NsUvnNQhQiyc a6vdh0vxrQy7KaB4YIGs wiYkxHkfDOH4x4XzQf01 H37pHKvuZSDvVSHqCOUz VHUtcJnfmf9otC2b Ii8+WEXzxAN5kCT8iJ7i HuInLbT6EKmsC786EpUs cMIdQocaH16qW5TsiWK+ LMZlQsq0VLEyuEhs LU9oeMSfQXtsZm2bLHB1 SpXoWvYgXHyqR3FyVHFj asmuplmzjGE8SPJgUMCy uY41Cf3kkMroCTBh mNGUqV2waulfj7hrjfbn PnYuNFUrZYh9WCy8NZCr cOfwKoFaKOV9PdY0WMU1 iUYeeT1upVdopguc vS5kF9OxFVQheqzjDy02 kJ5cGkFtTqV5UAhsBfb+ AoUWW0yiBWoKGDROMvNl TjwvdGQ+PHRkIHN0 wMqnPLvnBCLedM7eRASu E7z5RpItKfM8ILzeH9Mw DHHjdrhlMg16eT8kJsKq UuX9FWhsK0AvssP8 AWVtiKOzJInyBVR9O73g h5O8LMYhPBFxCND6bVV2 wC9gpZqhuotqoLMuoJbc dmVydGljYWwtYWxp L924OEGbiMfsHgA3GbS4 AjT3CFM4K7AbOaq4TRMi lFnjWT3csTUpASbkSv5y oRganMjsGP1iODMg ujlkXFWhdA0fTPOurHZs mGuhPF5eFYTmywwhj759 YgLtSWX8HEKtnZDdS5Vw pJ6jGuRuKUPgMPHg V9KdmCGdDFgrE610CLyy WjA9DRQfdzWnM0DiVXYw iQtdJuC8q0I9Ky7fXxQG ZWFyczwvdGQ+PHRk UME8jQqvFBczGAVdkE9q MKWdO7p5PtRtGoK3COqt G8MqDNUfhfoxLj29lB8m YpJcDtA8GOuyK6Tu taE9VEVcmNWhNFouJAK1 K36ba3M2RPLnAQCdJLW6 hKB4hS9keEemksrbdCFz dDsgdmVydGljYWwt XWdeV306VTJtjElpXuIk bWFsZTwvdGQ+PHRkIHN0 mVvbGEweHATkoV6uMWNy B0i7DxSmKxG4FJph Z0TdSZWvmgllQd03tE6n OyAfCnM2QGdtD4VhacF5 CYUcgPZgNWxyWHB8T55o f0S9LPScRAMzBDU6 jLY5rB7kjVvelhcopIWx dDsgdmVydGljYWwtYWxp Y094DHYlnEdkUn92mJLc fArwdxD5H1NwNzrq dHI+OC73LWDdAO31hUWe zWRwu8iacEi9GgFpXNRb CYR8lLqcEKkiq7PmQDCi V67bxSSfd9N8DUOo fCgbqBTkErRlhEA8uB2e XKvvssnhz6xmceimIlxy e7sood60rJ87T44tEFey ZHRoPSIzMCUiIHZh wOzkeh8ewO6cXz0+PGNv nBP5pEV1rD0hZfYvSaC7 UVktP237GmDcsJUuPyrs h5hmw8xywVc1UnRx HQLmfqEglOovMTL3r3Cj Nn95E77lTJglIBFwCXYb TAPkAEYzyUjywk5ehJ4v Ii8+RW2qh6htug55 oM33hBT+UWRxOFP3vRdh MPkaIVXioJ4mFWjsRxM5 CCOvEqFmcJ21eHSbYVrz Xs4rrLrkoWwcWF6f VVRmjkidh172WaCfx4pz NPHlzDRwVEmcRNM1D74p x4T7RRSnXARjPVB7yEF3 hY3smRnbvmcdkSNw dDsgdmVydGljYWwtYWxp S561TDIpvOcuPfSynQRr B0rqcuABAS3kEbibhXB+ QQGqHPF1oDtqTMqx ROCwgD6eFGJhS9c1WiCe KvA6DOvbV9AwmvM4QCZl gRQzAVSfwUYIuT3nqoaf z2avnkpgJoNkJBBd JFw2SAu4CBRxeVmxBgGm JKX8WgK0POU1pRAplD4a tZzomudwuE5hQvc+RklO OjwvdGQ+PHRkIHN0 tJjnSKbvJYZihU9pPODh J1o2ZeLiKhO9LXmsN4Yv ilT0FKWvsOBxQAJgyOXD gV0mtsmdr4uzygdy YzCjCHNdZKt8JVq7JNEq lHhxWjXsLQR5KdT8TPQ6 hZAevM3snGyjmvofeQ1g Oyc+TVJOOjwvdGQ+ MMKlTAY1yTvrNBpyTAXp nG8kQAEuO7o3BrSvWrK6 FKcxP6DfcuL6CWXznVVg CMEkfJKTaB9jcskd l5ntvavgIoSpOUJxNSb1 VPj2NGBkjFyyLgPqFUK2 ArC5ARR0oUJhgV4ccNku lksztE4jClw+UGF5 OMZ7OH62ZF29D7SiNnll dGFibGU+PHRhYmxlIHdp ZHRoPScxMDAlJyBzdHls NA5bRl8lIUJjAZRo bGxhcHNl (more content not included)... [facility] Coding Summary. CD:[id number] Ww+PGhlYWQ+HX7IGRNfF 96koBMonO2eG8FADHaXT ywgQVBQTElOSyIgbmFtZ Q4csUAeBOXj IC8+FQ9oFRYjGuydaWRs l6V7aLM8S35ovu0jOLdh xIE2DZAaOnCtanbes2bm iZa8GIncVccoYwVy CUZzhO39GXH8oB45Hj39 fRMdwIUkr4ofcCm5WaSb FDHeXME4hUsuAZskp6Tm UAZiF61mlYBfs8B1 IGNvbGxhcHNlOyBlbXB0 iA1lSRzvjjdzn0pxbztn Mzv6yy29bBMir5E1lKZ6 X2CmmlM3MJCroVTr UnmoiYAHyN8fabjws1dt aezbCaNlJXZnEEj0MIt0 WSIqeOybGtGxOF31FYR6 ZHUvgqYpA3ThWSCf pHwhSjJ1h5P2Gc6CJ5GF XffwF1GPOKOLJDaqaUL+ AR83ed88Y3BnOynzNzl9 FZCjWMI1dAR3wC1w GTZvFWynk2N7dKP1N0Rl mjQssx2ae9lsSIXgRYts E99mzGKoi4B3CLBheBN7 HJOaaXtgSaUdoM20 Oyc+ZVKonXaxm8QyEpru h4lzs5jonLw9FythYOVc qnBvwCmfRGX7a4BaGf4p OKJacVS6pNP4wC1g PcDjHiA1ZQhxC065CrSv lVHqCofjP75aK4CuzNH+ DQCaXfj5IPXzwGppHO2b C1LdPMJyhssdwPYl mEydWT9vOPJtaneoSEKz pX5aICIlU5z3XlUxKrC0 FMnhM3RoXYQvmelnXi53 dF1zRgOwUbQ5NTxl M0ZutoG0NTVdrXOgVRrg GFR5T53fd1Y4LYAcXXUf DIU8uHH4lX9aaRxrtnza bGVmdDsgdmVydGlj WJgkTYjdH793DBDmiGfs PkNvZGluZyBEYXRlOiAg MDQvMjQvMjAyMzwvdGQ+ ARJgUWI5dYsmXWZn zZFjNQywLl7wuKrsxLgv AH1pQLRghkahIZFozJ6a QOHjqDQxrLufLM2cRSRf tbgmk177KoHjGUN0 NQGgwZPhZ4QgkE7fEsNz AUOaZRAqJ9SgwJCxNLpj X338LJxuMoT4UYUhfsHj B6QrGPTpbNaxOkG2 u5Y6Be1Qg4TwfcfcA6Wg hCVcSiNdJdarMAl8N5Pd PjwvdHI+YR54UBBtFD36 VXc1MYG4pHijEOtz KPEgA6QjlR2gMsRaOHTu ZGRkOyc+PHRhYmxlIHdp ZHRoPScxMDAlJyBzdHls CT3rFz3gATUfCMPr uYfokTVlTtSgr4tyJNQl CKecCP3vxHrpE0BduWA1 MXWjs3j8Yw03L35nX8Wd dXA+SJInoBJ5kBE6 gB4aOdQkJfH1NAqmG231 InRpnXCgYezgh6vqe4lr mJp4NhG4WBSmfmZkzExy WMU0i1DgSe39Y96w IHdpZHRoPSIxNSUiIHZh vWhoff7ykE2tKu6+PGNv sKH3mCF8fH1rTtKiYnY1 ZMnrM890XkGvrUIe Mccey5uia1ofeRz1KxBg NFVtmwTpdZjsQIM4f4Be Ni02M0HxqChhe5ItWpf3 aj79nGPzl0V8gTF3 E6QaTZRrfzldjWPgzZty UY6oLGDvgkdxNIJezS7m FFExF0i6SlVzSeG7GVot F1GbqcG1PLEsdFWr SPDtpLKFfS3hjmgjb5ed uyebLdXtCTHlKDw9JYg7 KXIeqMooRyAnUCU6FhY1 WRR3oKGkaW6mqQpy hizvvT4eBzm+IOQ4iODe wMKLRV4fOtmbrZN+PHRk IOD7hVeaOEmtSPOjhD3z SNKxN8m6UpLtPeJ1 ITbpQ8TvufW3MLMmwKVo PMAyvCFWmW4uzebyo6gb krocMiSzUABoXYg8KKp8 LWFsaWduOiBsZWZ0 MpM7STN5xODzhA2ekBov jdwmyO2gRaj+QmlydGgg YQQ9EPt6U3IqGxt6LVDa tRoaLU1mmOKaLJak Dj4bqRlgrVpqZV9qLVPk plevs450MeGkd6tbXUFh jYSuZZpoDHB2L15tf3P9 RDHfYNLiHIT2fMZ4 nD6wnVdcopgwxAUskEqb vdXvdNylAJfrVKpnW880 DFBlkNyqOeXrYHl6S5Zp Jiy9TGGbaZkkWZ7u jGDpAYisRr6ptVtubRfq UV8yCVTkypiqk210CwYv u9twEASfoPPnZEmrXUF7 H95lh9S6NOLcGXEp JZU8qVK2fJ5hwAggyxnp bGVmdDsgdmVydGljYWwt VLgkP007PFRrcXleSgBo oRd6F3YeYbb1YUEf kOdaRA0klNMgSIubRm7r nRcgmAaxKE8eZALuwrap l520LzCqb1trUWVojSBe DYxxOSB4Y09vl5V3 CDJfDDQeAQF5hEE2dM7q bGlnbjogbGVmdDsgdmVy qFivQMliZNuwY032TOWz cDsnPlBhdGllbnQg XVoqSSk3I8EzMydgjUA+ KU81JZToJV43zRNlmWGo r0vcsTz7TmPyWSQmCKD0 qLihPPudx6XxHBCw F87nvOXya5G2VFYnrFya eSMzAgGfbHI1wE6zVHnb qkecc5lvogweBuxsn5vk ui37vB46O28mUWch ZHRoPSIzMCUiIHZhbGln wf1zwG7wIb5+PGNvbCB3 oHW2lQ8qIIWiNyG4SNis R422PxHvsBNzNsrp q2lcw4fbkWs7DoX9CQFx nhFirSeyQAG7u9EiOp48 J39qENxiBXDgESKkKNBm RRCxfCdzmv3kdF0q Ii8+ZMDdzZJ9cEI6qZ1a TbDnVzO4PYhnL020ZjCt eGMlEysgE45yP9WhrWL+ ZVSpByw8HBIxqGov DU8psZXgYWbaJa6rGAQ7 PnHkKaTfYVxjG1IxHPGz texmjfrcnKC3QDIwLYHg zV88Lr6lrIqxAAJk zFWVsR2mqehkv0nodupn NnPdXQSvNQh6PHf1YEKj fCvtDhMwESR8LsZ8LSR0 hLQwbY3sdUbgevaw eL6nS4JzWMJpoppmFh20 gH3rEmUcCsP2UTkhPfo+ ZdHMY8rvLNiGOBPEKdJk TjwvdGQ+PHRkIHN0 yOorYSmpNWVulQ9xTVNl R0d9XnRrYeY3UYowS5Fi DPTzqrkjXf63qY6uFmVv UtN1RUhnV2CwvgC4 RLFkbCDqWVciRGQ9B48v d6F9NPWyUUCgFKZ4vXG3 iX9etCryyaqhpGRurSgc dmVydGljYWwtYWxp A477KXRktOexPnX5LvF1 QsL2KUZ3T0CcUxk9MGAx yZxyEO7haMMcNNktBa6w zGvenXtgWR0eKKTn faszTWXoeD1pZGSsaNQl vLcnZM6oYTRjpgijq524 YbSwNOQ4WEKmnGRzS7Ni vX9yEkXiKSYoEVMv W7XyyQEbUWqvT480XTxs HiE8PHQmotXrU3IdHFRi xHisLjH9l2R6Mq1yGaTJ ZWFyczwvdGQ+PHRk YNA2gSulAAitWBOluQ2j XTBtH9u0ReEfPdQ4BJld O4VmJITwhzymQr47qC2b StVhWrA4THabH7Tj xgT9GGFquQVcGWuiBFU2 B96ha6H0POYzLYXbUJB0 fTD4tH0goVgjommjcIWl dDsgdmVydGljYWwt TOgtY142PLKciPqjDeLv bWFsZTwvdGQ+PHRkIHN0 oEnhFOyaAWYywX6aUSJr U1o4WpDzRmH0FUxc N5FnPZCbfkyjPm49wY9h IoIlCiH2ZPufW0UpfhZ4 QCGbmTIiDMtzSRB9L65o g5S1BHLsXLUtCEZ2 gLW0kE0emQfnrkozxYGy dDsgdmVydGljYWwtYWxp K402ITYxmMnfUd15mSWh nRdxvgJ6O3KsIwrz dHI+PN65TPSmAK07jLLj rWSbz8lcgVz3StEzCWOc KSE7vQnwNWaqn8MvHHUx B13hlLTwb0Z6ESBf eDqbeJCqIaOgsFV9rV2p OJvsrpzed6hfgghoFqga g2kykq09fR35I24eFKpk ZHRoPSIzMCUiIHZh kVhogy3ixH1wWt3+PGNv yFV5lNH5lU8kHkDqYwF5 URhhU656GoPngNDtTasb p4azm0cldGs2IaCv ZPAaadGbeTeeZRT3t2Mz Ep59S24mEZovLYLpQZAz GCTuXNGawOoijt5moP6g Ii8+LG8nz9plze99 bN95eQD+PWDuNHH2lEjv WRjcDSDibW6wHOhcFwZ9 AOPiDjHliD28zLRyKXrx Jk9qjEwdaYjrQB7r CYJdsfcnu801WbBwe8yk WEYmoKOqZBatUZN3Q11x p9V4HZDdKEPiPRF8kTV3 xG0hmNxhflbvrXWj dDsgdmVydGljYWwtYWxp I431JTRtaOteIfVghEZb I0sjgrQYPV1pQqykrUW+ QBZgWTE8qOgaOEom RLAqeT2zWOUlX8m4SmYy OmQ0JHgiF5BdedV4ITSg mFWjNKZxmIVFbG8bexot j7psctymIcJwGLJr FUk9SNf5PIAhsRodJkZp UZU2VwT4PUY1sNYkrV9k bZavrhtwrX0gMvc+RklO OjwvdGQ+PHRkIHN0 oHbvWMnwOHOihW4bHEKy N0c3BrZzZxV6SUbjX5Ek uiZ6YMBvvVRgUPAysUDF cL5ddnooc0jcoqxr CeDeXDWfZTk7DFr5WHYq ySrgThLsQAN4FeP7YYC4 iTDbaC4dnXuczlmktY4y Oyc+TVJOOjwvdGQ+ LWEsUTK6eVzxJRchLIQe nM3aCOFdP0q4SqGrKrB2 DStiB6FmidJ7TXTblBTa JPYujXBVsN7cgldx g1gwsiupOwOrYUAyMDo0 YHe4RNTjaIzqWcPsFQS1 QxF0BKI7iJSmsQ6kbExm kjfutB3oKdp+UGF5 KHV5JV31WR75N4ZsZlig dGFibGU+PHRhYmxlIHdp ZHRoPScxMDAlJyBzdHls FO3oPj7zARGqTOGn bGxhcHNl (more content not included)... Normal [facility] RPR with Conf Rfxon 11-28-19 23 Reagin Ab RPR Ql (S) Non-Reactive Invalid Interpretation Code Non Reactive [facility] Comment on above: Result Comment: Perf ormed at: [facility] [address] [id number] PhD Rick Lee Performed By: #### 1 [id number] ####[facility] [id number] [place] [address] Consent for Treatmenton 11-08 Consent for Treatment [id number] #1.00CD:127 Normal [facility] Gest Scr Glu 1 Hron 11-26-19 23 Glucose [Mass/Vol] 79 mg/dL Normal 55-140 [facility] Comment on above: Result Comment: Posi tive Screen =1 HR > 140mg/dL Performed By: #### 1 [id number] #### [facility] [address] [place] [address] Hct & Hgbon 11-25-2022 Hematocrit (Bld) [Volume fraction] 27.7 % Low 34.0-46.0 [facility] Comment on above: Performed By: #### 1 [id number] #### [facility] [address] [place] [address] Hemoglobin (Bld) [Mass/Vol] 9.0 g/dL Low 12.0-16.0 [facility] Comment on above: Performed By: #### 1 [id number] #### [facility] [address] [place] [address] Physician Orderon 11-25-2022 Physician Order [id number] 0#1.00CD:127 Normal [facility] Physician Order [id number] #1.00CD:127 Normal [facility] TSHon 11-25-2022 TSH Qn 1.99 m[IU]/L Normal 0.34-5.60 [facility] Comment on above: Performed By: #### 1 [id number] ####[facility] [id number] [place] [address] Coding Summary.on 11-24-2022 Coding Summary. CD:[id number] Ww+PGhlYWQ+MO6UUUUfY 74puPVrwY3uV5BERTdWV ywgQVBQTElOSyIgbmFtZ B8ryVZkTPGs IC8+VC9xDWZwMyfmwJVh l1W0gQD2U14gdr2lHXdl cJG2EKFlZmMovlstz3qd nRe9AXygLsevBkBs HKLyeK36IYS7pN02Fz10 eYJgrWNww2kojCk4GuVf TZNyMNJ9pQauRYqqh9Wa RLSwN23bpKJdf0M9 IGNvbGxhcHNlOyBlbXB0 wD8rLAyqwgzkv9umodaf Nmy8my62dGLft3S5yPI1 M8LijrK4YJJftTAj VrfvyRDPcQ8ysdmbp8oz isxtEeChYTDhSRs8BPp0 ZYImcTceSdCmXL66WCX1 IMLemtKjI3QrUDJb sBglThQ1u3N3Dx3WG0OT VrwyY9UPVSEUNNtrwNV+ AV14lw79H6PbChskOpz5 TFSnYDP8uJP9bJ2h DBYgZWokn9B9oRI4K9Im blObjv5vk6ubSTVgYPxd K11ajMCma9U9JCPiqFK3 DEQrlOgoCnTgcA96 Oyc+QBLpiOyan6GyAwex n0mdf9zloUv7EadzTPCm tcWblFoaNSE4k7PwPt9i LCBbnEK2bYD5xI0d XoVnPoI6ZUqzC614UqMy yCRaYtpxU52eV7VtwQP+ QLOaGmt4SUYbkUrlRO5n U4XiZPHieatdvOTk oWbvCH4zKJEftprgHXHr rR0vHTUsY6b0HwXmWxS5 MEltC4ZuFGOjqphjCx92 tJ2xFcMaWiA8SJbe G5XqbvP7MYJfxZLfXMhu LQY7M50xe9E8QHJbGCZr BUN4yHA9sI0nyTvxjjgj bGVmdDsgdmVydGlj IWcyKJfhU491NGDtzYxb PkNvZGluZyBEYXRlOiAg MDQvMTcvMjAyMzwvdGQ+ RRSaHSR0cAqpVJZx oXFcUMemMs9liGysdPyc UW1lITTvlhwoQSQeyU8o ERGtsLNsdIobAE6aHWZm lvzpj102EjUgOYN3 INXauMMxY0RftG8lYfDo RNPsDPXaD2RxtGMiLExq Y917WCnpJtN7MHHpzqDn H2LbRUCwcOomDyT6 k2L3Jw0Xh2JelokyI5Ci jJSpMePbIrszDLj3Y8Qr PjwvdHI+VB51LXDtBW98 VGh1FMW0tAzwQEwe FLWsR2EwvW2xQhJlKWBb ZGRkOyc+PHRhYmxlIHdp ZHRoPScxMDAlJyBzdHls BG1dFt6sWMGlJGUf cPzduPQjBlKrs8wgIQGs KWscNM4lfOcsH3ZueAA3 FDBxz1n0Ag20N01hG5Ov dXA+DCUpvWX1tWE3 tC1hRvBeKqN2GEjaW358 BgCxaGQjUbaac4cxm9zq iJh5FrO9AVKdomAsePjy XGN5v3NvJz01F86t IHdpZHRoPSIxNSUiIHZh gCjujn7rbZ3dYg2+PGNv gTT6qKV4rQ9aNjPgMaF0 QAggF885VdNrmADd Wjaso5phl2rxlLq5NwFd KTSkneNxtSvyOSR2c1Gb Dr80F3DprGrcz7VjQin7 zu42iFWpd9N9nIF0 O5EiFXViwtvgfZQumByf LJ8gKJLufesfFUAugC4v KVDfX4h6XdOsMkC1JHzi R9ZpsiU5KZNwrHSt APUmjXTZeI3xbhuzh9dx dqwsZlSePZPpMGn6FLq2 QEVjaDdbUaOaAWG2YyS9 DKW5wMPyxF0frIji nrmneS0iTvs+LXW7nXWf jHMOPG6sPuaqjUS+PHRk IMM9rMlpJQsxNUIukD9k YGRpO0l7WeRxHgU7 EIqhV5EavhC4AYGdiWJe RDQfeQEBqA5bhbjcy3yz cwrrClClWGFyUYw1CVm3 LWFsaWduOiBsZWZ0 UmC6VSV2aIRtpA3gxRra lkaqaU8xUje+QmlydGgg CUM3HVc4A4PaSyq4SDKt bVynEY2ghBByFAbu Cb0wbIyadOqiKZ2mOVHy axnfj469YjNmr2pyAUKo pPSkVDjvDPI6O58ch3G3 WKHrQLJpHBF5iXU5 fL6okMktwydebARmeDfw vvZqbGcaUNnvIVhrL054 RNKsaDxnBbRqHAo9D8Ap Jcg7IZKymFseVA0u oKChAFamVq0asZixiSom VD3jBIXudqvhc786GyNg c3atVLLqyPPiBLokIJL6 M61zh6F8YUKtLIAf CSN5oII6cF4poBpqttjr bGVmdDsgdmVydGljYWwt SWtrK565HIAviPzkAzAu dNk8R3KgZtm8TJFn yAwoES3sbPHyTKaxYs6a lOroeCdtIS8tXGNeitzr k373McEqc7haSAHzxIFz YCodZHQ3X16eu3K2 RKOtYRTkZDZ6bTT7nF5v bGlnbjogbGVmdDsgdmVy nZnvHZaeELbsO925KFMp cDsnPlBhdGllbnQg OJxbCFs6C8VjXlkmlUZ+ QU47GWFsYE09eQIqsPEa r8smuQo4LtKhUWBlEEL4 nDeoPKfcl9TcUJIs J67jpRJqt2B7UPRadLyr uNYhRvYyxIW8pW7gKCjc aagdf6eztjvdMdwcu9mt bt15eO38S62zLIxp ZHRoPSIzMCUiIHZhbGln cz0bpR6eFw8+PGNvbCB3 qDV3zO5eDLHcIgS9FWtc A727EyGmuJNtMsvi j1kaf3iduZx2CiN7SXZb fxKsnCtrUDZ0r1PwIe15 N59dWRuvBLPgFJCoKSHy UNJpeRrasn5zdM7u Ii8+JHWicST6eZP7rX4x UkHwTvE2IVimB329VtYh aLOqMpmwT66bD3IifRS+ DJRjNhr4KMGawRvp LA6hiXVwLJluNk4sLIW4 JwOmCcUcXDehL9McMJOt vxknoqdyzBF8MEEdWRTm kX14Gf1fjOruMUZc dWDGkS4krkbpv6rjxqqx IjDkWTXwMMq7UUq9ULPj eOwzEdSfSAQ7ClZ6CWZ6 sPHthL8iyPbfhtzm gG0xS1TfZLCuzhnmRc19 uU9xFzOrUxV7UWyqXyg+ GaIWG1odWIkOJRVBZwGj TjwvdGQ+PHRkIHN0 xRpzJWexEBUaoM0yAECg R0y4XcVgDrL2OIaiE1Af CGCymmgaOx17pA5hIjNo DxW8PGcrV7XhymI8 TUXovFOzMMhaAMK1H91z m0K7MTSgAOOlXIR2pKD9 fW9zmLmendlthWMisKlg dmVydGljYWwtYWxp V691LQGunJxcCdM1UeR7 GhI9RRZ6F2KuVyt1LQZi fSscWB7dmLTpOUxwZw5d nJdtjQekHR9qKTRj erlzUMBanU5uXPUctBMv bMbyBY2cCDWnnosgu400 HcRvPQV5SRXeeXZxA2Sr nY5uNeQdFSWwUPRc Y6TruXBpADaaH277SCwa AzC7CLAmbiDsJ9UnCMPo rPkaAuV8i5I2Wv8bDoLT ZWFyczwvdGQ+PHRk DSZ2oYruPWocJEZlkE5b KKSdN0s4WzGgPjV4PUci Z8BjRYCfqickTa28eB1v XfChSoP2YLuzW4Xs rlB1JMJwkSGfWUyeYBZ1 G19hs9A0KUCaROMeNTU0 hKW8bP9dsNwmhjtpxNQo dDsgdmVydGljYWwt IXqhE000LDBfhIrsMlGb bWFsZTwvdGQ+PHRkIHN0 dYcdXXdaHLLafE4cHKRj J9t8DiPxHfG9PLns Q1WcIRVkmoqzIp82iO9i GuOiYpG7AWpyE6PjuvE3 ORDvxGZbCPlvUPG4N22b r1A7KYYcFZUrNSJ3 oNK4sZ2feFmbxelcbJCb dDsgdmVydGljYWwtYWxp W864SJUbuGyoYd33vDOu qGvpymY1P9XgIdus dHI+KY35PCIeCF23kCYa jXMmn5xjiXq8TgWrUHPi EPD2hTknRJyuv0EhXUKf A81qvHMvz3G6RQJr qFputYIdNiEyaIV2qY9m OBmmdlroc4mhengvDara o9osqc30xA49B23cMAty ZHRoPSIzMCUiIHZh bRcksb3umA1iDl3+PGNv yLY3kYO1qT2sUhNeFnS2 AZmoF348LuWpjIKiJpus j2uwt3gkcDa7TvUe ZBVaopUmnXyySRO5q2Zc Wn85T89oWMnfFCJaNOKp QKGmFHPpeXyozj0neG2u Ii8+CL1tv9wohi99 tO29lMR+MXVxDGV9kSjh KLuiEZByeD5dIRwdItM8 WNBfTmBjmQ57gSMjDVvc Sr8qoWakhOvmNE6p SWUhakigv108IvKyn7qk DMRydBCuNCxiLRZ6B10q y3T8KEFsIWWsJWG9fXM4 fQ1fdMyhguzuhLWc dDsgdmVydGljYWwtYWxp G936MUJefHrgZfTzqQUw M1belzQYIW1vCwuooVO+ LILdUCE4kQfiHYha HYDwdS8lTBQwS1n0LkJi TyY9NChmN7UzgmH0XNBa sBHlFXXauRIBuJ0dokcb c7yuniftXsJxKWFd GOr9EVf9EKBljGucTnLt IFI1DsO4KHZ7tLPvtP5d fInjkaubpX8eRbx+RklO OjwvdGQ+PHRkIHN0 iNlzIMqdZBSlvN2lFJOa Q8x4PsKuDsL5VPdgP4Os jsF6TRGgyCMnWXKgwPEM wI0ozmbap5zhgsiu TtWkLAGdZMe9AQy4XFRb oCurKnDnGUU0AqA0ZOO1 yJKjnI9nbTbhaacrdM2x Oyc+TVJOOjwvdGQ+ OIXgXMR8yIwbTAgiHMAv tS2pRJHiM7r6PcUySrC7 RKefQ0YrrcY5QUJegXTp ARNqbCJRjO2giflw n8qljvmcElQpUMUrNEv0 WJx0AZEgbSwbLyAaDHN3 LeX5WBF5yPUtjP6pkSne cfkihF6vAab+UGF5 JSI5ZO20OT34V8LxNtkc dGFibGU+PHRhYmxlIHdp ZHRoPScxMDAlJyBzdHls UK0hZv4uIWViGAVd bGxhcHNl (more content not included)... Normal [facility] Physician Orderon 11-15-2022 Physician Order [id number] #1.00CD:127 [facility] Coding Summary.on 09-03-2022 Coding Summary. CD:[id number]:[id number] Gh0bWw+PGhlYWQ+PE1FV FYqP17esAJsrX7IU3nNN N3RKPVAOWJHCD0WVY6cm CR6CKgrE7FyypPv SyhfbWBmRG55TXz1SKC9 vWkiZCcnhU3khBKpJ9q9 GbYbTR62bT23DXidYEOa HxT2JqTsjeejpTSr Q5qgYcHxpVZnMdg+PHRh YmxlIHdpZHRoPScxMDAl EbYghLihZM4jTx9sSRJo LWNvbGxhcHNlOiBj c0xmBKKhQRfgFI1ojJml O0MpcVK8VWOyu6v6Tk20 dHI+FDFgVEE2cAzfVLtl r765OtQze6neEBE8 gAKaHGlyOBC0J32hd1D2 DHXuMCLnJGG0cUA7tH9c oHdbbvpyY4NwwHCkMrN5 HGT9bNHodQ9dqXzg egixrY7pPom+V12CAI8C NFZUNR5RTfk4C0SnHciz dHI+TI61GJPvGA25jVAn iRNrx0ugqAa4ZwSq XOYqOHF8qHgdBKlgk9Se HHArD72bmFTgz5S9QRIj zScbvNGzLlCakMR7dU3e BMuqqbbhi4zzunua Cyrab5tcwp51kJ19P86q ZVhiYUPxAYG9AJOwAKDi nAwlcl5ajY5xJj0+IDxj h2hfy2jkiUz7MxUj COWyqaCbyGucEKE3p3Xl Bs79P5MvmGlfy9EbGcs9 yr12eSMsu6G1jQP4WMbq LKWmuR7wUGyaHnG1 JLUnTfTflH35sUDnEZqz Uo4bqNsryLehJY4pHLLk llfgWUWvmE1bTLEfnNIm tUzlCY5nFRHsdhqh w255UwSpAKR3IHYptJTu H7JfcS1rMgFlZRCwFLTs C7BgrSZgTCwrA057WFtv FmF7DLWzlsZrG8Mr LDOglBjeHlY8o7R9Ev4G z5EbvnwuVCB3OKkmYOEd VjQ5RzWiEpH4W4QaYqd7 XLCsmStdWS0vC9Ae SOKoypnoqzibvKX5HKGl UHNsrS78iPCrCRepXb0k x6Z0f656ZGJxUEBhiC52 Uv4oaYuoVZYqyEIH oQ8gctzan1pdwomsApYj AJVeZOg8MYl7XHXijZgq DsYjACT3CvN7FUO7tCMl oU9unDddkresxV0y Oyc+L56uuC7yLGK3YJF9 hzjeNMLteoEtBD98YF59 J5GtLpzqfWMixUE+PGRp puQamGzoTQ6wXnSj e0mdq7VkXSzhB9MbVUNn KOsbUvu4ESEyHPJ9hZZ5 sN9rEOMnRKgjt0B4hPK1 N2UloiDbko8yd3bs DRYaNJctD20jfEVru5V4 QYJgqXN4VQWcqUquZxEy xJ87Sdg+DJJigFneh7Uw Stotf1cmi2utpAu3 IjMwJSIgdmFsaWduPSJ0 o2VoYy24K56jRMfgLGLk ZTBkDXRxRWYbcItyrn7d tX8yUr7+PGNvbCB3 iPL4xQ3mPXJaWeA1TXhn X163BzFmjXTeTxqgq7oo i1lihQz3XyFjNTPsxtSu fLyzTHI4x9LbEh48 A41lDOnwOFBkDPNlMESg YEEtyXlafp0keQ1zJv6+ RK4sf9gnxk69pM28zTR+ DIJgKEP0zMsbWOon SBRkiH4dHXxlFuE6YRXm KmGvlI66cNNtWTtuXi6a mZagyEnqRT7oCSKpknvd s870CfIwq4taRORv gPZhRHnrZAF8T61yg8V3 ZCWrFTGdUWB6eZA6hV3f bGlnbjogbGVmdDsgdmVy zBvjOAtsHOqeL499 IHRvcDsnPlBhdGllbnQg ZzFxDTa7V0OmCor9LRRp mGxnEL7zuEUsIJarWj8p xXqauJmbQG0rYTTv xluri602SfExn0yuRVRn tOEtWPnnCDE7Y57ze5L0 USFyBKNnMDU2aPX2wP0x bGlnbjogbGVmdDsg exZfsRfsXInlIOmfD065 IHRvcDsnPkJpcnRoIERh dLG6UV68UJ50ePDnt0L6 uMO2X8NsVZVewlbt huciiMM8SHYqBLWkaA55 Wi8wbVxuBx2jGLAhAZR6 OPBknFBxQ9HjnL0sDfSw DKAoEVVvP2VrdREq FUmdG239THhsZiE7BRFo leFoT9OcUBSuvAjpVxK5 t1X3Lb0FA7Y0BG23FN74 mMDwz0Q1qMS5O1Hh UVBmkalnqigqjIZ8EAJe OMTweZ77Dn4pgMaoXq9a SPWcXPB7LDXmvOXhW2Qf oP5vAdAfVIEyDZNk L5KriFEwJMxmO157YIar UnH3PSQipiAlR2YzZKXq pKdpUqW3e2G4Uq1EUFn6 TO52MT95wHKte0Z7 iWZ3W7NyUVNtwenvvnjh eAS0PIJeWDBidW80Xm5x sAseCv5zMLEhXTA5VJTg eZEwC5SmcD4rXtPd RNSePTSuH6OjoEAzRQfm A358WUmvJqH8JNDxabXn H8PhAHCpmMueEeZ4q0F3 Cw4PVDDlWV91CYJ8 uJI3GT93AF71H4PpCkry dGFibGU+PHRhYmxlIHdp ZHRoPScxMDAlJyBzdHls QP7nRm8pCUKkULKf kQspgHZgUiBvv9ckMNRi JAkoDO2agMryF4ByoKD8 YCPvy5n0Xi29S13jA6Yj dXA+XKLpdKZ8wOA7 mO4xXvZcQmW4HAhzD804 QzUyiSXlExxkz5nyv9dt yWn9UwZ4RDWylnMqbDsp WSQ5j9EqUp84J44p IHdpZHRoPSIxNSUiIHZh lZervq9idW1uWq7+PGNv yDB5gWM0yP2sTkXmGaZ2 DIqiQ796BnAlaVKp Tqpma4krc6extFh2AzWj ZICkqeGxsPbgTXB9f8Fv Rj29N0NdsCjco8DbGwq6 bx29kKQuv6W8pVC3 D1WfZQWzbmijkIIoiMac GZ3kSUGocowjBBIbsY8x DXWmG1p3HvUvLuL1MUlj V2QxpvY2IFCioZGy EBrvBHC2F02sr5D1RAMs TWCuRAL7vKK7nT9ijJme bjogbGVmdDsgdmVydGlj CJibDUzwD968ZGHo aCdfPUMlxQ1lFHDgzVLj aBsuAC6jSVGhnoltHkSZ YqWTWLXVWQNCTO8ZKA40 Q9RbMsk2NAGxbVlx YG9dmPNiRFvtZy9blVqs dMmyWI1aABKuigyuOASz jA8gLFSriBJfpJjpSO6d RIMocxrbp404KuDr XNM3LVCpxVPjI5LofP3u FfKjRCQkBSZmP9EltLPs EAozY257PObaNiA8TFAl xpRyG5MtNZXtsIlh KxX9z6V9Bg8kBD6uPi0e APx8AB51NP72gZOvc6I3 kVA6N1XrFGIvwlrhwjzy aUE1TGIiLVLarS61 aTIuGZiwTg1au3T2c685 GAZaLYNpxU40Ya5zuVyb JCLkhKSGmZ5staotv0jf cjogIzAwMDAwMDt0 VGc0MUAsiCqmOoAmFEO7 PcW6AZL6qYMdpU1vuGpo vggtxE4bZkt+MjYgWWVh cfS9B7HaAbh0LLWp yMroWQ3ujPYpJSmfNv1h aQvpzFstNL4jWKLsfxun YANitB2eKBAltHKuxSjr TZ3hNZDudtlsv671 UtNaBWV0NBJmzYLvB2Re kQ3iKeMqGDQwOTPkQ4Ua yZRkUSirC385CDvgCkB2 RWPhbmWyN6CjWLHk oUyqHdA4h3G1Iu3JSC5g sVP7B2VrNix7MREpxCko WQ6urNUbCRfaPt7ifKbd kAfmIZ5eBFDopyzq JRScgR9aXJPzaKJhsGzn CI5aODDqrsojt060OdSt MCH5YWVzkNTbL6VvaM9t WoMzLRTuICJhZ0Yc mDBvJRzhW336GOblNnI0 LRTpbsCwQ2DqRMNmzEma RkR1b1D4Jn8MvHFqJDHw KG68CF97WG85N0Is PjwvdGFibGU+PHRhYmxl IHdpZHRoPScxMDAlJyBz rHzoRW1eYe7fKSKgRVPm zGexrCSiVmKky9dn FGUbJHscXI0eqSerE1Xf nRM6JCSeb1k4Lk54M64f H7BssJV+DJCgbIA3jSQ5 rL5eGoJbBqW7XYgv Q437WfHtdBIxRgjvu1ic t8hdrHc8AjLvITUfkzLa vGseWFM0r5WpHc17T17x IHdpZHRoPSIyMCUi HENrrNtcer3peC9lWz9+ HOOwqUM0zMQ8fT6kMsRf ZkV1EQocE137AxWycCUu JhpuL65yD0QuoRA+ FJDuMvj4FGXilUwhPQ9i lAWsPCqjOq5fUTW2DhTf UfCpXMrkQ8ErHZVorefb znybaKK7RKBiLCNk bM33Vx6otHfgNt5aWEFw EYI7SMXhxPAiV5GqoQ5i RbVwPNHeWVTbD0PynCAp YZkaK237MOfaBiL3 RZMusvBnQ4SxFRQkqMsz ZwK8f1D3St8WwRsxfHVt JY9gNaAkXIo4Q2ToAvp7 MVAplFcsFU9yuYNi IReuEx9xwSkrgZebSA6w JYUdqnvqs331MeKoe9pu LXPssASbWUtgQPF9I94u f6L8ATJoYOWeWMO2 pXX7rE1urVzdsvxwjMTm dDsgdmVydGljYWwtYWxp N124KVRvwXehTlCMEgp0 I1RhCux6OTJwfIrh YO7uqEEkSTyfVg2vfBzu xOxfXD1hJKMqxfuhz186 ImEfr7haNTZfaOLwFVeu HCT5S02oj4Y2BIMc IRUpWHZ9jIL0yJ1sdYcu bjogbGVmdDsgdmVydGlj ZUslGWetY490VUHhnJam Kn0RBab6F2QdCmb3 YZDpnQymLL6xuHKcMOks Rl5drHikmSloHI5kBVTk krljl726EnOfq8tzQZDw eCXyQKlbYPC6L30a a8I0EANdJDTtZGX8gIN4 qM9yyUdebxyujCHmbPrl agIgjHrqBOjzJKrpY814 IHRvcDsnPlBheWVy OjwvdGQ+GW97el49E1Cc PjupRta0EZBgXGA3aUM3 bA4sJZGxPQbfd1E9pLR3 T8ImimFjxs0if8nf YXBz (more content not included)... Normal [facility] Estradiolon 07-29-2022 E2 [Mass/Vol] 1530.0 pg/mL Invalid Interpretation Code [facility] Comment on above: Result Comment: Adul t Female: Follicular phase 12.5 - 166.0 Ovulation phase 85.8 - 498.0 Luteal phase 43.8 - 211.0 Postmenopausal <6.0 - 54.7 1st trimester 215.0 - >4300.0 [facility] ECLIA methodology Performed at: [facility] [address] [id number] PhD Rick Lee Performed By: #### 2 [id number] #### [facility] [address] [place] [address] US 1st Trimesteron 07-29-2022 US 1st Trimester [...] uterine body/fundus, without significant surrounding subchorionic hemorrhage. [place] Rump Length: 1.9 cm, which corresponds Composite [...] Performed Transvaginal Ultrasound Performed FHR (bpm) 167 [place] Rump Length (in cm) 1.89 Normal [facility] US Transvaginalon 07-29-2022 US Transvaginal Exam Date/Time: 07/28/2022 19:45 EST Reason for Exam: O09.01 Report PLEASE SEE US 1st Trimester REPORT DATED: 07/28/2022. FINAL REPORT Dictated: 07/29/2022 10:23 am Juan David Mclaughlin MD Signed (Electronic Signature): 07/29/2022 10:23 am Signed by: Juan David Mclaughlin MD Transcribed by: DAVID Technologist: CHET Normal [facility] BhCG Quanton 07-28-2022 HCG.beta subunit Qn 379278 m[IU]/mL High 1-3 [facility] Comment on above: Result Comment: GEST ATIONAL AGE HCG RANGE (mIU/mL) NON- <1-3 0.2-1 WEEKS 5-50 1-2 WEEKS 50-500 2-3 WEEKS 100-5,000 3-4 WEEKS 500-10,000 4-5 WEEKS 1,000-50,000 5-6 WEEKS 10,000-100,000 6-8 WEEKS 15,000-200,000 8-12 WEEKS 10,000-100,000 Performed By: #### 2 [id number], [id number] #### [facility] [address] [id number] Consent for Treatmenton 07-10 Consent for Treatment [id number] #1.00CD:127 Normal [facility] Progesteroneon 07-28-2022 Progesterone [Mass/Vol] 34.90 ng/mL Invalid Interpretation Code [facility] Comment on above: Result Comment: REFE RENCE RANGE Males 0.14-2.06 ng/mL Non- Females Follicular 0.10-0.60 ng/mL Luteal 3.00-17.5 ng/mL Midluteal 3.30-18.6 ng/mL Post-Menopausal 0.10-0.40 ng/mL First Trimester 8.30-66.5 ng/mL Second Trimester 18.9-66.1 ng/mL Third Trimester 35.8-312.4 ng/mL Performed By: #### 2 [id number], [id number] #### [facility] [address] [place] [address] TSHon 07-28-2022 TSH Qn 1.73 m[IU]/L Normal 0.34-5.60 [facility] Comment on above: Performed By: #### 2 [id number], [id number] #### [facility] [address] [place] [address] Physician Orderon 07-23-2022 Physician Order [id number] #1.00CD:127 Normal [facility] Physician Order [id number] #1.00CD:127 Normal [facility] US Transvaginalon 07-22-2022 US Transvaginal Exam Date/Time: 07/18/2022 17:41 EST Reason for Exam: O09.01 Report Refer to concurrent pelvic ultrasound dictation. FINAL REPORT Dictated: 07/22/2022 11:13 am Brian Ann MD Signed (Electronic Signature): 07/22/2022 11:13 am Signed by: Brian Ann MD Transcribed by: DAVID Technologist: CHET Normal [facility] Estradiolon 07-19-2022 E2 [Mass/Vol] 720.0 pg/mL Invalid Interpretation Code [facility] Comment on above: Result Comment: Adul t Female: Follicular phase 12.5 - 166.0 Ovulation phase 85.8 - 498.0 Luteal phase 43.8 - 211.0 Postmenopausal <6.0 - 54.7 1st trimester 215.0 - >4300.0 [facility] ECLIA methodology Performed at: [facility] [id number] PhD Rick Lee Performed By: #### 2 [id number], [id number] ####[facility] [address] [place] [address] BhCG Quanton 07-18-2022 HCG.beta subunit Qn [id number] m[IU]/mL High 1-3 [facility] Comment on above: Result Comment: GEST ATIONAL AGE HCG RANGE (mIU/mL) NON- <1-3 0.2-1 WEEKS 5-50 1-2 WEEKS 50-500 2-3 WEEKS 100-5,000 3-4 WEEKS 500-10,000 4-5 WEEKS 1,000-50,000 5-6 WEEKS 10,000-100,000 6-8 WEEKS 15,000-200,000 8-12 WEEKS 10,000-100,000 Performed By: #### 2 [id number] ####[facility] [address] [place] [address] Consent for Treatmenton Consent for Treatment [id number] #1.00CD:127 Normal [facility] Physician Orderon 07-18-2022 Physician Order [id number] 1#1.00CD:127 Normal [facility] Progesteroneon 07-18-2022 Progesterone [Mass/Vol] 25.20 ng/mL Invalid Interpretation Code [facility] Comment on above: Result Comment: REFE RENCE RANGE Males 0.14-2.06 ng/mL Non- Females Follicular 0.10-0.60 ng/mL Luteal 3.00-17.5 ng/mL Midluteal 3.30-18.6 ng/mL Post-Menopausal 0.10-0.40 ng/mL First Trimester 8.30-66.5 ng/mL Second Trimester 18.9-66.1 ng/mL Third Trimester 35.8-312.4 ng/mL Performed By: #### 2 [id number], [id number] ####[facility] [address] [place] [address] US 1st Trimesteron 07-18-2022 US 1st Trimester Exam Date/Time: 07/18/2022 17:38 EST Reason for Exam: O09. Report IMPRESSION: SINGLE LIVE INTRAUTERINE WITH ESTIMATED [...] corresponding gestational age +/- 1 week are: [place] Rump Length: 0.6 cm Composite Ultrasound Age: [...] Rohan Cabello MD Transcribed by: DAVID Technologist: CHET Technical Comments History 3 Para 2 Transabdominal Ultrasound Performed Transvaginal Ultrasound Performed FHR (bpm) 124 [place] Rump Length (in cm) 0.62 Normal [facility] Coding Summary.on 07-14-2022 Coding Summary. CD:[id number] Gh0bWw+PGhlYWQ+PE1FV RZjH94ypTPgnE6DP9eTL S5DPKURLMFAOJ2VDH3mj MW5BMqaM9SfxnTo CshuwRHeZT10PRo2JIU9 oWzmEXnujO5hjRBfI1j1 PwEmGD17uQ44XHjfEKVn RyA9KfLiyfeukHUc W4xeHyGnnYWlImw+PHRh YmxlIHdpZHRoPScxMDAl WtEeiHfyXK5xPq2zQTPe LWNvbGxhcHNlOiBj h2dtNHKyBPopKX8xiIje E6FdvOG6HVTrb3o0Qd37 dHI+ADUgQEI9tOhlJHhp b031YuGgl5fbGJK0 gGAlCJhwAKI6G86sp6L3 YVUtPUBcKGC9gGQ2mW6i dZwwsrqeA8VdmKOqOzZ5 ELA9hSAdnJ4pzTzd uggkeU7pNaj+H87ZMK1Z PDKNMN8FGki5Z3VzApnx dHI+TQ67QLWlQB51tNXk qYAmy3wuwQv5DdLq WXNwFPA8uJwwICxiv3Kk AAOyS74mpBYqa9B7ZWCr qKnaqIZpZkKhkUZ5cP9y CMtnhvhoa6ixkzmk Qmyvn2kubz80cO83N86q CVagRPDxCAA3WYFsDJGg tJzzny7nbM9wSn1+IDxj q3olt3ugvPu1WzGk PXKndeApbIfqMRT5z7Mv Ag70W5VgeTmjf5StRrh2 qz01rHFbj5L8iWH7ZNht DCWvvG8yMPcyTpC1 QUEkXcYxbJ75mADuSTyc Tw1fmLtsqGnoZK0oDECe fddrWXPhzE5eHHYgnBKo bKfxMK2iZNUvyrvb m135SpDsFML3PMDpxLXk A5SyzS8qTbXcLLPxOGEq V8GsiQGxNXteF816KMwd RoC0USUvafNwW9Hw GGYjlGfvDzR3o1L5Ax3P b8RsajtqHMS1ECpoMXGx NsO9IvCuLbU1I4VtYyw6 SIOqlSssJO5rQ2Rz HMMwqrbhtbzgnYH3HLZa MDCvnM26tNIqMRlyGa6y w1G7o262ZKHaEYCrzO87 Hi2ymPalATPstAJZ lH1mxueag8rdpuajSdWc FSTuOTc6HJu2MLPtfNtn AvGpXCD4LyB3JIJ0dOOw kT8qnCconrfiuO7f Oyc+C22edC8tPSY3VJV8 anzfFOKzsqAjGM92SL45 M7UtLdytsQIviRZ+PGRp wrGuhJapHU7lKyMk h7siq5OnAUbgS7LxNAXk BFtmLrs8KDBdNLY1jKT7 xC2fNJHhOGxru0K6hNG0 S1LizqSsxf1hn8xp JGNyZCagB66dyDCdy8U6 WKXqwJT0XDPscFtjFcWk qO12Dta+GJKxnUzon2Mo Fhqsk0hlf3kbdPr6 IjMwJSIgdmFsaWduPSJ0 z2TvEe95O16mCIfoHLVz YSPxCFSxYWOatTgnal6j iU2dTn1+PGNvbCB3 mLO9cN9mCPItUlE8REbz B948HvGzgOCxXxztf5bw w5vmnIb2DaVpWHKdhwKd vFqsPOJ7v7NfQy29 F78wWKkpMBWeGRDiAQEv ADRonHqhux3qiU4hZi7+ MZ5ft9grfd89vS88lFX+ OXZpHOU9tNadZXkp XRUktZ0rMRhiKrK6TLTv MkZdmL83kADmZOfmUb4e zZctuPeiSK4iLMKwluij y140ItYvu6fdGMRp vTZqGCeeRJK4Z76wj0D5 ANNrQUFmJHO5iRF6kZ7p bGlnbjogbGVmdDsgdmVy wXvoYXplKEonP772 IHRvcDsnPlBhdGllbnQg KnQzSHa6W0FvKcr9OXGc dFahXD1cnWAoIWodJj8k lXpenNjmHP8gTNPr bpxlf064BdLch8ycYYOw bOOjSIvyUPU8N43ie9Z1 QWNwZQHeMJJ3sBR2fB0k bGlnbjogbGVmdDsg jpPygKvcPIxmZJooB968 IHRvcDsnPkJpcnRoIERh jMB4PS17UQ94mXVzm4M9 sYX1T0IuYZDieyvs ocjxaGY6QYSqCRSycD46 Kd9tbDciOk9vYZTkNZV3 PMCwpLRdH2EjeP7kEvFe JNSrTMQsY3UrlMUx BXbzI779YEdtNrZ6NNYc jvNuH8RpPJRmcJtpMdA6 y0N6Li7SE7C7EY26RM82 fYBqc2E0tXT9I4Bo AGCckovtzrxbvRC4KTWf NIVbeI06Ta0llZnkEl9v HMZiUMQ9RASajCPoG9Hf bA6bLyHxKMDaUCLz Z8XbzZAiXEqbY280CFab MxB0ATPkixKvI5UiZQLl aHapJnW9f8W5Eb7RHGh3 XE98DK41pQOcr9W9 lHK3Y3GlSPKmfaxqgtst jBX9GATmWXPyiH81Jy0l cBbzTm7tAXJxLKG0TVVo oCPyE8MgiS3lWqZz CCEgRGQrX3TqcJOcLLvx K928KAmtCgX4WCWvekIb U2KeNLNheLehRhN6s5K9 Ky8DXGCnHM54UFC1 zZX8LG77UM37L3WdCqvx dGFibGU+PHRhYmxlIHdp ZHRoPScxMDAlJyBzdHls KM4zBy1nRSDcQZFf qVkyzPJzYpKgy0yvSQWa LBlkPQ3ieIkiQ9YofWR2 HZAdp3t6Bs81J64uQ7Jj dXA+RWYtsNW6zQD3 tO9cNpGwPoV3DXhjI727 YxUibLShOfsvw1jwo8xv mTz6UeH7YDNtmlQxnJpt WFX0k4XbPq00D13u IHdpZHRoPSIxNSUiIHZh nIwvll4kjN7vSy2+PGNv iNB6lLD3bQ2rHqTmGbB9 RIaeW928LoFtaASg Qqoss3wty4uiiSv3ByGd XRMqfpBkaAwrOYR4k0Jh Zv86P0OkcJxai9TaGdo6 gu37rLIws5H7oIS6 E7OpSGVftbkdmEOtnLqm VE8aXNUjzkxpFQOkgN0n YIRvT6s8FmUmLnZ5VKrp S0CteoH1SLMpeFFw JHcrHFJ4Q54bs8M7LEHg OVUjEMD5dRB5tH8ntPvp bjogbGVmdDsgdmVydGlj DOrkLBuyH239KZPy wQopMAIapE5zRNSjyJAa bMldVZ7rPMSbfrwzMfWV IeVSGAJXIUJYLZ6TLD76 M8NoKiu6QIZfuVkp KJ5vdFQkDPafLa9ojGkp mFkeEW0qMWNilhewNEDi xW7oTSZmbHNkzVovNX3g YTRhatwba801NfDu CQP6ZVVvrLZeR2QjvS1s SoPuMNKsKSFjC9RrjMCy GOvtU964UEvcKzQ2PXIf mhLbF1TsMQHsyXom YwM4b1A1Ib3hWP3lRb1b QMj8PR74CH73mXAwm3T1 oIO2V5CeKLVnejhwvrfm aMR4COMzHHJguA35 zUAzJAjaFm6lp3L8b234 SRTlGJXhlP31Zj7czMao LUUsvQSAfT5myamgu0xk cjogIzAwMDAwMDt0 RQa0BWZfcJuzLpXkFUB6 HdP6PLU0fWVdiS6zkVtx dlbnkX5yYec+MjYgWWVh akM8G4JhIjq8JWWn bLrbGK5jaKHyAFjkNa9q zOwnjVieQS3qXGSqljuk CQKmsS1gYTZucVYcxWfv ES2aPBImcjdlv858 RzMfBWB1JOMtfUMqX3Ep nH1dJeKmUXYbZAMqA7Bx rPNkPUzbF284RQvfTyE4 WDBpewWgA5UzNJPl eUrqMnY2p0A9Go1KAH4y tOM8V1SfEwn0SNCadNaa XU8zaAUsPFprVv2paDhs nVwmVO2bNWSromfg JMWvzP2sEOZwtYMguSpx WX1tHTYkfbbqb911CkAq DWQ2MILmhQKhY2JllS5v MfCmQVLcTBZyF1Ss xQAvBZkaM082SUpiBpP0 JHLumfLoC4JuCLNbxXks YtB8s5D8Ho2RmNWeKMZy FP44WA65ST14H7Dk PjwvdGFibGU+PHRhYmxl IHdpZHRoPScxMDAlJyBz uLbnAG7fZj0wYGTzMLHb wCqggUZjUgSzx6hn AWSbSTleAR3cqJbnU6Ft qHF1NTHyf9k0Yp39O73u S2KssLN+PTYmeOW3iIN4 oD3wVuSlQzL7WZdt F777FwRsjYGrPxihv7wv d9hmmUq6UeXzOTHbstCp oXkmTJQ5x3MnUe09Z60i IHdpZHRoPSIyMCUi PGXdoEsawb4nhG8mMo4+ ZKLjmCE8mVT0cU5tRrXn LsI0VEuyD797EpKmcSQq QpzrS39dI3KigES+ HRXaKus0FCFciLrgSP2g kEEqOOmgIf8oAEN3JuDf FvVgDPczB3CmVJBbuvfd mszvsLW4PMWbEAJj xV98Xq8ytKoiDw8mTDDy PJV6TNPpkETqU5DihH1j XyTqXTTaYNUqN5ZcpKAk UYbuE267NBfqJiZ2 CFIyygLwA7TvWBDhmJai EhY7m7Z9Br9FrUneeMPq SG6rEqUiMUo6W6KkMno2 DTZzmXfiSL4opCWk YUhpNu2rtFauzKwkEN8j OPQennbtp426WeIxk5ir GEYvkMAyJYuaWCO8H28s j3B5LIBoRHCwVGS5 kKJ8uP3ebIysnfpaiTPd dDsgdmVydGljYWwtYWxp L810HMVdqVhiHdRTYzj9 Q4HnXzq5DWCrsDia LF5qiXOiYUimEn3hfKdn eBpuAR6lLMCkpfmym769 HlRqq4yrXFTfwHJwUPiz RNP3P65pa7J7RJUn GPDgWZH8gTS0nO4zxFvm bjogbGVmdDsgdmVydGlj ZYbsRCetK433MRQwiLrr Xn8SCcy3K3CiHgk8 GSDtwGnaRE5vdSIoFJnr Vl4egGlmrJdlCV7lVIKt rgdxn371FhCpa4mrMKLd cEIaMKjrCST8J95c t1D4AAAiLBElIZQ9sHV7 pP2wmZcijjlesZFzsWxf jwAymXjbESbjZAfsR469 IHRvcDsnPlBheWVy OjwvdGQ+KE12cp88C0Jk PqhjPcb2TZBeSJF4qUU3 kG1mIOQoELmsm2R1hPD6 D7IwdeBnbm8km1mt YXBz (more content not included)... Normal [facility] Physician Orderon 07-14-2022 Physician Order [id number] #1.00CD:127 [facility] Coding Summary.on 07-12-2022 Coding Summary. CD:[id number] Gh0bWw+PGhlYWQ+PE1FV ETxW44xzFRauY9PQ1dUT M7RYWWEUBKVHP0RMB1jf PN1JOvaP6DihtWo HpksjVOzDE91IZz4HLW0 mNdrNNhhdG4wmEDdS2q3 VhHfCY97vA97AHzfGRBp WrJ7CpNfrzwnzPBl R3tkUkPguDMoXht+PHRh YmxlIHdpZHRoPScxMDAl RzEnsXfeVZ2hSg0yNMAo LWNvbGxhcHNlOiBj d7toBQDuVZjpHL1ahBqs A1LlfBV3OJYmn4i2Hs30 dHI+UFRmACA8xKefKZpp s312AmVit4ahVKN9 rMFzUPjqYTI1R19uv5B6 ROScGIYnCDV6sNW4hI6n sDnldexuF4FcdCFwNkI3 TEH8bSWybA8aeTeg egqywU8zCkt+P47KMP9H KZSXUD9HHrr5C0CqQyje dHI+HC43NDOxSH84mWRq kFUrw8yaeWj1OeCs HXXjUZG4wSauJRkfj4Bz VJCwE51puPJsi1O3KSKr bLvekVQkNxDojDA4eS0y GOhgkqcxv5rkxmer Vsatr1cmps38uG25B50t SGepBEKbGVD0OMSnBTDp oJblnc9unQ6mAx8+IDxj f6stc7txyDe9NfZg HLPtspHcbYmdDYS2r8Ri Kr04H1BsvIclv4LyJkl9 qi40nIQcj3B3ePK3DAtc TMPcxU0iJDiqXlI9 LXTuYhTgvU68zMHaUVma Io3teRfjnXalMN3lUORu pdwqXRLycN6qHLYslHDq fMmuTK9pERTlrjct u834AjCfUVB5PIAdsDCh D8NjuD0qDvMlEUMhSVOl B6VudTQyYJktH757RWgq VtW4MJRlkyPvM3Xi FGZarLgvMeF6h2J1Cc0A k1TprctoQIG1NLpiAEGb VbUqDkEcPhN7S9EzQoc2 LTZviIxkZT6sE8Vq LEWblxikfmhzuPH2QSWj ZSSoeM19rNYrUUsnGu9o h8Z6f393GINnUSQwiB49 Qh1ulVebQRMrkESD aL0osrfxi3ksxstcWaJs RCRcHYs9YFb0EOKobCps QlNcPVZ8WrV3VMJ4oROr wY1loObrgonqrA0l Oyc+R60htS8nJOA8ZQB9 tsujLLZpcrFwRT15IG16 C6SlWrlfjWVwaUK+PGRp ktJvgLaxUO8gVnXr f2awv9MvEFuzH9MaMEVg JYfdHrz9RPAuUJF3nZA7 iR8sANDvRQpxz0V7bSR7 F1OccmMyqi3xl4cn AEEoAPuzW00zcZNuj2F3 NUKefJT7WWIfiMemStHw rB53Kzx+CFCgbRcqw4Ra Vkzbc5bxp4jlkYu8 IjMwJSIgdmFsaWduPSJ0 y6NvDf84B48xIThrUKIv GMDwAXRjXGRzdPugix7q dE1qOy8+PGNvbCB3 bDC1tJ1gTHJvQdX2ROkl N255KsXgjNKhJxixr7dr g0nbtDm9JgEvZRJjewXe mPrhTUM5l1FyGd54 Q94vQSkkXNZtSOLrHRWu BPReeYtvdi9rvV5lUr4+ ZI8vr2ujcx75kY27jIT+ QLPcPYX9eCagOZxk JBFcrO7hXKvdAzV1AKWg LgCkoT68nAZyBZvlRb7o jXqbsTzkFH1rPDCkismx k275FfNqv5gbJQQu dZRgFGmtMWT6Z31rw1M9 MQYyMLXdMAS5hQH9lW4z bGlnbjogbGVmdDsgdmVy cNsqMDloXCktH202 IHRvcDsnPlBhdGllbnQg PpNxOZj6X7QjAkc3BRJo tQuiID3rfUNhLUjuDc4d iVaxmPqoAX4oVQTb xuqiq256DsSlk2crAZMe gLNbFOnbKBW6W08lz5B2 YFWeDTZnWTX6sHA9zM6n bGlnbjogbGVmdDsg nfXzvVwjSFmdMIfnK901 IHRvcDsnPkJpcnRoIERh iYW9CY05NY01pBZaz7F5 gDE2K0BhDUJoesna shswsYY4NGKvRENfbX10 Mk6ytYxxCv2qSZGxMAX0 GHAvvDKfS6EmaG4gRgEb PFRuBWWtP5SclELj EBgqF752QCoeCqQ5FYVh znXmS4ClJRUjdKysNzR9 h5D6Gf3QP1V5JY66SX16 mOXez1R4ySC9P9Hd NKKexbrxomofwQG1GAWb YNEygQ90Ub1dySwsGt4s LXWhRZE0EYCoeLCcZ3Ik lH5gUsHcENBcVIKh D4QjtAIbHJxiR978CHad GeG4WJJcvkDiI7TgAIRp fMltAlG4v3G4Ur2CEMa5 KP62BI49hZLco7K4 nEX8F4OcRSUmuudtmgsp qOJ6ZGFsPJTuzJ36Yo9c jLhxLt2gFATbXDE4DWSk wEFkZ0UfaS8wQmBr WJRzKKVfV5GutYTbWCjc H929GZbaRcE5JAZnzvKq U7ZkOGCjyUfgIiA1p0B8 Bd9MRVZdJR72WTJ6 bQX6HH20GS53A6WeUvlz dGFibGU+PHRhYmxlIHdp ZHRoPScxMDAlJyBzdHls UV6fPg0wPEFeTDGt jJskgONmZePgd4teZLQe AMfkUD3azKcpJ5WwrDM8 FQPih0x5Fr59L51dM4Gy dXA+IFXugOI9gBV2 aM4tCrRdLrU9AIazR333 AaWqnFIiBnfsj7uhx3vz wWf9FbH7MBAsaoKgkBmt ICT2e9LmJw15M29g IHdpZHRoPSIxNSUiIHZh jOcuil0wkB1qSe1+PGNv oOA3jJD2sQ7uNoXhFpL0 DMglW161NbQmnPQe Ctvcv2rvc3khfVh1CcOe ZNXofqVrnKhuTTT9z9Am Ac24Y4RdkChxo3YnDil0 hm37cZXnw0N2oVC3 A7ZbFETlwmaquJVpxGhf FY6pZFPwmixoGZRxbE9a PVYjV8v6CkJuWiK8OJsd N3UsrfV1KRHvbLLa EOmkQQK9Z87ne3U2ACSt UHBgMRP8lWH0oQ1ldLey bjogbGVmdDsgdmVydGlj MLlvSYooQ667AHFw tRkjCTMexA9oUJOfdERk fBkuLO9kRFGqqtgdOtDZ ByRZVJVFBVENZC1DIN34 I7BdBac3THGgnDkx JT6jdQPqFPgfKe8ffGvl hEckEZ8iMMDkdjhvOZRq iF6qZYPrnSUrgVdyLQ6s UVTrjjnql621JkCj ERO5SEAuzACjU1IleW8s NjGxZFWwFNFaJ0WioGNo QZpmK989EMjjYuW9HQFt wxGmD9DvTVQxqYur DwK2x2K0Pq7kZI0uAr5f BPo7TJ84XX37hAIgg8K6 nJG5O8FcFMHlqcogrgkq tSC3ZJUzIJImcX43 zSGsZXibGg4ik8G5j367 FWEoKMPnwC44Jj0gcFnq HUFfkUUUaF9dgwlbl6oe cjogIzAwMDAwMDt0 INy8BORlgJqsEcVpNIV7 LhF3VLO2hENfyI6lxUjj rolytS0xClo+MjYgWWVh hdA6S6IjYpd1ZLXd uIvbRL7jcLDhYYmzXo8a sJkgbGbwPA6cBTDmlgyg ZPWduC5fIEXwxWIjnIsp LY8mYSIrzxmsc988 KsMhRDE0RWCvsPLxL2Ef gL9xHzHoRLHcBWNpR2Pi hYZbZWkwU544ORcrDvR3 QNKzseByS3IvZISm uCbpWzF1t6T5Dd4LKX0f xEX1A8OzFtu6PKPcsYfr GU4qrBRwLXjqYc4qrVnb hCmjZK7uWFHqqnwq APUhcC1wCQFpcQZtbBhw DC3tFCUwmkemr214QlIf QKQ1HWYuwBMjD9ZqsH2b MhXmTTOrYDPcG7Tt qSUaVAstX781RHmrTfH8 RBMisiAcK9XiLZCktJyi RoB9c7X5Np0YtFZmWAOn JH14JF35YT47Y1Jb PjwvdGFibGU+PHRhYmxl IHdpZHRoPScxMDAlJyBz qVvnID5aSf1gLKCaIDXo xVutiNXlIoPkj0fq BJLoFEezXS2dnImzU0Zq uUY5CTPol6v7Qu67H68v G6KkwIY+RWXrhCI9vZB5 rM4fNxKqEwR3VRlb H960GwQqgRVoXdfkn4vb r6fjrFt8FsYiJNLsjlTr tVbrVYI6u3LkRy31S58u IHdpZHRoPSIyMCUi GKYztAzrmf0gcJ7zFe3+ VKAjyAN7vKA7gR3eLuGl RlX1XKmhL253UpKmaCPx TvlvN38mI6DfkFU+ PNBdQkq8PEJunMlvQP0y nTXoWJgtKm7aKXN6FuEb CoPgSAtnN7BcRZPrenkf qijvrGG3CFYqGVPx zH73Yz7uaHidWv8xBUNx CKN8TLVzrPGrZ7ExfZ8v AdZaCARaHKOtU7KypTCh MIoaE954UTbxPmP9 XDCvxxNsM1VmOQFyuSsy BwH8n6F3Lo9JgOtvsVOx FQ0cHwCdCLv1C7AkRkh4 FTIyrFcoUT6buMNa XQufIt5ojEawuPtcCO7z OORhdgovv089OgGlf3ya BXYhxFZmYIwmYRB7C22u q1K8ZQVaKFUpTVO3 fUU1vN7wqBerkjrwfHXo dDsgdmVydGljYWwtYWxp W456FSMglPmsYxFFVkt5 G8KgJyb2WHJpzQln LL3qzLCsJCqaWr6ddLll cOjcGB9rWTCrmalgs751 NpAtr8oyLNAewOXtBAch OTS7V86bx8U4BINx GBNxRRE1rXE2zU7jtGbe bjogbGVmdDsgdmVydGlj GNonSUiwP803DTZgeLtw Kw8HZzl1U1EcRay9 VKXtyLtpWZ1hmFDvOOvi Vg2naWyshLifLZ5jMCPn orqsq802VkGax9rzSLKq sFLgWUzbWLI5G34e s2D1STDlJUGoONJ1qKT7 yI1doQulorllxUGsjJio krPilGzwPBpkUJeoB216 IHRvcDsnPlBheWVy OjwvdGQ+ZU50ff69N6La FjirSoa9TLGgRLC1xFB5 fX8zVBEyWUhbh3D2qDN1 J6AodmPjqk1nc8uh YXBz (more content not included)... Normal [facility] Estradiolon 07-10-2022 E2 [Mass/Vol] 219.0 pg/mL Invalid Interpretation Code [facility] Comment on above: Result Comment: Adul t Female: Follicular phase 12.5 - 166.0 Ovulation phase 85.8 - 498.0 Luteal phase 43.8 - 211.0 Postmenopausal <6.0 - 54.7 1st trimester 215.0 - >4300.0 [facility] ECLIA methodology Performed at: [facility] [id number] PhD Rick Lee Performed By: #### 2 [id number] #### [facility] [address] [place] [address] US 1st Trimesteron 07-10-2022 US 1st Trimester Exam Date/Time: 07/09/2022 19:16 EST Reason for Exam: O09. Report IMPRESSION: NO INTRAUTERINE IDENTIFIED. MEAN SAC DIAMETER YIELDS AN ESTIMATED SONOGRAPHIC GESTATIONAL AGE 39 DAYS. EARLY INTRAUTERINE PRIMARY DIAGNOSTIC CONSIDERATION. SHORT-TERM FOLLOW-UP PELVIC ULTRASOUND WITH BETA HCG CORRELATION RECOMMENDED. CLINICAL HISTORY: O09. COMPARISON: Pelvic ultrasound, June 05, 2022, May [...] Transvaginal Ultrasound Performed Uterus Position Anteverted Normal [facility] US Transvaginalon 07-10-2022 US Transvaginal Exam Date/Time: 07/09/2022 19:17 EST Reason for Exam: viability Report Please see pelvic sonography report. FINAL REPORT Dictated: 07/10/2022 11:46 am Rohan Cabello MD Signed (Electronic Signature): 07/10/2022 11:46 am Signed by: Rohan Cabello MD Transcribed by: DAVID Technologist: MARIKA Normal [facility] BhCG Quanton 07-09-2022 [place] [address] m[IU]/mL High 1-3 [facility] Comment on above: Result Comment: GEST ATIONAL AGE HCG RANGE (mIU/mL) NON- <1-3 0.2-1 WEEKS 5-50 1-2 WEEKS 50-500 2-3 WEEKS 100-5,000 3-4 WEEKS 500-10,000 4-5 WEEKS 1,000-50,000 5-6 WEEKS 10,000-100,000 6-8 WEEKS 15,000-200,000 8-12 WEEKS 10,000-100,000 Performed By: #### 2 [id number] #### [facility] [address] [place] [address] Consent for Treatmenton 06-12 Consent for Treatment [id number] #1.00CD:127 Normal [facility] Consent for Treatment [id number] #1.00CD:127 [facility] Physician Orderon 07-09-2022 Physician Order [id number] #1.00CD:127 [facility] Progesteroneon 07-09-2022 Progesterone [Mass/Vol] 26.70 ng/mL Invalid Interpretation Code [facility] Comment on above: Result Comment: REFE RENCE RANGE Males 0.14-2.06 ng/mL Non- Females Follicular 0.10-0.60 ng/mL Luteal 3.00-17.5 ng/mL Midluteal 3.30-18.6 ng/mL Post-Menopausal 0.10-0.40 ng/mL First Trimester 8.30-66.5 ng/mL Second Trimester 18.9-66.1 ng/mL Third Trimester 35.8-312.4 ng/mL Performed By: #### 2 [id number] #### [facility] [address] [place] [address] Coding Summary.on 07-07-2022 Coding Summary. CD:[id number]:[id number] Gh0bWw+PGhlYWQ+PE1FV MZiO82psIHdkE1WH8oYH O4VNXEQAEVMRI8SRF7pc DR9AGgtO7YkpnMw OwqctFBdCG32RCf6KJU9 sZxeETptmQ8irCUxL7i7 DgDxEV47gE13BMoiZLKw KaU9QjFbvuclkWRz Y6msRkCafYRdTjq+PHRh YmxlIHdpZHRoPScxMDAl CkOdtUcnAY4kHo7hLUHv LWNvbGxhcHNlOiBj b6xuPEOaELflJJ5blEll K4GkjNP2FOHuu7i0Kj62 dHI+XPOrPQX5rIhbYMjg l438UqAsl4lnNNR4 gWFmBMsnCNK8V85hn9H8 VMKtBJFuZMK2vNZ5aD3g nVgazkctX0HjzMRlDsR2 QVU2cQHvxU6chDvq bzwhqR0kThb+L61TJY3S DISPKZ9WHws4Z0FkIrwr dHI+UL36GJZcRC34hBRu pURcr2bnmOq6FlVi IQEjISS5pZaqSAkyy9Bo MNHiB27zaECod7Q2SFLe jXmciUJpNpZepXW2uI1f SEngfrflu7skqadu Upqos8daks44fS35G50r EDscAVFzYDU9PHMhPJFw qVykbu5wdC5jXq4+IDxj c0eie3frcNl2LtJd XUHrpcJnuKlxRHR3v3Dt Dl83J6CytVwsr1HqRti6 in91uUIrs9I8wRC8PJvs MAPqhE5lLEowLfY1 FRTmDzRlpS13mRDaLGvf Kg6eaDmqbItlND1tHKMr jdgmQLLgsU1xPCMugJGo oNmrRX5mSRLyxzyp s442WqGkYOW0SNOeoIIs X9HlfJ8sHlNpDYLaFCBw Q2PmlJWaEArbP231TMhw AlE8GHBlpeIdZ3Hu AFOfaZllBaG7y4L4Av8A v0CqbngmHNA6CJyjDRLt YtG8AeKnNfY2X1FzKun3 MRVveRcyXR4rY3Uf QNQntapwpvtwdYL3TMDf TLOvyO69tKClOAmhVh4h b1F7k904LSQbCFOgsA34 Mk8ovPeeSIXkeOPW eI5rgngqw0syinnsKcKl HONoHBk3YKm0LJKcbGdy JcGiVDT5MvU4VMF9iMWa pF6rsWedxogmzY1e Oyc+J60kiC5lYZG1TUW1 yfouCIFcwfSkQO82KY51 O3MdZpiasWWrkFM+PGRp qzTcoOqaEA2sZvHz q7ggf2YwHMrgA3HoOAXc KJoyMrm7NEFgDKL0dNU6 fA7xFKIeOHvdx5Z3mAV2 K8YjxkZzaa0kj7mu POAxJNfdJ32zxUAqf8Z4 FOZzsTS9KTDmfHinFoBq zT64Thd+BIBsyLoue7Bd Xrikc1ksk2jxpMc2 IjMwJSIgdmFsaWduPSJ0 u7HcPh85Y27bQWmxLLAr BAVdFORzSAYmwEpllz4s uO7rWa8+PGNvbCB3 cWO9uE8dNHUtLsM7LUlw K173WsKklQCoOnbvz5sk z8fstBg3HnNwMDYgyxNt tPcfODH3u7YgEr99 M89lLGiuBJFzSFEgXNKw PLTzjSinio4kgR5aWh0+ JG8qs7smel81oS65jVY+ YKNkWSZ9lMcmCJqi ZLMvjO2wLUtrMsP7EGBo YlRzrQ77pJVtBQtbNs7w lFoljVgdGK5tJPBtvhzp c851FzEoe4ioQEFg dBKoRGqoPXK3T37sr4W1 RVRsBNEgLYS7jZY3zK2b bGlnbjogbGVmdDsgdmVy bDinPPyyAPplN316 IHRvcDsnPlBhdGllbnQg YaQbAVh9D2GpLut0MWNo lMshHJ8aySMeSAkuVl2c wVuggDguRI5gEMMe ctinr914OuMnn6kaMWVk uRRaLWhsKLY2I97gi8R5 YOXbMWQgLTE3cPH8fF0e bGlnbjogbGVmdDsg apEfqXrjFQkcKLiiN585 IHRvcDsnPkJpcnRoIERh iCE3PK39XV77pMJoj2N5 wQW8L4CxVLYvixoq tyzzwCD4MAGkBRKcnS66 Ev3uvWpsIb5dUUBiQMI2 LTExzGGqI1QcuE1zHoTq MWHfEDBzV8UvlTSd SSsaC904TZihHmQ1EVMf wdMmC1CeCMVcvYbzAoC4 o9W0Sl3AQ4F8EJ84CK17 nMBqk5F3sYA1R0As KABuevzoilmwpXE3YTJf NTYwaQ68Xd4vdMstPv0d GEHiGEM0ABKymKKkN5Cw yO9uRfCtTVXrQXAh D7JvrXBmDEpvA906YMve RmP8JPDxfoGjD7KtRJSj fFwfFtB5p4G7Qr4NFPh4 LR37JM68xMHrk6R9 mYT6M4SoVKBlrpdemztu cDY0NNZcQAAjlJ46Dq8b hEesLz1nWRFlXTA3SCKz tWApZ0BcsR8zQnGv MWStJAUtS6JzdLCpFIwx F892YTgoNaI7FRMtywRw F4XgRRYvmRjkXuB4w1O4 Bi0EMJGfLY74JLG0 zKO6CO04VP37C7LzQwbs dGFibGU+PHRhYmxlIHdp ZHRoPScxMDAlJyBzdHls DZ0wUh2aJGMxTXTe lLmyiTDhEvWmn2lmARLb NDixGV8rmWtyZ5TreAS9 XFYsf3l7Rx52M31aH4Yw dXA+JVRaiIH2cEE6 mG3oVyUqHnV4AVbtJ971 VqBcxATtSgjwb1hzd8ck gIk0QmC1ZVZatnQkiNah JUR1g4MkAi15X05a IHdpZHRoPSIxNSUiIHZh uGbbhn3grN4qUb3+PGNv vNV0wNT6fI8wVyTwOfP8 ZMjhX440AzPxnFQy Zcgii4uab8fcsRp3JeYj IZLsfbQshEywCGO6t5Yb Ub64J0QnsAgpg4XrWlh5 rg16xKTjv4X1dEM0 W5PsAAWfxpdvrOJdyKbf CQ4yQEEprpmvEWOwdB9f YEVpZ6y6NnDqWhQ9LZfo M2XryjE4ICPktPOl LCptPUX6H95au1I3WHLi SPZiDQX2sHN0oG7ltGsb bjogbGVmdDsgdmVydGlj NGttRQtzV173NDMm nGciPRAcwU6vTSBcbMVq fUtpBM4oTVTfqugeViXN JgYOUKNFEKHMJV4ALJ07 U7OtWxx9GZByyPku YQ5lgAWwZLbcPv7ioStm pXbyHT7iUYWdjklgOMQt lW3iHGJxqRPfeBjpCI5k KGOjpaiwm325QaPc IYS9RLPyfXUpU6KfiC7e WuJbSJLhMJRrQ8DtvAPs EWmtC544QKxbPoF0TZAe djXbO9GrQMZrjBaz YcU3r7N4It2sHC9iEe4g EXh8WS84EJ67ySJjz5N8 yZR3F4WtLQSsgfoohmsj zBR7BABzWPKtaH82 gPLhDVclDl8jv6O7j314 XBAvIPVmpH78Hg6khIyg KYOghFEPdS7panyfe8bn cjogIzAwMDAwMDt0 NYb6RJDgvVnvOjLjFDB1 JjP8BXD3vBKgeY5ypZlc trsdpP6cBqs+MjYgWWVh wcZ8L7ArQot6PYDp aOgjLN0hmNZjAWkgEu3c pWklzNnwUZ2aMSAipkwb YBOwcR6qWPVadQNnrRum XT2nZKFlmckrq517 JaZzSBM8SHVixISlU7Mj mE6aOwAyNRQkCOIpD8Rj mANkZYjaS534GMvcApA0 PTYwswCdR1TkODZg xZbgGuI2x5S8By3EHD5n iAE6B8EmQxv6RFThrDng BD4niUHnSBqfGv8nhAmr gKcvSM5hKIJeinsy EYTicN9oIEMdgEQhaDxi ZP7gSFDxwwgxm158SwVb QCT0HDOuhDQoS0OvfT7q GkIrFPYxTMDjI5Wd aLWvHPzoD665DMoaYwZ5 ENMgrqXyT0DgIQCacEtu QpM7k9D0Ni6AlUCpOYXk AZ76ZW06WK08E5Jn PjwvdGFibGU+PHRhYmxl IHdpZHRoPScxMDAlJyBz bGxmDM2cGo4fKQEuUXDx dZdtuVKrTpKdw7pn TXNgBAunNU8zeRmcE8Ns iMR6YKRqb9y1Os11G15y B8HndDZ+KZKzaMU0uRQ2 oZ1cUeRxXxT1ASls Z681YjDogVRpOnlel7yr f7tiyKl5WlYrMKZputHi rSnxLCT3v1YyHj08M73x IHdpZHRoPSIyMCUi ZSOfcCyhut2juG7lIw4+ KPUsyLK6mZP3nZ8qKjFt GoF9YBraT604ZnMcwIPw TtucY79gV6MqaUY+ GYArEgr9JWFwaYndEJ5m iWSlPQnpIh9kKXP4EtXq YiLhNMbcK3HsEOJodeof ixxplRN0VTUaKNRa xT60Tr6biVzuSl8iFUCa GZD2YDZenSVsS6IptW9h GnQbYFJvFDYwX4XisJIa VHkqW787OFjzFhA2 SIDmkhDkC8YyFUSmnWrz GrO0f9T7Fb6ZrBpcwUYb CS8qAdIzADf5J7ZxTjg5 JYSeqRqoTV7hrAAi LGnaQw4hoUlywWyiGZ0y GZFejsejw878RzEvo1ef RLZrtSUcQFnwDSD1S43q m1E3ODLwRWPxHEG2 cXP6bQ6grMbavjxkwJMr dDsgdmVydGljYWwtYWxp V730LQRomArjDrZLYvv7 C0CmIub0ADVhnVoo HZ8kdYOyBEevBa7jpQtv sNmtKG8rQUTkosmlc665 VdQwe9faGXFmqRFzGEzx GND5U25jk0U6ZOXd PNOcRBR5tLV7zS3arGmr bjogbGVmdDsgdmVydGlj NVicZVdmE183BMXxbHyx Wh4YNnh3P6HmDwj3 XCKssOvmMT1ocWMyVOis Jz8dzGmwwCakSD4xVNKx uzbwv719RaIup6ewDAQb mHPfWKtnVGN9G45c c6Y2UQMzJJJxTLC4rSM4 iO9mlDircberkDJjoMbo xhIkfEjwWXrzPIcqH197 IHRvcDsnPlBheWVy OjwvdGQ+ZX83ze68W6Pf LqkxZyu6HJEuHNP5rZV0 dW4sQSWaNSsqw8Y0hBA8 L3BjaePajs7ke5ry YXBz (more content not included)... Normal [facility] Physician Orderon 07-04-2022 Physician Order [id number] #1.00CD:127 Normal [facility] Estradiolon 07-03-2022 E2 [Mass/Vol] 112.0 pg/mL Invalid Interpretation Code [facility] Comment on above: Result Comment: Adul t Female: Follicular phase 12.5 - 166.0 Ovulation phase 85.8 - 498.0 Luteal phase 43.8 - 211.0 Postmenopausal <6.0 - 54.7 1st trimester 215.0 - >4300.0 [facility] ECLIA methodology Performed at: [facility] [address] [id number] PhD Rick Lee Performed By: #### 2 [id number] #### [facility] [address] [place] [address] CG Quanton 07-02-2022 HCG.beta subunit Qn 447 m[IU]/mL High 1-3 [facility] Comment on above: Result Comment: GEST ATIONAL AGE HCG RANGE (mIU/mL) NON- <1-3 0.2-1 WEEKS 5-50 1-2 WEEKS 50-500 2-3 WEEKS 100-5,000 3-4 WEEKS 500-10,000 4-5 WEEKS 1,000-50,000 5-6 WEEKS 10,000-100,000 6-8 WEEKS 15,000-200,000 8-12 WEEKS 10,000-100,000 Performed By: #### 2 [id number] #### [facility] [address] [place] [address] Consent for Treatmenton 06-11 Consent for Treatment [id number] #1.00CD:127 Normal [facility] Physician Orderon 07-02-2022 Physician Order [id number] 8#1.00CD:127 Normal [facility] Progesteroneon 07-02-2022 Progesterone [Mass/Vol] 29.10 ng/mL Invalid Interpretation Code [facility] Comment on above: Result Comment: REFE RENCE RANGE Males 0.14-2.06 ng/mL Non- Females Follicular 0.10-0.60 ng/mL Luteal 3.00-17.5 ng/mL Midluteal 3.30-18.6 ng/mL Post-Menopausal 0.10-0.40 ng/mL First Trimester 8.30-66.5 ng/mL Second Trimester 18.9-66.1 ng/mL Third Trimester 35.8-312.4 ng/mL Performed By: #### 2 [id number] #### [facility] [address] [place] [address] TSHon 07-02-2022 TSH Qn 2.52 m[IU]/L Normal 0.34-5.60 [facility] Comment on above: Performed By: #### 2 [id number] #### [facility] [address] [place] [address] Estradiolon 07-01-2022 E2 [Mass/Vol] 142.0 pg/mL Invalid Interpretation Code [facility] Comment on above: Result Comment: Adul t Female: Follicular phase 12.5 - 166.0 Ovulation phase 85.8 - 498.0 Luteal phase 43.8 - 211.0 Postmenopausal <6.0 - 54.7 1st trimester 215.0 - >4300.0 [facility] ECLIA methodology Performed at: [facility] [id number] PhD Rick Lee Performed By: #### 2 [id number], [id number] ####[facility] [address] [place] [address] BhCG Quanton 06-30-2022 HCG.beta subunit Qn 157 m[IU]/mL High 1-3 [facility] Comment on above: Result Comment: GEST ATIONAL AGE HCG RANGE (mIU/mL) NON- <1-3 0.2-1 WEEKS 5-50 1-2 WEEKS 50-500 2-3 WEEKS 100-5,000 3-4 WEEKS 500-10,000 4-5 WEEKS 1,000-50,000 5-6 WEEKS 10,000-100,000 6-8 WEEKS 15,000-200,000 8-12 WEEKS 10,000-100,000 Performed By: #### 2 [id number] #### [facility] [address] [place] [address] Consent for Treatmenton 06-11 Consent for Treatment [id number] #1.00CD:127 Normal [facility] Physician Orderon 06-30-2022 Physician Order [id number] 1#1.00CD:127 Normal [facility] Progesteroneon 06-30-2022 Progesterone [Mass/Vol] 21.40 ng/mL Invalid Interpretation Code [facility] Comment on above: Result Comment: REFE RENCE RANGE Males 0.14-2.06 ng/mL Non- Females Follicular 0.10-0.60 ng/mL Luteal 3.00-17.5 ng/mL Midluteal 3.30-18.6 ng/mL Post-Menopausal 0.10-0.40 ng/mL First Trimester 8.30-66.5 ng/mL Second Trimester 18.9-66.1 ng/mL Third Trimester 35.8-312.4 ng/mL Performed By: #### 2 [id number] ####[facility] [address] [place] [address] Coding Summary.on 06-25-2022 Coding Summary. CD:[id number] Gh0bWw+PGhlYWQ+PE1FV LWkN24clWFqpO7BA3qZH Q7MYSYUEICAJC7JBZ1ku TL5CMguE9CwfjOy OylizRZfZW96VTd0LVR8 tMynXPzuyD4qbXOkG1p8 DqDtYW26mF39WYbjIZKc XhI5LdXtkgoptJZx I6jgUnXwxTYbWfp+PHRh YmxlIHdpZHRoPScxMDAl KaPfzHirFK5jKb1jINLd LWNvbGxhcHNlOiBj x8dgMSQwUVbrKO0qbQqv Q3AjoKB1THOhb7e7Wt72 dHI+ITYhXFQ1pPajAZlg o024IeRms8rlAZE8 zWYdWScqYGW0H65ei8X3 MGBsOPBoBWW7dBZ1cG9z aIkftshxF0KjfRMhFtC8 ZBI9aTEaqU9xsFpg rzbtaJ4kRkh+V02HWP3V MLSRTS4LUna6C4HfWbxk dHI+QT09IHDeAB69vMZt zXBrq9vgpOi1UbZq ZZOzYCM4hErsYAsux2Ab AEApV74syWVpx7O1LNHx yGuasFTwKrDyzAB9qE6r ICqsmqupp4qdefiu Bbfmj8kmgt86mU78U91r DQrfVSWzROZ0YFLbCFDz uXvuuk0beS9cOj7+IDxj l9cka5odvYe1WjRa UIWvznFtkYmeLVI8v0Fk Qm19F9XyuHmko9GiLis3 mv41eKRaq6M4uOF5JVaj ZBHtqU0xZEjjVdF5 KQMxJoNogE70jKRsGGpr Vs4cxRptjGfcPM9nXAPx hqdpJWCgmH9eOCZzzVEu yCgfFO2yCVUxswro o796TnJtHJY2CEDgiIZs X1WwdD8aOyWwOTGbMUCv J8QrhSAaTVwhQ559COze FgQ3QTScxuKoP4Uc JEUyzXsfAsE5f7G0Mx3E y6BpjddnUXM5LUgzYEBk HiM5VkBnVqA8Z1EaTxz2 RCKprQbjDP4lM3Oi LRWckmlqcsrpxVD0LWNa XSFbeU43vILiRKlwWw2m h8C4f742IGEzMNLcwM30 Dn3uaLhvSYGloEIR wQ2ceprpq8xnjdbnAdMj ZJJtTMb8SDv4ZSNgeKeh DjRcXAN2VfV8EID0iJPs iN9peYlireletN3s Oyc+I04cxC1aGHJ7UHF9 akqhOOBhjfWlVD91EA49 D9JkXbjebGNwaUI+PGRp ozDzgGmyNJ4kPyAf y6vry0XlRGbyW1QcXXYf QHyaFhm8MDKmHGR0nBV9 zQ2bGJKlCZpmv9M1bBL9 F4TdgfJujb9fc6cj NUPgIEvvW33xwACyp1S1 RRIpjNX0ASQrwAjuXcWu mN88Ifq+SIBwtOmuk2Rc Zqlwn2kjn1dsoWi9 IjMwJSIgdmFsaWduPSJ0 e0LaBl21P99sPVpdRXEf FFDiIBDqYPIlzNkror6n hD9nCc0+PGNvbCB3 lAF2oC2xCEBgCcS5MJrl S109UyZchMKrXxooc2og e7tsuXm9YxRcFQJxsjRc vDlxYSS7p1YePo94 W09hJFdzTGGdCEWsEVBh PRWacIixat8weV0nJz3+ FK0gm3uuft96cA07sTH+ DEOoBVY4hJzjPXnc XQCsfB5gPXncXfG3QXUj BhTxnY65pSRnOZssOw6t xPxlnUxiMD3nQKOmqhyv f041KwDla0enJUWh gSOfFOmgRHP9U34se3J9 BKAmTGRsMIM5jSA1rN0i bGlnbjogbGVmdDsgdmVy zUzwTBdgYDkoV318 IHRvcDsnPlBhdGllbnQg JaThWMc6O3XpFnl0VECa jZkxKI6lzWJrDFaxXd9u oNdyzVoxNW1lXTPx lnujq901ItZtt0inGAUu kMZeRRhtXYF2P91lv5X3 UOMzMFFwIWR1sKH4fU1d bGlnbjogbGVmdDsg uoIabHeyRXdiVQksO209 IHRvcDsnPkJpcnRoIERh jPT9PJ32SJ61eVFco5H7 vTJ0Q3GoAMIjbmqe ndfyrPE0HFKtEYFaoC30 Ed8lbAjqOv7dVGClNYW7 TIBtaVKoE0ReqD4zXnUy RQCcLHYxT8AzwIJx ATqjR041FHhaFyV8DJMd ukUeW4EpVYMjtWsrGnB0 r8D7Qt5YY2C0IU85TH41 aORxi0U4zCM1D6Of PMRqtcgelitrhJG6DDHx WXDbyU99Hi3zuAdiIe1h WWIpHEL0ZGLcmEIaL2Zs hX1pGeEjKCXuZLFd X3LjjCUhBSdzQ398WXpv UiC3ULGamsHqC2UcVEYy bBqdXtU4d9L2Ld5MJDe8 FT76JQ47fYRoa2J6 uOY4C0MxKNOshvyfhaue bOR5CWBiDTFbxD53La4y pGqbGl1lGARnWEX6SQXg qDWmZ6VgtY4dTjSb TKYoGIAiV1MmgDMpUCba N498KBqbDuN4XVTmznKk O6KvOKFhuWvrCzY1x4T5 Ww6ZWCMjVI62UZO3 iDC0TM57HF37M9YlTkra dGFibGU+PHRhYmxlIHdp ZHRoPScxMDAlJyBzdHls KN1pFg5pDXOxORDa dFwlrFOmDjUag2eeLBFe SVrzWM6dkIfpO8CteUA3 MQYuv6b3Dc21X37sP2Gd dXA+VCIjwOU9eLL7 sE3gFzNhYtL8YDwiK385 GaJirWXxTtocl7esq1hj rRp7VrB7RGEmzjFgxCbq FWI9q9NlZe84I34u IHdpZHRoPSIxNSUiIHZh rKfkff0yyZ6vSv2+PGNv eCC2hUL3wK1lVzXsImQ5 YWytS535KeLqfDYm Migcw8zuv7gufCr4YsFq HFAyjxExpHcoAAD8s5Xj Ts91F6CrxXxiq7PhFvf6 hs50aXIux7W5zXJ5 F1SrRXEnuijvdJQfrYgt NT5qOTItbwmiBEUtsL2n IRCvT8a6VfWiKnG8WQkv W0OkwzX0SFFpvLRu KBhmNPM2W06rl5N2TWEf POShCVC1oYZ4rT5rtDdl bjogbGVmdDsgdmVydGlj BNkqIOtjA450BZIn qLmpBTSxpD9kIIFhlNPe lCsoAE8eFDTpkdwlUfRG NfTEQOMCLVPIHS7LTR06 L8UrAhh4CJTisBdl KX2ndIGrAUwmNg2gtEky wDfhLY6vKBOcsfmtZTWf dV2jXVRwaFUkeXsmBK9t OWAszvxjc419SjSj RMN5RIEtfGZlH8HvmS0l EhQtZQBkFAEmT1KxoPFv BLkoT304VDzgQcT1RZLx lwYtN1DyJWRafRjy EeN4q5B0Kr9gHY9fRy2f PKy4GC43BG85pIUbz9V0 eLU6A3JzKAWqxfskssij lVY4PLMwBORqaZ40 hNJjPTabJs8ul7J3j025 OYMjNJWkzO33Ve2ihMkm XTYnuIWQhW5ioputm1ww cjogIzAwMDAwMDt0 HDh3ZOAkrHayQzCbAIR2 PtM9GMV6sGAqoP5bjPft ofiotS6qNul+MjYgWWVh yeY6D7HxBqn4KFPo eZflIW4nlUShPMqfCa0t sYamrCrmZC3qQEHbzfuy ARKfdF9oUOEhtMVjrRsm PE8qPIDpqtrcg828 NlDtELS4LHMvhMAaX2Py gT5aMvYpXALwAAMhN3Uc xGPgSRduA654QJjdUlC1 ZEAbfoQgD4WjBPNq zIgkZjN1q0D0Rn6KMK7i jAG4V1TeLsj9AACsnEiy FC1chBFmQZtqMi5rnUwt rShjUY4iXEZutqwy KJFlqX7wLKSutZOtiVjg QS2xBIPtsrfjz731YrJk XVJ6NOVnnMDhU7JigK6y BiPsHNAvLDHwD8Pm wZQaHNjyN061DKwxSqO0 HKZonfHyJ1SeVCMehAao WaY6w5Q4Xp8YlBXxXCZr QB34FG67MN82W6Bp PjwvdGFibGU+PHRhYmxl IHdpZHRoPScxMDAlJyBz lZpjRN6dFh2zDGHpLWPj lFoywQOhNkUew3oe MIEsJIfkYM1zxFliV9Cu bGM7VLBvt4e1Cb51J86m F6QfbZB+DJQxhLD4uCJ2 hN2yZcMsZxB6LFvf T205AyKdaGHeChyls3xy n0ulzUm7YpGgNVIkodFb xRsaHAU2b8EgZi00M80m IHdpZHRoPSIyMCUi IEOefJfwoi4abN1qYd4+ AIBnuDQ6zKR5mH9cJzTo ZvT9TAplF454DaPwqUPp RydxS47vR3HeqQW+ XPFdEwf3PRIlwRvjIS3v hEBeTEqaFy7uVOB1LpJh KbXmCGfwV7VaUJXinlwg bfnbzDC0VOTdEUVs hX47Gz9neFqmQx3mCHUr AZH6MCOjwDPaZ8DdvO6i TfVwTVHeZCCoW1DgxVJc RKgnS667PFfwUqS6 JELwyqGpO0DhZGLjxEzz KkK6t6W5Se6JcCcrlQXh SS2iVtNrDAo3J5AhUsy8 ZWUnaQruKQ9ksSMv FStsMn0zkCgmzFlmHB3y AKQijkoez013OsBui9dp EXAheBSrCBekLVS5U66j n6W2UOIlXURlGYG7 eKC8gK9xmZferlxrpHPr dDsgdmVydGljYWwtYWxp C983VVCndAzuZwQNTyl5 I0SxWip6JBZwdEgl TF1fxYNvNFqdUm7yzFwg iDdtPI1jSWRsuhars600 AfLug5iqIBWijPGsMEyc MNQ9K68de1S0RVEr MAWwOHV0pVJ9rY6bwVsy bjogbGVmdDsgdmVydGlj RBqwXYezK516JJTwbJdv Tj3AObn1L3SlKqe8 KJPvnXmoHZ1boMVoWOlf Fd7fuRnszBcqID1eCJDj sqkfv159PnLpm4hlXJRb fOCaXWzxBFX2M48u o5C2WHVaSTMiETB0qXF8 iE6tkOzxhxevlJJvsVpv cxQanPdpMCwmXXshC366 IHRvcDsnPlBheWVy OjwvdGQ+RN88sf47O9Fp LcfdVsn2HILfPVM1oFB4 kL2wTGPaWWatc7Q4tXU3 B6SyucMqpd8kg3eg YXBz (more content not included)... Normal [facility] Estradiolon 06-24-2022 E2 [Mass/Vol] 120.0 pg/mL Invalid Interpretation Code [facility] Comment on above: Result Comment: Adul t Female: Follicular phase 12.5 - 166.0 Ovulation phase 85.8 - 498.0 Luteal phase 43.8 - 211.0 Postmenopausal <6.0 - 54.7 1st trimester 215.0 - >4300.0 [facility] ECLIA methodology Performed at: [facility] [id number] PhD Rick Lee Performed By: #### 2 [id number] #### [facility] [address] [place] [address] Consent for Treatmenton 06-10 Consent for Treatment [id number] #1.00CD:127 Normal [facility] Physician Orderon 06-23-2022 Physician Order [id number] #1.00CD:127 Normal [facility] Physician Order [id number] #1.00CD:127 Normal [facility] Progesteroneon 06-23-2022 Progesterone [Mass/Vol] 25.50 ng/mL Invalid Interpretation Code [facility] Comment on above: Result Comment: REFE RENCE RANGE Males 0.14-2.06 ng/mL Non- Females Follicular 0.10-0.60 ng/mL Luteal 3.00-17.5 ng/mL Midluteal 3.30-18.6 ng/mL Post-Menopausal 0.10-0.40 ng/mL First Trimester 8.30-66.5 ng/mL Second Trimester 18.9-66.1 ng/mL Third Trimester 35.8-312.4 ng/mL Performed By: #### 2 [id number] #### [facility] [place] [address] Coding Summary.on 06-17-2022 Coding Summary. CD:[id number] Gh0bWw+PGhlYWQ+PE1FV TSlI68ogUNauL8NX5eWT B9HYRVLEXEVMN2AGU8yp NP5LOveV9VkrhTg BjpqqTLhLA14IFn0OTC0 gIkuLQhkpE7gxNCnH0v9 OoApJM77aJ50UVpnTHMy ZoG5YdGgrxezwFHb O3dlTqSuaNGlYqk+PHRh YmxlIHdpZHRoPScxMDAl VoRrhZxiLN6pNk4bGHNw LWNvbGxhcHNlOiBj r9nhKZJzDWvoRI0yqKsz M5NwbUA5KRJfh0v4Pq66 dHI+QVNlVCV8qMktBSud l689FiJvt2vcIAD8 lETvIQbmQJU6H03jg6N0 WJMlPJNpHCE1vDZ2hG7p dEsygoehJ9XwbAShSwE7 WJR9tEYgfR0jxTrq brbdkC6gTdi+T25FPZ3X JDPTMQ7HYcv7L7LwSusr dHI+WC60CRYlLS63nKIi iYFxf8enwWu3JuJa ZSCyVDY5vKrlSLllf1Yw JELcT17akIRee8Z5EYFh gSxskXSvDqNnkQQ6aE7g LHaqgdlsu4rctari Ifuen7mxvr96aQ12L18e KRwnWKKhYPE8IJVaDFBb xSunbr7rfH9cHc4+IDxj r6qne9muvWj3PjRo MJNpkuTeuTruQAX4i0Mr Ru31L9IbwKndn5BsPgr1 pz15aTFwb3W9uZH0MBjv CBJbpR6kBDlvMcI4 UBWfPxPllW82vEVvGPas Ld7yuIialCglVX6eGNIw htblFCKzoU2aNFGclGSa nKryIL8fPPLntkgd r709DcQaALV1ZXCwbPRj S6WkrD3yYaPqXSJqZCPg S7PewFXgFXnvM657MBgk HoM5SOYdxfRvG3Wk PMVwmHsyOuX4q7I5Ys5O z2GowqziKRG5FHewOGVv SzJ1LyRuYyW2E5KdMsn6 SRRlvIqdZF9lW1Hc EYLjwixcjgcwgYQ4UVZv PSLvbT20dMLoQOrmBu3x m4H4j590XCPsEIGolD79 Lq7rqGjbELFweSWA lF3mazbuo7wrhftaCuBe BGOvMMd0LHt0SXXtqTac HlIsDCX6VrD3HDG2xTTq tE4aqWimvsoqdH5d Oyc+C75yzD6wUIW2KNK7 ytdqSTPiugFkJD34BO73 R0MkWlzikBMrjBM+PGRp fnWroSebQF1kExOj n2bdk4GtFQccV5KfBJWb TGdhEoo5PIJsGYJ1nLG9 sH4rOWTwMCojx8S5fKT0 B5LfhwWddj4vm0xu LVShXNidU82ymSAuu7A2 YDRymSE3GHFngGfpOtSn kI23Nqu+YUOezNdis0Dx Ibxbe8kdb3azaXl5 IjMwJSIgdmFsaWduPSJ0 t2LuDg14A08jXLgpWWEk YMNsYZIfSTBqmYgdfo0z mY3hKy0+PGNvbCB3 aIZ4fC7eJUCfNtL5DLyo P419QmEmsZYmXntyz7bd j6xprEv7SeVeKTToprRq kKrlNAV1a7CgAa48 K31eNIfdQEQyIWWpDLSm UZKkjMiubn9aoP8rSh6+ PD6ov0vfyg54oC53hJM+ VZCfNDX5kRlyZMfm SCHeaD9nTGprKtG4XKRk IkDiuS94cWBjKCsqWy0q mCtocAzfBA8hYVEqiadw a343JvJwb5rhITMi iRHnVUgyELB5V06ys8Z9 SZHtKPYeYAQ9oUP3wK2s bGlnbjogbGVmdDsgdmVy tKnuVXvxERwtP952 IHRvcDsnPlBhdGllbnQg TgKzQVd2C1DgEkb8VYBq jXlyWO7krUWsAEqvCv9e oAijsLjmEQ9xOATk ayupc903SlImx5ceBCFg yRPwTDirLMB6M48lv5A4 ACGwSGEgQCQ1tZG8cT4q bGlnbjogbGVmdDsg viFbiOmdZZfpMVmtZ632 IHRvcDsnPkJpcnRoIERh tWS7VX08ZD46qICqt0V2 dBF7C1ZsTHNszebi bpwcnBC9JYXbZSHbjR06 Ah3lnEyoQr1dPJZuDTB1 NAMidDSaE9XodN8uCkAo DNZxJAHzX0OfgIAr YKosR600PHcoWbG8MVXk nkRqW3LqUISbuHozLpW0 k2L2Ps2IQ0R8YF16FB26 lIVjs7L8dMJ0C9Jx RAJnibxitmpajSN7WNPe EQWspO07Nq6jfIwhVj4a WANcZOO3KEKjcBZsB9Bb wG3iKhQzNBWgTYJz W5SosLMqDHctB277OYde ZqU8NXZusfHuI6BiNFJe nUkrZsG2b6I9Dj9UGPq9 AI02DP70rKXwq2X5 lCC5L4YzJXAbeqallfxw rVX2UAGdNPXrmE95Ec2f nEieGd5fOCHnVFD3OMHy bEIjA8SqjI1xMpXz DKPiUBYxF1JvtDOwUYmw S689NYtsPiZ7TZVhczWs P0PwOGMinIieZxU2d6U5 Nd9ITHMoQE94AAW1 rND9UU67HP47G4PhWewt dGFibGU+PHRhYmxlIHdp ZHRoPScxMDAlJyBzdHls UO2yBz1xNBDePUKz fFxaqHOkTvKds1yeBZTf HFihOR8naKwyI9HdrAH6 PPZhh8c8Np19I12yH4Zl dXA+YIMjrIZ4eSS3 bB6nYaJhNxZ8KTzfX357 YnByuIOpZhbim0iwk1ta xUj5MaB3KGHoosAwpEfi IWC4m3EbRx94U91s IHdpZHRoPSIxNSUiIHZh eTwncv3xwX0kSl2+PGNv rUW1mKI0mC4bJhCcNsX9 KMrdW592DbLwdGXw Viyuo0lfr6jlcWv6CtFt IOHuuzSnsJqcOGF0y0Qy Tc95E8RjzFelv1JfNwn8 qk12yDNji1V3qKD3 F5UqJTPqzuglgGIabTul CQ7vIDYpulmbCKRuzA6y ODZwT7f1ZbGxTeX4HCgy S1HnxwA4BRDssMEm VGjgJTB1B55xy6G8VASo TNVkRCE3iEF6vN0ltPtb bjogbGVmdDsgdmVydGlj YZjiRUceF169WBMv iKatIMSakF2bGMNhwZAj iMcaAU1uJVQrjkwuTtNN ApHINXXUVYRJYJ2UFB22 F0IfYxe9JYZjqSyx KQ0nqFLnXBxcCm8wgHin kTemZR4qODQkuhenFAPx mM2nSIWahMLmaAzgAH1x YJWlffecj625GcRe PZY9LSFozPGpK7RjfY6p SoYvLKAhZYReJ3ExjUTw EBtbI610GBdyLuG2AAIx euEsJ5QeONJwpOhd DaB3q0R2Ut2kEC1oOy1d CYr6ZB04JZ64eUJey4H5 mOU3O2MgYDCgxphxklnz pIP4UEIpZYBcsK50 eGCwLBruEn1xh1Z3p433 HMQlYGAzuJ50Yf3vxCnt MDIecHWHqY5mepfaf8da cjogIzAwMDAwMDt0 ZBm7VCKufUrmWoImIBG2 AlJ0YPF6kXHwbX3lzWdy gzrkiP4xEfe+MjYgWWVh yiD1A7XlNma8TMGj mOnjXN0kpUOcVHbfTf8b eKdvaMaaZE7lWHFyyuko UDDexV0mLMMtgWCwhYcy OY4tAOIuabzdc517 YsEoYBN8NHFajRVwU1Ti xG0xElUcYTPmLLEsA2Wj rYTuFQugP487ZGanTkM3 RAOnmkVkH4OzTRKx rXywTmI9w8V2Iy5CPN4c sSJ1V9RbQrt1RRBqgAmj LB4luPCuXNyxGc5shUwj cTviLS2jNOUgtjzs FAEhhU2sVBLfdRUwoOpv IJ6sWPOuhvkmv378QfOf KLH8BEBurLEwN2ZcgC8o HbAlRSMsHCJuX9Vp uQByTFdwR096MXvvOhX0 VIIwpcGkK4YoMEDtyZpr HdF9f9L2Wu0NeBBmIDHf CJ94LM71RU07Z6Cv PjwvdGFibGU+PHRhYmxl IHdpZHRoPScxMDAlJyBz qLfvCZ6cHf1rPEOtQISj iEiwnDKaAxDrz8jp TRViWRbiVY2vzZnqC3Zm gSH9LEOsr4b0Vb67P10f O2KqbAX+XEQurNN2tCE9 tT7wFjKhXrS0KTop C863QxJswWHiEjrah3kp w3yqyUy8PtQxJYExhgSp pIsiXGR0a1OzAp06D37a IHdpZHRoPSIyMCUi LHJsbVdusj5qwQ0jZc7+ GQDjvSM6tOJ2lO4kBlEs YaJ7PEotY763YwYcqGXz DbrbX69qR7JjaJV+ BEGgLwd0BXCfkUyhLD9f rWSxIPyqNb3fRST4DpDp HuHyDQyyN6KaCMKkrebo hwpkuEQ1HWOeOHIj vP30Lq0spGnnHb6nLKYx SFN7YFXiuINeH7QjzF5d YxPdTPKiYBGiC9RdsWFq IWmkQ423EJtuZcQ7 LOOfpgPpV6JvDHImiYha FhK6n3O9Jj9IhXpxuWSv RQ9eTpNoWVa2G7CrOdt5 PFDjzHjxOJ1szOYo PWmoZl6bmBxgrLoyGI2s MMWjmwrvf997QrAgs7qk XHZoqEJbFUigNFC0B87w q1B6SWMbLKKaMQG7 tZI3iG9hvSdheuxkhEDg dDsgdmVydGljYWwtYWxp W258LFOnxJciGkEYNtr7 J7QbUzh1GRQyiVkc GH7wxHUyOZwqAp8coYsz aZzjAV8eTKLoxtgip329 JfOev5rlTQMizVWnWTjw QKZ7J34jj9F5ZNKq ZYBfUCS5hCD9nT9oyHvk bjogbGVmdDsgdmVydGlj WHaeIXljK056FLIpoFct Wa7ZEpr9B9KaLyr3 XZJemNueRM0suLZbIImg Uw9bySvfqGqmLE6mXUHk fuurk647NdDfq3vgYTAr hWGyJAfoLKY6M84m x1B7MQLpUXEuRFY5iIM9 iA2cyPvfmluaqGIfmXop etEdpMdkVDfnTVqsZ787 IHRvcDsnPlBheWVy OjwvdGQ+ZL39ol13O6Dx AfbqNks9BSPtZMM2xME4 kJ7aEZMoPCyuu5C6vRD5 F4LkquMbfw9wi6sn YXBz (more content not included)... Normal [facility] Estradiolon 06-12-2022 E2 [Mass/Vol] 182.0 pg/mL Invalid Interpretation Code [facility] Comment on above: Result Comment: Adul t Female: Follicular phase 12.5 - 166.0 Ovulation phase 85.8 - 498.0 Luteal phase 43.8 - 211.0 Postmenopausal <6.0 - 54.7 1st trimester 215.0 - >4300.0 [facility] ECLIA methodology Performed at: [address] [id number] PhD Rick Lee Performed By: #### 2 [id number] #### [facility] [address] [place] [id number] Coding Summary.on 06-11-2022 Coding Summary. CD:[id number] Gh0bWw+PGhlYWQ+PE1FV LVyT39iwZLxfL8UL3oFJ B6NOMNCBFSQIL8SER9fm YE2KWudA1LjxtXz HjsjrJJsBB76MVp8EYR5 yQcrSGfogI1ioWGmF2a0 UdYqWL23rE70MLuiMTVk ThQ0ZcNfzlefkILs H6veYbBhtMKnLje+PHRh YmxlIHdpZHRoPScxMDAl XbZcpTzhUP4bTa7iPGBt LWNvbGxhcHNlOiBj i3waIFXoDTnjPT6igAxn L6CjeHC5FOLgi3a2It30 dHI+WKZxDNO2rBnbDMkc i544RfPah8xmJVV8 hHMsOWxqCBI8B57ej2Y1 LQHaRSNySKN5kOO3tB3w dPifzvekK5YnvVUjFsM3 WNY1aIMasG3ceMip ljmleG2rCpu+R70NRK3K IFJOTV6VFqs8P6XvWyxo dHI+TD42YCMdCD36rZYp qZGgq0hjnAl9LxGs QPBzKKM2wAssFQwqk4Wx QZMaA52ohZKjs4A1HVIq pQtekVPqHxPatXH9wZ3x BJgtvadyg3euanmf Umubp9hzmu86uL95H79a WWgtPFNqQGJ1FHTmNQSi eIvdrn7wsO9fEg7+IDxj d0cty0wnoVr0SvRo FBMldfLlpCgsUFI9t8Fa Gw63S3PgiYadh3CgAih2 ni58tVFnv4A3tYD6QBka CLTacN8gIVkiUqV5 IFMrVtZulL66qEVvRBdd Sc5zwZzwwPxqZY2yKCVw wxbeTWJkhB5lBKKrfALa hJayJU9xHGVszmuv o354RlUgHMG8TEOqmJIh M8CvuY3aQyEiMDEdCHXi F4KpiBLrEKtzM893GEwn DhO5ACFvciGoR3Zh RJXelLqwCkK4i8G0Jj4L p5MjkmhuMGT1LCmkIAAj RrAeYiTwWqX1F5LeOhg2 LKUycGwiQJ1yN2Vw OEUnkgzpcigxxDR2ORMj SUFbeB97mFWyTRgzXg0v r6T1d306BKPqWKCkuX17 Dw9tgBpmVMXcnPUZ iX5utyydy5fhfbtvFtRd CBXdUXi2HDk5GTZhqHet FfFeNQH2KpN0SWE0gXSh lE9fzNvbqutneP6r Oyc+H03ebU0nTJJ2BHA4 oemgZMYuttAuFC14LW41 L5DgBxmivDVmkKO+PGRp ikXwgXdhTG0dOhUd c9byp2HkNKjeH7RyOWLp PNidViw2EAZrCSZ3jDO7 xU9mPOVpIUlsq3G4hOB2 A1JqbcBace7tu4bo UIPsQVfdU83meYGlo5I5 LZLrrBK9MMQjfJdiBkPa kT48Fvx+KVZbbYdbm6Tq Yowpo6qfa3gkqSw2 IjMwJSIgdmFsaWduPSJ0 z7UlLk73Z15nCZpdIIXf PEFzIPNzXRPisXucmd2p iU3jNr5+PGNvbCB3 rUE9sR0pQMWbRdO9EYij X763JqReqJYhKqqlw1em r2endTc1XsYjIEJelxGs hWedJXP4o7UlGb61 S65nXOptMQXhUBKyAHAr WTCyuLsflj0boK1hCu5+ JH0tl1aktr30vI48eJV+ EFTkHNI8fAppTScr UXXosM6uQHdfLdD4QRIu EzUshB31sPNlVOmxWa4t bVzeoHqrDA5cDMNtdtmb y434GqFmd4deFNNr nGWgACeqHXV4I11gw9K5 YMPeGASiTVE9tNW4vX1p bGlnbjogbGVmdDsgdmVy pRheVRfgWGurZ245 IHRvcDsnPlBhdGllbnQg RaZdMFo2I0NeCde6UNQo lXrvBB2apAZoYRffIx5s wPrwvCccTR0bNFMx pvmhb526GhRjk6ixEYOz lMHoWWzrLQH4K62zl6X6 EFDbNKLuYAX2bLD5zM5c bGlnbjogbGVmdDsg biEciTnlQBszOPeyC358 IHRvcDsnPkJpcnRoIERh aVF2QE00ZK52lEBcx9G1 dUJ4Z6DwBNWlzuha dovucEY3ENWsEBPazO46 Mz6gfUvuTn8nRAVpSKY5 DYEajWYfQ3KvoW2bFuCg FCHhUYEkD5PamUJd CHxrO718NJgvCaT2IFUo quPxW7EvMUSmpXghShF3 k6S1Cv4VD4D0ZE91HQ21 eJHun4Q5yFW1N5Hr SHMacjjzsnxcdHB1GHAw TWRpjA16Sy0uxTvvSw5m ZSOjHPA8BFImyMVvZ0Jo jO5yInAeXSIoKTYd J3NfjXSzVBaaV653KAxy YrX3VMAqvbGzT1BzNXIy pUqoViS9c0R1Ci6XTOd4 CX56HL12zBBvy9E7 wEK9L6RePFCmugkzljuv aVD8GTWsGPBqvH49Ao4t mHmlEy7zXCOeHFR8FYKj rUOrB3ZdeT5yAuMo UGUjSEZmN2JwoBQhHAqn G765QXxvOiQ2JFFyzhWu E7AoEWEzgDhdYyG6y6K2 Cc9RKTCzWD88OEF5 sED4MI69MX56E4XwSsfi dGFibGU+PHRhYmxlIHdp ZHRoPScxMDAlJyBzdHls GA7vYc6eEGHnGSBv lXlxoQWrVoEhj1eeHEGi PMegBQ6wbIgoV4BsjMK2 FGFct0d8Rp95W84oK8Yr dXA+NEVjzHY5cLK7 dC9vHtNcJoJ8VXmpO173 LsSnySYiLfnxh6wzr7sq kQz9ZeN1BFVujrJqqUjr VYA3p7SpHw42X83n IHdpZHRoPSIxNSUiIHZh hMjawr3ohC6aOu9+PGNv xEG5gQO2aF0jGaPnTdQ9 THnlH579YwLhqLVw Dlpli9gos7figJu5LzSk UAUqbbHxpVepYTL2d5Gh Nv41X5DgiMckk9LtHbp9 ns48aNVxd1V9oWC1 T3YkSAGofjpqzVHzkCkf JV4oUKZlzrntCORgfD0c XUYdD9i8ErAuZnT3ZMzx L2GbmnT2JYYgzHUm FBugEPX9O18tt9H3LJLv ENYoLAL6dCO6sZ7hcQoi bjogbGVmdDsgdmVydGlj ASbnRIamC556SLOb bTpfSDDudV7iAKXeuPKl eZoaZL0aWUXxgerrTeDD TfTLJQTXSFZNTS8JDT08 O8LlSge2SPTcfUyk KC0miAVaUDhaIb4znSts cPisXZ1wJZCaqbisAPDt mN1aOIJhcSCcfZbjBW3l ANAoyxnyw477XcSv ZMX9UIEymTGiJ3BtxH8k QrXhVDWnMEQmZ9ZfiCTf YQcdU790ANwhTrX5VPRr qgUiN8QtKOWjpLyp CgR8x5L5Cg4zOK2kCf7m NFq7KM15PT50xFVaz7O6 qZC7F1EbJAGfjaxvermd yOB1KYOhOKErcU80 dEPnWOdeOm6wt9B3g977 QCIfBYGicJ24By0jsJdj FGAldECMaY2aaabng9hz cjogIzAwMDAwMDt0 HVp5TDCbqKvyZoGiGGJ2 IvW1KYT4aIYixP1ptMnx elcrgJ6qOkn+MjYgWWVh viO7R5PxQwb0VOWw cZgaHC1vvOJiLWuiQe6m kNqnoUjsIZ0eXRVdxwrd QWYrjE6sZFUnmJBluRyh BJ6zAISfdhmpg911 YoFvKCF2OTQcfCZtG3Xb iA0qPvRqGAOeEXAoK9Ng wVQgPQyaB898PNqmNsB8 WBEoedGxT1RkYCSv eWrmWjU3i5X5Qd3SGB1p pAH0P5AvEee6KKQmxZsj LI3xhMGiYKouPp4wbEux cEbcAQ3qGGTqzjda BIFnfO7xESBkdVPxpQvj NJ4pIVXrqbipt261AyTy THF8VTLsdVRoK3WyjA0e OqOeMXQeTYEmA2Ao gQJlRNpiO587TUxdIrA4 XFMwvkLjF3SyBQUhoQkh UqB0b8G8Ln7VrAJhDWBo CZ83WO69HR04H3Lx PjwvdGFibGU+PHRhYmxl IHdpZHRoPScxMDAlJyBz wTbaJL9qJv3sOGObSTLl wYpkuHXcDlOly6ay SZJnUVrfZL2roFdwY9Lw gOL9AMJyh9i1Xr38X84n V4QjkNC+SKIthWC0cKD5 qU2dMeRsMxL6XTte L553LqKwhSAyOabyl1mp o0atcGk1CaAvGGKeftYd aUwuMNC2g0DcIo36J92t IHdpZHRoPSIyMCUi GWRvqYmixa1lrA4oAr9+ ZKDarOC4fAA7tG8sEcLv YsJ9UDqcO461KnYzoGAb XezfE51xE3SkdVT+ THLzCpa0LSMvfQvzYT3o cEAtIFkyBe7wIHD8YdFe PxLdCKdbV7YlBRJxdycu llbghBT8FZObVFEy qY13Fu7tzMoeTg3nDWWe WTL8WRZlhUTtL4BgiS5v NhCjGIQhURKrX9GysMXb QWksN652TAkyHzA7 FXRsgpYuF3OdOGBbfIkq VmV1f8D5Du9HpRfkoZLd HS4oJhYmNFl8E3BzJtu3 BXQkcZkdFP8peRLn STkiOf3zfHsrvQqcJZ0f EOPkobryh809FqMar0ng CPDwsHCgPIesMIO6U35q j5A4DKCiQWRyPZW4 iFW4gZ8tgCswjjwopTPc dDsgdmVydGljYWwtYWxp H344YSIysWinZlEUMbh5 V0MjBcb8EHYoiYmm JR4qyCBmXLooKu7qfHov yPjvNL5iWEHbvgwhe368 LvHbc9peJFNcrMMoLGlo QEZ9L08ar5P3YUHh BUPjMQT4pFB0qH9nhIxm bjogbGVmdDsgdmVydGlj SUunCXsbG267TUVdcUze Vg6QVev3A6KaCqq2 HPDbkUjhLX9fvJRrKKjm Gh0svVqoaNyyZS1mRRMq hhzrt546OcZjc3ypRAWl uQObSDarWET3G34k z0Z1WXWxHOFkTSH0mQD4 yS1yePqoucarlYOgkOmz jtPhlTamGGenXIveC666 IHRvcDsnPlBheWVy OjwvdGQ+QA10tq33J2Ot OuxyVxs8WPQkQMJ7oQZ8 iO8vNILxWHxnt2E3dGZ2 A3IenjBzag2nd4ol YXBz (more content not included)... [facility] Consent for Treatmenton Consent for Treatment [id number] #1.00CD:127 [facility] Physician Orderon 06-11-2022 Physician Order [id number] #1.00CD:127 [facility] Progesteroneon 06-11-2022 Progesterone [Mass/Vol] 0.20 ng/mL Invalid Interpretation Code [facility] Comment on above: Result Comment: REFE RENCE RANGE Males 0.14-2.06 ng/mL Non- Females Follicular 0.10-0.60 ng/mL Luteal 3.00-17.5 ng/mL Midluteal 3.30-18.6 ng/mL Post-Menopausal 0.10-0.40 ng/mL First Trimester 8.30-66.5 ng/mL Second Trimester 18.9-66.1 ng/mL Third Trimester 35.8-312.4 ng/mL Performed By: #### 2 [id number] #### [facility] [address] [place] [address] US Transvaginal Non-OBon US Transvaginal Non-OB Exam [...] Painting M.D. Transcribed by: DAVID Technologist: ROBERT [facility] Physician Orderon 06-09-2022 Physician Order [id number] #1.00CD:127 [facility] Coding Summary.on 06-06-2022 Coding Summary. CD:[id number] Gh0bWw+PGhlYWQ+PE1FV VWwT46uoQEiqE3IB2iTH W4SVKLVPIWUUE7ZDT4np IB4QLysT1NwjiNw HzndwXChDU99XLt0UWO3 tAvyJVbbtJ8zpEKhO1o3 AiVjEN69nQ47AJciVMIm XrT6YtVvpqehnCHs I5xlGgJafHXxFpc+PHRh YmxlIHdpZHRoPScxMDAl GlOlfYzdNA1sMp1hOCIx LWNvbGxhcHNlOiBj s8eeMVMcSZpeBX1wkJzk M6DloNG8NVOpy6p0Jb80 dHI+PLNuRDS0oTzqVEww f123ObXkw8vuMFS7 qWOoFUunPNF5M71vd1X7 MKGhHNStSYP2pRR9sJ0v tKpfjhziV8JdlIQdExX5 HIM8dOJejS6nnDtw rrrrrS6yOla+K65OKB6S RZSKPE9TTxv1E2OuVkpm dHI+SL50QKYwUX76tPKz kCDiq6ihwJw3HiQr SWJsCRQ4mOnhWSsve1Vx FDOjL61ahZNtw2W0SSFp fGdvpNRmZcSrrGF9bI8e AJedlsznx3raocjp Pvihj0opjd30uE84B06t GTkjOYCfAHL5YMYjYCSj hLnntd3xgV2bNs4+IDxj s6ote6svqCo5FrSi CLStzwYaeErnPXW1r7Xq Tc90L0JukPpsk0SsRqt0 mk24dKXmy1J8nOJ7LUyn HVQeaM8mJOkdUcR6 TZJaIpUzbY33bZYiCQiw Ef2emOfqpZuqKR4mGQUs srrdXYXmbI9wHSKjlWPb jNozSC7jPUIhvzjb n734HjQvYEP2MVQdfBYm J3PtyK1fViKwXWDwZULw N1VoqKIoDRljT315LWwt DlA9HWGuhgGkX9Cx AHKhbQexRhF8g4S6Sm3C a1GzvcgvADY5UHfkLOFg KeJ8YtPeThJ8V2NjXgg3 NKLskEmiWG3zA8Vb ZJRpnvozmscsvMX1PHDt LFGdzO86cXHpGPimAh4n m9L6n361HVNlAVVlnB18 Oi3zxFzeRHIkhSHG aV8edmmja2lnzyjlQhMz XMKkKAb4EXm0ODYbyGqy NfOaLHC9VjT5GJG8nCTa vX4evMyckqgnaN4a Oyc+V39emI8hOZH0EUV7 dpowSKYwvtUrJU79OI05 P4PaDjgoeVLcdGY+PGRp asIdjPvaJE0qXmVm c5hoh8MfVQolP5PaQCUv NMpkNtq4LZImUNU7lXQ0 wI2cGGZnZVeit8G0cMN4 R2PgvqGtvy4gs6jh BSBsCDmnQ56yoJKrq8C2 QKFlvBI1ERPeoHhcPqVo gS86Pjd+LTHgbDerz5Yn Uzoto8num4tbwJx6 IjMwJSIgdmFsaWduPSJ0 c0TxEx45T72yZRvcFLQp DROeYIPvKUGbfNxhxv5p qZ2sIs4+PGNvbCB3 vLH6fV9dHWXvFaA4TVum G670EwIpvYBzKwiem2kn v0qucLr7RsVdAWXmovDs iLgxYQS9m8WzLy58 W18tNNenDLMlYFWiCPDj UCVjoBcpgo6rmD0iOm3+ BH2mx0przo18lZ89tJV+ WVXoPXM3uCmiFGai FKZbxH8nNIilNhU7KQCy QsUucO22vQMvTPxfXg5f aAqbzSrdBD4bQTMovyir a815BwHff5yqFDHh mYHbOOgwILU1H59ke3F0 LOTnTTXxHXO4ePB8pH1k bGlnbjogbGVmdDsgdmVy hTijOEaeCDxzH024 IHRvcDsnPlBhdGllbnQg ZuJnKYx3Z9GsVmc7JFSr mOakOX8guRArIJonGq0v wOwhxUyfZT6jKAYl nkvci814UzAew5vfUNQz hDOaZHbkDFB2D42di3G5 CNSpWLTaXZE9dOF7oP9e bGlnbjogbGVmdDsg ufMfaStsSCciXQefX811 IHRvcDsnPkJpcnRoIERh iCQ6WJ19PA24qUTcl5B4 wZL9Q0AcRYPbzbae rpondQF8FHTvRQVecO99 Lh0wsJfbPe5nXFGrLVL1 NLPuqVDrF3MpcK3bIrWl PKXjCQFqC9VdlNSt YYjfB134TOgsNcG6YAEk lgXwK8YcSMBjgNocNlP4 p5I5Nq5NH9A8QC73OI52 fSGtj0K0rQT3V9Qa EKWuhrhggenxpFF8MRMj XVVpsT94Hy6jhZmlBe8y PUJbIKR0STMxyCBjT0Pc gZ2oHjXjCOQfNIAp H8NfhZNdATvuE246ZHhg NdN4JCHsygUhF8BqAPKp cBurUeU9e2K6Ur4DPKt6 NT36VO37iXUbt6X4 iOR9X5JcTWKmfaafcasv aIG4AEWyIYOfbK74Wb9o dYsjMa6nARHxHOM9AONs bSRrY9SqvJ2xBhAs AWDtFIBhR8RafBBoQOfn Z815BObeWpN5WQDnqeCt M4LcLECqnNtsGyH4c2Y2 Ui6ZXZRiUH90KNL5 wKR8JL87TU99S6OfLuoo dGFibGU+PHRhYmxlIHdp ZHRoPScxMDAlJyBzdHls AP4gRr8sKMZwOUBm iFuatJTrEbDpg3dqQYLd BZjxJG8orUkpF2AnaTE7 SNMna8u3Wc85J17sE0Ud dXA+ZHKdnZF1lMU9 zB8zJtKeHcU1MVpfP091 TxHbfRCnKaguu5uff9ql fEn2LqG6NPCxugJmcYok ECH9r7RlGr62D69z IHdpZHRoPSIxNSUiIHZh eTrhat3whC6sZk3+PGNv rPP3gSC2nE1dFuQqQtL9 CNyqU958LnOdhDOy Jrpcm8mxf8idwOk0FtIs FCFhnmTahMcfWHE3r8Gr Ly05R5ZsgGtyr7ZhTsl1 dt02gUKdj8E2mCT5 C2OnLXIjeenzfZGbzMbk MK1bCYGdiacsVQVspM3y HSIeM9t0RqTcUtW8KJsa O7BusnO2WJBbmIPk RUfdHQQ7Z11dy0B3ZBPf IJNhZOX3nGF2qZ5iuCrd bjogbGVmdDsgdmVydGlj XYkmZOgxS018WYCq cPwkGWZyaM9fJEDehGAw lVojUT9zSBQpewygVcUK QdWMMBEJPIHSDI4AYP88 H2XhTrp3NWGdbIfr VA3lfTJqJHgiAy1hbJmp yHbjFA1nQSFxbpykALQp vR6uEGZyyLAccUjmMT8s EUBtzfcdq849QbVz ZSL3KJMfmRLjO2TufB9w IoCpLGAuHNGcY7OqvFYm CSajD778ABwgNsT5IUXt etHeH8AiAFYcwBzw NaL5d7K8Dv4xZV5jYj4h TJc9EN48TC74bHXvt3X5 zSV3T6VyLPMczxwrossl gLW2ZQCsFMUqpX39 eBBzNLbeBo4fq0N3k113 TFGrOZKgjE07Mt0hwThd QEFwuUQLfE4hbqzph7ik cjogIzAwMDAwMDt0 GMx6IPKaoNffPwRvBVJ1 PjC1NQE2cQKwzC8bbGdw nhomwB9eKpl+MjYgWWVh vtK1C7ObVug5MNYp yCniGI0owYCmMIwiSk9p kLdvdHbxMD8nXZRrhyij DPLbaV4cBLJlgPZraOsy AZ4uLIGpdhcgg272 PeBwMMY9QWKdvIAtA6Np xO9sWmTyXOJaWCQmB9Pb yWTcEVpzS434PYfsDwH9 QIWxpiWpF6UjFTSm mElsFgC7e8T9Ml6PPJ6n nYM8N0UkFnn8MLAqmZcl JR3pyNYrEFjfZj9zlDfh vBjjXT9fGCHplyah ZFQgkR6pUBIfgZLppEyv KH9kFROxwyznp235AmCx VKM9HLYvmPNgZ3GyiG4a UuJrVLXtSXTbK3Zo jFJtEBngJ469VOscQjY2 VGSsgjLoY0ZkQZFxqCan TnN9s4B5Cp9UsMTiWBOi XQ64OJ47ZI88T2Dq PjwvdGFibGU+PHRhYmxl IHdpZHRoPScxMDAlJyBz oDylJE7hCh2mPGAjINWk zQuifNLkJaPqy9vy IKHuNUrsGE7cuDfoI2Pf zZI4WZCky2y5Bq41J95v E5EfkBX+DFSveAW9xJM1 nS4fChCiPqO3BWdq U810HiLmmKFgEumvt6nt v3lzsUz5XlWkNMRjqpKa eGatQDN0n6WrJs05Y72y IHdpZHRoPSIyMCUi JBZebBpjal6zuK0bAf5+ PUTrrMB2fSI6zT2hDwHa UyP0HYlwO099PlNazCNp MmvnL96oZ1CxrJV+ YLCrCnq3DWFvzFskAF9t pXEoFRnvLh5hKYU3IeDi HxXlGKylA5ZnIGNueyiq jvnxcSF3RAUtAKLh tR81Yi2hvCdkUz6oRJZf HSV4BBIeiJSgT3CltS6u SbUuUQDdFTFwL9ZtbLGw TCtzD272NKksWbA8 NFJpdhWkC1ZuGMWyaPta JcW3x5M7Dd3MyToqxSVy SY7uIjOhPWs1I9YpAwj9 LVKaiUmfTN6zzHXw ADmpCd4wuUhipEjjRW4m TPEunglot709WjOfn0iq IDBrvCMjKGliBOU6M54s i4O5ZITpBOReVCX1 yTZ5sV9vzIlxntgcjSIs dDsgdmVydGljYWwtYWxp X217WLOtqBsmHiBZZhx1 G2HnDkr8ALSijBcx HI3vxBKdUMpaRp2rjEqh eGzpEE5sVCLvbqaul341 MaHpj0uqWHWwiOQcTBwg GEE4R52iu1S1XWHj HYNvDHM7qHP9qD5rhVbk bjogbGVmdDsgdmVydGlj RVulNOpmP550JAMjpZte Wb0UZij6B0SgPdh8 YRAxuWvfQD7vlNZqARlw Cb2zjExpaOtyXW0nJDIt ajfzt007RkLfy6dfTTNh pDLaVMvuWUC0J88n q6V6AVJzQEUwEBX6jXB0 uC5zyCigcgjxfQQuiCmw ldItrVagUKjxAAfpU885 IHRvcDsnPlBheWVy OjwvdGQ+PD55sm05E3Ni OqpaBwe7FLYvPEZ4aSR1 mD5uPTKdPVjvx8N9wJX2 Z7PfrzQuaw6ce4hd YXBz (more content not included)... Normal [facility] Estradiolon 06-06-2022 E2 [Mass/Vol] 121.0 pg/mL Invalid Interpretation Code [facility] Comment on above: Result Comment: Adul t Female: Follicular phase 12.5 - 166.0 Ovulation phase 85.8 - 498.0 Luteal phase 43.8 - 211.0 Postmenopausal <6.0 - 54.7 1st trimester 215.0 - >4300.0 Hebert ECLIA methodology Performed at: [facility] [id number] PhD Rick Lee Performed By: #### 2 [id number] #### [facility] [address] [place] [address] Consent for Treatmenton 05-11 Consent for Treatment [id number] #1.00CD:127 Normal [facility] Physician Orderon 06-05-2022 Physician Order [id number]# 1.00CD:127 Normal [facility] Progesteroneon 06-05-2022 Progesterone [Mass/Vol] 0.30 ng/mL Invalid Interpretation Code [facility] Comment on above: Result Comment: REFE RENCE RANGE Males 0.14-2.06 ng/mL Non- Females Follicular 0.10-0.60 ng/mL Luteal 3.00-17.5 ng/mL Midluteal 3.30-18.6 ng/mL Post-Menopausal 0.10-0.40 ng/mL First Trimester 8.30-66.5 ng/mL Second Trimester 18.9-66.1 ng/mL Third Trimester 35.8-312.4 ng/mL Performed By: #### 2 [id number] #### [facility] [address] [place] [address] US Transvaginal Non-OBon US Transvaginal Non-OB Exam Date/Time: 06/05/2022 07:45 EDT Reason for Exam: Z31.89 Encounter for other procreative management Report IMPRESSION: ENDOMETRIUM TRILAMINAR IN APPEARANCE. BILATERAL FOLLICULAR CYSTS, WITH A DOMINANT FOLLICULAR CYST ON THE LEFT. CLINICAL HISTORY: Z31.89 Encounter for other procreative management. COMPARISON: 05/30/2022. [...] Painting M.D. Transcribed by: DAVID Technologist: ROBERT Kurtz [facility] Physician Orderon 06-02-2022 Physician Order [id number] #1.00CD:127 Normal [facility] Estradiolon 05-31-2022 E2 [Mass/Vol] 21.6 pg/mL Invalid Interpretation Code [facility] Comment on above: Result Comment: Adul t Female: Follicular phase 12.5 - 166.0 Ovulation phase 85.8 - 498.0 Luteal phase 43.8 - 211.0 Postmenopausal <6.0 - 54.7 1st trimester 215.0 - >4300.0 Hebert ECLIA methodology Performed at: [facility] [address] [id number] PhD Rick Lee Performed By: #### 2 [id number] #### [facility] [address] [place] [address] Consent for Treatmenton 05-11 Consent for Treatment [id number] #1.00CD:127 Normal [facility] Physician Orderon 05-30-2022 Physician Order [id number] #1.00CD:127 Normal [facility] Physician Order [id number]#1.00CD:127 Normal [facility] Progesteroneon 05-30-2022 Progesterone [Mass/Vol] 0.50 ng/mL Invalid Interpretation Code [facility] Comment on above: Result Comment: REFE RENCE RANGE Males 0.14-2.06 ng/mL Non- Females Follicular 0.10-0.60 ng/mL Luteal 3.00-17.5 ng/mL Midluteal 3.30-18.6 ng/mL Post-Menopausal 0.10-0.40 ng/mL First Trimester 8.30-66.5 ng/mL Second Trimester 18.9-66.1 ng/mL Third Trimester 35.8-312.4 ng/mL Performed By: #### 2 [id number] #### [facility] [address] [place] [address] US Pelvis Non-OB Completeon 05-30-2022 US Pelvis [...] Transabdominal Ultrasound Performed Transvaginal Ultrasound Performed Normal [facility] US Transvaginal Non-OBon US Transvaginal Non-OB Exam Date/Time: 05/30/2022 08:49 EDT Reason for Exam: Z31.89 Report PLEASE REFER TO THE ULTRASOUND PELVIS NON-OB COMPLETE REPORT. FINAL REPORT Dictated: 05/30/2022 11:06 am Darien Painting M.D. Signed (Electronic Signature): 05/30/2022 11:06 am Signed by: Darien Painting M.D. Transcribed by: DAVID Technologist: DARCY Kurtz [facility] Physician Orderon 05-27-2022 Physician Order [id number] #1.00CD:127 Normal [facility] Estradiolon 05-20-2022 Estradiol 242.0 pg/mL Normal . [facility] Comment on above: Order Comment: KATELYNN VILLALOBOS Result Comment: Adul t Female: Follicular phase 12.5 - 166.0 Ovulation phase 85.8 - 498.0 Luteal phase 43.8 - 211.0 Postmenopausal <6.0 - 54.7 1st trimester 215.0 - >4300.0 Hebert ECLIA methodology PERFORMED BY: [place] [address] PATHOLOGIST DRILL GRINDER MARLON LÓPEZ M.D. Performed By: #### E STRADIOL, PROG #### [facility] , Progesteroneon 05-20-2022 Progesterone 15.8 ng/mL Normal . [facility] Comment on above: Order Comment: KATELYNN VILLALOBOS Result Comment: Foll icular phase 0.1 - 0.9 Luteal phase 1.8 - 23.9 Ovulation phase 0.1 - 12.0 First trimester 11.0 - 44.3 Second trimester 25.4 - 83.3 Third trimester 58.7 - 214.0 Postmenopausal 0.0 - 0.1 Performed at: [facility] [id number] Brim Molder: Jesus Cabrera PhD, Phone: [phone] Performed By: #### E STRADIOL, PROG #### [facility] , US pelvic completeon US pelvic complete [facility] [place] [id number] Ultrasound Report Signed Patient: Kae Vigil MR#: [id number] : 1995 Acct:[id number] Age/Sex: 27 / F ADM Date: 05/20/22 Loc: UL Room: Type: [facility] Attending Dr: Kanu Mcghee MD Ordering Provider: NON STAFF Date of Service: 05/20/22 US/US transvaginal: Z31.89 ([id number]) US/US pelvic complete: Z31.89 Copies to: NON [...] Kaur Jr., D.O.05/20/2022 10:55 AM Dictation Location: [place] [address] Tech: Tonja Pozo Transcribed By: [facility] 05/20/22 1055 Dictated By: Angel Kaur Jr, DO 05/20/22 1045 Signed By: 05/20/22 1055 [facility] PAP ACOG PANEL 2: 21 to 29on 11-15-2021 . . Normal [facility] Comment on above: Performed By: #### 4 [id number] #### [facility] [address] [place] [address] Dr. Maris Jimenez Gdln ACOG Testing 21-29 Normal [facility] Comment on above: Performed By: #### 4 [id number] #### [facility] [address] [place] [address] Dr. Maris Holland DIAGNOSIS: Comment Normal [facility] Comment on above: Result Comment: NEGA TIVE FOR INTRAEPITHELIAL LESION OR MALIGNANCY. Performed By: #### 4 [id number] #### [facility] [address] [place] [address] Dr. Maris Holland Methodology: Comment Normal [facility] Comment on above: Result Comment: This liquid based ThinPrep(R) pap test was screened with the use of an image guided system. Performed By: #### 4 [id number] #### [facility] [address] [place] [address] Dr. Maris Holland Note: Comment Normal [facility] Comment on above: Result Comment: The Pap smear is a screening test designed to aid in the detection of premalignant and malignant conditions of the uterine cervix. It is not a diagnostic procedure and should not be used as the sole means of detecting cervical cancer. Both false-positive and false-negative reports do occur. . Performed By: #### 4 [id number] #### [facility] [address] [place] [address] Dr. Maris Holland Performed by: Comment Normal [facility] Comment on above: Result Comment: Fernando [employer] Professor (ASCP) Performed By: #### 4 [id number] #### [facility] [address] [place] [address] Dr. Maris Holland Reflex Criteria: Comment Normal [facility] Comment on above: Result Comment: The HPV DNA reflex criteria were not met with this specimen result therefore, no HPV testing was performed. . Performed By: #### 4 [id number] #### [facility] [address] [place] [address] Dr. Maris Holland Specimen adequacy: Comment Normal [facility] Comment on above: Result Comment: Sati sfactory for evaluation. Endocervical and/or squamous metaplastic cells (endocervical component) are present. Performed By: #### 4 [id number] #### [facility] [address] [place] [address] Dr. Maris Holland Encounters Encounter Date Encounter Type Care Provider Facility Start: 02-23-2023 End: 02-23-2023 Evaluation and management of inpatient Cyrus Osborne Facility:[facility] Start: 02-17-2023 End: 02-18-2023 ambulatory Cyrus Osborne Facility:[facility] Start: 11-25-2022 End: 11-26-2022 ambulatory Cyrus Osborne Facility:[facility] Start: 07-28-2022 End: 07-30-2022 ambulatory KANU MCGHEE Facility:[facility] Start: 07-18-2022 End: 07-19-2022 ambulatory MD KANU MCGHEE Facility:[facility] Start: 07-09-2022 End: 07-10-2022 ambulatory MD KANU MCGHEE Facility:[facility] Start: 07-09-2022 End: 07-10-2022 ambulatory HERSON VILLALOBOS Facility:[facility] Start: 07-02-2022 End: 07-03-2022 ambulatory MD KANU MCGHEE Facility:[facility] Start: 06-30-2022 End: 07-01-2022 ambulatory KANU MCGHEE Facility:[facility] Start: 06-23-2022 End: 06-24-2022 ambulatory KANU MCGHEE Facility:[facility] Start: 06-11-2022 End: 06-12-2022 ambulatory MD KANU MCGHEE Facility:[facility] Start: 06-05-2022 End: 06-06-2022 ambulatory MD KANU MCGHEE Facility:[facility] Start: 05-30-2022 End: 05-31-2022 ambulatory MD KANU MCGHEE Facility:[facility] Start: 05-20-2022 End: 05-20-2022 ambulatory Servando Crouch Facility:[facility] Start: 05-20-2022 End: 05-20-2022 ambulatory MD Servando Crouch Work Phone: [facility] Work Phone: Start: 05-20-2022 End: 05-20-2022 Patient encounter procedure MD Servnado Crouch Work Phone: [facility] [place] Start: 10-29-2021 End: 10-29-[address] [facility] Facility:[facility] Procedures Date Procedure Procedure Detail Performing Clinician Start: 05-20-2022 Pelvic echography MD Shiv Crouch Work Phone: Start: 05-20-2022 Transvaginal echography MD Servando Crouch Work Phone: Plan of Treatment Date Care Activity Detail Author Estradiol (E2) [Mass /volume] in Serum or Plasma [facility] Work Phone: Progesterone [Mass/v olume] in Serum or Plasma [facility] Work Phone: Payers Date Payer Category Payer Self-pay 2021 Unknown [id number] 1996 Unknown [id number] 2.16.84 0.1.116849.3.579.2.593 1996 Unknown [id number] 2.16.8 40.1.374423.3.579.2.727 1996 Unknown [id number] 2.16.8 40.1.710148.3.579.2.727 1996 Unknown [id number] 2.16.8 40.1.098838.3.579.2.727 1996 Unknown [id number] 2.16.8 40.1.877041.3.579.2.727 1996 Unknown [id number] 2.16.8 40.1.738328.3.579.2.727 1996 Unknown [id number] 2.16.8 40.1.566419.3.579.2.727 1996 Unknown [id number] 2.16.8 40.1.853491.3.579.2.727 1996 Unknown [id number] 2.16.8 40.1.849912.3.579.2.727 1996 Unknown [id number] 2.16.8 40.1.760809.3.579.2.727 1996 Unknown [id number] 2.16.8 40.1.553938.3.579.2.727 1996 Unknown [id number] 2.16.8 40.1.327384.3.579.2.727 1996 Unknown [id number] 2.16.8 40.1.221324.3.579.2.727 1996 Unknown [id number] 2.16.8 40.1.879446.3.579.2.727 1996 Unknown [id number] 2.16.8 40.1.443903.3.579.2.727 1959 Unknown [id number] 1959 Unknown [id number] Unknown [id number] 2.16.8 40.1.602939.3.579.2.531 Social History Date Type Detail Facility Tobacco smoking stat [facility] Unknown if ever smoked [facility] Work Phone: Start: 1995 Sex Assigned At Female F [facility] Discharge summary note 03-05-2023 Note Date [...] Course: Without complications. Mindy Davidson Dictated: 03/04/2023 [id number] Transcribed: 03/04/2023 [facility] Comment on above: Result Comment: Elec [...] details. Cyrus Osborne M.D. lr Dictated: 02/23/2023 [id number] Transcribed: 02/23/2023 [facility] Comment on above: Result Comment: Elec tronically Signed By: [place] SANTANA, Cyrus Gudino\.br\Date and Time Signed: 02/25/23 08:36 EDT Clinical Note 02-23-2023 Note Date & Type Note Facility 02-23-2023 Note The following Patien t Education Materials have been given to the patient: EducationMaterial [facility] Evaluation note Note Date & Type Note Facility Evaluation note No assessment information availa [facility] Work Phone: Summary Purpose Family History [...] and content) DATE CREATED AUTHOR 03/14/2022 [facility] DATE CREATED AUTHOR AUTHOR'S ORGANIZ ATION 06/17/2022 [facility] DATE CREATED AUTHOR AUTHOR'S ORGANIZ ATION 04/14/2023 [facility] Care Teams (unrecognized sec tion [...] BE BASED ON THE PRIMARY CLINICAL RECORDS. [facility] [employer] [facility]. provides no warranty or guarantee of the accuracy or completeness of information in this document.
== END 2023-12-30 15:56 | disposition home or self-care (01) ==
LOC: LAB 15:58
DX: Z01.89 Encounter for other specified special examinations (principal)
CPT/HCPCS: 36415; 85025